=== PATIENT | female | born 1960 | race Caucasian/White ===

== ENCOUNTER 2020-11-15 16:43 | Outpatient (CLI) | payer BC, SELFPAY ==
--- NOTE | ~2020-11-15 | US_ITS ---
EXAMINATION: US venous doppler [facility] EXAM DATE: 11/15/2020 17:39 INDICATION: Left leg pain/not. On Plavix. TECHNIQUE: Multiple grayscale, color flow and Doppler images of the left lower extremity deep venous system were obtained and reviewed. There is no prior study for comparison. FINDINGS: The left common femoral, femoral and profunda veins demonstrate normal color flow, respirat ory variation, augmentation and compressibility. Compressibility, color flow confirmed within the le ft popliteal, posterior tibial, peroneal, and greater saphenous veins. Patient has an area of concern left thigh posterolaterally, and deep to this within the subcutaneous fat is a focal nonspecific hyperechoic region measuring about 1.6 x 1.4 x 0.6 cm which was avascular, could be fat necrosis or hematoma. IMPRESSION: 1. No left lower extremity deep venous thrombosis. 2. Small focal nonspecific region at area of concern, probably not clinically significant but if thi s does not resolve clinically then recommend follow-up ultrasound. Reviewed, dictated and finalized at location A. IMPRESSION: 1. No left lower extremity deep venous thrombosis. 2. Small focal nonspecific region at area of concern, probably not clinically significant but if this does not resolve clinically then recommend follow-up ul
== END 2020-11-15 16:44 | disposition home or self-care (01) ==
LOC: ANHIMG 16:50
PROVIDERS: PCP Internal Medicine; Visit Provider Internal Medicine Cardiovascular Disease
DX: M79.605 Pain in left leg (principal); R22.42 Localized swelling, mass and lump, left lower limb
CPT/HCPCS: 93971

== ENCOUNTER → 2021-01-31 09:29 | Outpatient (CLI) | payer BC, SELFPAY ==
--- NOTE | ~2021-01-31 | XR_ITS ---
EXAMINATION: XR thoracic spine 2V DATE: 01/31/2021 10:06 INDICATION: Rheumatoid arthritis, unspecified TECHNIQUE: AP, lateral and lateral swimmer's views of the thoracic spine were obtained. COMPARISON: 03/01/2015 FINDINGS: Bone alignment is normal. There is no fracture. There is unchanged mild loss of interverteb ral disc space height at multiple levels in the thoracic spine. Small degenerative osteophytes projec t from the anterior endplates of multiple vertebral bodies. Median sternotomy wires and mediastinal s urgical clips are seen, likely from prior coronary artery bypass grafting. A dual-lead cardiac pacema ker of the left chest wall ends with leads in expected locations. IMPRESSION: 1. Moderate thoracic spondylosis without acute findings or significant interval change. Reviewed, dictated and finalized at location A.
--- NOTE | ~2021-01-31 | XR_ITS ---
EXAMINATION: XR lumbar spine 2-3V DATE: 01/31/2021 10:06 INDICATION: Rheumatoid arthritis, unspecified TECHNIQUE: Anteroposterior and lateral views of the lumbar spine, and cone-down lateral view of the l umbosacral junction were obtained. COMPARISON: None. FINDINGS: Lumbar levocurvature is noted. There is no fracture. There are 3 mm of retrolisthesis of L5 on S1. There is severe loss of intervertebral disc space height at L5-S1. Mild loss of intervertebra l disc space height is seen throughout the remainder of the lumbar spine. Small degenerative osteophy marcus project from the anterior endplates of multiple vertebral bodies. Calcified atherosclerosis is no nimo. There is moderate to severe facet osteoarthritis of the lower lumbar spine. IMPRESSION: 1. Severe lumbar spondylosis at L5-S1 without acute findings. Mild spondylosis of the remaining lumba r spine. Reviewed, dictated and finalized at location A. IMPRESSION: 1. Severe lumbar spondylosis at L5-S1 without acute findings. Mild spondylosis of the remaining lumbar spine.
== END ==
PROVIDERS: PCP Internal Medicine
DX: M06.9 Rheumatoid arthritis, unspecified (principal); M47.816 Spondylosis without myelopathy or radiculopathy, lumbar region; M47.814 Spondylosis without myelopathy or radiculopathy, thoracic region
CPT/HCPCS: 72070; 72100

== ENCOUNTER → 2021-01-31 09:31 | Outpatient (CLI) | payer BC, SELFPAY ==
--- NOTE | ~2021-01-31 | DEXA_ITS ---
Bone Density Report Name: Kate Obrien Age: 60 Sex: Female Ethnicity: White Date of : 1960 Indication: postmenopausal; screening for osteoporosis; height loss; inflammatory bowel disease; history of glucocorticoids; hysterectomy; rheumatoid arthritis; Referring Provider: AMINATA BOONE Study: Bone densitometry was performed. Exam Date: January 31, 2021 Accession number: [id number] Bone Density: Region BMD T-score Z-score Classification AP Spine (L1-L4) 1.179 1.2 2.8 Normal Femoral Neck (Left) 0.807 -0.4 1.0 Normal Total Hip (Left) 0.966 0.2 1.3 Normal Femoral Neck (Right) 0.835 -0.1 1.3 Normal Total Hip (Right) 0.945 0.0 1.1 Normal Total Hip Mean 0.956 0.1 1.2 Normal World Health Organization criteria for BMD impression classify patients as: Normal (T-score at or above -1.0), Osteopenia (T-score between -1.0 and -2.5), or Osteoporosis (T-score at or below -2.5). 10-year Fracture Risk: FRAX not reported because: All T-scores for Spine Total, Hip Total, Femoral Neck at or above -1.0 Clinical Information Provided by Patient: Has taken Glucocorticoids Has rheumatoid arthritis Has used the following medications: Vitamin D, Calcium, PREDNEZONE Has the following medical conditions: Inflammatory bowel diseases, Hysterectomy, COLITIS Patient maximum height was 69 Menopause Age: 47 Onset of menses at age 10 Number of children 1 Missed period for more than 6 months in a row Impression: The patient has normal bone mass. The patient has risk factors, including: history of glucocorticoid therapy. Discussion: BONE DENSITY IS ABOVE THE MINIMUM DESIRABLE LEVEL AT ALL SKELETAL SITES TESTED. This patient?s bone mineral density is above the minimum desirable level (T-score -1.0 or better) at all sites measured. The patient should follow a healthful lifestyle (good nutrition with adequate calcium and vitamin D, and appropriate weight-bearing exercise). Follow-Up: Consider repeating this study in 5 years or sooner if there is some new clinical indication. Reported by: BRUNO on 01/31/2021 9:51:00 AM. Reviewed, dictated and finalized at location [facility]
== END ==
PROVIDERS: PCP Internal Medicine; Visit Provider Internal Medicine
DX: Z78.0 Asymptomatic menopausal state (principal)
CPT/HCPCS: 77080

== ENCOUNTER → 2021-06-07 09:27 | Outpatient (CLI) | payer MEDICARE, SELFPAY ==
[2021-06-07 19:53] LABS: SARS-CoV-2 RNA PCR Negative
== END ==
PROVIDERS: PCP Internal Medicine; Visit Provider Internal Medicine
DX: R09.89 Other specified symptoms and signs involving the circulatory and respiratory systems (principal); Z20.822 Contact with and (suspected) exposure to COVID-19
CPT/HCPCS: C9803; U0003; U0005

== ENCOUNTER → 2022-08-09 10:34 | Outpatient (CLI) | payer MEDICARE, SELFPAY ==
--- NOTE | ~2022-08-09 | CT_ITS ---
CT Scan of the Chest without Contrast: Clinical Indication: Smoking history, lung cancer screening, personal history of tobacco dependence Technique: Contiguous sections were acquired throughout the chest without intravenous contrast. Dose reduction technique was used on this scan by utilizing automated exposure control and iterative recon struction technique. The dose-length product (DLP) was 64.33 mGy-cm. Findings: There is no evidence of any significant mediastinal, hilar or axillary lymphadenopathy. There is evid ence of prior CABG, with pacemaker device. There is no evidence of pleural or pericardial effusion. 3 mm right lower lobe pulmonary nodule noted (axial image 83). Moderate to advanced emphysema noted. Images through the upper abdomen reveal no abnormalities. Impression: Lung-RADS 2: Benign appearance. 12 month follow-up screening CT advised. Moderate to advanced emphysema. Reviewed, dictated and finalized at location . Impression: Lung-RADS 2: Benign appearance. 12 month follow-up screening CT advised. Moderate to advanced emphysema.
--- NOTE | ~2022-08-09 | MM_ITS ---
EXAMINATION: MM screening phuc BI w angelic HISTORY: Screening TECHNIQUE: Craniocaudal and mediolateral oblique 3-D tomosynthesis images were obtained and synthetic 2-D images were generated. CAD analysis was submitted and interpreted. COMPARISON: No prior mammogram is available for comparison at this institution. BREAST PARENCHYMAL COMPOSITION: The breasts are heterogeneously dense, which may obscure small masses . FINDINGS: There are benign bilateral breast calcifications. There is no evidence of suspicious mass, calcification, or architectural distortion to suggest malignancy in either breast. There has been no suspicious interval change. IMPRESSION: 1. No mammographic evidence of malignancy. 2. Recommend routine screening mammography in one year. BI-RADS Category 2: Benign finding(s). Reviewed, dictated and finalized at location A.
== END ==
PROVIDERS: PCP Family Medicine; Visit Provider Family Medicine
DX: Z12.31 Encounter for screening mammogram for malignant neoplasm of breast (principal); Z12.2 Encounter for screening for malignant neoplasm of respiratory organs; Z87.891 Personal history of nicotine dependence; J43.9 Emphysema, unspecified
CPT/HCPCS: 71271; 77063; 77067

== ENCOUNTER 2022-11-24 06:37 | Emergency (ER) | payer MEDICARE, SELFPAY ==
--- NOTE | ~2022-11-24 | XR_ITS ---
EXAMINATION: XR hand LT min 3V DATE: 11/24/2022 08:15 INDICATION: Left hand pain. Fall. TECHNIQUE: 3 views of left hand were obtained. COMPARISON: Left hand radiographs 06/03/2013 FINDINGS: Bone alignment is normal. No fracture. There is an implant at second metacarpophalangeal galileo int. There are erosions at the radial aspects of the heads of third, fourth, and fifth proximal phala nges. There is an erosion of head of fourth middle phalanx. There is moderate osteoarthritis of fourt h proximal interphalangeal joint. IMPRESSION: 1. No fracture. 2. Implant at second metacarpophalangeal joint. 3. Polyarticular inflammatory arthritis. The differential diagnosis includes rheumatoid arthritis and psoriatic arthritis. Reviewed, dictated and finalized at location A. IMPRESSION: 1. No fracture. 2. Implant at second metacarpophalangeal joint. 3. Polyarticular inflammatory arthritis. The differential diagnosis includes rh eumatoid arthritis and psoriatic arthritis.
--- NOTE | ~2022-11-24 | XR_ITS ---
EXAMINATION: XR wrist LT min 3V DATE: 11/24/2022 08:15 INDICATION: Left wrist pain TECHNIQUE: Three views of the left wrist were obtained. COMPARISON: 06/03/2013 FINDINGS: Bone alignment is normal. There is no fracture. The soft tissues are unremarkable. IMPRESSION: 1. No acute osseous abnormality. Reviewed, dictated and finalized at location A.
--- NOTE | ~2022-11-24 | XR_ITS ---
EXAMINATION: XR elbow LT min 3V DATE: 11/24/2022 08:15 INDICATION: Left elbow pain, initial encounter TECHNIQUE: Three views of the left elbow were obtained. COMPARISON: None. FINDINGS: There is an acute, traumatic, closed, transverse neck fracture of the proximal radius. Ther e are approximately 2 mm of medial displacement of the distal fracture fragment. An elbow joint effus ion is present. No additional fracture is identified. IMPRESSION: 1. Acute radial neck fracture. Reviewed, dictated and finalized at location A.
[2022-11-24 06:38] VITALS: BP 109/70; PULSE 77; RESP 16; TEMP 35.7; O2SAT 100
[2022-11-24 07:10] VITALS: BP 104/82; PULSE 80; RESP 18; TEMP 36.7; O2SAT 100
--- NOTE | 2022-11-24 07:41 | ED.UPPEXIN ---
HPI - Extremity Injury (Upper) General Chief Complaint: Extremity Injury, Upper Stated Complaint: fall, left arm pain Time Seen by Provider: 11/24/22 07:39 Source: patient Mode of arrival: ambulatory Limitations: no limitations History of Present Illness HPI narrative: Patient tripped and fell yesterday afternoon, landed on the left hand wrist and elbow. She denies other injuries. She drove herself to the emergency room this morning. Related Data Home Medications Medication Instructions Recorded Confirmed atorvastatin 40 mg tablet 40 mg PO DAILY 09/14/20 11/23/20 brimonidine 0.2 %-timolol 0.5 % 1 drp EACH EYE Q12H 09/14/20 11/23/20 eye drops (Combigan) carvedilol 6.25 mg tablet 6.25 mg PO Q12H 09/14/20 11/23/20 citalopram 20 mg tablet 20 mg PO DAILY 09/14/20 11/23/20 furosemide 20 mg tablet 20 mg PO .COMPLEX 09/14/20 11/23/20 aspirin 81 mg tablet,delayed 81 mg PO DAILY 09/16/20 11/23/20 release (Adult Aspirin Regimen) clopidogrel 75 mg tablet 75 mg PO DAILY 09/16/20 11/23/20 diclofenac sodium 1 % topical gel 4 g topical QID 09/16/20 11/23/20 isosorbide mononitrate 30 mg 30 mg PO DAILY 09/16/20 11/23/20 tablet,extended release 24 hr prednisone 5 mg tablet 7.5 mg PO DAILY 09/16/20 11/23/20 folic acid 1 mg tablet 2 mg PO DAILY 05/26/22 methotrexate sodium 2.5 mg tablet 12.5 mg PO WEEKLY 05/26/22 Allergies Allergy/AdvReac Type Severity Reaction Status Date / Time acetaminophen Allergy Mild ITCH Verified 11/24/22 06:37 inositol Allergy Unknown Unknown Verified 11/24/22 06:37 niacin Allergy Unknown Unknown Verified 11/24/22 06:37 niacinamide Allergy Unknown Unknown Verified 11/24/22 06:37 Sulfa (Sulfonamide Allergy Unknown Unknown Verified 11/24/22 06:37 Antibiotics) HYDROCODONE BIT Allergy Mild ITCH Uncoded 11/24/22 06:37 Review of Systems Review of Systems: All systems reviewed & are unremarkable except as noted in HPI and below PMFSH Past Medical History Medical History Acute nasopharyngitis (common cold) Acute pharyngitis, unspecified (04/25/17) Anxiety disorder, unspecified Cardiomyopathy Herpes zoster without complication Obstructive sleep apnea Old myocardial infarction Rheumatoid arthritis, unspecified Rhinitis, nonallergic Right rotator cuff tendonitis Sleep apnea, unspecified Spondylolysis of lumbosacral region Unspecified glaucoma Upper respiratory infection, acute Warfarin anticoagulation Family History Family History Mother Family history of arthritis Family history of heart disease in male family member before age 55 Father Family history of type 2 diabetes mellitus Family history of heart disease in male family member before age 55 Social History Social History Smoking status: Former smoker Smoking end date: 05/21/12 Alcohol intake: current Substance use: never Substance use type: does not use Lack of Transportation: No Lack of Food: Never True Current Housing: I Have Housing Concerned About Future Housing: No Difficulty Paying Gas/Electric Bills: No Difficulty Paying for Meds: No Currently Unemployed: No Education: High School Diploma/GED Difficulty w/ Childcare or Family Care: No Gender identity (if verbalized by the patient): Female Spiritual care concerns: No Exam Narrative: General appearance: Well-developed, well-nourished Skin: Normal color Head: Normocephalic, nontraumatic Eyes: Clear conjunctiva ENT: Oropharynx normal, ears normal, nose normal Neck: Supple, nontender Chest and respiratory: Airway patent, no respiratory distress, no accessory muscle use Heart: Regular rate/rhythm Abdomen: Soft, nontender, no organomegaly, quiet bowel sounds Vascular: Normal peripheral pulses, normal capillary refill. Musculoskeletal: Diffuse tenderness left hand, left wrist and left elbow, w
[2022-11-24 09:29] VITALS: BP 140/78; PULSE 68; RESP 18; O2SAT 97
== END 2022-11-24 09:30 | disposition home or self-care (01) ==
PROVIDERS: Emergency Provider Emergency Medicine; PCP Family Medicine
DX: S52.132A Displaced fracture of neck of left radius, initial encounter for closed fracture (principal); I25.2 Old myocardial infarction; G47.33 Obstructive sleep apnea (adult) (pediatric); I42.9 Cardiomyopathy, unspecified; M06.9 Rheumatoid arthritis, unspecified; H40.9 Unspecified glaucoma; F41.9 Anxiety disorder, unspecified; Z87.891 Personal history of nicotine dependence; Z79.82 Long term (current) use of aspirin; W01.0XXA Fall on same level from slipping, tripping and stumbling without subsequent striking against object, initial encounter
CPT/HCPCS: 73080; 73110; 73130; 99284; A4565

== ENCOUNTER 2024-03-19 15:12 | Outpatient (CLI) | payer MEDICARE, SELFPAY ==
--- NOTE | ~2024-03-19 | MM_ITS ---
EXAMINATION: MM screening phuc BI w angelic HISTORY: Screening mammogram TECHNIQUE: Craniocaudal and mediolateral oblique 3-D tomosynthesis images were obtained and synthetic 2-D images were generated. CAD analysis was submitted and interpreted. COMPARISON: 08/09/2022 BREAST PARENCHYMAL COMPOSITION:Dense: The breasts are heterogeneously dense, which may obscure small masses. FINDINGS: No suspicious mass, calcification, or architectural distortion are identified in either kate ast to suggest malignancy. There has been no suspicious interval change. IMPRESSION: No mammographic evidence of malignancy. Recommend routine screening mammography in one year. BI-RADS Category 1: Negative Reviewed, dictated and finalized at location .
== END 2024-03-19 15:13 | disposition home or self-care (01) ==
PROVIDERS: PCP Family Medicine; Visit Provider Family Medicine
DX: Z12.31 Encounter for screening mammogram for malignant neoplasm of breast (principal)
CPT/HCPCS: 77063; 77067

== ENCOUNTER 2024-08-14 00:21 | Day surgery (SDC) | payer MEDICARE, SELFPAY ==
[2024-07-01 14:19] VITALS: BMI 24.0
--- NOTE | 2024-07-01 14:46 | PC.NURSE ---
Spoke with PATIENT regarding medication PLAVIX. PATIENT verbalizes understanding that the last dose is to be taken on 07/01/2024 and the Endoscopist will instruct them when to restart after the procedure.
[2024-08-05 13:51] VITALS: BMI 23.8
--- NOTE | 2024-08-05 14:01 | SUR.PREOP ---
Spoke with patient. No changes to medical history or medications and verified new date and time for her procedure. Last dose of plavix will be 08/06/[address] Gonzalez will let her know when to restart.
--- OUTSIDE RECORDS SUMMARY | 2024-08-14 00:25 | XMS_ITS | Continuity of Care Document ---
Author Organization [facility] Address [address] [place] [address] Phone Care Team Providers Care Supervisor Fur Dressing Name Role Phone Elio Canela Unavailable Unavailable Procedures Procedure Date Office/outpatient Visit, Est Visual Field Examination(s) Eye Exam & Treatment Refraction Office/outpatient Visit, Est Fundus Photography W/ Report Visual Field Examination(s) Office/outpatient Visit, Est Eye Exam Established Pt Advance Directives Directive Yes / No Effective Date File Name No Information Encounters Encounter Description Practice Location Reason(s) For Visit Diagnoses Date Provider Providers Copied on Encounter Office/outpat ient Visit, Est [facility], [address] [place] [address] [address], [place], [place], [id number], tel:[phone] [facility] No Information [phone] 0 Hilton Ballard. [address] [facility] [address] , [address], [place], [address], [place]. tel:[phone] [facility], [address] [place] [address] [address], [place], [place], [id number], [place] tel:[phone] SEC [facility] No Information 4-201 0 Hilton Ballard. [address] , [address], [place], [address], [place]. tel:[phone] Referring Provider: Elio Gil, [address], [place], [place], [facility]. tel:[phone] [facility], [address] [place] [address] [address], [place], [place], [id number], tel:[phone] [facility] No Information 1 3200 9 Hilton Ballard. [facility] [address], [address], [place], [place], [facility], . tel:[phone] Office/outpat ient Visit, [facility], [address] [place] [address] [address], [place], [place], [id number], tel:[phone] [facility] No Information 1 1200 9 Hilton Ballard. [facility] [address], [place], [place], [facility], . tel:[phone] Referring Provider: Jair Dobbins [facility] [address], [place], [place], [facility]. tel:[phone] [facility], [address] [place] [address] [address], [place], [place], [id number], tel:[phone] [facility] No Information 0 [phone] 8 Hilton Ballard. [facility] [address], [place], [facility], . tel:[phone] Referring Provider: Jair Dobbins [address], [place], [facility]. tel:[phone] Office/outpat ient Visit, [facility], [address] [place] [address] [address], [place], [place], [id number], tel:[phone] [facility] No Information 0 [phone] 8 Hilton Ballard. [facility] [address], [place], [address], [place]. tel:[phone] [facility], [address], [place], [place], [id number], [place] tel:[phone] SEC [facility] No Information Mar-0 5-200 7 Tarunkiersten Elio. [address], [address], [place], [address], [place]. tel:[phone] Family History Family Member Type Diagnosis Age At Onset No Information Payers Payer name Insurance type Covered alliance party ID Authoriza tion(s) No Information Social History Type Description Quantity Date Captured Comments Sex Female Smoking Status No Information Chief Complaint And Reason For Visit No Information Reason For Referral Reason For Referral No Information History Of Present Illness Encounter Date Complaint History Of Prese nt Illness No Information Functional Status Date Functional Assessmen t No Information Instructions Date Instruction Additional Infor mation No Information Assessments Type Assessment Date No Information Patient Care Teams Name Effective Dates (start - stop) Status Members No Information
--- OUTSIDE RECORDS SUMMARY | 2024-08-14 00:26 | XMS_ITS | Referral Summary ---
Author Organization 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); Dry eye syndrome of both eyes; Age-related nuclear cataract of both eyes; Pseudophakia of both eyes 06/12/2024 11:20 AM EMBEDDED SYSTEMS DESIGNER Imaging Exam [facility] [address] [address] Macular RPE mottling; Borderline steroid-induced glaucoma of both eyes from Last 3 Months Allergies Active Allergy Reactions Criticality Noted Date Comments Codeine Itching Low 07/11/2018 Hydrocodone-Acetaminophen Itching High 06/03/2015 Niacin Itching Medium Simvastatin Muscle pain Medium Sulfa (Sulfonamide Antibiotics) Nausea & Vomiting High 06/03/2015 Sulfadiazine Stomach upset High 06/03/2015 Medications clopidogrel (PLAVIX) 75 mg tabletIndication s:Thrombosis Prevention after PCI Take 1 tablet (75 mg total) by mouth every morning Active atorvastatin (LIPITOR) 40 mg tablet Take 1 tablet (40 mg total) by mouth daily 90 tablet 3 9 Active carvedilol (COREG) 6.25 mg tablet TAKE 1 TABLET BY MOUTH TWICE A DAY 180 tablet 2 9 Active isosorbide mononitrate ER (IMDUR) 30 mg 24 hr tabletIndication s:prevention of anginal pain in coronary artery disease Take 1 tablet (30 mg total) by mouth every morning 0 Active furosemide (LASIX) 20 mg tablet TAKE 1 TABLET 2 TIMES PER WEEK. 14 tablet 0 Active diclofenac sodium (VOLTAREN) 1 % gel Apply 4 g topically 4 (four) times a day 1 Tube 1 0 Active multivitamin capsuleIndicatio ns:Vitamin Deficiency Prevention Take 1 capsule by mouth every morning 9 Active magnesium oxide (MAG-OX) 400 mg (241.3 mg elemental magnesium) tabletIndication s:hypomagnesemia Take 1 tablet (400 mg total) by mouth every morning 0 Active acetaminophen (TYLENOL) 500 mg tablet Take 2 tablets (1,000 mg total) by mouth every 6 (six) hours as needed for pain Active aspirin 81 mg chewable tabletIndication s:Heart attack/ CABG surgeries twice Take 1 tablet (81 mg total) by mouth nightly Active ascorbic acid (ascorbic acid with den hips) 500 mg tablet,chewableI ndications:immun e support Take 1 tablet/chew tab (500 mg total) by mouth every morning Active losartan (COZAAR) 50 mg tablet Take 0.5 tablets (25 mg total) by mouth nightly 3 Active clobetasoL (CLOBEX) 0.05 % shampoo APPLY TOPICALLY TO THE AFFECTED AREA DAILY 4 Active clotrimazole 1 % cream APPLY EXTERNALLY TO THE AFFECTED AREA ON SNOW EVERY 12 HOURS 4 Active traZODone (DESYREL) 50 mg tablet Take 1 tablet (50 mg total) by mouth daily as needed 4 Active methotrexate 2.5 mg tabletIndication s:autoimmune disease Take 5 tablets (12.5 mg total) by mouth every 7 days 60 tablet 1 4 Active folic acid (FOLVITE) 1 mg tabletIndication s:Folate Deficiency Take 2 tablets (2 mg total) by mouth every morning 180 tablet 3 4 Active predniSONE (DELTASONE) 5 mg tabletIndication s:Rheumatoid arthritis involving multiple sites with positive rheumatoid factor (HCC) TAKE 1 AND 1/2 TABLETS(7.5 MG) BY MOUTH DAILY 135 tablet 1 4 Active citalopram (CeleXA) 40 mg tabletIndication s:Rheumatoid arthritis, involving unspecified site, unspecified whether rheumatoid factor present (HCC) Take 1 tablet (40 mg total) by mouth daily 90 tablet 3 4 Active timolol (TIMOPTIC) 0.5 % ophthalmic solutionIndicati ons:Borderline steroid-induced glaucoma of both eyes INSTILL 1 DROP IN BOTH EYES DAILY 10 mL 11 5 Active Active Problems Problem Noted Date Diagnosed Date Pseudophakia of both eyes 09/06/2023 Assessment & Plan (09/06/2023 10:47 AM CDT): Doing well post-op cataract extraction (CE) intraocular lens (IOL), monitor Abnormal liver function tests 08/23/2023 Age-related nuclear cataract, left 04/25/2023 Age-related nuclear cataract of right eye 2022 Age-related nuclear cataract of both eyes 2022 Assessment & Plan (03/06/2023 1:07 PM CDT): Approx 3 D myopic shift both eyes (OU), pt c/o glare + blurred vision. History of oral steroid use with RA. 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 Monitor. RTC with any acute vision changes. Assessment & Plan (08/12/2020 7:30 PM CDT): Pt ed - RTC with any changes/distortion in vision. Non -smoker. Refraction disorder 08/12/2020 Assessment & Plan (03/06/2023 1:08 PM CDT): Hold Rx until after Ce, if indicated Assessment & Plan (09/08/2021 1:18 PM CDT): Cont with hRx Assessment & Plan (08/12/2020 7:26 PM CDT): Release updated Mrx Uses LifeVest defibrillator 02/15/2020 AICD malfunction 02/15/2020 Essential hypertension 02/15/2020 Depression 02/15/2020 Implantable cardioverter-defibrillator discharge 01/30/2020 Finger mass, left 06/11/2019 Overview (06/11/2019): Added automatically from request for surgery [id number] PAD (peripheral artery disease) 10/02/2018 Dry eye syndrome of both eyes 06/20/2018 Assessment & Plan (06/12/2024 5:32 PM EMBEDDED SYSTEMS DESIGNER): Continue with PF AFT TID and PRN Assessment & Plan (09/06/2023 10:46 AM CDT): Pfats TID+ OU Assessment & Plan (04/25/2022 11:23 AM EMBEDDED SYSTEMS DESIGNER): Cont emycin rona at bedtime (qhs) Assessment & Plan (09/08/2021 1:18 PM CDT): pfats prn ICD (implantable cardioverte r-defibrillator), single, in situ 12/01/2016 Overview (12/01/2016): Biotronik ICD, 2014, Dr. Rose Assessment & Plan (12/01/2016 8:54 AM CDT): Followed by Dr. Rose, no ventricular arrhythmias or discharges Hypotension 12/01/2016 Assessment & Plan (12/01/2016 8:55 AM CDT): Chronically low blood pressure limits medical therapy of cardiomyopathy, mildly dizzy at times Rheumatoid arthritis, adult 12/01/2016 Assessment & Plan (12/01/2016 8:56 AM CDT): If patient chooses to try 1 of the new rheumatoid arthritis drugs he will need to be followed more closely for any exacerbation of CHF. Multiple-type hyperlipidemia 06/16/2016 Overview (08/24/2016): Mixed hyperlipidemia Assessment & Plan (12/01/2016 8:55 AM CDT): Good control with atorvastatin Borderline glaucoma 04/13/2015 Borderline steroid-induced glaucoma 04/13/2015 Overview (09/08/2021): OCT 08/12/20 - normal RNFL thickness both eyes (OU) Assessment & Plan (06/20/2024 4:16 PM EMBEDDED SYSTEMS DESIGNER): Visual field (VF), OCT normal/reassuring, pt ed. Continue with Timolol QDAY OU Assessment & Plan (09/06/2023 10:46 AM CDT): IOPs adequate - OK to stop Brim Cont timolol qam OU Assessment & Plan (03/06/2023 1:08 PM CDT): Cont Brim + Timolol BID both eyes (OU) IOPs adequate at this time for optic nerve (ON)/visual field VF Assessment & Plan (08/30/2022 9:36 AM CDT): IOPs higher, but missed drops this morning (normally remembers) IOPs adequate for optic nerve (ON)/VF - CPM - RTC 6 mo intraocular pressure (IOP), DFE, pach, gonio Assessment & Plan (03/09/2022 10:29 AM CDT): IOPs adequate for optic nerve (ON)/VF, cpm Assessment & Plan (09/08/2021 1:22 PM CDT): intraocular pressure (IOP) low/at goal, CPM Assessment & Plan (02/10/2021 11:11 AM CDT): Intraocular pressure (IOP) adequate for the ONH/VF. Very thick CCTs (~600 both eyes (OU) - Continue brimonidine and timolol BID OU - RTC 6 months for DFE Assessment & Plan (08/12/2020 7:27 PM CDT): Intraocular pressure (IOP) adequate for the ONH/VF. Very thick CCTs (~600 both eyes (OU). CPM. Chronic systolic heart failure 04/05/2015 Overview (08/24/2016): Chronic systolic heart failure Assessment & Plan (12/01/2016 8:47 AM CDT): Exercise tolerance has improved. Euvolemic, class 1-2 symptoms, improved. 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: CABG x2 with aneurysmectomy Postop had coronary occlusion requiring urgent intervention Doing well with no angina History of coronary artery bypass surgery 2014 Overview (08/24/2016): Hx of CABG Aneurysm of left ventricle of heart 08/10/2014 Overview (08/24/2016): Left ventricular aneurysm Assessment & Plan (12/01/2016 8:55 AM CDT): Large aneurysm resected with CABG Pain of foot 02/25/2014 Pain of hand 06/10/2013 Mitral valve disease 09/23/2012 Overview (08/25/2016): MITRAL VALVE DISORDER Tricuspid valve disorders, non-rheumatic 013 Overview (08/25/2016): NONRHEUM TRICUSP RADHA DIS Chronic ischemic heart disease 09/23/2012 Overview (08/26/2016): CHR ISCHEMIC HRT DIS NEC Assessment & Plan (12/01/2016 8:48 AM CDT): 2014 n: EF 30% around the time of her aneurysmectomy 02/2016: EF 40-45% with akinesis of the anterior apical segments, mild MR/TR. Overall improving Constipation 04/24/2012 Ovarian retention cyst 10/23/2011 Cardiac disease 10/23/2011 Resolved Problems Problem Noted Date Diagnosed Date Resolved Date Combined forms of age-related cataract 04/13/2015 08/12/2020 Assessment & Plan (08/12/2020 7:27 PM CDT): Defer cataract surgery until signs and symptoms indicate. Pt was educated on the diagnosis. Recommend daily UV protection. Syncope 08/10/2014 12/01/2016 Overview (08/24/2016): Syncope Orthostasis 08/10/2014 12/01/2016 Overview (08/24/2016): Orthostasis History of anticoagulant therapy 09/23/2012 12/01/2016 Overview (08/24/2016): LONG-TERM USE ANTICOAGUL Occlusion of coronary artery 09/23/2012 12/01/2016 Overview (08/24/2016): CHR TOT OCCLUS COR ARTRY Pure hypercholesterolemia 09/23/2012 Overview (08/24/2016): PURE HYPERCHOLESTEROLEM Palpitations 09/23/2012 12/01/2016 Overview (08/24/2016): PALPITATIONS Immunizations Immunization Administration Dates Next Due PPD TEST 06/13/2010 Pfizer SARS-CoV-2 Monovalent Vaccination (12+ Yrs) PURPLE 01/14/2021 Pneumococcal Polysaccharide PPV23 04/06/2020 Social History Tobacco Use Types Packs/Day Years Used Date Smoking Tobacco: Former Cigarettes 1 38.5 1 977 - 12/01/2014 Passive Smoke Exposure: Never Smokeless Tobacco: Never Tobacco Cessation:Counseling Given: Not Answered Alcohol Use Standard Drinks/Week Comments Yes 0 (1 standard drink = 0.6 oz pur e alcohol) occassionally AUDIT-C Answer Date Recorded Q1: How often do you have a drink containing alc ohol? 2-4 times a month 05/07/2023 Q2: How many drinks containi ng alcohol do you have on a typical day when you are drinking? 1 or 2 05/07/2023 Q3: How often do you have si x or more drinks on one occasion? Never 05/07/2023 Personal Safety Answer Date Recorded Have you ever been in or are you currently in a harmful physical or emotional relationship or is someone making you feel afraid or unsafe? Denies 05/07/2023 Comments No Sex and Gender Information Value Date Recorded Sex Assigned at Not on file Legal Sex Female 9:01 PM EMBEDDED SYSTEMS DESIGNER Gender Identity Not on file Sexual Orientation Not on file Last Filed Vital Signs Vital Sign Reading Time Taken Comments Blood Pressure 119/76 04/23/2024 2:08 PM EMBEDDED SYSTEMS DESIGNER Pulse 76 04/23/2024 2:08 PM EMBEDDED SYSTEMS DESIGNER Temperature 36.5 C (97.7 F) 04/23/2024 2:08 PM EMBEDDED SYSTEMS DESIGNER Respiratory Rate 16 08/23/2023 9:33 AM CDT Oxygen Saturation 98% 08/23/2023 9:33 AM CDT Inhaled Oxygen Concentration - - Weight 71.2 kg (157 lb) 04/23/2024 2:08 PM EMBEDDED SYSTEMS DESIGNER Height 172.7 cm (5' 8 ) 04/23/2024 2:08 PM EMBEDDED SYSTEMS DESIGNER Body Mass Index 23.87 04/23/2024 2:08 PM EMBEDDED SYSTEMS DESIGNER Plan of Treatment Not on file Medical Devices Implanted Type Area Biomedical Service Engineer Device Identifier Shelf Expiration Date Model / Serial / Lot Icd ICD Chest Wall Description:Implanted 2014 p er pt [id number] 21.5 Vlareon Iol Ashperic Uv Absorbing Iol Implanted:Qty : 1 on 05/07/2023 by María Araiza MD at [facility] Lens Left: Eye [employer] 07/02/2026 CCA0T0 / [id number] / Other - See Comments-02/18 Implanted:03/2015 (Quantity not on file) Other - see comments Left: Chest Wall Biotronik Screw Screw Left: Foot Description:Screw in great l eft toe Clareon Uv Iol [id number] 21.0 Implanted:Qty : 1 on 04/16/2023 by María Araiza MD at [facility] Right: Eye [employer] 11/20/2026 CCA0T0.21 0 / [id number] / Procedures Procedure Name Priority Date/Time Associated Diagnosis Comments OCT, OPTIC NERVE - OU - BOTH EYES Routine 06/12/2024 11:19 AM EMBEDDED SYSTEMS DESIGNER Borderline steroid-induced glaucoma of both eyes OCT, RETINA - OU - BOTH EYES Routine 06/12/2024 11:19 AM EMBEDDED SYSTEMS DESIGNER Macular RPE mottling HEPATITIS C ANTIBODY Routine 11/26/2023 12:29 PM CDT Abnormal liver function tests DEXA AXIAL SKELETON BONE DENSITY WITH VERTEBRAL FRACTURE ASSESSMENT Schedule Routine, Read Routine (OP Routine) 06/18/2018 9:20 AM EMBEDDED SYSTEMS DESIGNER High risk medication use from Last 3 Months or Most Recently Relevant to Health Maintenance Results * OCT, Optic Nerve - OU - Both Eyes (06/12/2024 11:19 AM EMBEDDED SYSTEMS DESIGNER) Anatomical Region Laterality Modality Head Other Narrative 06/18/2024 1:23 PM EMBEDDED SYSTEMS DESIGNER Right Eye Reliability was good. Temporal thickness was normal. Superior thickness was normal. Nasal thickness was normal. Inferior thickness was normal. Left Eye Reliability was good. Temporal thickness was normal. Superior thickness was normal. Nasal thickness was normal. Inferior thickness was normal. Result [facility] Sophie Vicki Elaine OD OPHTH TOMOGRAPHY Final Res ult * OCT, Retina - OU - Both Eyes (06/12/2024 11:19 AM EMBEDDED SYSTEMS DESIGNER) Anatomical Region Laterality Modality Head Other Narrative 06/18/2024 1:23 PM EMBEDDED SYSTEMS DESIGNER Right Eye Scan locations included subfoveal. Progression has been stable. Left Eye Quality was good. Scan locations included subfoveal. Progression has been stable. Findings include normal foveal contour. Notes Right eye (OD): focal area of outer retinal loss superior to the fovea, stable Left eye (OS): normal contour Sophie Cohen Elaine OD OPHTH TOMOGRAPHY Final Res ult * Hepatitis C antibody Blood (11/26/2023 12:29 PM CDT) Hep C Ab NON-REACTI VE NON-REACT BALWINDER [facility] Comment: HCV antibody was non-reactive. There is no laboratory evidence of HCV infection. In most cases, no further action is required. However, if recent HCV exposure is suspected, a test for HCV RNA (test code 62673) is suggested. For additional information please refer to http://[email or web address] API.Cortona3D/faq/[email or web address] (This link is being provided for informational/ educational purposes only.) Blood 11/26/2023 12:2 9 PM CDT 11/26/2023 12:30 PM CDT Result [facility] Philip Kee MD LAB MICROBIOLOGY - GENERAL ORDERABLES Final Result [facility] [id number] [id number] * Dexa Axial Skeleton Bone Density With VFA (06/18/2018 9:20 AM EMBEDDED SYSTEMS DESIGNER) Anatomical Region Laterality Modality Body N/A Radiographic Moraima ging Narrative 06/18/2018 10:54 AM EMBEDDED SYSTEMS DESIGNER Patient Name: Kate Obrien Date of : 1960 Date of scan: 06/18/2018 Bone mineral density was performed on a HoloFeastie Discovery Densitometer. Machine Cross-calibration and Precision studies have been performed with a least significant change of 0.024 g/cm at the spine, 0.020 g/cm at the total proximal femur, and 0.014g/cm at the forearm. HISTORY: This is a 57 y.o. postmenopausal female with a history of rheumatoid arthritis. Currently on treatment with calcium, glucocorticoids and vitamin D. Previously treated with anticoagulants. With a current complaint of back and neck pain. History of tobacco use: History Smoking Status Former Smoker Types: Cigarettes Quit date: 12/01/2014 INDICATIONS: Menopause status, currently on 5 mg of glucocorticoids for the past 15 years. FINDINGS: BONE MINERAL DENSITY OF THE LUMBAR SPINE Bone Mineral Density (BMD) of the lumbar spine was measured from L1-L4 and the average density was calculated to be 1.192 gm/cm. This corresponds to a T-score standard deviations from the mean of young adults of 1.3. When compared to the previous study of 04/10/2006 there has been a measured -0.060 gm/cm -4.8% decrease which is considered significant. BONE MINERAL DENSITY OF THE PROXIMAL FEMUR Bone Mineral Density (BMD) of the left hip total was found to be 0.977 gm/cm2. This corresponds to a T-score standard deviations from the mean of young adults of 0.3. Femoral neck is 0.845 gm/cm2 with a T-score of 0.0. When compared to the previous study of 04/10/2006 there has been a measured -0.134 gm/cm -12.1% decrease which is considered significant. SUMMARY: Bone mineral density is near the young adult normal mean with no increased risk for fracture. There has been a significant decrease in bone mineral density since the previous measurement. ADDITIONAL COMMENTS: If the patient has a history of a fragility fracture, a fracture that occurred with trauma equivalent to a fall from a standing position or less, then the diagnosis is osteoporosis. The risk of osteoporotic fracture increases approximately 2-fold for each 1.0 SD decrease in T-score. However, low bone density is not the only risk factor for fracture. Other factors include patient s age, previous osteoporotic fracture or prior fracture as an adult, loss of height of greater than 2 inches, corticosteroid use, risk of falling, risk of injury, and family history of osteoporosis. Not everyone with low bone mineral density has osteoporosis. Osteomalacia and other metabolic bone disorders should also be considered where indicated. Patients who have osteoporosis should be evaluated for specific diseases and conditions (secondary causes) that may cause or contribute to bone loss. Consider repeating this study in 1-2 years to assess the patient s response to treatment, if applicable. It is recommended that any follow up exam be performed on the same machine if possible for better accuracy. DEFINITIONS: Osteoporosis: BMD at or below -2.5 T-score Osteopenia (low bone mass): BMD between -1.0 and-2.5 T-score. The Bone Health Program adopts the following WHO definitions: Osteoporosis: BMD below -2.5 S.D. as compared to the BMD of young normal adults. Osteopenia or Low Bone Mass: BMD between -1.0 and -2.5 S.D. below the BMD of young normal adults. Normal Bone Density: BMD equal to or greater than -1.0 S.D. as compared to the BMD of young normal adults. References: 1) Jomar, Annals of Internal Medicine 114(11): 919-923 (1990) 2) Carr, Lancet 341 : 72-75 (1992) 3) Black, Journal Bone and Mineral Research 7(6): 633-8 (1991) 4) Gomez, Journal Bone and Mineral Research 8(10):1227-33 (1992) The history and data sections of the bone mineral density scan were prepared by Machelle Boyle who is accredited by the International Society of Clinical Densitometry. The overall patient assessment and scan interpretation were performed by Elizabet Pineda MD who is certified by the International Society of Clinical Densitometry. [id number] Vangie Be MD IMG DXA PROCEDURES Final Resu lt from Last 3 Months or Most Recently Relevant to Health Maintenance Insurance MEDICARE [facility] Address: [address] [address] [place] [address] MEDICARE [facility] Address: [address] [address] [place] [address] MEDICARE [facility] Address: [facility] [address] [place] [address] Advance Directives For more information, please contact: [phone] * Full Code (Latest Code Status on File) Date Activated Date Inactivated Comments 02/14/2020 5:06 AM 02/15/2020 10:15 PM Care Teams Administrative Services Officer Relationship Specialty Start Date End Date Zafar Sorenson DO [address] [place] [address] PCP - General Family Medicine 03/09/22 Yinka Lewis MD [address] [place] [address] Consulting Physician Cardiovascular Disease 08/30/20
--- OUTSIDE RECORDS SUMMARY | 2024-08-14 00:26 | XMS_ITS | Clinical Summary ---
Author Organization [facility] Address [address] [place] [address] Care Team Providers Care Yard Rigger Name Role Phone Keith Carreon MD Primary Care Provider [phone] Source Comments [facility],non-owned Affiliates and Associated Physician Practices is amultiple site organization consisting of ambulatory clinics and hospital sitesin [place], [place], [place] and [place]. This disclosure is being madepursuant to the Care Everywhere program and may not contain all information available regarding this patient. Last updated 18.[facility] Allergies No known active allergies Medications * Be aware that medications may not be up to date on this document. Alwaysverify current medications with the patient. Medication Sig Dispensed Refills Start Date End Date Status atorvastatin (LIPITOR) 40 MG tablet Take 40 mg by mouth once daily 11/26/2018 Active brimonidine (ALPHAGAN) 0.2 % ophthalmic solution Instill 1 drop into both eyes 2 times daily 12/08/2019 Active carvedilol (COREG) 6.25 MG tablet Take 1 tablet by mouth 2 times daily 12/23/2018 Active citalopram (CELEXA) 20 MG tablet Take 1 tablet by mouth once daily 12/14/2019 Active clopidogrel (PLAVIX) 75 MG tablet Take 75 mg by mouth once daily Active diclofenac sodium (VOLTAREN) 1 % gel Apply 4 g to affected area once daily as needed 07/01/2019 Active diphenhydramine-APAP, sleep, (TYLENOL PM ES) 25-500 MG tablet Take 1 tablet by mouth nightly as needed Active folic acid (FOLVITE) 1 MG tablet Take 1 mg by mouth once daily 12/01/2014 Active furosemide (LASIX) 20 MG tablet Take 1 tablet by mouth every Sunday & 09/29/2019 Active isosorbide mononitrate CR 24hr (IMDUR) 30 MG tablet Take 30 mg by mouth once daily 05/30/2019 Active methotrexate 2.5 MG tablet Take 6 tablets by mouth every Sunday02/11/2019 Active multivitamins (ONE A DAY) capsule Take 1 capsule by mouth once daily Active predniSONE (DELTASONE) 5 MG tablet Take 5 mg by mouth once daily 03/27/2019 Active oxyCODONE-acetaminoph en (PERCOCET) 5-325 MG tablet Take 1 tablet by mouth every 6 hours as needed 02/11/2019 Active naproxen sodium (ALEVE) 220 MG tablet Take 220 mg by mouth 2 times daily as needed for Pain Active lisinopril (PRINIVIL;ZESTRIL) 5 MG tablet Take 1 tablet by mouth once daily 30 tablet 1 02/03/2020 Active Active Problems Problem Noted Date Diagnosed Date AICD discharge 01/30/2020 Social History Tobacco Use Types Packs/Day Years Used Date Smoking Tobacco: Never Assessed Sex and Gender Information Value Date Recorded Sex Assigned at Not on file Gender Identity Not on file Sexual Orientation Not on file Last Filed Vital Signs Vital Sign Reading Time Taken Comments Blood Pressure 98/60 02/02/2020 10:51 AM CDT Pulse 73 02/02/2020 2:06 PM CDT Temperature 36.5 C (97.7 F) 02/02/2020 10:50 AM CDT Respiratory Rate 16 02/02/2020 10:51 AM CDT Oxygen Saturation 98% 02/02/2020 10:51 AM CDT Inhaled Oxygen Concentration - - Weight 68.2 kg (150 lb 4.8 oz) 01/31/2020 12:08 AM CDT Height 172.7 cm (5' 8 ) 01/31/2020 12:08 AM CDT Body Mass Index 22.85 01/31/2020 12:08 AM CDT Plan of Treatment Health Maintenance Due Date Last Done Comments BONE DENSITY TESTING 1960 COLOGUARD (AGES 45-75) - COL ON CA SCREENING 1958 COLON MONITORING 1958 COLONOSCOPY - COLON CA SCREENING 1958 CT COLONOGRAPHY - COLON CA SCREENING 1960 Colorectal Cancer Screening 1958 FIT - COLON CA SCREENING 1958 FLEX SIG - COLON CA SCREENING 1958 MAMMOGRAM 1958 PAP SMEAR 1958 HIV SCREENING 1973 HEPATITIS C SCREENING 11/05/1976 DTAP/TDAP/TD VACCINES (1 - Tdap) 1977 PNEUMOCOCCAL VACCINE 50+ (1 of 1 - PCV) 2008 ZOSTER VACCINE (1 of 2) 2008 COVID-19 VACCINE (1 - 2023-2 5 season) 2024 INFLUENZA VACCINE (#1) 2024 DEPRESSION SCREENING 05/21/2024 Respiratory Syncytial Virus (RSV) Vaccine Pt: or over 60 yrs (1 - 1-dose 75+ series) 2033 HEPATITIS B VACCINE Aged Out No longe r eligible based on patient's age to complete this topic HIB VACCINE Aged Out No longer eligi ble based on patient's age to complete this topic HPV VACCINE Aged Out No longer eligi ble based on patient's age to complete this topic MENINGOCOCCAL (Group B) VACC INE SHARED DECISION-MAKING Aged Out No longer eligibl e based on patient's age to complete this topic MENINGOCOCCAL GROUPS A/C/Y/W VACCINE Aged Out No longer eligible b ased on patient's age to complete this topic Advance Directives * Full Code (Latest Code Status on File) Date Activated Date Inactivated Comments 01/31/2020 12:07 AM 02/02/2020 5:05 PM Care Teams Yard Rigger Relationship Specialty Start Date End Date Keith Carreon MD [address] [place] [address] PCP - General Internal Medicine 01/30/20
--- OUTSIDE RECORDS SUMMARY | 2024-08-14 00:26 | XMS_ITS | Encounter Summary ---
Author Organization [facility] Address [address] [place] [address] Phone Care Team Providers Care Testing Analyst Name Role Phone Yinka Lewis MD Unavailable Zafar Sorenson DO Primary Care Provider [phone] Encounter Details Date Type Department Care Team (Late st Contact Info) Description 04/25/2023 Orders Only [facility] Ophthalmology [address] [place] [address] María Araiza MD [address] [place] [address] Age-related cataract of left eye (Primary Dx) Social History Tobacco Use Types Packs/Day Years Used Date Smoking Tobacco: Former Cigarettes 1 38.5 1 977 - 12/01/2014 Passive Smoke Exposure: Never Smokeless Tobacco: Never Alcohol Use Standard Drinks/Week Comments Yes 0 (1 standard drink = 0.6 oz pur e alcohol) occassionally AUDIT-C Answer Date Recorded Q1: How often do you have a drink containing alc ohol? Monthly or less 04/25/2023 Q2: How many drinks containi ng alcohol do you have on a typical day when you are drinking? 1 or 2 04/25/2023 Q3: How often do you have si x or more drinks on one occasion? 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 Monthly or less 04/25/2023 4:32 PM Ruthann Webber RN Q2: How many drinks containing alcohol do you have on a typical day when you are drinking? 1 or 2 04/25/2023 4:32 PM Ruthann Webber RN Q3: How often do you have six or more drinks on one occasion? Never 04/25/2023 4:32 PM Ruthann Webber RN documented as of this encounter Plan of Treatment Scheduled Orders Name Type Priority Associated Diagnoses Orde r Schedule IOL Calculation 2nd Eye 38959 - OS - Left Eye Ophthalmology Routine Age-related cataract of left eye Ordered: 04/25/2023 documented as of this encounter Visit Diagnoses Diagnosis Age-related cataract of left eye- Primary documented in this encounter Care Teams Testing Analyst Relationship Specialty Start Date End Date Zafar Sorenson DO [address] [place] [address] PCP - General Family Medicine 03/09/22 Yinka Lewis MD [address] [place] [address] Consulting Physician Cardiovascular Disease 08/30/20 documented as of this encounter
--- OUTSIDE RECORDS SUMMARY | 2024-08-14 00:26 | XMS_ITS | Clinical Summary ---
Author Organization [facility] Address [address] [place] [address] Care Team Providers Care Crate Opener Name Role Phone Yinka Lewis MD Unavailable Zafar Sorenson DO Primary Care Provider [phone] Allergies Active Allergy Reactions Criticality Noted Date [...] 2021 Assessment & Plan (04/25/2022 11:23 AM FOOD SERVICE UTILITY WORKER): Ok to use tdex prn to the [...] (06/11/2019): Added automatically from request for surgery [id number] PAD (peripheral artery disease) 10/02/2018 Dry eye syndrome of both eyes 06/20/2018 Assessment & Plan (06/12/2024 5:32 PM FOOD SERVICE UTILITY WORKER): Continue with PF AFT TID and PRN Assessment & Plan (09/06/2023 10:46 AM CDT): Pfats TID+ OU Assessment & Plan (04/25/2022 11:23 AM FOOD SERVICE UTILITY WORKER): Cont emycin rona at bedtime (qhs) Assessment & Plan (09/08/2021 1:18 PM CDT): pfats prn ICD (implantable cardioverte r-defibrillator), single, in situ 12/01/2016 Overview (12/01/2016): Biotronik ICD, 2015, Dr. Rose Assessment & Plan (12/01/2016 8:54 [...] (OU) Assessment & Plan (06/20/2024 4:16 PM FOOD SERVICE UTILITY WORKER): Visual field (VF), OCT normal/reassuring, pt ed. 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: CABG x2 [...] HYPERCHOLESTEROLEM Palpitations 09/23/2012 12/01/2016 Overview (08/24/2016): PALPITATIONS Encounters Date Type Department Care Team Description 06/12/2024 11:30 AM FOOD SERVICE UTILITY WORKER Office Visit [facility] Ophthalmology [address], [address] [place] [address] Elaine, Sophie Vicki, OD 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); Dry eye syndrome of both eyes; Age-related nuclear cataract of both eyes; Pseudophakia of both eyes 06/12/2024 11:20 AM FOOD SERVICE UTILITY WORKER Imaging Exam [facility] Ophthalmology [address] [place] [id number] Macular RPE mottling; Borderline steroid-induced glaucoma of both eyes from Last 3 Months Immunizations Immunization Administration Dates Next Due PPD TEST 06/13/2010 Pfizer SARS-CoV-2 Monovalent Vaccination (12+ Yrs) PURPLE 01/14/2021 Pneumococcal Polysaccharide PPV23 04/06/2020 Surgical History Surgery Date Site/Laterality Comments CORONARY ARTERY BYPASS GRAFT 09/30/2014 Chronically occluded LAD, silent AR, large apical aneurysm, Two vessel -- SVG to OM SVG to PDA BUNIONECTOMY 02/18/2009 - 03/20/2009 TOE FUSION 02/18/2009 - 03/20/2009 STERNOTOMY 10/04/2014 Redo S/p CABG/ Coronary perforation during attempted angioplasty of posterior descending artery occlusion. CARDIAC DEFIBRILLATOR PLACEMENT 02/18/2015 - 03/20/2015 Biotronik TOTAL ABDOMINAL HYSTERECTOMY W/ BILATERAL SALPINGOOPHORECTOMY 03/21/2012 - 04/19/2012 FEMORAL ARTERY STENT 05/21/2018 - 05/20/2019 RLE TUBAL LIGATION 05/21/1989 - 05/20/1990 FINGER SURGERY Left index finger joint replacement HEART SURGERY 07/19/2021 - 08/18/2021 ABLATION SUPRAVENTRICULAR TACHYCARDIA HAND SURGERY 07/09/2013 Left Left hand excision of rheumatoid nodule from left ring finger proximal interphalangeal joint dorsally, left thumb pulp, left index finger, volar metacarpal phalangeal joint with left index finger metacarpal phalangeal joint, arthroplasty and left ulnar index finger digital nerve repair CATARACT EXTRACTION W/ INTRAOCULAR LENS IMPLANT 04/16/2023 Right CATARACT EXTRACTION W/ INTRAOCULAR LENS IMPLANT 05/07/2023 Left Medical History Medical History Date Comments CHF (congestive heart failure) (HCC) Coronary artery disease History of placement of inte rnal cardiac defibrillator 2014 Biotronik, followed by Dr. Severiano chiang Rheumatoid arthritis (HCC) Follo wed by Dr. Gar-- Currently treated with prednisone and methotrexate Sleep apnea History of DVT (deep vein thrombosis) History of AR (myocardial infarction) 2014 HTN (hypertension) 2010 History of atrial fibrillation 2015 S /p CABG, treated with amioderone HLD (hyperlipidemia) Ischemic cardiomyopathy S/P AICD placement 2014 biotronik PVD (peripheral vascular dis ease) with claudication Leg stents 2018 Delayed emergence from general anesthesia Motion sickness Anxiety and depression COPD (chronic obstructive pu lmonary disease) (HCC) GERD (gastroesophageal reflux disease) Ovarian cyst Family History Medical History Relation Name Comments Heart attack Brother 2 Myocardial infa rction; Cause of : Myocardial infarction Alcohol abuse Daughter Arthritis Daughter Hypertension Daughter Arthritis Father Diabetes Father Gout Father Hypertension Father Other Father Carotid Disease , PVD; Other Maternal Grandmother AR, Janell g cancer; Cause of : AR, Lung cancer Arthritis Mother Hypertension Mother Other Mother CAD, ICD; Stroke Mother Relation Name Status Comments Brother 1 (Age 48) Brother 2 Daughter Father Alive Maternal Grandmother (Age 79) Mother Social History Tobacco Use Types Packs/Day Years [...] on file Legal Sex Female 9:01 PM FOOD SERVICE UTILITY WORKER Gender Identity Not on file Sexual Orientation Not on file Obstetrics History Last Filed Vital Signs Vital Sign Reading Time Taken Comments Blood Pressure 119/76 04/23/2024 2:08 PM FOOD SERVICE UTILITY WORKER Pulse 76 04/23/2024 2:08 PM FOOD SERVICE UTILITY WORKER Temperature 36.5 C (97.7 F) 04/23/2024 2:08 PM FOOD SERVICE UTILITY WORKER Respiratory Rate 16 08/23/2023 9:33 AM CDT Oxygen Saturation 98% 08/23/2023 9:33 AM CDT Inhaled Oxygen Concentration - - Weight 71.2 kg (157 lb) 04/23/2024 2:08 PM FOOD SERVICE UTILITY WORKER Height 172.7 cm (5' 8 ) 04/23/2024 2:08 PM FOOD SERVICE UTILITY WORKER Body Mass Index 23.87 04/23/2024 2:08 PM FOOD SERVICE UTILITY WORKER Plan of Treatment Health Maintenance Due Date Last Done Comments Breast Cancer Screening-Mammogram 1960 Colon Cancer Screening-Colonoscopy 1958 Depression Screening 1958 DTaP/Tdap/Td Vaccine (1 - Tdap) 1969 Hepatitis B Screening 1976 Zoster Vaccine (1 of 2) 1977 Lung Cancer Screening 2008 Osteoporosis Screening-Bone Density Scan 06/18/2020 06/18/2018 Covid-19 Vaccine (2 - Pfizer risk series) 02/04/2021 01/14/2021 Pneumococcal vaccine 65+ (2 of 2 - PCV) 04/06/2021 1 06/06/2019 Well Visit 65+ 11/11/2023 Influenza Vaccine (#1) 2024 Fall Risk Assessment 05/07/2024 05/07/2023 Hepatitis C Screening Completed 11/26/2023, 018 Medical Devices Implanted Type Area Shuttle Route Vehicle Operator Device Identifier Shelf Expiration Date Model / Serial / Lot Icd ICD Chest Wall Description:Implanted 2014 p er pt [id number] 21.5 Vlareon Iol Ashperic Uv Absorbing Iol Implanted:Qty : 1 on 05/07/2023 by María Araiza MD at [facility] Lens Left: Eye [employer] 07/02/2026 CCA0T0 / [id number] / Other - See Comments-02/18 Implanted:03/2015 (Quantity not on file) Other - see comments Left: Chest Wall Biotronik Screw Screw Left: Foot Description:Screw in great l eft toe Clareon Uv Iol Cca0t0 21.0 Implanted:Qty : 1 on 04/16/2023 by María Araiza MD at [facility] Right: Eye [employer] 11/20/2026 CCA0T0.21 0 / [id number] / Procedures Procedure Name Priority Date/Time Associated Diagnosis Comments OCT, OPTIC NERVE - OU - BOTH EYES Routine 06/12/2024 11:19 AM FOOD SERVICE UTILITY WORKER Borderline steroid-induced glaucoma of both eyes OCT, RETINA - OU - BOTH EYES Routine 06/12/2024 11:19 AM FOOD SERVICE UTILITY WORKER Macular RPE mottling HEPATITIS C ANTIBODY Routine 11/26/2023 12:29 PM CDT Abnormal liver function tests DEXA AXIAL SKELETON BONE DENSITY WITH VERTEBRAL FRACTURE ASSESSMENT Schedule Routine, Read Routine (OP Routine) 06/18/2018 9:20 AM FOOD SERVICE UTILITY WORKER High risk medication use from Last 3 Months or Most Recently Relevant to Health Maintenance Results * OCT, Optic Nerve - OU - Both Eyes (06/12/2024 11:19 AM FOOD SERVICE UTILITY WORKER) Anatomical Region Laterality Modality Head Other Narrative 06/18/2024 1:23 PM FOOD SERVICE UTILITY WORKER Right Eye Reliability was good. Temporal thickness was normal. Superior thickness was normal. Nasal thickness was normal. Inferior thickness was normal. Left Eye Reliability was good. Temporal thickness was normal. Superior thickness was normal. Nasal thickness was normal. Inferior thickness was normal. Sophie Henry OD OPHTH TOMOGRAPHY Final Res ult * OCT, Retina - OU - Both Eyes (06/12/2024 11:19 AM FOOD SERVICE UTILITY WORKER) Anatomical Region Laterality Modality Head Other Narrative 06/18/2024 1:23 PM FOOD SERVICE UTILITY WORKER Right Eye Scan locations included subfoveal. Progression has been stable. Left Eye Quality was good. Scan locations included subfoveal. Progression has been stable. Findings include normal foveal contour. Notes Right eye (OD): focal area of outer retinal loss superior to the fovea, stable Left eye (OS): normal contour Sophie Henry OD OPHTH TOMOGRAPHY Final Res ult * Hepatitis C antibody Blood (11/26/2023 12:29 PM CDT) Hep C Ab NON-REACTI VE NON-REACT [facility]ER [facility] Comment: HCV antibody was non-reactive. There is no laboratory evidence of HCV infection. In most cases, no further action is required. However, if recent HCV exposure is suspected, a test for HCV RNA (test code 68176) is suggested. For additional information please refer to http://education.Lighter Living/faq/BRL36q2 (This link is being provided for informational/ educational purposes only.) Blood 11/26/2023 12:2 9 PM CDT 11/26/2023 12:30 PM CDT us Philip Kee MD LAB MICROBIOLOGY - GENERAL ORDERABLES Final Result Performing Organization Address City/State/ZIP [place] Phone Number [facility] [address] [place] [address] * Dexa Axial Skeleton Bone Density With VFA (06/18/2018 9:20 AM FOOD SERVICE UTILITY WORKER) Anatomical Region Laterality Modality Body N/A Radiographic Moraima ging Narrative 06/18/2018 10:54 AM FOOD SERVICE UTILITY WORKER Patient Name: Kate Obrien Date of : 1960 Date of scan: 06/18/2018 Bone mineral density was performed on a HoloBoutique Window Discovery Densitometer. Machine Cross-calibration and Precision studies [...] of Internal Medicine 114(11): 919-923 (1990) 2) Bruno, Lancet 341 : 72-75 (1992) 3) Germán, Journal Bone and Mineral Research 7(6): 633-8 (1991) 4) Jason, Journal Bone and Mineral Research 8(10):1227-33 (1992) The history and data sections of the bone mineral density scan were prepared by Machelle Boyle who is accredited by the International Society of Clinical Densitometry. The overall patient assessment and scan interpretation were performed by Elizabet Pineda MD who is certified by the International Society of Clinical Densitometry. [id number] Vangie Be MD IMG DXA PROCEDURES Final Resu lt from Last 3 Months or Most Recently Relevant to Health Maintenance Insurance MEDICARE ADVANTAGE C MEDICARE ADVANTAGE MEDICARE ADVANTAGE [place] [id number] Advance Directives For more information, please contact: [phone] * Full Code (Latest Code Status on File) Date Activated Date Inactivated Comments 02/14/2020 5:06 AM 02/15/2020 10:15 PM Care Teams Crate Opener Relationship Specialty Start Date End Date Zafar Sorenson DO [address] [place] [address] PCP - General Family Medicine 03/09/22 Yinka Lewis MD [address] [place] [address] Consulting Physician Cardiovascular Disease 08/30/20
--- OUTSIDE RECORDS SUMMARY | 2024-08-14 00:26 | XMS_ITS | Clinical Summary ---
Author Organization [employer] [address] [facility] Address [address] [place] [address] Care Team Providers Care Maintenance And Custodian Supervisor Name Role Phone Keith Carreon MD Primary Care Provider [phone] Allergies No known active allergies Medications ALPRAZolam (XANAX) 0.25 mg tablet Take 0.25 mg by mouth 3 times daily as needed for Anxiety. Active aspirin (ECOTRIN EC) 81 mg Tablet, Delayed Release (E.C.) Take 81 mg by mouth daily. Active atorvastatin (LIPITOR) 40 mg tablet Take 40 mg by mouth daily with supper. Active brimonidine (ALPHAGAN) 0.2 % solution Administer 1 Drop in both eyes 2 times daily. Active carvediloL (COREG) 6.25 mg tablet Take 6.25 mg by mouth 2 times daily with meals. Active citalopram (CeleXA) 20 mg tablet Take 20 mg by mouth daily. Active clopidogreL (PLAVIX) 75 mg Tablet Take 75 mg by mouth daily. Active folic acid (FOLVITE) 1 mg tablet Take 1 mg by mouth daily. Active furosemide (LASIX) 20 mg tabletIndicatio ns:twice a week Take 20 mg by mouth see administration instructions. Takes twice a week Sunday and Active isosorbide mononitrate (IMDUR) 30 mg Extended Release 24 hour tablet Take 30 mg by mouth daily in the morning. Active lisinopriL (PRINIVIL) 2.5 mg tablet Take 2.5 mg by mouth daily. Active methotrexate (RHEUMATREX) 2.5 mg Tablet Take 2.5 mg by mouth every 7 days. Takes on Sunday Active oxyCODONE-aceta minophen (PERCOCET) 5-325 mg tablet Take 1 Tablet by mouth every 4 hours as needed for Pain, Moderate. Active predniSONE (DELTASONE) 5 mg tablet Take 5 mg by mouth daily. Active timolol hemihydrate (BETIMOL) 0.5% solution Administer 1 Drop in both eyes 2 times daily. Active Active Problems No known active problems Family History Medical History Relation Name Comments Coronary Artery Disease Brother Coronary Artery Disease Father Diabetes Father Coronary Artery Disease Mother High Cholesterol Mother Hypertension Mother Stroke Mother Sudden Mother Relation Name Status Comments Brother Father Mother Social History Tobacco Use Types Packs/Day Years Used Date Smoking Tobacco: Former Smokeless Tobacco: Never Alcohol Use Standard Drinks/Week Comments Yes 0 (1 standard drink = 0.6 oz pur e alcohol) rarely Comments No Sex and Gender Information Value Date Recorded Sex Assigned at Not on file Legal Sex Female 3:07 PM CDT Gender Identity Not on file Sexual Orientation Not on file Last Filed Vital Signs Vital Sign Reading Time Taken Comments Blood Pressure 115/63 03/05/2020 8:19 AM CDT Pulse 65 03/05/2020 8:19 AM CDT Temperature 36.7 C (98.1 F) 03/05/2020 8:19 AM CDT Respiratory Rate 18 03/05/2020 8:19 AM CDT Oxygen Saturation 97% 03/05/2020 8:19 AM CDT Inhaled Oxygen Concentration - - Weight 66.5 kg (146 lb 9.6 oz) 03/04/2020 10:54 AM CDT Height 175.3 cm (5' 9 ) 03/04/2020 10:54 AM CDT Body Mass Index 21.65 03/04/2020 10:54 AM CDT Plan of Treatment Health Maintenance Due Date Last Done Comments DTAP/TDAP/TD VACCINES (1 - Tdap) 1977 PNEUMOCOCCAL VACCINE 50+ YEARS (1 of 2 - PCV) 11/10/18 78 BREAST CANCER SCREENING 1998 COLORECTAL SCREENING 11/11/2003 Colorectal Cancer Screening 11/11/2003 FIT-DNA Q 3 years 11/11/2003 FIT/FOBT Q 1 year 11/11/2003 Flex Sig/CT Colonography Q 5 years 11/11/2003 ZOSTER VACCINE (1 of 2) 2008 RSV VACCINE (60+ or ) (1 - Risk 60-74 years 1-dose series) 2018 OSTEOPOROSIS SCREENING 11/11/2023 INFLUENZA VACCINE (#1) 2023 Medical Devices Implanted Type Area Lactation Specialist Device Identifier Shelf Expiration Date Model / Serial / Lot Renny Benitezservando Olson Df4 Hi Enrg W Pro [id number] - [place] 020 Implanted:Qt y: 1 on 03/04/2020 by Freddy Garcia MD Defibrillator Left: Chest [employer] [id number] 09/17/2021 [id number] / [id number] / Lead Icd Plexa Promri S 65 [id number] - [place]- 020 Implanted:Qt y: 1 on 03/04/2020 by Freddy Garcia MD Lead [employer] [id number] 07/18/2021 [id number] / [id number] / Lead Pacemaker Solia S 53 [id number] Implanted:Qt y: 1 on 03/04/2020 by Freddy Garcia MD Lead [employer] [id number] 11/17/2021 [id number] / [id number] / Insurance BLUE PREFERRED Advance Directives For more information, please contact: [phone] * Full Code (Latest Code Status on File) Date Activated Date Inactivated Comments 03/04/2020 5:44 PM 03/05/2020 2:52 PM * Full Code Date Activated Date Inactivated Comments 03/04/2020 12:51 PM 03/04/2020 5:44 PM Care Teams Maintenance And Custodian Supervisor Relationship Specialty Start Date End Date Keith Carreon MD [address] [place] [address] PCP - General Internal Medicine 02/16/20
--- OUTSIDE RECORDS SUMMARY | 2024-08-14 00:26 | XMS_ITS | CONTINUITY OF CARE DOCUMENT ---
Author Name coreen, coreen Address Unknown Organization [facility] Address [address] [place] [address] Phone [phone] Care Team Providers Care Composition Worker Name Role Phone Moses MCCRAY, John Unavailable [phone] LINDA YAN DO Unavailable VERNACMathew DOLEAH Unavailable [phone] PROBLEMS Condition Status Date Provider Notes S/PGen change Dc ICD Biotronik 03/04/20 ( Not MRI SAFE//Capped RV Lead) active Katie Pappas PVC's active Bri Kraft RN HTN active Bri Kraft RN Ventricular tachycardia, nonsustained active Bri Kraft RN Syncope active Bri Kraft RN CAD - s/p artery bypass grafting September 2014 active Bri Kraft RN Cardiomyopathy, ischemic active Bri Crespo N Cardiology examination active Morteza Ramirez DNP,DOCTOR OF OSTEOPATHY Carotid bruit, bilateral active Thang Weldon enfelder Dizziness active Yinka Lewis MD Wheezing active Sindy Whitmore SVT active Bri Kraft RN Preoperative cardiovascular examination active Yinka Lewis MD PVD with claudication active Yinka Díaz Diminished pedal pulses active Yinka Lewis MD Hyperlipidemia active Yinka Lewis MD Tobacco use, quit active Yinka Lewis MD Leg pain active Yinka Lewis MD CAD s/p CABG active Yinka Lewis MD Hx of NSTEMI active Yinka Lewis MD Family History of Sudden Cardiac : completed - Sindy Whitmore Family History of Hypertension: completed - Sindy Whitmore Family History of Hyperlipidemia: completed - Sindy Whitmore Family History of CVA or Stroke: completed - Sindy Whitmore Atrial flutter active Neal Rose DO Biotronik VDD ICD completed - Katie Pappas CHF, chronic, systolic active Neal castro DO ENCOUNTERS Date Type Provider Location Encounter Diag nosis - In-person encounter Office Visit Yinka Lewis MD [place] [facility] - In-person encounter Office Visit John Chowdhury MD [facility] Cardiology examination - In-person encounter Office Visit Yinka Lewis MD [place] [facility] - In-person encounter Office Visit Yinka Lewis MD [place] [facility] - In-person encounter Office Visit Yinka Lewis MD [place] [facility] - In-person encounter Office Visit Yinka Lewis MD [place] [facility] - In-person encounter Office Visit John Chowdhury MD [facility] - In-person encounter Office Visit Yinka Lewis MD [facility] - In-person encounter Office Visit John Chowdhury MD [place] [facility] Carotid bruit, bilateral - In-person encounter Office Visit Yinka Lewis MD [place] [facility] - In-person encounter Office Visit Yinka Lewis MD [place] [facility] - In-person encounter Office Visit John Chowdhury MD [place] [facility] - In-person encounter Office Visit Yinka Lewis MD [facility] - In-person encounter Office Visit John Chowdhury MD [facility] - In-person encounter Office Visit John Chowdhury MD [facility] - In-person encounter Office Visit John Chowdhury MD [facility] - In-person encounter Office Visit Yinka Lewis MD [place] [facility] Dizziness - In-person encounter Office Visit John Chowdhury MD [place] [facility] Family History of CVA or Stroke:Family History of Hyperlipidemia:Family History of Hypertension:Family History of Sudden Cardiac :Wheezing - In-person encounter Office Visit Yinka Lewis MD [facility] - In-person encounter Office Visit Yinka Lewis MD [facility] - In-person encounter Office Visit Yinka Lewis MD [place] [facility] - In-person encounter Office Visit [facility] - In-person encounter Office Visit Neal Arce [facility] - In-person encounter Office Visit Yinka Lewis MD [facility] - In-person encounter Office Visit Yinka Lweis MD [facility] - In-person encounter Office Visit Neal Perez [facility] SVT - In-person encounter Office Visit Yinka Lewis MD [place] [facility] Preoperative cardiovascular examination - In-person encounter Office Visit Yinka Lewis MD [facility] - In-person encounter Office Visit Yinka Lewis MD [facility] - In-person encounter Office Visit Neal Rose DO [facility] - In-person encounter Office Visit Yinka Lewis MD [facility] - In-person encounter Office Visit Yinka Lewis MD [facility] PVD with claudication - In-person encounter Office Visit Yinka Lewis MD [facility] Diminished pedal pulses - In-person encounter Office Visit Yinka Lewis MD [place] [facility] Hx of NSTEMICAD s/p CABGLeg painTobacco use, quitHyperlipidemia - In-person encounter Office Visit Neal Rose DO [facility] Biotronik VDD ICD - In-person encounter Office Visit Neal Rose DO [facility] - In-person encounter Office Visit Neal Perez Office - In-person encounter Office Visit Neal Rose DO [place] - In-person encounter Office Visit Neal Rose DO [facility] CHF, chronic, systolicAtrial flutter VITAL SIGNS Date Observation Value Provider Body Mass Index (Ratio) 22.52 kg/m2 Bao Lewis MD blood pressure, cuff size regular May Neumann blood pressure, diastolic 78 mm[Hg] May Neumann blood pressure, systolic 115 mm[Hg] Kiersten Woodward oxygen saturation, oximetry 97 % Lori Neumann pulse rate 76 /min Lori Neumann weight E&M 157 [lb_av] Lori Thien height E&M 70 [in_i] Lori Neumann Body Mass Index (Ratio) 22.96 kg/m2 Maxime lópez All blood pressure, diastolic 75 mm[Hg] Li nkLogic blood pressure, systolic 105 mm[Hg] Camille kLogic blood pressure, diastolic 75 mm[Hg] Mayra Ibanez blood pressure, systolic 105 mm[Hg] Estefania Ibanez pulse rate 87 /min Patty Quick s oxygen saturation, oximetry 97 % Patty Ibanez blood pressure, cuff size regular Mayra Ibanez weight E&M 160 [lb_av] Patty Quick s height E&M 70 [in_i] Patty Quick s Body Mass Index (Ratio) 21.95 kg/m2 Bao Lewis MD blood pressure, cuff size regular Jeff Quispe blood pressure, diastolic 68 mm[Hg] Jeff bitha Quispe blood pressure, systolic 110 mm[Hg] Tab ithrubén Quispe oxygen saturation, oximetry 97 % Caitie Quispe respiratory rate E&M 12 /min Caitie Quispe pulse rate 77 /min Caitie Quispe weight E&M 153 [lb_av] Caitie Quispe height E&M 70 [in_i] Caitie Quispe Body Mass Index (Ratio) 21.66 kg/m2 Bao Lewis MD blood pressure, cuff size regular Anthony doran blood pressure, diastolic 70 mm[Hg] Anthony rr blood pressure, systolic 95 mm[Hg] [facility] pulse rate 71 /min Jah oxygen saturation, oximetry 96 % respiratory rate E&M 14 /min Jah weight E&M 151 [lb_av] Jah height E&M 70 [in_i] Jah Body Mass Index (Ratio) 21.95 kg/m2 Bao Lewis MD blood pressure, cuff size regular [facility] blood pressure, diastolic 74 mm[Hg] rr blood pressure, systolic 111 mm[Hg] [facility] pulse rate 74 /min Jah respiratory rate E&M 16 /min Jah oxygen saturation, oximetry 99 % Jah weight E&M 153 [lb_av] Jah height E&M 70 [in_i] Jah Body Mass Index (Ratio) 22.24 kg/m2 Bao Lewis MD blood pressure, cuff size regular [facility] blood pressure, diastolic 78 mm[Hg] rret blood pressure, systolic 109 mm[Hg] [facility] pulse rate 79 /min Jah respiratory rate E&M 12 /min Jah oxygen saturation, oximetry 99 % Jah weight E&M 155 [lb_av] Jah height E&M 70 [in_i] Jah y Body Mass Index (Ratio) 21.95 kg/m2 Tim Chowdhury MD blood pressure, diastolic 85 mm[Hg] Malena nkLogmary blood pressure, systolic 142 mm[Hg] Camille kLog blood pressure, cuff size regular Fa [facility] blood pressure, diastolic 85 mm[Hg] Fa [facility] blood pressure, systolic 142 mm[Hg] Fortino [facility] pulse rate 75 /min [facility] oxygen saturation, oximetry 98 % [facility] respiratory rate E&M 15 /min Cherry Handley illepita weight E&M 153 [lb_av] [facility] height E&M 70 [in_i] [facility] Body Mass Index (Ratio) 21.23 kg/m2 Curt mathew Blank blood pressure, cuff size regular [facility] pressure, diastolic 60 mm[Hg] Ke rri [facility] blood pressure, systolic 126 mm[Hg] Paulino ri Abhay oxygen saturation, oximetry 96 % Leatha Abhay respiratory rate E&M 12 /min [facility] pulse rate 84 /min Leatha Elina [facility] weight E&M 148 [lb_av] Leatha Carlosuenenfe [facility] height E&M 70 [in_i] Leatha Crystalnenfe [facility] Body Mass Index (Ratio) 21.52 kg/m2 Bao Lewis MD pulse rate 80 /min Aury Salas blood pressure, diastolic 65 mm[Hg] Leanne Salas blood pressure, systolic 108 mm[Hg] Leyda Salas oxygen saturation, oximetry 98 % Aury Salas weight E&M 150 [lb_av] Auryrubén Salas blood pressure, cuff size large An ya Josue height E&M 70 [in_i] Aury Josue Body Mass Index (Ratio) 21.81 kg/m2 Bao Lewis MD blood pressure, cuff size regular Ke rri Gruenenfelder blood pressure, diastolic 84 mm[Hg] Ke rri Gruenenfelder blood pressure, systolic 124 mm[Hg] Ker ri Gruenenfelder oxygen saturation, oximetry 98 % Leatha Gruenenfelder respiratory rate E&M 14 /min Leatha G ruenenfelder pulse rate 78 /min Leatha Gruenenfe [facility] weight E&M 152 [lb_av] Leatha Gruenenfe [facility] height E&M 70 [in_i] Leatha Gruenenfe [facility] Body Mass Index (Ratio) 22.24 kg/m2 Tim Chowdhury MD blood pressure, cuff size regular Ke rri [place]feld blood pressure, diastolic 83 mm[Hg] Ke rri Gruenenfelder blood pressure, systolic 130 mm[Hg] Ker ri Gruenenfelder oxygen saturation, oximetry 98 % Leatha Gruenenfelder respiratory rate E&M 14 /min Leatha G ruenenfelder pulse rate 77 /min Leatha Gruenenfe [facility] weight E&M 155 [lb_av] Leatha Gruenenfe [facility] height E&M 70 [in_i] Leatha Gruenenfe [facility] Body Mass Index (Ratio) 22.67 kg/m2 Bao Lewis MD blood pressure, cuff size large Adrianne ignacia Grant blood pressure, diastolic 60 mm[Hg] Adrianne ignacia Grant blood pressure, systolic 118 mm[Hg] Real Lewis MD oxygen saturation, oximetry 99 % Grant pulse rate 88 /min Red daíz respiratory rate E&M 16 /min Marietta mathew Burns weight E&M 158 [lb_av] Michelle díaz height E&M 70 [in_i] Michelle díaz Body Mass Index (Ratio) 22.52 kg/m2 Tim Chowdhury MD blood pressure, diastolic 66 mm[Hg] Li nkLogmary blood pressure, systolic 106 mm[Hg] Camille kLogic blood pressure, cuff size large Ke rri Moo blood pressure, diastolic 66 mm[Hg] Ke rri Carlosuenenfeldelliot blood pressure, systolic 106 mm[Hg] Paulino tamara Cortés oxygen saturation, oximetry 97 % Leatha Cortés respiratory rate E&M 14 /min Leatha faith pulse rate 81 /min Leatha Antoine [facility] weight E&M 157 [lb_av] Leatha Antoine [facility] height E&M 70 [in_i] Leatha Antoine [facility] Body Mass Index (Ratio) 22.35 kg/m2 Bao Lewis MD oxygen saturation, oximetry 98 % Lavinia Aragon blood pressure, cuff size regular Tr ricco Aragon respiratory rate E&M 18 /min Lavinia Aragon pulse rate 70 /min Lavinia Aragon blood pressure, diastolic 64 mm[Hg] Tr ricco Aragon blood pressure, systolic 94 mm[Hg] Try nett Aragon weight E&M 155.8 [lb_av] Lavinia du height E&M 70 [in_i] Lavinia Aragon Body Mass Index (Ratio) 22.09 kg/m2 Richi Whitmore blood pressure, diastolic 80 mm[Hg] Li nkLogic blood pressure, systolic 122 mm[Hg] Camille kLogic blood pressure, cuff size regular Ke rri Moo blood pressure, diastolic 80 mm[Hg] Ke rri Moo blood pressure, systolic 122 mm[Hg] Paulino Cortés oxygen saturation, oximetry 97 % Leatha Cortés respiratory rate E&M 16 /min Leatha faith pulse rate 76 /min Leatha Antoine [facility] weight E&M 154 [lb_av] Leatha Antoine elliot height E&M 70 [in_i] Leatha Antoine [facility] Body Mass Index (Ratio) 21.81 kg/m2 Bao Lewis MD blood pressure, resting Yes [facility] lilirubén White blood pressure, diastolic 70 mm[Hg] [facility] Christopher blood pressure, systolic 118 mm[Hg] [facility] Christopher pulse rate 86 /min [facility] Lyndsey montoya oxygen saturation, oximetry 99 % [facility] Christopher respiratory rate E&M 18 /min Rinaflaquito faiza White weight E&M 152 [lb_av] Gertrude Lyndsey montoya height E&M 70 [in_i] [facility] Lyndsey montoya Body Mass Index (Ratio) 20.95 kg/m2 Bao Lewis MD blood pressure, diastolic 73 mm[Hg] Rh onda Mickie blood pressure, systolic 114 mm[Hg] Rho nda Mickie oxygen saturation, oximetry 99 % Jacquie Mickie pulse rate 77 /min Jacquie Mickie respiratory rate E&M 18 /min Jacquie Mickie weight E&M 146 [lb_av] Jacquie Mickie blood pressure, resting Yes Connern peter Corado blood pressure, cuff size regular Rh onda Mickie height E&M 70 [in_i] Jacquierubén Corado Body Mass Index (Ratio) 20.86 kg/m2 Bao Lewis MD blood pressure, diastolic 60 mm[Hg] Myriam Trinh Swain blood pressure, systolic 112 mm[Hg] Tierra Samiraclarisa Swain oxygen saturation, oximetry 98 % MargaretDolores Swain respiratory rate E&M 16 /min Emmanuel Swain pulse rate 81 /min Margaret Chang humzaevaristo weight E&M 145.4 [lb_av] Margaret valdez height E&M 70 [in_i] Margaret Chang humzaevaristo Body Mass Index (Ratio) 20.52 kg/m2 Jayjay Rose DO blood pressure, diastolic 68 mm[Hg] Rh onda Mickie blood pressure, systolic 111 mm[Hg] Rho nda Mickie blood pressure, resting Yes Brittany Nava oxygen saturation, oximetry 98 % Jacquie Corado pulse rate 61 /min Jacquie Mickie respiratory rate E&M 18 /min Jacquie Mickie blood pressure, cuff size regular Rh onda Mickie weight E&M 143 [lb_av] Jacquie Mickie height E&M 70 [in_i] Jacquie Corado Body Mass Index (Ratio) 20.37 kg/m2 JT S treepy blood pressure, diastolic 70 mm[Hg] Mi ignacia Perry blood pressure, systolic 116 mm[Hg] Ramin hellorrie Perry oxygen saturation, oximetry 97 % Perry respiratory rate E&M 16 /min Marietta wheeler Ranulfo pulse rate 64 /min Ranulfo weight E&M 142 [lb_av] Ranulfo height E&M 70 [in_i] Perry Body Mass Index (Ratio) 21.38 kg/m2 Bao Lewis MD blood pressure, diastolic 68 mm[Hg] Cy cielo Akers blood pressure, systolic 110 mm[Hg] Makayla ketanrubén Akers pulse rate 68 /min Ivonne wilkins oxygen saturation, oximetry 98 % Ivonne Akers blood pressure, cuff size regular Cy malenacynthiarubén Akers respiratory rate E&M 16 /min Ivonne Akers weight E&M 149 [lb_av] Ivonne Silverbel franky height E&M 70 [in_i] Ivonne Campbel l Body Mass Index (Ratio) 21.81 kg/m2 Jayjay Rose DO Body Mass Index (Ratio) 21.52 kg/m2 Bao Lewis MD respiratory rate E&M 16 /min Tonsha Banks blood pressure, diastolic 89 mm[Hg] To nsha Banks blood pressure, systolic 141 mm[Hg] Ton sha Banks oxygen saturation, oximetry 98 % Tonsha Banks pulse rate 82 /min Tonsha Banks temperature site temporal Tonsha Banks temperature E&M 96.6 [degF] Tonsha Banks weight E&M 150 [lb_av] Tonsha Banks height E&M 70 [in_i] Tonsha Banks pulse rate 69 /min Shanice Block blood pressure, diastolic 80 mm[Hg] Br ittany Block blood pressure, systolic 130 mm[Hg] Estefania sharonny Block oxygen saturation, oximetry 98 % Shanice Block temperature E&M 96.6 [degF] Shanice Blo ck weight E&M 152 [lb_av] Shanice Block respiratory rate E&M 16 /min Britdalton y Block height E&M 70 [in_i] [facility] Body Mass Index (Ratio) 22.09 kg/m2 Bao Lewis MD blood pressure, cuff size regular Cy cielo Akers blood pressure, diastolic 70 mm[Hg] Cy cileo Akers blood pressure, systolic 122 mm[Hg] Makayla ketanrubén Akers oxygen saturation, oximetry 99 % Ivonne Akers respiratory rate E&M 16 /min Ivonne Akers pulse rate 58 /min Ivonne Nadeembel l weight E&M 154 [lb_av] Ivonne Campbel l height E&M 70 [in_i] Ivonne Campbel l Body Mass Index (Ratio) 21.66 kg/m2 Bao Lewis MD blood pressure, diastolic 78 mm[Hg] Er parish Gomez blood pressure, systolic 118 mm[Hg] Stephanie Gomez oxygen saturation, oximetry 98 % Abbie Gomez pulse rate 82 /min Abbie Hudson weight E&M 151 [lb_av] Abbie Hudson height E&M 70 [in_i] Abbie Hudson Body Mass Index (Ratio) 21.95 kg/m2 Bao Lewis MD blood pressure, cuff size regular Cy cielo Akers blood pressure, diastolic 70 mm[Hg] Cy cielo Akers blood pressure, systolic 110 mm[Hg] Makayla piyush Akers oxygen saturation, oximetry 98 % Ivonne Akers pulse rate 69 /min Ivonne Campbel l weight E&M 153 [lb_av] Ivonne Campbel l height E&M 70 [in_i] Ivonne Campbel l Body Mass Index (Ratio) 21.95 kg/m2 Young Galdamez blood pressure, cuff size small Kr isbakari Balaji blood pressure, diastolic 80 mm[Hg] Kr isty Balaji blood pressure, systolic 120 mm[Hg] Horace marin Balaji oxygen saturation, oximetry 97 % Valencia Charleroi pulse rate 62 /min Valencia Balaji respiratory rate E&M 18 /min Valencia Balaji weight E&M 153 [lb_av] Valencia Balaji height E&M 70 [in_i] Valencia Balaji Body Mass Index (Ratio) 22.81 kg/m2 Bao Lewis MD blood pressure, cuff size regular Cy cielo Oswald blood pressure, diastolic 70 mm[Hg] Cy cielo Oswald blood pressure, systolic 118 mm[Hg] Makayla piyush Oswald oxygen saturation, oximetry 98 % Ivonnerubén Akers respiratory rate E&M 16 /min Ivonne Akers pulse rate 69 /min Ivonne Nadeembel l weight E&M 159 [lb_av] Ivonne Campbel l height E&M 70 [in_i] Ivonne Campbel l Body Mass Index (Ratio) 23.24 kg/m2 Bao Lewis MD blood pressure, diastolic 60 mm[Hg] Juan Luis damon Dasilva blood pressure, systolic 100 mm[Hg] Harris booth [place] oxygen saturation, oximetry 98 % [place] Dasilva respiratory rate E&M 16 /min Keri Dasilva pulse rate 71 /min Keri Dasilva weight E&M 162 [lb_av] Keri Dasilva height E&M 70 [in_i] [place] Dasilva Body Mass Index (Ratio) 23.24 kg/m2 Bao Lewis MD blood pressure, diastolic 80 mm[Hg] Juan Luis [facility] blood pressure, systolic 126 mm[Hg] Harris booth [place] oxygen saturation, oximetry 98 % [facility] E&M 16 /min [facility] pulse rate 66 /min [facility] weight E&M 162 [lb_av] [facility] blood pressure, resting Yes Kill [facility] height E&M 70 [in_i] [facility] Body Mass Index (Ratio) 23.39 kg/m2 Bao Lewis MD blood pressure, cuff size regular Ke rri Carlosuenebeatrizer blood pressure, diastolic 80 mm[Hg] Ke rri Gruenenfeldelliot blood pressure, systolic 120 mm[Hg] Paulino ri Moo oxygen saturation, oximetry 98 % Leatha Moo respiratory rate E&M 18 /min Leatha faith pulse rate 65 /min Leatha Mandye er weight E&M 163 [lb_av] Leatha Gruenenfe lder height E&M 70 [in_i] Leatha Crystalnegiovannie er Body Mass Index (Ratio) 23.48 kg/m2 Alex Burk oxygen saturation, oximetry 98 % Isha Patiño respiratory rate E&M 16 /min Isha Aguilar steve pulse rate 70 /min Isha Patiño blood pressure, diastolic 58 mm[Hg] May Shoemaker blood pressure, systolic 84 mm[Hg] Rio Patiño weight E&M 159 [lb_av] Isha Patiño height E&M 69 [in_i] Isha Patiño Body Mass Index (Ratio) 22.74 kg/m2 Jayjay mc Rose HARRIS pulse rate 74 /min Millicent Sykes oxygen saturation, oximetry 98 % Millicent Sykes respiratory rate E&M 22 /min Millicent Sykes blood pressure, diastolic 62 mm[Hg] Jeff nix Sykes blood pressure, systolic 112 mm[Hg] Edgardo Sykes weight E&M 154 [lb_av] Millicent Sykes height E&M 69 [in_i] Millicent Sykes blood pressure, cuff size regular Jeff nix Sykes blood pressure, diastolic 70 mm[Hg] Chaz reynolds Balaji blood pressure, systolic 118 mm[Hg] Chazflaquito tania Carpio pulse rate 79 /min Valencia Balaji oxygen saturation, oximetry 98 % Valencia Carpio respiratory rate E&M 18 /min Valencia Carpio Body Mass Index (Ratio) 22.41 kg/m2 Tiburcio bakari Carpio weight E&M 151.8 [lb_av] Valencia Carpio blood pressure, diastolic 70 mm[Hg] Myriam ghosh [place] blood pressure, systolic 110 mm[Hg] Tierra alonso [place] pulse rate 82 /min July [place] oxygen saturation, oximetry 96 % July [place] respiratory rate E&M 16 /min July [place] Body Mass Index (Ratio) 21.85 kg/m2 Wang Perez weight E&M 148 [lb_av] July MeyersHernando height E&M 69 [in_i] July Perez ALLERGIES Allergy Name Onset Date Reaction Criticality Status RINVIQ Easy bruising Easy bruising High Cri ticality active CODEINE Low Criticality active SULFA High Criticality active VICODIN High Criticality active RESULTS Date Observation Value Provider Reference Range Interpretation Location prothrombin time (patient) 11.1 s Link[facility] 9.0-11.5 Normal international normalized ratio (INR) 1.1 [facility] Normal basophils as percent of blood leukocytes 0.7 % [facility] Normal eosinophils as percent of blood leukocytes 0.6 % [facility] Normal monocyte count, blood 8.5 % [facility] Normal lymphocyte count, blood 22.7 % [facility] Normal neutrophils as percent of blood leukocytes 67.5 % [facility] Normal basophils, absolute, manual 47 cells/mcL [facility] 0-200 Normal eosinophils, absolute, manual 40 cells/mcL [facility] 15-500 Normal monocytes, absolute, manual 570 cells/mcL [facility] 200-950 Normal lymphocytes, absolute 1521 CELLS/UL Link[facility] 850-3900 Normal Absolute Neutrophil count 4523 cells/mcL [facility] 9485-6372 Normal mean platelet volume 10.7 fL [facility] 7.5-12.5 Normal platelet count 212 THOUSAND/UL [facility] 140-400 Normal red blood cell distribution width 11.9 % [facility] 11.0-15.0 Normal mean corpuscular hemoglobin concentration, RBC 32.6 G/DL [facility] 32.0-36.0 Normal mean corpuscular hemoglobin, RBC 34.4 pg [facility] 27.0-33.0 High mean corpuscular volume, RBC 105.5 fL [facility] 80.0-100.0 High hematocrit, blood 44.5 % [facility] 35.0-45.0 Normal hemoglobin electrophoresis, blood 14.5 [facility] 11.7-15.5 Normal erythrocyte (RBC) count 4.22 MILLION/UL [facility] 3.80-5.10 Normal leukocyte (white blood cells) count, blood 6.7 THOUSAND/UL [facility] 3.8-10.8 Normal calcium, serum 9.7 mg/dL [facility] 8.6-10.4 Normal carbon dioxide, venous blood 26 mmol/L [facility] 20-32 Normal chloride, serum 101 mmol/L [facility] 98-110 Normal potassium, serum 3.6 mmol/L [facility] 3.5-5.3 Normal sodium, serum 136 mmol/L [facility] 135-146 Normal urea nitrogen/creatinine ratio, serum 11 (calc) [facility] 6-22 Normal creatinine, serum 1.07 mg/dL [facility] 0.50-1.05 High urea nitrogen, blood 12 mg/dL [facility] 7-25 Normal blood glucose, random 124 mg/dL [facility] 65-139 Normal cholesterol, non-HDL, total 86 MG/DL (CALC) Link[facility] <130 Normal cholesterol/HDL ratio, serum, percent 2.7 (calc) [facility] <5.0 Normal LDL cholesterol, serum 59 MG/DL (CALC) [facility] Normal triglyceride, serum, fasting 194 mg/dL [facility] <150 High HDL cholesterol, serum 51 mg/dL Link[facility] > OR = 50 Normal cholesterol, serum 137 mg/dL [facility] <200 Normal cholesterol, non-HDL, total 98 MG/DL (CALC) [facility] <130 Normal cholesterol/HDL ratio, serum, percent 2.9 (calc) [facility] <5.0 Normal LDL cholesterol, serum 70 MG/DL (CALC) [facility] Normal triglyceride, serum, fasting 213 mg/dL [facility] <150 High HDL cholesterol, serum 52 mg/dL LinkLog[facility] > OR = 50 Normal cholesterol, serum 150 mg/dL [facility] <200 Normal C-reactive protein, by highly sensitive test 1.7 mg/L [facility] Normal alanine aminotransferase (SGPT), serum 18 1/L [facility] 6-29 Normal aspartate aminotransferase (SGOT), serum 17 1/L [facility] 10-35 Normal alkaline phosphatase, serum 61 1/L [facility] 37-153 Normal bilirubin, serum, total 0.5 mg/dL [facility] 0.2-1.2 Normal albumin/globulin ratio, serum 1.8 (calc) [facility] 1.0-2.5 Normal globulins, serum, total 2.2 G/DL (CALC) [facility] 1.9-3.7 Normal albumin, serum 3.9 g/dL [facility] 3.6-5.1 Normal protein, total, serum 6.1 g/dL [facility] 6.1-8.1 Normal calcium, serum 9.1 mg/dL [facility] 8.6-10.4 Normal carbon dioxide, venous blood 28 mmol/L [facility] 20-32 Normal chloride, serum 106 mmol/L [facility] 98-110 Normal potassium, serum 4.4 mmol/L [facility] 3.5-5.3 Normal sodium, serum 141 mmol/L [facility] 135-146 Normal urea nitrogen/creatinine ratio, serum NOT APPLICABLE (calc) [facility]ic 6-22 creatinine, serum 0.93 mg/dL [facility] 0.50-1.05 Normal urea nitrogen, blood 13 mg/dL [facility] 7-25 Normal blood glucose, random 89 mg/dL [facility] 65-99 Normal cholesterol, non-HDL, total 77 MG/DL (CALC) [facility]Log[facility] <130 Normal cholesterol/HDL ratio, serum, percent 2.6 (calc) [facility] <5.0 Normal LDL cholesterol, serum 55 MG/DL (CALC) [facility] Normal triglyceride, serum, fasting 134 mg/dL [facility] <150 Normal HDL cholesterol, serum 47 mg/dL [facility] > OR = 50 Low cholesterol, serum 124 mg/dL [facility] <200 Normal alanine aminotransferase (SGPT), serum 22 1/L [facility] 6-29 Normal aspartate aminotransferase (SGOT), serum 19 1/L [facility] 10-35 Normal alkaline phosphatase, serum 70 1/L [facility] 37-153 Normal bilirubin, serum, total 0.5 mg/dL [facility] 0.2-1.2 Normal albumin/globulin ratio, serum 1.6 (calc) [facility] 1.0-2.5 Normal globulins, serum, total 2.5 G/DL (CALC) [facility] 1.9-3.7 Normal albumin, serum 4.0 g/dL [facility] 3.6-5.1 Normal protein, total, serum 6.5 g/dL [facility] 6.1-8.1 Normal calcium, serum 9.1 mg/dL [facility] 8.6-10.4 Normal carbon dioxide, venous blood 26 mmol/L [facility] 20-32 Normal chloride, serum 105 mmol/L [facility] 98-110 Normal potassium, serum 4.0 mmol/L [facility] 3.5-5.3 Normal sodium, serum 140 mmol/L [facility] 135-146 Normal urea nitrogen/creatinine ratio, serum NOT APPLICABLE (calc) [facility] 6-22 Estimated Glomerular Filtration Rate (calc) 82 mL/min/{1.73_ m2} [facility] > OR = 60 Normal creatinine, serum 0.88 mg/dL [facility] 0.50-0.99 Normal urea nitrogen, blood 14 mg/dL [facility] 7-25 Normal blood glucose, random 93 mg/dL [facility] 65-99 Normal cholesterol, non-HDL, total 67 MG/DL (CALC) [facility] <130 Normal cholesterol/HDL ratio, serum, percent 2.3 (calc) [facility] <5.0 Normal LDL cholesterol, serum 43 MG/DL (CALC) [facility] Normal triglyceride, serum, fasting 163 mg/dL [facility] <150 High HDL cholesterol, serum 51 mg/dL [facility] > OR = 50 Normal cholesterol, serum 118 mg/dL [facility] <200 Normal prothrombin time (patient) 11.2 s [facility] 9.0-11.5 Normal international normalized ratio (INR) 1.1 [facility] Normal PTT patient 29 s [facility] 23-32 Normal basophils as percent of blood leukocytes 0.3 % [facility] Normal eosinophils as percent of blood leukocytes 0.5 % [facility] Normal monocyte count, blood 6.0 % [facility] Normal lymphocyte count, blood 10.5 % [facility] Normal neutrophils as percent of blood leukocytes 82.7 % [facility] Normal basophils, absolute, manual 34 cells/mcL [facility] 0-200 Normal eosinophils, absolute, manual 56 cells/mcL [facility] 15-500 Normal monocytes, absolute, manual 672 cells/mcL [facility] 200-950 Normal lymphocytes, absolute 1176 CELLS/UL [facility] 850-3900 Normal Absolute Neutrophil count 9262 cells/mcL [facility] 9780-0405 High mean platelet volume 11.2 fL [facility] 7.5-12.5 Normal platelet count 193 THOUSAND/UL [facility] 140-400 Normal red blood cell distribution width 11.8 % [facility] 11.0-15.0 Normal mean corpuscular hemoglobin concentration, RBC 33.7 G/DL [facility] 32.0-36.0 Normal mean corpuscular hemoglobin, RBC 34.2 pg [facility] 27.0-33.0 High mean corpuscular volume, RBC 101.5 fL [facility] 80.0-100.0 High hematocrit, blood 40.9 % [facility] 35.0-45.0 Normal hemoglobin electrophoresis, blood 13.8 [facility] 11.7-15.5 Normal erythrocyte (RBC) count 4.03 MILLION/UL [facility] 3.80-5.10 Normal leukocyte (white blood cells) count, blood 11.2 THOUSAND/UL [facility] 3.8-10.8 High calcium, serum 9.5 mg/dL [facility] 8.6-10.4 Normal carbon dioxide, venous blood 32 mmol/L [facility] 20-32 Normal chloride, serum 103 mmol/L [facility] 98-110 Normal potassium, serum 3.7 mmol/L [facility] 3.5-5.3 Normal sodium, serum 141 mmol/L [facility] 135-146 Normal urea nitrogen/creatinine ratio, serum 14 (calc) [facility] 6-22 Normal Estimated Glomerular Filtration Rate (calc) 62 mL/min/{1.73_ m2} [facility] > OR = 60 Normal creatinine, serum 1.10 mg/dL [facility] 0.50-0.99 High urea nitrogen, blood 15 mg/dL [facility] 7-25 Normal blood glucose, random 85 mg/dL [facility] 65-139 Normal alanine aminotransferase (SGPT), serum 54 1/L [facility] 6-29 High aspartate aminotransferase (SGOT), serum 26 1/L [facility] 10-35 Normal alkaline phosphatase, serum 54 1/L [facility] 37-153 Normal bilirubin, serum, total 0.7 mg/dL [facility] 0.2-1.2 Normal albumin/globulin ratio, serum 2.3 (calc) [facility] 1.0-2.5 Normal globulins, serum, total 1.9 G/DL (CALC) [facility] 1.9-3.7 Normal albumin, serum 4.4 g/dL [facility] 3.6-5.1 Normal protein, total, serum 6.3 g/dL [facility] 6.1-8.1 Normal calcium, serum 9.4 mg/dL [facility] 8.6-10.4 Normal carbon dioxide, venous blood 30 mmol/L [facility] 20-32 Normal chloride, serum 105 mmol/L [facility] 98-110 Normal potassium, serum 3.9 mmol/L [facility] 3.5-5.3 Normal sodium, serum 141 mmol/L [facility] 135-146 Normal urea nitrogen/creatinine ratio, serum 12 (calc) [facility] 6-22 Normal Estimated Glomerular Filtration Rate (calc) 67 mL/min/{1.73_ m2} [facility] > OR = 60 Normal creatinine, serum 1.05 mg/dL [facility] 0.50-0.99 High urea nitrogen, blood 13 mg/dL [facility] 7-25 Normal 2020/02 /24 blood glucose, random 86 mg/dL [facility] 65-99 Normal prothrombin time (patient) 14.8 s [facility] 9.1-12.0 High international normalized ratio (INR) 1.4 [facility] 0.8-1.2 High lipoprotein, beta, serum, point, quantitative, calculated 41 mg/dL [facility] 0-99 very low density lipoproteins 32 mg/dL [facility] 5-40 HDL cholesterol, serum 49 mg/dL [facility] >39 triglyceride, serum, random 162 mg/dL [facility] 0-149 High cholesterol, serum 122 mg/dL [facility] 963-368 0950/10 /05 calcium, serum 9.3 mg/dL [facility] 8.7-10.3 carbon dioxide, venous blood 24 mmol/L [facility] 20-29 chloride, serum 100 mmol/L [facility] 96-106 potassium, serum 4.1 mmol/L [facility] 3.5-5.2 sodium, serum 138 mmol/L [facility] 761-220 8235/10 /05 urea nitrogen/creatinine ratio, serum 13 [facility] 12-28 eGFR if 72 mL/min/{1.73_ m2} [facility] >59 eGFR if not 62 mL/min/{1.73_ m2} [facility] >59 creatinine, serum 0.99 mg/dL [facility] 0.57-1.00 urea nitrogen, blood 13 mg/dL [facility] 8-27 blood glucose, random 96 mg/dL [facility] 65-99 basophil count, absolute 0.0 x10E3/uL [facility] 0.0-0.2 Eosinophil Absolute Count 0.0 X10E3/UL [facility] 0.0-0.4 monocyte count, blood, automated 0.5 X10E3/UL [facility] 0.1-0.9 lymphocyte count, blood, automated 1.1 X10E3/UL [facility] 0.7-3.1 Absolute Neutrophils 6.4 X10E3/UL [facility] 1.4-7.0 basophils as percent of blood leukocytes 0 % [facility] Not Estab. eosinophils as percent of blood leukocytes 0 % [facility] Not Estab. monocytes as percent of blood leukocytes 6 % [facility] Not Estab. lymphocytes as percent of blood leukocytes 13 % [facility] Not Estab. neutrophils as percent of blood leukocytes 81 % [facility] Not Estab. platelet count 227 X10E3/UL [facility] 663-488 8602/10 /05 red blood cell distribution width 13.2 % [facility] 12.3-15.4 mean corpuscular hemoglobin concentration, RBC 33.8 G/DL [facility] 31.5-35.7 mean corpuscular hemoglobin, RBC 34.4 pg [facility] 26.6-33.0 High mean corpuscular volume, RBC 102 fL [facility] 79-97 High hematocrit, blood 37.6 % [facility] 34.0-46.6 hemoglobin, blood 12.7 g/dL [facility] 11.1-15.9 erythrocyte (RBC) count 3.69 X10E6/UL [facility] 3.77-5.28 Low leukocyte count, blood 8.0 X10E3/UL [facility] 3.4-10.8 prothrombin time (patient) 11.2 s [facility] 9.0-11.5 Normal international normalized ratio (INR) 1.1 [facility] Normal basophils as percent of blood leukocytes 0.3 % [facility] Normal eosinophils as percent of blood leukocytes 0.2 % [facility] Normal monocyte count, blood 6.7 % [facility] Normal lymphocyte count, blood 9.2 % [facility] Normal neutrophils as percent of blood leukocytes 83.6 % [facility] Normal basophils, absolute, manual 30 cells/mcL [facility] 0-200 Normal eosinophils, absolute, manual 20 cells/mcL [facility] 15-500 Normal monocytes, absolute, manual 663 cells/mcL [facility] 200-950 Normal lymphocytes, absolute 911 CELLS/UL [facility] 850-3900 Normal Absolute Neutrophil count 8276 cells/mcL [facility] 3308-9413 High mean platelet volume 12.3 fL [facility] 7.5-12.5 Normal platelet count 225 THOUSAND/UL [facility] 140-400 Normal red blood cell distribution width 12.1 % [facility] 11.0-15.0 Normal mean corpuscular hemoglobin concentration, RBC 34.6 G/DL [facility] 32.0-36.0 Normal mean corpuscular hemoglobin, RBC 34.8 pg [facility] 27.0-33.0 High mean corpuscular volume, RBC 100.5 fL [facility] 80.0-100.0 High hematocrit, blood 39.0 % [facility] 35.0-45.0 Normal hemoglobin electrophoresis, blood 13.5 [facility] 11.7-15.5 Normal erythrocyte (RBC) count 3.88 MILLION/UL [facility] 3.80-5.10 Normal leukocyte (white blood cells) count, blood 9.9 THOUSAND/UL [facility] 3.8-10.8 Normal alanine aminotransferase (SGPT), serum 25 1/L [facility] 6-29 Normal aspartate aminotransferase (SGOT), serum 21 1/L [facility] 10-35 Normal alkaline phosphatase, serum 65 1/L [facility] 33-130 Normal bilirubin, serum, total 0.6 mg/dL [facility] 0.2-1.2 Normal albumin/globulin ratio, serum 1.9 (calc) [facility] 1.0-2.5 Normal globulins, serum, total 2.2 G/DL (CALC) [facility] 1.9-3.7 Normal albumin, serum 4.2 g/dL [facility] 3.6-5.1 Normal protein, total, serum 6.4 g/dL [facility] 6.1-8.1 Normal calcium, serum 9.5 mg/dL [facility] 8.6-10.4 Normal carbon dioxide, venous blood 28 mmol/L [facility] 20-32 Normal chloride, serum 101 mmol/L [facility] 98-110 Normal potassium, serum 4.0 mmol/L [facility] 3.5-5.3 Normal sodium, serum 137 mmol/L [facility] 135-146 Normal urea nitrogen/creatinine ratio, serum NOT APPLICABLE (calc) [facility] 6- Estimated Glomerular Filtration Rate (calc) 88 mL/min/{1.73_ m2} [facility] > OR = 60 Normal creatinine, serum 0.84 mg/dL [facility] 0.50-1.05 Normal urea nitrogen, blood 20 mg/dL [facility] 7-25 Normal blood glucose, random 123 mg/dL [facility] 65-139 Normal cholesterol, non-HDL, total 75 MG/DL (CALC) [facility] <130 Normal cholesterol/HDL ratio, serum, percent 2.5 (calc) [facility] <5.0 Normal LDL cholesterol, serum 48 MG/DL (CALC) [facility] Normal triglyceride, serum, fasting 197 mg/dL [facility] <150 High HDL cholesterol, serum 50 mg/dL [facility] >50 Low cholesterol, serum 125 mg/dL [facility] <200 Normal LDL cholesterol, serum 62 mg/dL Shimon Burk HISTORY OF MEDICATION USE Medication Status Instructions Dates Provider Indications Com ments losartan 50 mg tablet active TAKE 1 TABLET BY MOUTH DAILY IN THE EVENING 05/29 Leatha Cortés clobetasol 0.05% shampoo active Caitie Quispe trazodone 50 mg tablet active Caitie Quispe clotrimazole 1% cream active Caitie Quispe cilostazol 50 mg tablet completed TAKE 1 TABLET TWICE DAILY 08/23 - 10/17 Kim Clovisadriannehenrique GAMA brimonidine 0.2% drops completed - 01/16 Caitierubén Quispe aspirin 81 mg tablet,delayed release (DR/EC) active TAKE 1 TABLET BY MOUTH ONCE DAILY 06/08 Cassi Anne NP losartan 25 mg tablet completed 05/22 tablet by mouth once a day TAKE 1 TABLET BY MOUTH DAILY IN THE EVENING 12/08 - 05/29 Leatha Cortés atorvastatin 40 mg tablet active TAKE 1 TABLET BY MOUTH EVERY EVENING 10/23 [facility] carvedilol 6.25 mg tablet active TAKE 1 TABLET BY MOUTH TWICE DAILY 07/03 [facility] isosorbide mononitrate 30 mg tablet extended release 24 hr active TAKE 1 TABLET BY MOUTH EVERY DAY 01/17 [facility] clopidogrel 75 mg tablet active TAKE 1 TABLET BY MOUTH EVERY DAY 08/25 [facility] Lipitor 40 mg tablet completed Take 1 tabl et by mouth every evening 07/21 - 10/23 [facility] Eliquis 5 mg tablet completed Take 1 table t by mouth twice a day STOP ASPIRIN 06/17 - 06/17 Carmen Salas RN Samples given 06/20/21 Lasix 20 mg tablet completed Take 1 tablet by mouth twice a week 07/07 - 07/07 [facility] lisinopril 2.5 mg tablet completed TAKE 1 TABLET BY MOUTH EVERY DAY - 05/24 Linda Foster MagOx 400 mg (241.3 mg magnesium) tablet active Sindy Whitmore Rinvoq 15 mg tablet extended release 24 hr completed - 06/08 Cassi Anne NP Simponi 50 mg/0.5 mL pen injector completed - 06/08 Cassi Anne NP Coreg 6.25 mg tablet completed Take 1 tabl et by mouth twice a day 12/09 - 09/05 Abbie Vasquez timolol maleate 0.5% drops active once a day 05/31 Michelle Winchester ALPRAZOLAM 0.25 MG ORAL TABLET completed take 1 tab three times a day - 12/09 Margaret Swain aspirin 81 mg tablet,delayed release (DR/EC) completed 1 tablet once a day 08/20 - 06/17 Sindy Haim ACTEMRA 162 MG/0.9ML SUBCUTANEOUS SOLUTION PREFILLED SYRINGE completed inject every 2 weeks 06/10 - 05/31 Michelle Winchester isosorbide mononitrate 30 mg tablet extended release 24 hr completed Take 1 tablet by mouth once a day 07/23 - 01/17 Leatha Cortés MULTIVITAMINS ORAL CAPSULE completed take 1 cap daily 02/10 - 06/10 Abbie Gomez HYDROXYCHLOROQUINE SULFATE 200 MG ORAL TABLET completed take 1 tab daily 02/10 - 06/10 Abbie Gomez SULFASALAZINE 500 MG ORAL TABLET completed take one tablet by mouth twice daily 02/06 - 06/10 Abbie Gomez PLAQUENIL 200 MG ORAL TABLET completed take one tablet by mouth once daily 02/06 - 02/10 Ivonne Akers OXYCODONE-ACETAMINOP HEN 5-325 MG ORAL TABLET completed take one tablet by mouth by mouth every 4-6 hours as needed for pain 02/06 - 12/09 Margaret Swain XARELTO 20 MG ORAL TABLET completed Take 1 tablet orally once daily 11/13 - 06/10 Yinka Lewis MD clopidogrel 75 mg tablet completed Take 1 tablet by mouth once a day 06/26 - 08/25 Adriana Zhu VITAMIN B-12 1000 MCG ORAL TABLET completed One tablet daily 07/11 - 02/10 Ivonne Akers [facility] OIL CAPSULE completed once a day 07/11 - 02/06 Valencia Carpio prednisone 5 mg tablet active 1 1/2 tablet by mouth once a day 07/11 Kim Pinzon DOCTOR OF OSTEOPATHY MULTIVITAMINS CAPS active 1 tablet once a day 07/11 Leatha Cortsé lisinopril 2.5 mg tablet completed Take 1 tablet by mouth once a day 07/23 - Linda Floresnicola GABAPENTIN 300 MG ORAL CAPSULE completed 1 pill three times a day 07/11 - 02/06 Valencia Carpio Lasix 20 mg tablet completed Take 1 twice a week 07/11 - 07/07 Leatha Cortés folic acid 1 mg tablet active once a day 07/11 Leatha Cortés Combigan 0.2-0.5% drops completed 1 drop into both eyes twice a day 07/11 - 06/08 Cassi Anne NP citalopram 20 mg tablet active once a day 07/11 Leatha Cortés COREG 6.25 MG ORAL TABLET completed ONE TAB. TWICE DAILY 07/11 - 02/06 Valencia Carpio CALCIUM 600+D3 TABLET completed once a day 07/11 - 02/10 Ivonne Akers Lipitor 40 mg tablet completed 1 tablet on ce a day 07/11 - 07/21 Leatha Cortés ASPIRIN ADULT LOW DOSE 81 MG ORAL TABLET DELAYED RELEASE completed One Tab By Mouth Daily 07/11 - 10/31 Ivonne Akers ASCORBIC ACID 1000 MG ORAL TABLET completed once a day 07/11 - 08/20 Bri Kraft RN VITAMIN C CAPSULE active 1 capsule once a day 09/06 Abbie Vasquez LIDOCAINE PATCH completed as directed 06/08 - 10/31 Ivonne Akers LASIX 20 MG ORAL TABLET completed NEEDED - 02/06 Valencia Carpio TRAMADOL HCL 50 MG ORAL TABLET completed as needed 06/08 - 10/31 Ivonne Akers LISINOPRIL 5 MG ORAL TABLET completed ONE TAB. DAILY 06/08 - 02/06 Valencia Carpio MULTIVITAMINS ORAL CAPSULE completed ONE TAB. DAILY 06/08 - 10/31 Ivonne Akers TRAZODONE HCL 50 MG ORAL TABLET completed once daily 06/03 - 12/09 Valencia Carpio PREDNISONE 5 MG ORAL TABLET completed once daily 06/03 - 06/08 July O'Hernando OXYCODONE-ACETAMINOP HEN 5-325 MG ORAL TABLET completed savita 4-6 hr prn pain 06/03 - 06/08 July O'Hernando methotrexate sodium 2.5 mg tablet active 15 mg once a week 06/03 Abbie Vasquez FOLIC ACID 1 MG ORAL TABLET completed 06/03 - 10/31 Ivonne Akers COUMADIN 1 MG ORAL TABLET completed 06/03 - 12/09 Valencia Carpio CORRECTOL 5 MG ORAL TABLET DELAYED RELEASE completed 06/03 - 06/08 July Perez Coreg 6.25 mg tablet completed 1 tablet tw a day 06/03 - 12/09 Abbie Vasquez COMBIGAN 0.2-0.5 % OPHTHALMIC SOLUTION completed 06/03 - 10/31 Ivonne Akers CITALOPRAM HYDROBROMIDE 20 MG ORAL TABLET completed once daily 06/03 - 10/31 Ivonne Akers CALCIUM 600 + MINERALS 600-200 MG-UNIT ORAL TABLET completed once daily 06/03 - 10/31 Ivonne Akers ATORVASTATIN CALCIUM 40 MG ORAL TABLET completed 1 TAB AT BDETIME - 10/31 Ivonne Akers ASPIRIN 81 MG ORAL TABLET completed ONE TAB. DAILY 06/03 - 10/31 Ivonne Akers SOCIAL HISTORY Date Observation Value Provider personal history of marijuana use no Yinka Lewis MD drug use no Yinka Lewis MD alcohol use, average drinks per day social Yinka Lewis MD alcohol use yes Yinka Lewis MD smoking, year quit 2013 Yinka mcmullen MD number of years as a smoker 36 a Yinka Lewis MD smoking history, tot al pack/day 1 ppd Yinka Lewis MD cigarette use yes Yinka Díaz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 Former smoker Yinka Lewis MD personal history of marijuana use no Morteza Ramirez DNP,[facility] drug use no Morteza Ramirez DN P,[facility] alcohol use, average drinks per day social Morteza Ramirez DNP,[facility] alcohol use yes Morteza Ramirez DN P,[facility] smoking, year quit 2013 Morteza wilson DNP,[facility] number of years as a smoker 36 a Morteza Ramirez DNP,[facility] smoking history, tot al pack/day 1 ppd Morteza Ramirez DNP,[facility] cigarette use yes 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,[facility]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 Former smoker Morteza Ramirez DNP,[facility] personal history of marijuana use no Kim Ventimiglia [facility] drug use no Kim Ventimig shanika [facility] alcohol use, average drinks per day social Kim Ventimiglia [facility] alcohol use yes Kim Ventimig shanika [facility] smoking, year quit 2013 Kim Ve ntimiglia [facility] number of years as a smoker 36 a Kim Ventimiglia [facility] smoking history, tot al pack/day 1 ppd Kim Ventimiglia [facility] cigarette use yes Kim Ventimi glia [facility]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 Former smoker Kim Venti miglia [facility] personal history of marijuana use no Kim Ventimiglia [facility] drug use no Kim Ventimig shanika [facility] alcohol use, average drinks per day social Kim Ventimiglia [facility] alcohol use yes Kim Ventimig shanika [facility]OPATHY smoking, year quit 2013 Kim Schaefer ntimiglia DO[facility] OSTEOPATHY number of years as a smoker 36 a Kim Ventimiglia [facility] OSTEOPATHY smoking history, tot al pack/day 1 ppd Kim Ventimiglia [facility]ATH[facility] cigarette use yes Kim Ventimi glia [facility]ATH[facility]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 Former smoker Kim Brannon miglia [facility]OPATHY personal history of marijuana use no Verah 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 drug use no Verah 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 alcohol use, average drinks per day social Verah 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 alcohol use yes Verah 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 smoking, year quit 2013 Versusi Bon areri [employer] COUNTER C[employer]IER number of years as a smoker 36 a Versusi 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 smoking history, tot al pack/day 1 ppd Verah 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 cigarette use yes Verah 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 Former smoker Cassi Bonare ri [employer]ICE COUNTER 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 personal history of marijuana use no Yinka Lewis MD drug use no Yinka Lewis MD alcohol use, average drinks per day social Yinka Lewis MD alcohol use yes Yinka Lewis MD smoking, year quit 2013 Yinka mcmullen MD number of years as a smoker 36 a Yinka Lewis MD smoking history, tot al pack/day 1 ppd Yinka Lewis MD cigarette use yes Yinka Díaz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 Former smoker Yinka Lewis MD personal history of marijuana use no Cassi Anne NP drug use no Cherry Quispe alcohol use, average drinks per day social Cherry Quispe alcohol use yes Cherry Quispe smoking, year quit 2013 Cherry [facility] number of years as a smoker 36 a Cherry Quispe smoking history, tot al pack/day 1 ppd Cherry Quispe cigarette use yes Cherry Quispe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 Former smoker Cherry Quispe social history reviewed E&M revi ewed - no changes required Yinka Lewis MD social history reviewed E&M revi ewed - no changes required Thang Cortés number of grandchildren Yinka Lewis MD S alcides Chowdhury MD social history E&M S moking History: P mychal is a former smoker. Yinka Lewis MD social history reviewed E&M revi ewed - no changes required Yinka Lewis MD smoking, year quit 2013 Aury Freddy iams number of years as a smoker 36 a Aury Salas smoking history, tot al pack/day 1 ppd Aury Salas cigarette use yes Aury Salas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 Former smoker Aury du social history E&M S moking History: P mychal is a former smoker. Yinka Lewis MD social history reviewed E&M revi ewed - no changes required Yinka Lewis MD smoking, year quit 2013 Leatha ordonez number of years as a smoker 36 a Leatha Cortés smoking history, tot al pack/day 1 ppd Leatha Cortés cigarette use yes Leatha jones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 Former smoker Leatha maza social history E&M S moking History: Heydi horta is a former smoker. Carlton Quach social history reviewed E&M revi ewed - no changes required Carlton Quach smoking, year quit 2013 Leatha ordonez number of years as a smoker 36 a Leatha Cortés smoking history, tot al pack/day 1 ppd Leatha Cortés cigarette use yes Leatha jones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 Former smoker Leatha davilakaren drug use no Yinka Lewis MD alcohol use, average drinks per day social Yinka Lewis MD alcohol use yes Yinka Lewis MD social history E&M S moking History: P atient is a former smoker. Yinka Lewis MD social history reviewed E&M revi ewed - no changes required Yinka Lewis MD smoking, year quit 2013 [place] number of years as a smoker 36 a Burns smoking history, tot al pack/day 1 ppd Burns cigarette use yes Michelle Fieldsrubén nina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 Former smoker Michelle russo smoking, year quit 2013 Leatha ordonez number of years as a smoker 36 a Leatha Cortés smoking history, tot al pack/day 1 ppd Leatha Cortés cigarette use yes Leatha jones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 Former smoker Leatha maza social history E&M S moking History: P atолег is a former smoker. Yinka Lewis MD social history reviewed E&M revi ewed - no changes required Yinka Lewis MD smoking, year quit 2013 Lavinia mas number of years as a smoker 36 a Lavinia Aragon smoking history, tot al pack/day 1 ppd Lavinia Aragon cigarette use yes Trynett Edward s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 Former smoker Lavinia Bernardwa rds number of grandchildren John Whitmore social history reviewed E&M revi ewed - no changes required Sindy Whitmore social history E&M S moking History: P atient is a former smoker. Rachele Mireles NP social history reviewed E&M revi ewed - no changes required Rachele Mireles NP smoking, year quit 2013 Hilda Solorioford number of years as a smoker 36 a Gertrude White smoking history, tot al pack/day 1 ppd Gertrude White cigarette use yes Gertrude Douglas becka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 Former smoker Gertrude Hicks nayan number of grandchildren Yinka Lewis MD U darryn Lewis MD social history E&M S moking History: P atолег is a former smoker. Yinka Lewis MD social history reviewed E&M revi ewed - no changes required Yinka Lewis MD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 Former smoker Jacquie Mickie social history E&M S moking History: P atолег is a former smoker. Yinka Lewis MD social history reviewed E&M revi ewed - no changes required Yinka Lewis MD smoking, year quit 2013 Margaret Swain number of years as a smoker 36 a Margaret Swain smoking history, tot al pack/day 1 ppd Margaret Swain cigarette use yes Margaret valdez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 Former smoker Margaret Huang social history E&M S moking History: P atient is a former smoker. Neal Rose DO social history reviewed E&M revi ewed - no changes required Neal Rose DO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 Former smoker Jacquie Corado number of grandchildren Neal Rose Aguilar JINNY Mendoza social history reviewed E&M revi ewed - no changes required Neal Rose HARRIS smoking, year quit 2013 Michelle Winchester number of years as a smoker 36 a Michelle Meredithy smoking history, tot al pack/day 1 ppd Perry cigarette use yes Michelle Meredith y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 Former smoker Michelle champion alcohol use, average drinks per day social Yinka Lewis MD alcohol use yes Yinka Lewis MD social history E&M S moking History: P atient is a former smoker. Yinka Lewis MD social history reviewed E&M revi ewed - no changes required Yinka Lewis MD smoking, year quit 2013 Ivonne santoro number of years as a smoker 36 a Ivonne Oswald smoking history, tot al pack/day 1 ppd Ivonne Akers cigarette use yes Ivonne harrison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 Former smoker Ivonne Nadeem strong social history E&M S moking History: P atient is a former smoker. Lucas Bangura social history reviewed E&M revi ewed - no changes required Lucas Bangura smoking, year quit 2013 Tonsha Mo ss number of years as a smoker 36 a Tonsha Banks smoking history, tot al pack/day 1 ppd Tonsha Banks cigarette use yes Tonsha Banks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 Former smoker Tonsha Banks social history E&M S moking History: P atient is a former smoker. Bri Kraft RN social history reviewed E&M revi ewed - no changes required Bri Kraft RN smoking, year quit 2013 Shanice Collado number of years as a smoker 36 a Shanice Block smoking history, tot al pack/day 1 ppd Shanice Block cigarette use yes Shanice Block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 Former smoker Shanice Larson ck social history E&M S moking History: Heydi horta is a former smoker. Yinka Lewis MD social history reviewed E&M revi ewed - no changes required Yinka Lewis MD smoking, year quit 2013 Ivonne santoro number of years as a smoker 36 a Ivonne Akers smoking history, tot al pack/day 1 ppd Ivonne Akers cigarette use yes Ivonne harrison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 Former smoker Ivonne Nadeem strong social history E&M S moking History: Heydi horta is a former smoker. Yinka Lewis MD smoking, year quit 2013 Abbie castilloon-Tristan number of years as a smoker 36 a Abbie Holcomb-Tristan smoking history, tot al pack/day 1 ppd Abbie Holcomb-Tristan cigarette use yes Abbie Delong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 Former smoker Abbie Dentonins on-Tristan social history reviewed E&M revi ewed - no changes required Abbie Gomez social history E&M S moking History: Heydi horta is a former smoker. Rachele Mireles NP social history reviewed E&M revi ewed - no changes required Rachele Mireles NP number of grandchildren Yinka Lewis MD S mario Mireles NP smoking, year quit 2013 Ivonne santoro number of years as a smoker 36 a Ivonne Akers smoking history, tot al pack/day 1 ppd Ivonne Akers cigarette use yes Ivonne harrison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 Former smoker Ivonne strong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 Former smoker Neal worrell DO social history E&M S moking History: Heydi horta is a former smoker. Neal Rose DO social history reviewed E&M revi ewed - no changes required Neal Rose DO number of grandchildren Neal Rose D O Neal Rose DO smoking, year quit 2013 Valencia Bu sby number of years as a smoker 36 a Valencia Charleroi smoking history, tot al pack/day 1 ppd Valencia Balaji cigarette use yes Valencia Charleroi social history E&M Smoking Histo ry: Heydi horta is a former smoker. Yinka Lewis MD social history reviewed E&M revi ewed - no changes required Yinka Lewis MD social history E&M S moking History: Heydi horta is a former smoker. Yinka Lewis MD social history reviewed E&M revi ewed - no changes required Yinka Lewis MD alcohol use, average drinks per day social [facility] [place] Dasilva smoking, year quit 2013 [place] I ngram number of years as a smoker 36 a Keri Dasilva smoking history, tot al pack/day 1 ppd [place] Dasilva cigarette use yes [place] Dasilva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 Former smoker Keri Ingr social history reviewed E&M revi ewed - no changes required Yinka Lewis MD social history E&M S moking History: Heydi horta is a former smoker. Yinka Lewis MD number of grandchildren Yinka Lewis MD K keisha Dasilva alcohol use, average drinks per day social [place] Dasilva alcohol use yes Keri Dasilva smoking, year quit 2013 Keri I ngram number of years as a smoker 36 a Keri Dasilva smoking history, tot al pack/day 1 ppd Keri Dasilva cigarette use yes Keri Dasilva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 Former smoker Keri Nichole am alcohol use, average drinks per day social Yinka Lewis MD alcohol use yes Yinka Lewis MD social history E&M S moking History: Heydi horta is a former smoker. Yinka Lewis MD social history reviewed E&M revi ewed - no changes required Yinka Lewis MD number of years as a smoker 36 a Leatha Gonzalezana smoking history, tot al pack/day 1 ppd Leatha Gonzalezana smoking, year quit 2013 Leatha Doty mery cigarette use yes Leatha Gonzalezlibia [facility]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 Former smoker Leatha Rojasalesia hendersoner smoking, year quit 2013 Neal Peña ascock DO cigarette use yes Neal Munozcoc k DO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 Former smoker Nealadalberto Munozc ock DO social history reviewed E&M revi ewed - no changes required Neal Munozcock DO social history E&M Smoking Histo ry: Heydi horta is a former smoker. Neal Lyonsck DO social history E&M S moking History: Heydi horta is a former smoker. Neal Lyonsck DO smoking, year quit 2013 Neal Gl ascock DO cigarette use yes Neal Glascoc k DO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 Former smoker Neal Munozc ock DO social history reviewed E&M revi ewed - no changes required Neal oRse DO social history reviewed E&M revi ewed - no changes required Neal Munozcock DO number of grandchildren Neal Carpio smoking, year quit 2013 July Villagomez cigarette use yes July O'Hernando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 Former smoker July Rivero l FUNCTIONAL STATUS Date Observation Value Provider HRA, CV Assess/Plan, Angina (inactive) Management Plan continue current therapy Morteza Ramirez DNP,DOCTOR OF OSTEOPATHY HRA, CV Assess/Plan, Angina (inactive) Management Plan continue current therapy Kim Pinzon DOCTOR OF OSTEOPATHY HRA, CV Assess/Plan, Angina (inactive) Management Plan continue current therapy Cassi Anne NP HRA, CV Assess/Plan, Angina (inactive) Management Plan continue current therapy Cassi Anne NP HRA, CV Assess/Plan, Angina (inactive) Management Plan continue current therapy Yinka Lewis MD HRA, CV Assess/Plan, Angina (inactive) Management Plan continue current therapy Thang Cortés HRA, CV Assess/Plan, Angina (inactive) Management Plan continue current therapy Yinka Lewis MD HRA, CV Assess/Plan, Angina (inactive) Management Plan continue current therapy Yinka Lewis MD HRA, CV Assess/Plan, Angina (inactive) Management Plan continue current therapy Carlton Quach HRA, CV Assess/Plan, Angina (inactive) Management Plan continue current therapy Yinka Lewis MD HRA, CV Assess/Plan, Angina (inactive) Management Plan continue current therapy Sindy Whitmore HRA, CV Assess/Plan, Angina (inactive) Management Plan continue current therapy Rachele Mireles NP HRA, CV Assess/Plan, Angina (inactive) Management Plan continue current therapy Yinka Lewis MD HRA, CV Assess/Plan, Angina (inactive) Management Plan continue current therapy Neal Rose DO HRA, CV Assess/Plan, Angina (inactive) Management Plan continue current therapy Neal Rose DO HRA, CV Assess/Plan, Angina (inactive) Management Plan continue current therapy Bri Kraft RN HRA, CV Assess/Plan, Angina (inactive) Management Plan continue current therapy Neal Rose DO HRA, CV Assess/Plan, Angina (inactive) Management Plan continue current therapy Yinka Lewis MD HRA, CV Assess/Plan, Angina (inactive) Management Plan continue current therapy Neal Rose DO HRA, CV Assess/Plan, Angina (inactive) Management Plan continue current therapy Neal Rose DO FAMILY HISTORY Family Member Condition Father Family History of Di abetes: Mother Family History of Borja dden Cardiac : Mother Family History of Co ronary Artery Disease: Mother Family History of Hy pertension: Mother Family History of Hy perlipidemia: Mother Family History of CV A or Stroke: Full Brother Family History of Co ronary Artery Disease: Father Family History of Co ronary Artery Disease: Mother Family History of Co ronary Artery Disease: INSURANCE PROVIDERS Payer name Policy type / Coverage type [place] [employer] [place] A[employer] MEDICARE ADVANTAGE [facility] (O) Medicare [id number] ADVANCE DIRECTIVES Name Date DISCUSSED - NO DECISION MADE TREATMENT PLAN Date Name Performer [id number],C,s tress test showd a fixed anterior wall defect Yinka Lewis MD [id number],C,L osartin 25 once a day P rior BP: 126/60 (12/08/2022) Labs Reviewed: C reat: 0.93 (05/13/2022) C hol: 124 (05/13/2022) HDL: 47 (05/13/2022) LDL: 55 MG/DL (CALC) (05/13/2022) T (05/13/2022) Yinka Lewis MD [id number],C,On astatin Us jacklyn Lewis MD [id number],C,H as monophasic waveforms in the left tibial vessels with sensilase which also shows decreased flow. However, she is not really having consistent symptoms on that side and has no wound so we will continue to treat medically. Yinka Lewis MD [id number],C, A BI 10/23/22 showed C ONCLUSIONS: 1 . Mild arterial disease of the right lower extremity. 2 . Mild to moderate arterial disease of the left lower extremity. Mild left popliteal stenosis. Monophasic flow seen in the t ibial arteries. 3 . Unable to accurately assess VIC's due to hardened arteries. Thang Cortés [id number],C, H er updated medication list for this problem includes: Isosorbide Mononitrate 30 Mg Tablet Extended Release 24 Hr (Isosorbide mononitrate) ..... Take 1 tablet by mouth every day Carvedilol 6.25 Mg Tablet (Carvedilol) ..... Take 1 tablet by mouth twice daily Clopidogrel 75 Mg Tablet (Clopidogrel) ..... Take 1 tablet by mouth every day S/p ablation, asymptomatic today Thang Cortés [id number],C, C ONCLUSIONS: 1 . Mild plaque with less than 50% stenosis of the internal carotid arteries bilaterally. 2 . Vertebral flow is antegrade bilaterally. Thang Moo [id number],C, S table. Continue medical therapy. Her updated medication list for this problem includes: Isosorbide Mononitrate 30 Mg Tablet Extended Release 24 Hr (Isosorbide mononitrate) ..... Take 1 tablet by mouth every day Carvedilol 6.25 Mg Tablet (Carvedilol) ..... Take 1 tablet by mouth twice daily Clopidogrel 75 Mg Tablet (Clopidogrel) ..... Take 1 tablet by mouth every day Thang Moo [id number],S, C artoids done 04/20/22 showed C ONCLUSIONS: 1 . Mild plaque with less than 50% stenosis of the internal carotid arteries bilaterally. 2 . Vertebral flow is antegrade bilaterally. H er updated medication list for this problem includes: Atorvastatin 40 Mg Tablet (Atorvastatin) ..... Take 1 tablet by mouth every evening Thang Moo [id number],S, D evice function normal A t/AF burden 0.0% % Pacing: RA - 92.0% RV - 5.0% Thang Galvankaren [id number],C, E cho 11/10 showed C ONCLUSIONS: 1 . Technically difficult study. Unable to determine segmental wall motion abnormalities. Abnormal septal motion consistent w ith pacemaker or ICD implant . Moderate global left ventricular systolic hypokinesis . There is akinesis in the apical inferior w all. Normal left ventricular size. Normal left ventricular wall thickness. There is E to A wave reversal consistent with i mpaired LV relaxation. Left ventricular ejection fraction is measured at 40 %. 2 . Normal right ventricular size. Linear artifact seen in the right ventricle is suggestive of a catheter, pacer lead, or ICD lead. 3 . The right atrium is normal in size. Linear artifact in right atrium suggestive of catheter, pacer lead, or ICD lead. 4 . There is non-specific thickening of the mitral valve leaflets. Mild mitral valve regurgitation. 5 . Aortic valve leaflets appear structurally normal. Velocities, as well as gradients across the aortic valve are normal. No e vidence of aortic insufficiency. 6 . Normal appearing tricuspid valve leaflets. There is moderate tricuspid regurgitation. Right ventricular systolic pressure is w ithin normal limits. IVC is normal in size with normal respiratory response. Estimated peak pulmonary artery systolic p ressure is 23.0 mmHg. H er updated medication list for this problem includes: Isosorbide Mononitrate 30 Mg Tablet Extended Release 24 Hr (Isosorbide mononitrate) ..... Take 1 tablet by mouth every day Carvedilol 6.25 Mg Tablet (Carvedilol) ..... Take 1 tablet by mouth twice daily Clopidogrel 75 Mg Tablet (Clopidogrel) ..... Take 1 tablet by mouth every day Thang Galvankaren [id number],S, E cho 10/2022 C ONCLUSIONS: 1 . Technically difficult study. Unable to determine segmental wall motion abnormalities. Abnormal septal motion consistent w ith pacemaker or ICD implant . Moderate global left ventricular systolic hypokinesis . There is akinesis in the apical inferior w all. Normal left ventricular size. Normal left ventricular wall thickness. There is E to A wave reversal consistent with i mpaired LV relaxation. Left ventricular ejection fraction is measured at 40 %. 2 . Normal right ventricular size. Linear artifact seen in the right ventricle is suggestive of a catheter, pacer lead, or ICD lead. 3 . The right atrium is normal in size. Linear artifact in right atrium suggestive of catheter, pacer lead, or ICD lead. 4 . There is non-specific thickening of the mitral valve leaflets. Mild mitral valve regurgitation. 5 . Aortic valve leaflets appear structurally normal. Velocities, as well as gradients across the aortic valve are normal. No e vidence of aortic insufficiency. 6 . Normal appearing tricuspid valve leaflets. There is moderate tricuspid regurgitation. Right ventricular systolic pressure is w ithin normal limits. IVC is normal in size with normal respiratory response. Estimated peak pulmonary artery systolic p ressure is 23.0 mmHg. Thang Barajaslink [id number],C,C ontinue medical therapy. She seems to be doing well. Will recheck an VIC and follow up with her in 6 months. Will also check an echo. Yinka Lewis MD [id number],B, Yinka Lewis MD [id number],S,W ill obtain labs and also a carotid duplex Yinka Lewis MD [id number],S, B P today: 124/84 P rior BP: 130/83 (12/16/2021) Labs Reviewed: C reat: 0.88 (10/21/2021) C hol: 118 (10/21/2021) HDL: 51 (10/21/2021) LDL: 43 MG/DL (CALC) (10/21/2021) T (10/21/2021) Yinka Lewis MD [id number],S,S table. Continue medical therapy. Yinka Lewis MD [id number],B, Yinka Lewis MD [id number],B,S /p ablation, asymptomatic today H er updated medication list for this problem includes: Clopidogrel 75 Mg Tablet (Clopidogrel) ..... Take 1 tablet by mouth every day Isosorbide Mononitrate 30 Mg Tablet Extended Release 24 Hr (Isosorbide mononitrate) ..... Take 1 tablet by mouth once a day Orders: E KG (CPT-71988) 9 9213 LTD 20-29min (CPT-12667) C omplete Echo (CPT-28686) Carlton Ríos [id number],S, H er updated medication list for this problem includes: Clopidogrel 75 Mg Tablet (Clopidogrel) ..... Take 1 tablet by mouth every day Isosorbide Mononitrate 30 Mg Tablet Extended Release 24 Hr (Isosorbide mononitrate) ..... Take 1 tablet by mouth once a day Orders: 9 9213 LTD 20-29min (CPT-62713) C omplete Echo (CPT-76436) Carltonemmanuel Ríos [id number],C,S/p ablation, asymptomatic today Carltonemmanuel Ríos [id number],C,E cho 09/2021 CONCLUSIONS: 1 . Technically difficult study, limited views secondary to poor acoustic windows. Interpretation is based on available limited v iews. Abnormal septal motion consistent with pacemaker or ICD implant . Mild global left ventricular systolic hypokinesis. N ormal left ventricular size. Normal left ventricular wall thickness. There is E to A wave reversal consistent with impaired LV r elaxation. E/E': 8.0 Left ventricular ejection fraction is measured at 45 %. 2 . Normal right ventricular size. Normal right ventricular systolic function. Linear artifact seen in the right ventricle is s uggestive of a catheter, pacer lead, or ICD lead. 3 . There is non-specific thickening of the mitral valve leaflets. There is trace to mild mitral valve regurgitation. 4 . Aortic valve leaflets appear structurally normal. Velocities, as well as gradients across the aortic valve are normal. No e vidence of aortic insufficiency. 5. Normal appearing tricuspid valve leaflets. There is moderate to severe tricuspid regurgitation. IVC is normal in size with n ormal respiratory response. The RA pressure is estimated at 3.0 mmHg Estimated peak pulmonary artery systolic pressure is 3 0.0 mmHg. Carltonemmanuel Ríosflaquito [id number],C, B P today: 130/83 P rior BP: 118/60 (09/23/2021) Labs Reviewed: C reat: 0.88 (10/21/2021) C hol: 118 (10/21/2021) HDL: 51 (10/21/2021) LDL: 43 MG/DL (CALC) (10/21/2021) T (10/21/2021) Her updated medication list for this problem includes: Lasix 20 Mg Tablet (Furosemide) ..... Take 1 tablet by mouth twice a week Orders: 9 9213 LTD 20-29min (CPT-76067) C omplete Echo (CPT-41925) Carltonemmanuel Ríos [id number],C, A ppears to be stable. Continue medical therapy. Her updated medication list for this problem includes: Clopidogrel 75 Mg Tablet (Clopidogrel) ..... Take 1 tablet by mouth every day Isosorbide Mononitrate 30 Mg Tablet Extended Release 24 Hr (Isosorbide mononitrate) ..... Take 1 tablet by mouth once a day Orders: 9 9213 LTD 20-29min (CPT-22397) C omplete Echo (CPT-74144) Carlton Khushbuflaquito [id number],B,a bi shows good blood flow and will continue medical therapy. Yinka Lewis MD [id number],C, John min MD [id number],C, H er updated medication list for this problem includes: Isosorbide Mononitrate 30 Mg Tablet Extended Release 24 Hr (Isosorbide mononitrate) ..... Take 1 tablet by mouth once a day Coreg 6.25 Mg Tablet (Carvedilol) ..... Take 1 tablet by mouth twice a day Clopidogrel 75 Mg Tablet (Clopidogrel) ..... Take 1 tablet by mouth once a day John Chowdhury MD [id number],C,D one by Dr. chowdhury Tobacco cessation counseling, 3-10minutes (81246) O rders: T obacco cessation counseling, 3-10minutes (47339) John Chowdhury MD [id number],B,r esolved no atrial fib. Will reassess need for NOAC if A> fib is documented in future on her device H er updated medication list for this problem includes: Coreg 6.25 Mg Tablet (Carvedilol) ..... Take 1 tablet by mouth twice a day Clopidogrel 75 Mg Tablet (Clopidogrel) ..... Take 1 tablet by mouth once a day John Chowdhury MD [id number],C, H er updated medication list for this problem includes: Isosorbide Mononitrate 30 Mg Tablet Extended Release 24 Hr (Isosorbide mononitrate) ..... Take 1 tablet by mouth once a day Coreg 6.25 Mg Tablet (Carvedilol) ..... Take 1 tablet by mouth twice a day Clopidogrel 75 Mg Tablet (Clopidogrel) ..... Take 1 tablet by mouth once a day Orders: 9 9212 Minor 10-19min (CPT-94234) John Chowdhury MD [id number],C, S he has had intermittent episodes of SVT which have all been terminated with ATP. S cheduled for EP study/ablation. Discussed the indications, benefits, alternatives and risk of complications from the procedure with the patient who expressed understanding. Reviewed directions. Sindy Whitmore [id number],C, S ymptomatic with palpitations, dizziness/lightheadedness, fatigue. States her HR was between 143-165 for about three hours recently. Device documented both atrial flutter and recurrent SVT this month, treated with ATP, no shocks. S cheduled for EP study/ablation. Discussed the indications, benefits, alternatives and risk of complications from the procedure with the patient who expressed understanding. Reviewed directions. Sindy Whitmore [id number],C, S he has had intermittent episodes of SVT which have all been terminated with ATP. P atient would like to keep watching rather than proceed with ablation at this time, will respect patient wishes. Sindy Whitmore [id number],W, S ymptomatic with palpitations, dizziness/lightheadedness, fatigue. States her HR was between 143-165 for about three hours recently. Device documented both atrial flutter and recurrent SVT this month, treated with ATP, no shocks. Will start her on eliquis 5mg twice daily and schedule her for EP study/ablation. Discussed the indications, benefits, alternatives and risk of complications from the procedure with the patient who expressed understanding. Jeffedelmira Haim [id number],C,W ill check echo in several months to monitor Yinka Lewis MD [id number],C,N o further leg claudication. Will repeat ABIs in 6 months Yinka Lewis MD [id number],C,L ipids followed by PCP H er updated medication list for this problem includes: Lipitor 40 Mg Tablet (Atorvastatin) ..... 1 tablet once a day Yinka Lewis MD [id number],C,B P is 94/64 today, reports some dizziness. Will stop her lisinopril Yinka Lewis MD [id number],S, A ppears to be stable. Continue medical therapy. Yinka Lewis MD [id number],B, B P today: 122/80 P rior BP: 118/70 (11/15/2020) Labs Reviewed: C reat: 1.05 (07/14/2019) C hol: 122 (02/22/2019) HDL: 49 (02/22/2019) Her updated medication list for this problem includes: Coreg 6.25 Mg Tablet (Carvedilol) ..... Take 1 tablet by mouth twice a day Aspirin 81 Mg Tablet,delayed Release (dr/ec) (Aspirin) ..... 1 tablet once a day Lasix 20 Mg Tablet (Furosemide) ..... Take 1 twice a week Lisinopril 2.5 Mg Tablet (Lisinopril) ..... Take 1 tablet by mouth once a day Sindy Whitmore [id number],B, r eports cessation in 2013 Sindy Whitmore [id number],S, S he has had intermittent episodes of SVT which have all been terminated with ATP. P atолег would like to keep watching rather than proceed with ablation at this time, will respect patient wishes. Her updated medication list for this problem includes: Coreg 6.25 Mg Tablet (Carvedilol) ..... Take 1 tablet by mouth twice a day Aspirin 81 Mg Tablet,delayed Release (dr/ec) (Aspirin) ..... 1 tablet once a day Isosorbide Mononitrate 30 Mg Tablet Extended Release 24 Hr (Isosorbide mononitrate) ..... Take 1 tablet by mouth once a day Clopidogrel 75 Mg Tablet (Clopidogrel) ..... Take 1 tablet by mouth once a day Lisinopril 2.5 Mg Tablet (Lisinopril) ..... Take 1 tablet by mouth once a day Sindy Whitmore [id number],B, S he continues to have a few episodes of SVT terminated with ATP. N o shocks from device. N o VT noted. W ould start magnesium 400mg once daily. Her updated medication list for this problem includes: Coreg 6.25 Mg Tablet (Carvedilol) ..... Take 1 tablet by mouth twice a day Aspirin 81 Mg Tablet,delayed Release (dr/ec) (Aspirin) ..... 1 tablet once a day Isosorbide Mononitrate 30 Mg Tablet Extended Release 24 Hr (Isosorbide mononitrate) ..... Take 1 tablet by mouth once a day Clopidogrel 75 Mg Tablet (Clopidogrel) ..... Take 1 tablet by mouth once a day Lisinopril 2.5 Mg Tablet (Lisinopril) ..... Take 1 tablet by mouth once a day Sindy Whitmore [id number],C,C heck venous doppler to rule out DVT Rachele Mireles NP [id number],C,P t does not want intervention at this time Rachele Mireles NP Telehealth: H er updated medication list for this problem includes: Losartan 50 Mg Tablet (Losartan) ..... Take 1 tablet by mouth daily in the evening Carvedilol 6.25 Mg Tablet (Carvedilol) ..... Take 1 tablet by mouth twice daily Aspirin 81 Mg Tablet,delayed Release (dr/ec) (Aspirin) ..... Take 1 tablet by mouth once daily Carlton Quach Telehealth: H er updated medication list for this problem includes: Isosorbide Mononitrate 30 Mg Tablet Extended Release 24 Hr (Isosorbide mononitrate) ..... Take 1 tablet by mouth every day Carvedilol 6.25 Mg Tablet (Carvedilol) ..... Take 1 tablet by mouth twice daily Clopidogrel 75 Mg Tablet (Clopidogrel) ..... Take 1 tablet by mouth every day Aspirin 81 Mg Tablet,delayed Release (dr/ec) (Aspirin) ..... Take 1 tablet by mouth once daily Carlton Quach Telehealth:She may u ndergo her colonoscopy and stop Aspirin and Plavix 7 days prior Her updated medication list for this problem includes: Isosorbide Mononitrate 30 Mg Tablet Extended Release 24 Hr (Isosorbide mononitrate) ..... Take 1 tablet by mouth every day Carvedilol 6.25 Mg Tablet (Carvedilol) ..... Take 1 tablet by mouth twice daily Clopidogrel 75 Mg Tablet (Clopidogrel) ..... Take 1 tablet by mouth every day Aspirin 81 Mg Tablet,delayed Release (dr/ec) (Aspirin) ..... Take 1 tablet by mouth once daily Carlton Quach Cardiology: r esolved no atrial fib. Will reassess need for NOAC if A> fib is documented in future on her device Yinka Lewis MD Cardiology:stable C ontinue medical therapy. T his visit has been a part of the consistent, comprehensive, and ongoing management of the chronic medical condition(s) listed above for the patient. Yinka Lewis MD Cardiology:Last Echo EF 40% W Ill continue treating her with medications H as Biv device A ppears compensated Yinka Lewis MD Electrophysiology:Re peat VIC next week. Left leg claudications stable. She has a f/u with Dr. Lewis next week about her legs. She elected no intervention to her left popliteal last time given her symptoms were not significant. Continue with regular walking routine. [facility] Electrophysiology:Wi ll repeat lipid panel. H er updated medication list for this problem includes: Atorvastatin 40 Mg Tablet (Atorvastatin) ..... Take 1 tablet by mouth every evening [facility] Electrophysiology: a ppears compensated at this time O n GDMT. R epeat echo is unchanged. LVEF is 40%. [facility] Electrophysiology: B P today: 105/75 P rior BP: 110/68 (01/17/2024) Her updated medication list for this problem includes: Losartan 50 Mg Tablet (Losartan) ..... Take 1 tablet by mouth daily in the evening Carvedilol 6.25 Mg Tablet (Carvedilol) ..... Take 1 tablet by mouth twice daily Aspirin 81 Mg Tablet,delayed Release (dr/ec) (Aspirin) ..... Take 1 tablet by mouth once daily [facility] Electrophysiology: n o new chest pain or SOB l ast stress test with a fixed defect E cho unchanged today. LVEF 40% Her updated medication list for this problem includes: Isosorbide Mononitrate 30 Mg Tablet Extended Release 24 Hr (Isosorbide mononitrate) ..... Take 1 tablet by mouth every day Carvedilol 6.25 Mg Tablet (Carvedilol) ..... Take 1 tablet by mouth twice daily Clopidogrel 75 Mg Tablet (Clopidogrel) ..... Take 1 tablet by mouth every day Aspirin 81 Mg Tablet,delayed Release (dr/ec) (Aspirin) ..... Take 1 tablet by mouth once daily Morteza Ramirez [facility] Cardiology:no new cl audication symptoms u pdate VIC in 6 mos Kim Ventimihenrique [facility] Cardiology:BP low no rmal W ill decrease losartan to 12.5 mg daily H er updated medication list for this problem includes: Losartan 25 Mg Tablet (Losartan) ..... 1/2 tablet by mouth once a day take 1 tablet by mouth daily in the evening Carvedilol 6.25 Mg Tablet (Carvedilol) ..... Take 1 tablet by mouth twice daily Aspirin 81 Mg Tablet,delayed Release (dr/ec) (Aspirin) ..... Take 1 tablet by mouth once daily [place] Jeromy [facility] Cardiology:no new ch est pain or SOB l ast stress test with a fixed defect u pdate echo H er updated medication list for this problem includes: Isosorbide Mononitrate 30 Mg Tablet Extended Release 24 Hr (Isosorbide mononitrate) ..... Take 1 tablet by mouth every day Carvedilol 6.25 Mg Tablet (Carvedilol) ..... Take 1 tablet by mouth twice daily Clopidogrel 75 Mg Tablet (Clopidogrel) ..... Take 1 tablet by mouth every day Aspirin 81 Mg Tablet,delayed Release (dr/ec) (Aspirin) ..... Take 1 tablet by mouth once daily [facility] Cardiology:Last echo demonstrated EF 40% W ill update echo c ontinue BB and [facility] Cardiology:She ronna nues to have dizziness that is worse with standing B P sitting was 113/87 and standing 108/76 W ill decrease losartan to 12.5 mg daily [facility] Cardiology:no c/o an y chest pain or SOB C ontinue medical management Yinka Lewis MD Cardiology: H er updated medication list for this problem includes: Atorvastatin 40 Mg Tablet (Atorvastatin) ..... Take 1 tablet by mouth every evening Yinka Lewis MD Cardiology:BP 95/70 may be lower d/t her diarrhea S he is asymptomatic w ill monitor [place] Jeromy [facility] Cardiology:She was r ecently started on cilostazol but is having signficant diarrhea W ill have her stop medication E ncouraged continued ambulation S he is to call or return sooner if symptoms worsen Kim Pinzon DOCTOR OF OSTEOPATHY Cardiology: l ast echo 10/2022 ef 40% s /p aicd Cassi Sototamara [employer] Cardiology Cassi Anne N P Cardiology: H as fluctuating BP readings at home ranging from high to low. Keep monitoring BP at home. B P today: 111/74 P rior BP: 109/78 (07/16/2023) Her updated medication list for this problem includes: Aspirin 81 Mg Tablet,delayed Release (dr/ec) (Aspirin) ..... Take 1 tablet by mouth once daily Carvedilol 6.25 Mg Tablet (Carvedilol) ..... Take 1 tablet by mouth twice daily Losartan 25 Mg Tablet (Losartan) ..... Take 1 tablet by mouth daily in the evening Cassi Kiddteddy RUEDA Cardiology: H er updated medication list for this problem includes: Atorvastatin 40 Mg Tablet (Atorvastatin) ..... Take 1 tablet by mouth every evening Cassi Kiddteddy RUEDA Cardiology: a ppears compensated at this time Cassi Dayana RUEDA Cardiology: R epeat stress test showed infarct in the apical region Cassi Kiddteddy RUEDA Cardiology: A BIs today 07/16/23 showed Mild arterial disease of the right lower extremity. Severe arterial disease of the left lower extremity. There is left mid popliteal stenosis which is obstructive to flow. Monophasic flow seen in the tibial arteries. G reater disomfort in the left LE T ry cilostazol. Will plan for diagnostic AIF. Cassi Anne NP Cardiology Yinka Lewis MD Cardiology: H er updated medication list for this problem includes: Aspirin 81 Mg Tablet,delayed Release (dr/ec) (Aspirin) ..... Take 1 tablet by mouth once daily Carvedilol 6.25 Mg Tablet (Carvedilol) ..... Take 1 tablet by mouth twice daily Losartan 25 Mg Tablet (Losartan) ..... Take 1 tablet by mouth daily in the evening BP today: 109/78 P rior BP: 142/85 (06/08/2023) Labs Reviewed: C reat: 0.93 (05/13/2022) C hol: 150 (06/12/2023) HDL: 52 (06/12/2023) LDL: 70 MG/DL (CALC) (06/12/2023) T (06/12/2023) Yinka Lewis MD Cardiology:appears compensated a t this time Yinka Lewis MD Cardiology:Repeat st ress test showed infarct in the apical region Yinka Lewis MD Cardiology:ABIs toda y agree with her presentation of reduced ability to walk G reater disomfort in the left LE T ry cilostazol, if fails then consider interventions. Yinka Lewis MD Cardiology Yinka Lewis MD Electrophysiology: E cho 10/2022 C ONCLUSIONS: 1 . Technically difficult study. Unable to determine segmental wall motion abnormalities. Abnormal septal motion consistent w ith pacemaker or ICD implant . Moderate global left ventricular systolic hypokinesis . There is akinesis in the apical inferior w all. Normal left ventricular size. Normal left ventricular wall thickness. There is E to A wave reversal consistent with i mpaired LV relaxation. Left ventricular ejection fraction is measured at 40 %. 2 . Normal right ventricular size. Linear artifact seen in the right ventricle is suggestive of a catheter, pacer lead, or ICD lead. 3 . The right atrium is normal in size. Linear artifact in right atrium suggestive of catheter, pacer lead, or ICD lead. 4 . There is non-specific thickening of the mitral valve leaflets. Mild mitral valve regurgitation. 5 . Aortic valve leaflets appear structurally normal. Velocities, as well as gradients across the aortic valve are normal. No e vidence of aortic insufficiency. 6 . Normal appearing tricuspid valve leaflets. There is moderate tricuspid regurgitation. Right ventricular systolic pressure is w ithin normal limits. IVC is normal in size with normal respiratory response. Estimated peak pulmonary artery systolic p ressure is 23.0 mmHg. Cassi Anne NP Electrophysiology: F C II-III F ollowed by Dr Joshua hicks liniically appears compensated Cassi Anne NP Electrophysiology: S ymptoms improving with decrease of Losartan dose Cassi Anne MOHIT Electrophysiology: B P today: 142/85 P rior BP: 126/60 (12/08/2022) H er updated medication list for this problem includes: Aspirin 81 Mg Tablet,delayed Release (dr/ec) (Aspirin) ..... Take 1 tablet by mouth once daily Carvedilol 6.25 Mg Tablet (Carvedilol) ..... Take 1 tablet by mouth twice daily Losartan 25 Mg Tablet (Losartan) ..... Take 1 tablet by mouth daily in the evening Cassi Sototamara RUEDA Electrophysiology: D evice function normal A T/AF [employer]: 0.0% % Pacing: RA - 94.0% RV - 4.0% Cassi Sototamara RUEDA Electrophysiology: s tress test showed a fixed anterior wall defect (12/2022) S he has been having chest pain since then. Will repeat stress. Cassi Dayana RUEDA Electrophysiology: H er updated medication list for this problem includes: Atorvastatin 40 Mg Tablet (Atorvastatin) ..... Take 1 tablet by mouth every evening Will check labs Cassi Sototamara RUEDA Electrophysiology: 1 06/2021 CONCLUSIONS: 1 . Mild plaque with less than 50% stenosis of the internal carotid arteries bilaterally. 2 . Vertebral flow is antegrade bilaterally. Will repeat Carotid duplex Cassi Anne NP Cardiology:stress te st showd a fixed anterior wall defect Yinka Lewis MD Cardiology:Losartin 25 once a day P rior BP: 126/60 (12/08/2022) Labs Reviewed: C reat: 0.93 (05/13/2022) C hol: 124 (05/13/2022) HDL: 47 (05/13/2022) LDL: 55 MG/DL (CALC) (05/13/2022) T (05/13/2022) Yinka Lewis MD Cardiology:On astatin Yinka morris MD Cardiology:Has monop hasic waveforms in the left tibial vessels with sensilase which also shows decreased flow. However, she is not really having consistent symptoms on that side and has no wound so we will continue to treat medically. Yinka Lewis MD Electrophysiology: A BI 10/23/22 showed C ONCLUSIONS: 1 . Mild arterial disease of the right lower extremity. 2 . Mild to moderate arterial disease of the left lower extremity. Mild left popliteal stenosis. Monophasic flow seen in the t ibial arteries. 3 . Unable to accurately assess VIC's due to hardened arteries. Thang Gonzaleznaa Electrophysiology: H er updated medication list for this problem includes: Isosorbide Mononitrate 30 Mg Tablet Extended Release 24 Hr (Isosorbide mononitrate) ..... Take 1 tablet by mouth every day Carvedilol 6.25 Mg Tablet (Carvedilol) ..... Take 1 tablet by mouth twice daily Clopidogrel 75 Mg Tablet (Clopidogrel) ..... Take 1 tablet by mouth every day S/p ablation, asymptomatic today Thang Gonzalezana Electrophysiology: C ONCLUSIONS: 1 . Mild plaque with less than 50% stenosis of the internal carotid arteries bilaterally. 2 . Vertebral flow is antegrade bilaterally. Thang Moo Electrophysiology: S table. Continue medical therapy. Her updated medication list for this problem includes: Isosorbide Mononitrate 30 Mg Tablet Extended Release 24 Hr (Isosorbide mononitrate) ..... Take 1 tablet by mouth every day Carvedilol 6.25 Mg Tablet (Carvedilol) ..... Take 1 tablet by mouth twice daily Clopidogrel 75 Mg Tablet (Clopidogrel) ..... Take 1 tablet by mouth every day Thang Gonzalezana Electrophysiology: C artoids done 04/20/22 showed C ONCLUSIONS: 1 . Mild plaque with less than 50% stenosis of the internal carotid arteries bilaterally. 2 . Vertebral flow is antegrade bilaterally. H er updated medication list for this problem includes: Atorvastatin 40 Mg Tablet (Atorvastatin) ..... Take 1 tablet by mouth every evening Thang Gonzalezana Electrophysiology: D evice function normal A t/AF burden 0.0% % Pacing: RA - 92.0% RV - 5.0% Thang Gonzalezana Electrophysiology: E cho 11/10 showed C ONCLUSIONS: 1 . Technically difficult study. Unable to determine segmental wall motion abnormalities. Abnormal septal motion consistent w ith pacemaker or ICD implant . Moderate global left ventricular systolic hypokinesis . There is akinesis in the apical inferior w all. Normal left ventricular size. Normal left ventricular wall thickness. There is E to A wave reversal consistent with i mpaired LV relaxation. Left ventricular ejection fraction is measured at 40 %. 2 . Normal right ventricular size. Linear artifact seen in the right ventricle is suggestive of a catheter, pacer lead, or ICD lead. 3 . The right atrium is normal in size. Linear artifact in right atrium suggestive of catheter, pacer lead, or ICD lead. 4 . There is non-specific thickening of the mitral valve leaflets. Mild mitral valve regurgitation. 5 . Aortic valve leaflets appear structurally normal. Velocities, as well as gradients across the aortic valve are normal. No e vidence of aortic insufficiency. 6 . Normal appearing tricuspid valve leaflets. There is moderate tricuspid regurgitation. Right ventricular systolic pressure is w ithin normal limits. IVC is normal in size with normal respiratory response. Estimated peak pulmonary artery systolic p ressure is 23.0 mmHg. H er updated medication list for this problem includes: Isosorbide Mononitrate 30 Mg Tablet Extended Release 24 Hr (Isosorbide mononitrate) ..... Take 1 tablet by mouth every day Carvedilol 6.25 Mg Tablet (Carvedilol) ..... Take 1 tablet by mouth twice daily Clopidogrel 75 Mg Tablet (Clopidogrel) ..... Take 1 tablet by mouth every day Thang Moo Electrophysiology: Mathew cho 10/2022 C ONCLUSIONS: 1 . Technically difficult study. Unable to determine segmental wall motion abnormalities. Abnormal septal motion consistent w ith pacemaker or ICD implant . Moderate global left ventricular systolic hypokinesis . There is akinesis in the apical inferior w all. Normal left ventricular size. Normal left ventricular wall thickness. There is E to A wave reversal consistent with i mpaired LV relaxation. Left ventricular ejection fraction is measured at 40 %. 2 . Normal right ventricular size. Linear artifact seen in the right ventricle is suggestive of a catheter, pacer lead, or ICD lead. 3 . The right atrium is normal in size. Linear artifact in right atrium suggestive of catheter, pacer lead, or ICD lead. 4 . There is non-specific thickening of the mitral valve leaflets. Mild mitral valve regurgitation. 5 . Aortic valve leaflets appear structurally normal. Velocities, as well as gradients across the aortic valve are normal. No e vidence of aortic insufficiency. 6 . Normal appearing tricuspid valve leaflets. There is moderate tricuspid regurgitation. Right ventricular systolic pressure is w ithin normal limits. IVC is normal in size with normal respiratory response. Estimated peak pulmonary artery systolic p ressure is 23.0 mmHg. Thang Cortés Cardiology:Continue medical therapy. She seems to be doing well. Will recheck an VIC and follow up with her in 6 months. Will also check an echo. Yinka Lewis MD Cardiology Yinka Lewis MD Cardiology:Will obta in labs and also a carotid duplex Yinka Lewis MD Cardiology: B P today: 124/84 P rior BP: 130/83 (12/16/2021) Labs Reviewed: C reat: 0.88 (10/21/2021) C hol: 118 (10/21/2021) HDL: 51 (10/21/2021) LDL: 43 MG/DL (CALC) (10/21/2021) T (10/21/2021) Yinka Lewis MD Cardiology:Stable. C ontinue medical therapy. Yinka Lewis MD Cardiology Yinka Lewis MD Electrophysiology:S/ p ablation, asymptomatic today H er updated medication list for this problem includes: Clopidogrel 75 Mg Tablet (Clopidogrel) ..... Take 1 tablet by mouth every day Isosorbide Mononitrate 30 Mg Tablet Extended Release 24 Hr (Isosorbide mononitrate) ..... Take 1 tablet by mouth once a day Orders: E KG (CPT-62762) 9 9213 LTD 20-29min (CPT-37962) C omplete Echo (CPT-45956) John Chowdhury MD Electrophysiology: H er updated medication list for this problem includes: Clopidogrel 75 Mg Tablet (Clopidogrel) ..... Take 1 tablet by mouth every day Isosorbide Mononitrate 30 Mg Tablet Extended Release 24 Hr (Isosorbide mononitrate) ..... Take 1 tablet by mouth once a day Orders: 9 9213 LTD 20-29min (CPT-63851) C omplete Echo (CPT-41494) John Chowdhury MD Electrophysiology:S/p ablation, asymptomatic today Carlton Quach Electrophysiology:Ec ho 09/2021 CONCLUSIONS: 1 . Technically difficult study, limited views secondary to poor acoustic windows. Interpretation is based on available limited v iews. Abnormal septal motion consistent with pacemaker or ICD implant . Mild global left ventricular systolic hypokinesis. N ormal left ventricular size. Normal left ventricular wall thickness. There is E to A wave reversal consistent with impaired LV r elaxation. E/E': 8.0 Left ventricular ejection fraction is measured at 45 %. 2 . Normal right ventricular size. Normal right ventricular systolic function. Linear artifact seen in the right ventricle is s uggestive of a catheter, pacer lead, or ICD lead. 3 . There is non-specific thickening of the mitral valve leaflets. There is trace to mild mitral valve regurgitation. 4 . Aortic valve leaflets appear structurally normal. Velocities, as well as gradients across the aortic valve are normal. No e vidence of aortic insufficiency. 5. Normal appearing tricuspid valve leaflets. There is moderate to severe tricuspid regurgitation. IVC is normal in size with n ormal respiratory response. The RA pressure is estimated at 3.0 mmHg Estimated peak pulmonary artery systolic pressure is 3 0.0 mmHg. Carlton Quach Electrophysiology: B P today: 130/83 P rior BP: 118/60 (09/23/2021) Labs Reviewed: C reat: 0.88 (10/21/2021) C hol: 118 (10/21/2021) HDL: 51 (10/21/2021) LDL: 43 MG/DL (CALC) (10/21/2021) T (10/21/2021) Her updated medication list for this problem includes: Lasix 20 Mg Tablet (Furosemide) ..... Take 1 tablet by mouth twice a week Orders: 9 9213 LTD 20-29min (CPT-57196) C omplete Echo (CPT-12635) John Chowdhury MD Electrophysiology: A ppears to be stable. Continue medical therapy. Her updated medication list for this problem includes: Clopidogrel 75 Mg Tablet (Clopidogrel) ..... Take 1 tablet by mouth every day Isosorbide Mononitrate 30 Mg Tablet Extended Release 24 Hr (Isosorbide mononitrate) ..... Take 1 tablet by mouth once a day Orders: 9 9213 LTD 20-29min (CPT-57374) C omplete Echo (CPT-30441) John Chowdhury MD Cardiology:vic shows good blood flow and will continue medical therapy. Yinka Lewis MD Electrophysiology John bridges MD Electrophysiology: H er updated medication list for this problem includes: Isosorbide Mononitrate 30 Mg Tablet Extended Release 24 Hr (Isosorbide mononitrate) ..... Take 1 tablet by mouth once a day Coreg 6.25 Mg Tablet (Carvedilol) ..... Take 1 tablet by mouth twice a day Clopidogrel 75 Mg Tablet (Clopidogrel) ..... Take 1 tablet by mouth once a day John Chowdhury MD Electrophysiology:Do ne by Dr. chowdhury Tobacco cessation counseling, 3-10minutes (43229) O rders: T obacco cessation counseling, 3-10minutes (79120) John Chowdhury MD Electrophysiology:re solved no atrial fib. Will reassess need for NOAC if A> fib is documented in future on her device H er updated medication list for this problem includes: Coreg 6.25 Mg Tablet (Carvedilol) ..... Take 1 tablet by mouth twice a day Clopidogrel 75 Mg Tablet (Clopidogrel) ..... Take 1 tablet by mouth once a day John Chowdhury MD Electrophysiology: H er updated medication list for this problem includes: Isosorbide Mononitrate 30 Mg Tablet Extended Release 24 Hr (Isosorbide mononitrate) ..... Take 1 tablet by mouth once a day Coreg 6.25 Mg Tablet (Carvedilol) ..... Take 1 tablet by mouth twice a day Clopidogrel 75 Mg Tablet (Clopidogrel) ..... Take 1 tablet by mouth once a day Orders: 9 9212 Minor 10-19min (CPT-97471) John Chowdhury MD Telehealth: S he has had intermittent episodes of SVT which have all been terminated with ATP. S cheduled for EP study/ablation. Discussed the indications, benefits, alternatives and risk of complications from the procedure with the patient who expressed understanding. Reviewed directions. Richievaristo Whitmore Telehealth: S ymptomatic with palpitations, dizziness/lightheadedness, fatigue. States her HR was between 143-165 for about three hours recently. Device documented both atrial flutter and recurrent SVT this month, treated with ATP, no shocks. S cheduled for EP study/ablation. Discussed the indications, benefits, alternatives and risk of complications from the procedure with the patient who expressed understanding. Reviewed directions. Sindy Whitmore Telehealth: S he has had intermittent episodes of SVT which have all been terminated with ATP. P atient would like to keep watching rather than proceed with ablation at this time, will respect patient wishes. Sindy Wihtmore Telehealth: S ymptomatic with palpitations, dizziness/lightheadedness, fatigue. States her HR was between 143-165 for about three hours recently. Device documented both atrial flutter and recurrent SVT this month, treated with ATP, no shocks. Will start her on eliquis 5mg twice daily and schedule her for EP study/ablation. Discussed the indications, benefits, alternatives and risk of complications from the procedure with the patient who expressed understanding. Sindy Whitmore Cardiology:Will chec k echo in several months to monitor Yinka Lewis MD Cardiology:No furthe r leg claudication. Will repeat ABIs in 6 months Yinka Lewis MD Cardiology:Lipids fo llowed by PCP H er updated medication list for this problem includes: Lipitor 40 Mg Tablet (Atorvastatin) ..... 1 tablet once a day Yinka Lewis MD Cardiology:BP is 94/ 64 today, reports some dizziness. Will stop her lisinopril Yinka Lewis MD Cardiology: A ppears to be stable. Continue medical therapy. Yinka Lewis MD Electrophysiology: B P today: 122/80 P rior BP: 118/70 (11/15/2020) Labs Reviewed: C reat: 1.05 (07/14/2019) C hol: 122 (02/22/2019) HDL: 49 (02/22/2019) Her updated medication list for this problem includes: Coreg 6.25 Mg Tablet (Carvedilol) ..... Take 1 tablet by mouth twice a day Aspirin 81 Mg Tablet,delayed Release (dr/ec) (Aspirin) ..... 1 tablet once a day Lasix 20 Mg Tablet (Furosemide) ..... Take 1 twice a week Lisinopril 2.5 Mg Tablet (Lisinopril) ..... Take 1 tablet by mouth once a day Sindy Whitmore Electrophysiology: r eports cessation in 2013 Sindy Whitmore Electrophysiology: S he has had intermittent episodes of SVT which have all been terminated with ATP. P atient would like to keep watching rather than proceed with ablation at this time, will respect patient wishes. Her updated medication list for this problem includes: Coreg 6.25 Mg Tablet (Carvedilol) ..... Take 1 tablet by mouth twice a day Aspirin 81 Mg Tablet,delayed Release (dr/ec) (Aspirin) ..... 1 tablet once a day Isosorbide Mononitrate 30 Mg Tablet Extended Release 24 Hr (Isosorbide mononitrate) ..... Take 1 tablet by mouth once a day Clopidogrel 75 Mg Tablet (Clopidogrel) ..... Take 1 tablet by mouth once a day Lisinopril 2.5 Mg Tablet (Lisinopril) ..... Take 1 tablet by mouth once a day Sindy Whitmore Electrophysiology: S he continues to have a few episodes of SVT terminated with ATP. N o shocks from device. N o VT noted. W ould start magnesium 400mg once daily. Her updated medication list for this problem includes: Coreg 6.25 Mg Tablet (Carvedilol) ..... Take 1 tablet by mouth twice a day Aspirin 81 Mg Tablet,delayed Release (dr/ec) (Aspirin) ..... 1 tablet once a day Isosorbide Mononitrate 30 Mg Tablet Extended Release 24 Hr (Isosorbide mononitrate) ..... Take 1 tablet by mouth once a day Clopidogrel 75 Mg Tablet (Clopidogrel) ..... Take 1 tablet by mouth once a day Lisinopril 2.5 Mg Tablet (Lisinopril) ..... 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 We will try to move up her VIC. Yinka Lewis MD Electrophysiology: has had intermittent episodes of SVT which have all been terminated with ATP. Patient would like to keep watching rather than proceed with ablation at this time Neal oRse DO Electrophysiology:re curring ICD shocks from sinus tach and ICD lead fracture. Admitted to the hospital 01/30/2020 for above. Discharged home on life vest. U nderwent IVD lead extraction w new device 03/04/2020. Feels well and has had no recurring shocks. S he has a hx of ischemic cardiomyopathy with severe LVD and prior CABG with LV aneurysmectomy in 2014. She subseqeuntly presented with syncope and had single chamber ICD implanted. O ne month after ICD implant, she returned to the hospital with severe SOB and was found to have had an episode of Aflutter with 2:1 conduction. This terminated spontaneously and she had no further episodes of [place]. H er most recent echo shows her EF actually improved to 40% and she now follows with Dr. Lewis for her CAD. Overall feels well. S he has had intermittent episodes of SVT which have all been terminated with ATP. Patient would like to keep watching rather than proceed with ablation at this time. Neal Rose DO Electrophysiology: h as had intermittent episodes of SVT which have all been terminated with ATP. If continues with SVT will proceed with ablation Neal Rose DO Cardiology follow up :Legs are f ine at present Yikna Lewis MD Cardiology follow up :Will repeat stress test as the patient has worsening SOB Yinka Lewis MD Cardiology follow up :Continues to consider ablation surgery per Dr. Rose Lewis MD Electrophysiology -n eed to say anything about device reboot?:noted on remotes. E pisodes terminated w/ATP. S ymptoms of dizziness w/episodes occuring slightly more frequently. Discussed w/pt. Will f/u in 3 months & discuss possible SVT ablation to avoid potential shocks from device. Neal Rose DO Cardiology:Pt to have echo done today. Lucas Bangura Cardiology: H er updated medication list for this problem includes: Lipitor 40 Mg Oral Tablet (Atorvastatin calcium) ..... One tab. daily Lucas Bangura Cardiology: B P today: 141/89 P rior BP: 122/70 (07/10/2019) Labs Reviewed: C reat: 1.05 (07/14/2019) C hol: 122 (02/22/2019) HDL: 49 (02/22/2019) Lucas Bangura Cardiology:Appears t o be stable. Continue medical therapy. Lucas Bangura Cardiology:Per Dr. Severiano chiang. Discussed SVT ablation but waiting for coronavirus concern to subside. Lucas Bangura Cardiology:Pt's legs are feeling well. Mild disease b/l on VIC done 07/10/19. Continue medical therapy. Lucas Bangura Electrophysiology -n eed to say anything about device reboot?:She continues to have a few episodes of SVT terminated with ATP. N o shocks from device. N o VT noted. Bri Kraft RN Electrophysiology -n eed to say anything about device reboot?:noted on remotes. E pisodes terminated w/ATP. S ymptoms of dizziness w/episodes occuring slightly more frequently. Discussed w/pt. Will f/u in 3 months & discuss possible ablation to avoid potential shocks from device. Bri Kraft RN Electrophysiology -n eed to say anything about device reboot?:FC II-III F ollowed by Dr Joshua Kraft RN Electrophysiology -n eed to say anything about device reboot?:Normal Function B attery status OK s et at [facility] Bri Kraft RN Electrophysiology -n eed to say anything about device reboot?:Followed by Dr Joshua Kraft RN Cardiology follow up :Pt is asymptomatic. She is clear, low-risk for surgery. Yinka Lewis MD Cardiology follow up :Will check lab work Her updated medication list for this problem includes: Lipitor 40 Mg Oral Tablet (Atorvastatin calcium) ..... One tab. daily Yinka Lewis MD Cardiology follow up : B P today: 122/70 P rior BP: 118/78 (04/10/2019) Labs Reviewed: C reat: 0.99 (02/22/2019) C hol: 122 (02/22/2019) HDL: 49 (02/22/2019) Yinka Lewis MD Cardiology follow up :Appears to be stable. Continue medical therapy. Yinka Lewis MD Cardiology follow up :Claudication symptoms have improved. Yinka Lewis MD Cardiology: B P today: 118/78 P rior BP: 110/70 (02/10/2019) Labs Reviewed: C reat: 0.99 (02/22/2019) C hol: 122 (02/22/2019) HDL: 49 (02/22/2019) Yinka Lewis MD Cardiology:Her updat ed medication list for this problem includes: Lipitor 40 Mg Oral Tablet (Atorvastatin calcium) ..... One tab. daily Yinka Lewis MD Cardiology Yinka Lewis MD Cardiology:Appears s table. Continue medical therapy. Will repeat echo in six months. Yinka Lewis MD Cardiology:s/p ather ectomy, balloon angioplasty, and stenting to the R SFA on 03/12/19. Notes improvement in her claudication symptoms. Will repeat VIC in three months. Continue ASA/plavix Yinka Lewis MD Cardiology follow up :VIC 02/07/2019 showed severe disease of the RLE and mild to mod disease of the LLE. Advised she can stop her Xarelto on 02/13/2019. I discussed with the pt the need to reintervene and either do a DCB or a ZEINA. I explained the meta analysis with the increased mortality but that in her case she was already restenosed so quickly so probably would be a better choice so long as she understands the risk. She is agreeable. Yinka Lewis MD Cardiology follow up :BP today: 110/70 P rior BP: 120/80 (02/06/2019) Labs Reviewed: C reat: 0.84 (09/07/2018) C hol: 125 (09/07/2018) HDL: 50 (09/07/2018) LDL: 48 MG/DL (CALC) (09/07/2018) T (09/07/2018) Rachele Mireles NP Cardiology follow up :cont. Atorvastatin. Rachele Mireles NP Electrophysiology:FC II-III Neal Rose DO Electrophysiology: p er dr bar. Neal Rose DO Electrophysiology:No rmal function. S he had a few episodes of SVT terminated with ATP. no shocks. N o VT noted. D iscussed possible ablation of SVT if she has more frequent episodes or receiving shocks. She wishes to wait before deciding. Neal Rose DO Cardiology hospital follow up Us jacklyn Lewis MD Cardiology hospital follow up Us jacklyn Lewis MD Cardiology hospital follow up :Will do VIC soon and then in three months when I see her again. Yinka Lewis MD Cardiology:recommend proceeding with AIF to determine degree of blockages and feasibility of intervention. Will check labs today Yinka Lewis MD Cardiology:per 08/16 sensilase Us jacklyn Lewis MD Cardiology:per dr bar. Bao Lewis MD Cardiology:per dr yosvany Lewis MD Cardiology: B P today: 100/60 P rior BP: 126/80 (08/22/2018) Labs Reviewed: L DL: 62 (07/07/2016) Yinka Lewis MD Cardiology Yinka Lewis MD Cardiology:cont. Atorvastatin. U darryn Lewis MD Cardiology:On statin therapy. Us jacklyn Lewis MD Cardiology:Per Dr. Bar. Real Lewis MD Cardiology:Sensilase scan showed severe PVD bilaterally, R worse than L. I explained to her some of the Sx that she has would lead to needing to do an AIF. Her Sensilase showed pressure <26 in both feet. Continue OMT. Yinka Lewis MD Cardiology New Patient :Cont. Li pitor 40mg Yinka Lewis MD Cardiology New Patie nt :will check arterial sensilase. Yinka Lewis MD Cardiology New Patient :reports cessation in 2013 Yinka Lewis MD Electrophysiology:No rmal function. 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 No recurrences and no shocks. N o VT noted. D iscussed possible ablation of SVT if she has more frequent episodes or receiving shocks. 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 M ost recent echo EF improved to 40-45%. Marin smith with Dr. Bar. Neal Rose DO Electrophysiology: b rief on ICD interrogation in Apr 2015, no recurrence. not yet on AC unless recurrent Neal Rose DO EP: B P today: 112/62 P rior BP: 118/70 (01/05/2016) Neal Rose DO EP: n o shocks or detections on device interrogation Neal Rose DO EP:FC II-III Neal Rose DO EP:severe LVD Nealadalberto Rose DO EP:with ICM, S/P VVI ICD. no rec urrences Neal Rose DO Cardiology/EP:brief on ICD interrogation in Apr 2015, no recurrence. not yet on AC unless recurrent Neal Rose DO Cardiology/EP:no mala cks or detections on device interrogation Neal Rose DO Cardiology/EP:kto be followed by Dr Yosvany Rose DO Date Name CBC (INCLUDES DIFF/P LT) LIPID PANEL PROBNP, N TERMINAL COMPREHENSIVE METABO LIC PANEL, W/EGFR Arterial Duplex Bi-L ower EX Complete Echo PROTHROMBIN TIME WIT H INR LIPID PANEL CBC (INCLUDES DIFF/P LT) BASIC METABOLIC PANE L W/EGFR LIPID PANEL EKG Carotid Duplex Bilat eral Stress Regadenoson Arterial Duplex Bi-L ower EX Stress Regadenoson Arterial - SENSILASE Complete Echo Arterial Duplex Bi-L ower EX Carotid Duplex Bilat eral CRP, high sensitivit y LIPID PANEL Lipoprotein (a) COMPREHENSIVE METABO LIC PANEL, W/EGFR Complete Echo LIPID PANEL COMPREHENSIVE METABO LIC PANEL, W/EGFR ABLATION w/ Anesthes ia Partial Thromboplast in Time, Activated PROTHROMBIN TIME WIT H INR CBC (INCLUDES DIFF/P LT) BASIC METABOLIC PANE L W/EGFR CT Cardiac with cont rast (Pre-Ablation) ABLATION w/ Anesthes ia Arterial Duplex Bi-L ower EX Complete Echo DLCO - 60424 FRC - 60615 FVC - 15720 Venous Doppler Unila teral LLE Arterial Duplex Bi-L ower EX Complete Echo Arterial Duplex Bi-L ower EX Stress Regadenoson Arterial Duplex Bi-L ower EX FREE AND TOTAL INSUL IN Cardio IQ Lipoprotein (a) Other Free and Total Insul in COMPREHENSIVE METABO LIC PANEL, W/EGFR NMR LipoProfile (Lab rut) Complete Echo Arterial Duplex Bi-L ower EX PROTHROMBIN TIME WIT H INR LIPID PANEL CBC (INCLUDES DIFF/P LT) BASIC METABOLIC PANE L W/EGFR Arterial Duplex Bi-L ower EX PROTHROMBIN TIME WIT H INR AIF Diagnostic - [facility] V CBC (INCLUDES DIFF/P LT) LIPID PANEL COMPREHENSIVE METABO LIC PANEL, W/EGFR Arterial - SENSILASE HISTORY OF PROCEDURES Procedure Date Procedure Name Provider Procedure Notes S tatus Complex e/m visit ad d on John Chowdhury MD completed Complex e/m visit ad d on Yinka Lewis MD completed EKG John du MD completed EKG John du MD completed EKG John du MD completed Schedule Followup John bridges MD Please schedule a follow-up appointment with Dr. Lewis in 3 months and bring all medication bottles with you. completed EKG John du MD completed Spirometry John du MD completed FVC / MVV with bronchodilator - 78987 John Chowdhury MD completed BLOOD COUNT HEMOGLOBIN John rush MD completed FRC - 93240 John du MD completed SpO2 w/o 6min walk/titration John Chowdhury MD completed SVC - 35601 John du MD completed DLCO - 83207 John du MD completed EKG John du MD completed EKG Neal Wilbarger DO completed EKG Neal Wilbarger DO completed EKG Neal Wilbarger DO completed EKG Enal Wilbarger DO completed ICM Interrogation, Remote (Prof) Yinka Lewis MD INTERROGATION EVAL REMOTE </30 D CV MNTR SYS completed ICM Interrogation, Remote (Tech) Yinka Lewis MD INTERROGATION EVAL REMOTE </30 D TECH REVIEW completed ICM Interrogation, Remote (Prof) Yinka Lewis MD INTERROGATION EVAL REMOTE </30 D CV MNTR SYS completed ICM Interrogation, Remote (Tech) Yinka Lewis MD INTERROGATION EVAL REMOTE </30 D TECH REVIEW completed ICM Interrogation, Remote (Prof) Yinka Lewis MD INTERROGATION EVAL REMOTE </30 D CV MNTR SYS completed AICD Interrogation, Remote (Tech) Yinka Lewis MD INTERROGATION REMOTE </90 D CARGO TRIMMER REVIEW completed AICD Interrogation, Remote (Prof) Yinka Lewis MD INTERROGATION EVAL REMOTE </90 D 1/2/> LD CVDFB completed ICM Interrogation, Remote (Prof) Yinka Lewis MD INTERROGATION EVAL REMOTE </30 D CV MNTR SYS completed ICM Interrogation, Remote (Tech) Yinka Lewis MD INTERROGATION EVAL REMOTE </30 D TECH REVIEW completed ICM Interrogation, Remote (Prof) Yinka Lewis MD INTERROGATION EVAL REMOTE </30 D CV MNTR SYS completed ICM Interrogation, Remote (Tech) Yinka Lewis MD INTERROGATION EVAL REMOTE </30 D TECH REVIEW completed Schedule Followup Yinka Lewis MD in 3 months c ompleted EKG Yinka Lewis MD completed ICM Interrogation, Remote (Prof) Neal Wilbarger DO INTERROGATION EVAL REMOTE </30 D CV MNTR SYS completed ICM Interrogation, Remote (Tech) Neal Wilbarger DO INTERROGATION EVAL REMOTE </30 D TECH REVIEW completed ICM Interrogation, Remote (Prof) Neal Wilbarger DO INTERROGATION EVAL REMOTE </30 D CV MNTR SYS completed AICD Interrogation, Remote (Tech) Neal Wilbarger DO INTERROGATION REMOTE </90 D CARGO TRIMMER REVIEW completed AICD Interrogation, Remote (Prof) Neal Wilbarger DO INTERROGATION EVAL REMOTE </90 D 1/2/> LD CVDFB completed ICM Interrogation, Remote (Prof) Neal Wilbarger DO INTERROGATION EVAL REMOTE </30 D CV MNTR SYS completed ICM Interrogation, Remote (Tech) Neal Wilbarger DO INTERROGATION EVAL REMOTE </30 D TECH REVIEW completed ICM Interrogation, Remote (Prof) Neal Wilbarger DO INTERROGATION EVAL REMOTE </30 D CV MNTR SYS completed ICM Interrogation, Remote (Tech) Neal Wilbarger DO INTERROGATION EVAL REMOTE </30 D TECH REVIEW completed ICM Interrogation, Remote (Prof) Neal Wilbarger DO INTERROGATION EVAL REMOTE </30 D CV MNTR SYS completed AICD Interrogation, Remote (Tech) Neal Wilbarger DO INTERROGATION REMOTE </90 D CARGO TRIMMER REVIEW completed AICD Interrogation, Remote (Prof) Neal Wilbarger DO INTERROGATION EVAL REMOTE </90 D 1/2/> LD CVDFB completed ICM Interrogation, Remote (Prof) Neal Wilbarger DO INTERROGATION EVAL REMOTE </30 D CV MNTR SYS completed ICM Interrogation, Remote (Tech) Neal Wilbarger DO INTERROGATION EVAL REMOTE </30 D TECH REVIEW completed ICM Interrogation, Remote (Prof) Neal Wilbarger DO INTERROGATION EVAL REMOTE </30 D CV MNTR SYS completed ICM Interrogation, Remote (Tech) Neal Wilbarger DO INTERROGATION EVAL REMOTE </30 D TECH REVIEW completed ICM Interrogation, Remote (Prof) Neal Wilbarger DO INTERROGATION EVAL REMOTE </30 D CV MNTR SYS completed AICD Interrogation, Remote (Tech) Neal Wilbarger DO INTERROGATION REMOTE </90 D CARGO TRIMMER REVIEW completed AICD Interrogation, Remote (Prof) Neal Wilbarger DO INTERROGATION EVAL REMOTE </90 D 1/2/> LD CVDFB completed ICM Interrogation, Remote (Prof) Neal Wilbarger DO INTERROGATION EVAL REMOTE </30 D CV MNTR SYS completed ICM Interrogation, Remote (Tech) Neal Wilbarger DO INTERROGATION EVAL REMOTE </30 D TECH REVIEW completed ICM Interrogation, Remote (Prof) Neal Wilbarger DO INTERROGATION EVAL REMOTE </30 D CV MNTR SYS completed ICM Interrogation, Remote (Tech) Neal Wilbarger DO INTERROGATION EVAL REMOTE </30 D TECH REVIEW completed EKG Neal Wilbarger DO completed ICM Interrogation, Remote (Prof) Neal Wilbarger DO INTERROGATION EVAL REMOTE </30 D CV MNTR SYS completed ICM Interrogation, Remote (Tech) Neal Wilbarger DO INTERROGATION EVAL REMOTE </30 D TECH REVIEW completed ICM Interrogation, Remote (Prof) Neal Wilbarger DO INTERROGATION EVAL REMOTE </30 D CV MNTR SYS completed ICM Interrogation, Remote (Tech) Neal Wilbarger DO INTERROGATION EVAL REMOTE </30 D TECH REVIEW completed ICM Interrogation, Remote (Prof) Neal Wilbarger DO INTERROGATION EVAL REMOTE </30 D CV MNTR SYS completed AICD Interrogation, Remote (Tech) Neal Wilbarger DO INTERROGATION REMOTE </90 D CARGO TRIMMER REVIEW completed AICD Interrogation, Remote (Prof) Neal Wilbarger DO INTERROGATION EVAL REMOTE </90 D 1/2/> LD CVDFB completed ICM Interrogation, Remote (Prof) Neal Wilbarger DO INTERROGATION EVAL REMOTE </30 D CV MNTR SYS completed ICM Interrogation, Remote (Tech) Neal Wilbarger DO INTERROGATION EVAL REMOTE </30 D TECH REVIEW completed ICM Interrogation, Remote (Prof) Neal Wilbarger DO INTERROGATION EVAL REMOTE </30 D CV MNTR SYS completed ICM Interrogation, Remote (Tech) Neal Wilbarger DO INTERROGATION EVAL REMOTE </30 D TECH REVIEW completed ICM Interrogation, Remote (Prof) Neal Wilbarger DO INTERROGATION EVAL REMOTE </30 D CV MNTR SYS completed AICD Interrogation, Remote (Tech) Neal Wilbarger DO INTERROGATION REMOTE </90 D CARGO TRIMMER REVIEW completed AICD Interrogation, Remote (Prof) Neal Wilbarger DO INTERROGATION EVAL REMOTE </90 D 1/2/> LD CVDFB completed ICM Interrogation, Remote (Prof) Neal Wilbarger DO INTERROGATION EVAL REMOTE </30 D CV MNTR SYS completed ICM Interrogation, Remote (Tech) Neal Wilbarger DO INTERROGATION EVAL REMOTE </30 D TECH REVIEW completed ICM Interrogation, Remote (Prof) Neal Wilbarger DO INTERROGATION EVAL REMOTE </30 D CV MNTR SYS completed ICM Interrogation, Remote (Tech) Neal Wilbarger DO INTERROGATION EVAL REMOTE </30 D TECH REVIEW completed ICM Interrogation, Remote (Prof) Neal Wilbarger DO INTERROGATION EVAL REMOTE </30 D CV MNTR SYS completed AICD Interrogation, Remote (Tech) Neal Wilbarger DO INTERROGATION REMOTE </90 D CARGO TRIMMER REVIEW completed AICD Interrogation, Remote (Prof) Neal Wilbarger DO INTERROGATION EVAL REMOTE </90 D 1/2/> LD CVDFB completed ICM Interrogation, Remote (Prof) Neal Wilbarger DO INTERROGATION EVAL REMOTE </30 D CV MNTR SYS completed ICM Interrogation, Remote (Tech) Neal Wilbarger DO INTERROGATION EVAL REMOTE </30 D TECH REVIEW completed ICM Interrogation, Remote (Prof) Neal Wilbarger DO INTERROGATION EVAL REMOTE </30 D CV MNTR SYS completed ICM Interrogation, Remote (Tech) Neal Wilbarger DO INTERROGATION EVAL REMOTE </30 D TECH REVIEW completed EKG Neal Wilbarger DO completed SNOMED-CT: [id number] Current Medications Documented Neal Wilbarger DO completed ICM Interrogation, Remote (Prof) Neal Wilbarger DO INTERROGATION EVAL REMOTE </30 D CV MNTR SYS completed ICM Interrogation, Remote (Tech) Neal Wilbarger DO INTERROGATION EVAL REMOTE </30 D TECH REVIEW completed ICM Interrogation, Remote (Prof) Nela Wilbarger DO INTERROGATION EVAL REMOTE </30 D CV MNTR SYS completed AICD Interrogation, Remote (Tech) Neal Wilbarger DO INTERROGATION REMOTE </90 D CARGO TRIMMER REVIEW completed AICD Interrogation, Remote (Prof) Neal Wilbarger DO INTERROGATION EVAL REMOTE </90 D 1/2/> LD CVDFB completed ICM Interrogation, Remote (Prof) Neal Wilbarger DO INTERROGATION EVAL REMOTE </30 D CV MNTR SYS completed ICM Interrogation, Remote (Tech) Neal Wilbarger DO INTERROGATION EVAL REMOTE </30 D TECH REVIEW completed ICM Interrogation, Remote (Prof) Neal Wilbarger DO INTERROGATION EVAL REMOTE </30 D CV MNTR SYS completed ICM Interrogation, Remote (Tech) Neal Wilbarger DO INTERROGATION EVAL REMOTE </30 D TECH REVIEW completed ICM Interrogation, Remote (Prof) Neal Wilbarger DO INTERROGATION EVAL REMOTE </30 D CV MNTR SYS completed AICD Interrogation, Remote (Tech) Neal Wilbarger DO INTERROGATION REMOTE </90 D CARGO TRIMMER REVIEW completed AICD Interrogation, Remote (Prof) Neal Wilbarger DO INTERROGATION EVAL REMOTE </90 D 1/2/> LD CVDFB completed EKG Neal Wilbarger DO completed SNOMED-CT: [id number] Current Medications Documented Neal Wilbarger DO completed ICM Interrogation, Remote (Prof) Neal Wilbarger DO INTERROGATION EVAL REMOTE </30 D CV MNTR SYS completed ICM Interrogation, Remote (Tech) Neal Wilbarger DO INTERROGATION EVAL REMOTE </30 D TECH REVIEW completed ICM Interrogation, Remote (Prof) Neal Wilbarger DO INTERROGATION EVAL REMOTE </30 D CV MNTR SYS completed ICM Interrogation, Remote (Tech) Neal Wilbarger DO INTERROGATION EVAL REMOTE </30 D TECH REVIEW completed ICM Interrogation, Remote (Prof) Neal Wilbarger DO INTERROGATION EVAL REMOTE </30 D CV MNTR SYS completed AICD Interrogation, Remote (Tech) Neal Wilbarger DO INTERROGATION REMOTE </90 D CARGO TRIMMER REVIEW completed AICD Interrogation, Remote (Prof) Neal Wilbarger DO INTERROGATION EVAL REMOTE </90 D 1/2/> LD CVDFB completed ICM Interrogation, Remote (Prof) Neal Wilbarger DO INTERROGATION EVAL REMOTE </30 D CV MNTR SYS completed ICM Interrogation, Remote (Tech) Neal Wilbarger DO INTERROGATION EVAL REMOTE </30 D TECH REVIEW completed ICM Interrogation, Remote (Prof) Neal Wilbarger DO INTERROGATION EVAL REMOTE </30 D CV MNTR SYS completed AICD Interrogation, Remote (Tech) Neal Wilbarger DO INTERROGATION REMOTE </90 D CARGO TRIMMER REVIEW completed AICD Interrogation, Remote (Prof) Neal Wilbarger DO INTERROGATION EVAL REMOTE </90 D 1/2/> LD CVDFB completed ICM Interrogation, Remote (Prof) Neal Wilbarger DO INTERROGATION EVAL REMOTE </30 D CV MNTR SYS completed ICM Interrogation, Remote (Tech) Neal Wilbarger DO INTERROGATION EVAL REMOTE </30 D TECH REVIEW completed ICM Interrogation, Remote (Prof) Neal Wilbarger DO INTERROGATION EVAL REMOTE </30 D CV MNTR SYS completed ICM Interrogation, Remote (Tech) Neal Wilbarger DO INTERROGATION EVAL REMOTE </30 D TECH REVIEW completed SNOMED-CT: [id number] Current Medications Documented Neal Rose DO completed
[2024-08-14 10:52] VITALS: BP 108/67; PULSE 77; RESP 16; TEMP 36.3; O2SAT 99; BMI 23.6
[2024-08-14] MEDS: LACTATED RINGERS 1,000 ML 150 ML IV CONT ×2 (11:25→13:16)
--- NOTE | 2024-08-14 11:39 | P.PNAN_ITS ---
Anes - Initial Pre Proc Eval Procedure: Operation Date: 08/14/24 11:00 Proposed Procedures p Screening Colonoscopy - Brendan Gonzalez MD Date/Time: 08/14/24 11:39 Surgeon: Brendan Gonzalez MD Pre Op Diagnosis: malignant neoplasm of colon Patient Data Age: 63 Gender: F Height: 1.73 m Weight: 70.4 kg Last Vital Signs Temp 97.4 F L 08/14/24 10:52 Pulse 77 08/14/24 10:52 Resp 16 08/14/24 10:52 BP 108/67 08/14/24 10:52 Pulse Ox 99 08/14/24 10:52 O2 Del Method Room Air 08/14/24 10:52 Allergies Allergy/AdvReac Type Severity Reaction Status Date / Time cilostazol Allergy Intermediate Diarrhea Verified 08/14/24 11:00 niacin Allergy Intermediate HOT FLASHES Verified 08/14/24 11:00 niacinamide Allergy Intermediate Unknown Verified 08/14/24 11:00 Sulfa (Sulfonamide Allergy Intermediate Gastrointestinal Verified 08/14/24 11:00 Antibiotics) Upset [id number] Reductase AdvReac Intermediate LEG CRAMPS Verified 08/14/24 11:00 Inhibitor HYDROCODONE BIT Allergy Mild ITCH Uncoded 08/14/24 11:00 Home Medications ?Medication ?Instructions ?Recorded ?Confirmed ?Type atorvastatin 40 mg tablet 40 mg PO DAILY 09/14/20 08/14/24 History carvedilol 6.25 mg tablet 6.25 mg PO Q12H 09/14/20 08/14/24 History citalopram 20 mg tablet 20 mg PO DAILY 09/14/20 08/14/24 History aspirin 81 mg tablet,delayed 81 mg PO DAILY 09/16/20 08/14/24 History release (Adult Aspirin Regimen) clopidogrel 75 mg tablet 75 mg PO DAILY 09/16/20 08/14/24 History diclofenac sodium 1 % topical gel 4 g topical QID PRN pain 09/16/20 07/01/24 History isosorbide mononitrate 30 mg 30 mg PO DAILY 09/16/20 08/14/24 History tablet,extended release 24 hr prednisone 5 mg tablet 7.5 mg PO DAILY 09/16/20 08/14/24 History folic acid 1 mg tablet 2 mg PO DAILY 05/26/22 08/14/24 History methotrexate sodium 2.5 mg tablet 12.5 mg PO WEEKLY 05/26/22 08/14/24 History timolol maleate 0.25 % eye drops 1 drp EACH EYE DAILY 06/15/23 08/14/24 History acetaminophen 500 mg tablet 500 mg PO Q6H 12/14/23 08/14/24 History (Tylenol Extra Strength) losartan 25 mg tablet 25 mg PO DAILY 12/14/23 08/14/24 History multivitamin 1 tablet PO DAILY 12/14/23 07/01/24 History trazodone 50 mg tablet 50 mg PO QHS PRN sleep #90 tabs 06/09/24 07/01/24 Rx cholecalciferol (vitamin D3) 25 25 mcg PO DAILY 06/13/24 08/14/24 History mcg (1,000 unit) capsule magnesium 200 mg tablet 200 mg PO DAILY 06/13/24 08/14/24 History clobetasol 0.05 % shampoo 1 applic topical DAILY PRN SCALP 07/01/24 07/01/24 History clotrimazole 1 % topical cream 1 applic topical Q12H PRN rash 07/01/24 07/01/24 History ondansetron HCl 4 mg tablet 4 mg PO Q6H PRN nausea and 07/01/24 Rx vomiting #4 tabs Patient hx anesthesia problems: none Family hx anesthesia problems: none Results Review: All pre-operative results and documents have been reviewed as part of the pre- operative evaluation. [facility] Past Medical History Medical History Acute nasopharyngitis (common cold) Acute pharyngitis, unspecified (04/25/17) Anxiety disorder, unspecified Cardiomyopathy Herpes zoster without complication Obstructive sleep apnea Old myocardial infarction Rheumatoid arthritis, unspecified Rhinitis, nonallergic Right rotator cuff tendonitis Sleep apnea, unspecified Spondylolysis of lumbosacral region Unspecified glaucoma Upper respiratory infection, acute Warfarin anticoagulation Surgical History Surgical History History of angioplasty of vein right LE History of surgical fusion joint Left Hallux History of arthroplasty of finger of left hand Index finger History of hysterectomy for benign disease History of cardiac defibrillator placement 2020 History of heart bypass surgery x2-2014 Family History Family History Mother Family history of arthritis Family history of heart disease in male family member before age 55 Father Family history of type 2 diabetes mellitus Family history of heart disease in male family member before age 55 Social History Social History Smoking packs per day: 1.5 Smoking cigarettes per day: 30.0 Years smoked: 35 Smoking pack-years: 52.50 Smoking status: Former smoker Tobacco type: cigarettes Smoking end date: 05/21/12 Alcohol intake: current Alcohol use details: Occasionally Substance use: never Substance use type: does not use Lack of Transportation: No Lack of Food: Never True Current Housing: I Have Housing Concerned About Future Housing: No Difficulty Paying Gas/Electric Bills: No Difficulty Paying for Meds: No Currently Unemployed: No Education: High School Diploma/GED Difficulty w/ Childcare or Family Care: No Living arrangements: with family Gender identity (if verbalized by the patient): Female Anes - Eval Final PreProcedure Day of Procedure 08/14/24 11:39 Patient weight: normal Heart: regular rate and rhythm Lungs: clear to auscultation Airway: Mallampati scale class II Neurological: alert and oriented Last oral intake: >/= 8 hours ASA classification: III Emergent: no Anesthetic plan: proceed Anesthesia type and monitoring: general GIVS and standard monitoring Results Review: All pre-operative results and documents have been reviewed as part of the pre- operative evaluation. Informed Consent: The patient's anesthetic plan and its attendant risks and benefits were discussed with the patient/family/POA. Questions were solicited and answers provided to the satisfaction of the patient/family/POA.
--- NOTE | 2024-08-14 12:37 | SUR.PREOP ---
Due to running behind on cases today, patient was notified of the delay.
--- NOTE | 2024-08-14 13:06 | PM.IMHP ---
H&P: HPI History of Present Illness Date/Time: 08/14/24 13:06 Chief Complaint: History of colon polyps Narrative: The patient has a history of colonic polyps, the last colonoscopy was 5 years ago, and had no polyps, however on previous colonoscopy she did have polyps. Review of Systems Review of Systems: All systems reviewed & are unremarkable except as noted in HPI and below PMFSH Past Medical History Medical History Acute nasopharyngitis (common cold) Acute pharyngitis, unspecified (04/25/17) Anxiety disorder, unspecified Cardiomyopathy Herpes zoster without complication Obstructive sleep apnea Old myocardial infarction Rheumatoid arthritis, unspecified Rhinitis, nonallergic Right rotator cuff tendonitis Sleep apnea, unspecified Spondylolysis of lumbosacral region Unspecified glaucoma Upper respiratory infection, acute Warfarin anticoagulation Surgical History Surgical History History of angioplasty of vein right LE History of surgical fusion joint Left Hallux History of arthroplasty of finger of left hand Index finger History of hysterectomy for benign disease History of cardiac defibrillator placement 2020 History of heart bypass surgery -2014 Family History Family History Mother Family history of arthritis Family history of heart disease in male family member before age 55 Father Family history of type 2 diabetes mellitus Family history of heart disease in male family member before age 55 Social History Social History Smoking packs per day: 1.5 Smoking cigarettes per day: 30.0 Years smoked: 35 Smoking pack-years: 52.50 Smoking status: Former smoker Tobacco type: cigarettes Smoking end date: 05/21/12 Alcohol intake: current Alcohol use details: Occasionally Substance use: never Substance use type: does not use Lack of Transportation: No Lack of Food: Never True Current Housing: I Have Housing Concerned About Future Housing: No Difficulty Paying Gas/Electric Bills: No Difficulty Paying for Meds: No Currently Unemployed: No Education: High School Diploma/GED Difficulty w/ Childcare or Family Care: No Living arrangements: with family Gender identity (if verbalized by the patient): Female Meds Home Medications and Allergies Home Medications ?Medication ?Instructions ?Recorded ?Confirmed ?Type atorvastatin 40 mg tablet 40 mg PO DAILY 09/14/20 08/14/24 History carvedilol 6.25 mg tablet 6.25 mg PO Q12H 09/14/20 08/14/24 History citalopram 20 mg tablet 20 mg PO DAILY 09/14/20 08/14/24 History aspirin 81 mg tablet,delayed 81 mg PO DAILY 09/16/20 08/14/24 History release (Adult Aspirin Regimen) clopidogrel 75 mg tablet 75 mg PO DAILY 09/16/20 08/14/24 History diclofenac sodium 1 % topical gel 4 g topical QID PRN pain 09/16/20 07/01/24 History isosorbide mononitrate 30 mg 30 mg PO DAILY 09/16/20 08/14/24 History tablet,extended release 24 hr prednisone 5 mg tablet 7.5 mg PO DAILY 09/16/20 08/14/24 History folic acid 1 mg tablet 2 mg PO DAILY 05/26/22 08/14/24 History methotrexate sodium 2.5 mg tablet 12.5 mg PO WEEKLY 05/26/22 08/14/24 History timolol maleate 0.25 % eye drops 1 drp EACH EYE DAILY 06/15/23 08/14/24 History acetaminophen 500 mg tablet 500 mg PO Q6H 12/14/23 08/14/24 History (Tylenol Extra Strength) losartan 25 mg tablet 25 mg PO DAILY 12/14/23 08/14/24 History multivitamin 1 tablet PO DAILY 12/14/23 07/01/24 History trazodone 50 mg tablet 50 mg PO QHS PRN sleep #90 tabs 06/09/24 07/01/24 Rx cholecalciferol (vitamin D3) 25 25 mcg PO DAILY 06/13/24 08/14/24 History mcg (1,000 unit) capsule magnesium 200 mg tablet 200 mg PO DAILY 06/13/24 08/14/24 History clobetasol 0.05 % shampoo 1 applic topical DAILY PRN SCALP 07/01/24 07/01/24 History clotrimazole 1 % topical cream 1 applic topical Q12H PRN rash 07/01/24 07/01/24 History ondansetron HCl 4 mg tablet 4 mg PO Q6H PRN nausea and 07/01/24 Rx vomiting #4 tabs Allergies Allergy/AdvReac Type Severity Reaction Status Date / Time cilostazol Allergy Intermediate Diarrhea Verified 08/14/24 11:00 niacin Allergy Intermediate HOT FLASHES Verified 08/14/24 11:00 niacinamide Allergy Intermediate Unknown Verified 08/14/24 11:00 Sulfa (Sulfonamide Allergy Intermediate Gastrointestinal Verified 08/14/24 11:00 Antibiotics) Upset [id number] Reductase AdvReac Intermediate LEG CRAMPS Verified 08/14/24 11:00 Inhibitor HYDROCODONE BIT Allergy Mild ITCH Uncoded 08/14/24 11:00 Vital Signs Vital Signs - 24 hr 08/14/24 10:52 Temperature 97.4 F L Pulse Rate 77 Respiratory Rate 16 Blood Pressure 108/67 Pulse Oximetry 99 Oxygen Delivery Room Air Exam Const: General: cooperative and healthy appearing Resp: Effort & Inspection: normal respiratory effort and able to speak in complete sentences Auscultation: clear to auscultation bilaterally Cardio: Rate: regular rate Rhythm: regular rhythm GI: Inspection: normal to inspection GI Palp: No No hepatosplenomegaly present Auscultation: normal bowel sounds Rectal Exam: deferred Skin: General skin exam: normal color Psych: Appearance: grossly normal Mental Status: mental status grossly normal Assessment and Plan Assessment and plan (1) Colon polyp: Code(s): K63.5 - Polyp of colon Status: Acute Assessment and Plan: The patient is deemed a good candidate for the procedure. Consent signed. Will proceed.
[2024-08-14] MEDS: SIMETHICONE ORAL SUSPENSION 20 MG/0.3 ML 30 ML BOTTLE 0.6 ML IRRIGATION (13:40)
[2024-08-14 13:54] VITALS: BP 153/86; PULSE 85; RESP 18; O2SAT 100
[2024-08-14 14:04] VITALS: BP 149/86; PULSE 80; RESP 18; O2SAT 99
[2024-08-14 14:14] VITALS: BP 151/83; PULSE 83; RESP 17; O2SAT 100
== END 2024-08-14 14:31 | disposition home or self-care (01) ==
PROVIDERS: PCP Family Medicine; Referring Provider Family Medicine; Visit Provider Internal Medicine Gastroenterology
PROC: 0DJD8ZZ Inspection of Lower Intestinal Tract, Via Natural or Artificial Opening Endoscopic (ICD-10-PCS; CPT 45378; principal; 2024-08-14 11:00)
DX: Z12.11 Encounter for screening for malignant neoplasm of colon (principal); D12.3 Benign neoplasm of transverse colon; D12.5 Benign neoplasm of sigmoid colon; F41.9 Anxiety disorder, unspecified; G47.33 Obstructive sleep apnea (adult) (pediatric); I25.2 Old myocardial infarction; M06.9 Rheumatoid arthritis, unspecified; M47.897 Other spondylosis, lumbosacral region; Z79.01 Long term (current) use of anticoagulants; Z79.82 Long term (current) use of aspirin; Z79.02 Long term (current) use of antithrombotics/antiplatelets; Z79.52 Long term (current) use of systemic steroids; Z98.890 Other specified postprocedural states; Z95.810 Presence of automatic (implantable) cardiac defibrillator; Z95.1 Presence of aortocoronary bypass graft; Z87.891 Personal history of nicotine dependence; Z82.49 Family history of ischemic heart disease and other diseases of the circulatory system
CPT/HCPCS: 45385; 88305; J2704; J7120

== ENCOUNTER 2024-08-15 08:08 | Outpatient (CLI) | payer MEDICARE, SELFPAY ==
--- NOTE | ~2024-08-15 | CT_ITS ---
EXAMINATION: CT lung screening DATE: 08/15/2024 08:22 INDICATION: Personal history of nicotine dependence TECHNIQUE: Computed tomography (CT) of the chest was performed without intravenous contrast. The dose -length product was 85.96 mGy-cm. Automated exposure control and iterative reconstruction technique w ere employed. COMPARISON: CT dated 08/09/2022 FINDINGS: There are coarse calcifications along the pericardium of the left ventricle possibly second valeria to prior infarction or pericarditis.. Status post median sternotomy for CABG. There is atheroscle rosis of the aorta and coronary arteries. No significant pleural or pericardial effusion. No thoracic lymphadenopathy. There is a new 7 mm left upper lobe nodule. There is a stable 5 mm right upper lobe nodule, image 46. There is a 3 mm right middle lobe nodule. There is an adjacent 2 mm right middle l obe nodule. There is apical pleural thickening/scarring with calcification. There is dextrocurvature of the thoracic spine. There is a 2 mm left fissural nodule. No focal airspace consolidation. No pneu mothorax. There is moderate emphysema. IMPRESSION: 1. New 7 mm left upper lobe nodule. Lung Rads category 4A (suspicious, 5-15% chance of malignancy). R ecommend 3 month follow-up low dose CT chest. Reviewed, dictated and finalized at location A. IMPRESSION: 1. New 7 mm left upper lobe nodule. Lung Rads category 4A (suspicious, 5-15% ch ance of malignancy). Recommend 3 month follow-up low dose CT chest.
== END 2024-08-15 08:09 | disposition home or self-care (01) ==
LOC: MICIMG 08:09
PROVIDERS: PCP Family Medicine; Visit Provider Family Medicine
DX: Z12.2 Encounter for screening for malignant neoplasm of respiratory organs (principal); Z87.891 Personal history of nicotine dependence; R91.1 Solitary pulmonary nodule
CPT/HCPCS: 71271

== ENCOUNTER 2024-10-14 16:39 | Inpatient (IN) | payer MEDICARE, SELFPAY ==
--- NOTE | ~2024-10-14 | CT_ITS ---
CT abdomen pelvis w con Ordering provider: Vibha Rodriges PA-C History: 63 years Female with . abd pain/bloating, diarrhea, fevers . Comparison: October 16, 2011 Technique: CT abdomen and pelvis with IV and without oral contrast. Automated exposure control and it erative reconstruction technique were employed. The dose-length product was 427.61 mGy-cm. Findings: VISUALIZED LOWER CHEST: Apical aneurysm is seen in the left ventricle with calcification is noted. UPPER ABDOMINAL ORGANS: Liver: Multiple tiny cysts. A Aubrey product Gallbladder: Normal. Spleen: Normal. Stomach/duodenum: Normal. Pancreas: Normal. Adrenals: Small right adrenal adenoma which is slightly enlarged compared to previous examination on measures 7 mm. Kidneys: Hypodensity in the left kidney midpole medially which may indicate pyelonephritis. Mass is m ost likely. Another focal areas are seen in the lower pole anteriorly and laterally Follow-up and cli nical correlation advised. Fat stranding is seen around the left kidney. Tiny cyst in the right kidney midpole. PELVIC ORGANS: The bladder is underfilled. BOWEL AND MESENTERY: Colon: No evidence of diverticulitis. Fluid is seen in the proximal colon.. Normal appendix. Small Bowel: Fluid is seen in the small bowel in the apical area which may indicate diarrhea. Enterit is is also is possible.No obstruction. Peritoneum/mesentery: No free air or free fluid. No mesenteric lymphadenopathy. RETROPERITONEUM: Moderate atheromatous disease of the abdominal aorta. No retroperitoneal lymphaden opathy. MUSCULOSKELETAL: Superficial soft tissues: The superficial soft tissues are normal. Bones: Age appropriate degenerative changes of the spine. Bilateral hip osteoarthritic changes. Bilat eral sacroiliacs. IMPRESSION: 1. Highly suggestive left kidney pyelonephritis. Clinical correlation and follow-up advised. 2. Fluid in the right side of the colon and in the small bowel suggestive of diarrhea versus enterit is. 3. Multiple cysts in the liver. 4. Small right adrenal adenoma. No follow-up advised unless clinically warranted. Reviewed, dictated and finalized at location A. IMPRESSION: 1. Highly suggestive left kidney pyelonephritis. Clinical correlation and foll ow-up advised. 2. Fluid in the right side of the colon and in the small bowel suggestive of d iarrhea versus enteritis. 3. Multiple cysts in the liver. 4. Small right adrenal adenoma. No follow-up advised unless clinically warrant ed.
--- OUTSIDE RECORDS SUMMARY | 2024-10-14 16:42 | XMS_ITS | Referral Summary ---
Author Organization [facility] er Address [address] [place] [address] Care Team Providers Care Furnace Installer Helper Name Role Phone Yinka Lewis MD Unavailable Zafar Sorenson DO Primary Care Provider [phone] Encounters Date Type Department Care Team Description 10/06/2024 Telephone [facility] Ophthalmology [address] [place] [address] Sophie Henry, ASHUTOSH 09/25/2024 Telephone [facility] Ophthalmology [address] [place] [address] Sophie Henry, OD Reschedule Appointment 09/23/2024 9:00 AM CDT Office Visit [facility] Rheumatology [address] [facility] 5th [place] [address] [place] [address] Yonis Mclaughlin MD PhD Rheumatoid arthritis, involving unspecified site, unspecified whether rheumatoid factor present (HCC) (Primary Dx); roasterman systemic steroid user; roasterman methotrexate user 09/04/2024 Telephone [facility] Rheumatology [address] [facility] 5th [place] [address] [place] [address] Shannon Rosado RMA 08/28/2024 9:20 AM CDT Office Visit [facility] Gastroenterology [address] [facility] 12th [place] [address] [place] [phone] Philip Kee MD Abnormal liver function tests (Primary Dx) from Last 3 Months Allergies Active Allergy [...] total) by mouth every morning 0 Active multivitamin capsuleIndicatio ns:Vitamin Deficiency Prevention [...] EYES DAILY 10 mL 11 5 Active levothyroxine (SYNTHROID) 25 mcg tablet Take 1 tablet (25 mcg total) by mouth daily 5 Active ondansetron (ZOFRAN) 4 mg tablet TAKE 1 EVERY 6 HOURS NEEDED FOR NAUSEA 5 Active Active Problems Problem Noted Date Diagnosed Date nursing home systemic steroid user 09/23/2024 nursing home methotrexate user 09/23/2024 Pseudophakia of both eyes 09/06/2023 Assessment & [...] 2021 Assessment & Plan (04/25/2022 11:23 AM DISHWASHER): Ok to use tdex prn to the [...] (06/11/2019): Added automatically from request for surgery [id number] PAD (peripheral artery disease) 10/02/2018 Dry eye syndrome of both eyes 06/20/2018 Assessment & Plan (06/12/2024 5:32 PM DISHWASHER): Continue with PF AFT TID and PRN Assessment & Plan (09/06/2023 10:46 AM CDT): Pfats TID+ OU Assessment & Plan (04/25/2022 11:23 AM DISHWASHER): Cont emycin rona at bedtime (qhs) Assessment [...] (OU) Assessment & Plan (06/20/2024 4:16 PM DISHWASHER): Visual field (VF), OCT normal/reassuring, pt ed. 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: CABG x2 [...] on file Legal Sex Female 9:01 PM DISHWASHER Gender Identity Not on file Sexual Orientation Not on file Last Filed Vital Signs Vital Sign Reading Time Taken Comments Blood Pressure 87/55 09/23/2024 8:40 AM CDT Pulse 74 09/23/2024 8:40 AM CDT Temperature 36.4 C (97.5 F) 09/23/2024 8:40 AM CDT Respiratory Rate 16 08/23/2023 9:33 AM CDT Oxygen Saturation 98% 08/23/2023 9:33 AM CDT Inhaled Oxygen Concentration - - Weight 71.5 kg (157 lb 9.6 oz) 09/23/2024 8:40 A M CDT Height 172.7 cm (5' 8) 09/23/2024 8:40 AM CDT Body Mass Index 23.96 09/23/2024 8:40 AM CDT Plan of Treatment Not on file Medical Devices Implanted Type Area Boat Loader Device Identifier Shelf Expiration Date Model / Serial / Lot Icd ICD Chest Wall Description:Implanted 2014 p er pt Cca0t0 21.5 Vlareon Iol Ashperic Uv Absorbing Iol Implanted:Qty : 1 on 05/07/2023 by María Araiza MD at [facility] [place] Lens Left: Eye [employer] 07/02/2026 CCA0T0 / [id number] / Other - See Comments-02/18 Implanted:03/2015 (Quantity not on file) Other - see comments Left: Chest Wall Biotronik Screw Screw Left: Foot Description:Screw in great l eft toe Clareon Uv Iol Cca0t0 21.0 Implanted:Qty : 1 on 04/16/2023 by María Araiza MD at [facility] [place] Right: Eye [employer] 11/20/2026 CCA0T0.21 0 / [id number] / Procedures Procedure Name Priority Date/Time Associated Diagnosis Comments ERYTHROCYTE SEDIMENTATION RATE Routine 09/09/2024 9:16 AM CDT High risk medication use Rheumatoid arthritis involving multiple sites with positive rheumatoid factor (HCC) COMPREHENSIVE METABOLIC PANEL Routine 09/09/2024 9:16 AM CDT High risk medication use Rheumatoid arthritis involving multiple sites with positive rheumatoid factor (HCC) CBC WITH AUTO DIFFERENTIAL Routine 09/09/2024 9:16 AM CDT High risk medication use Rheumatoid arthritis involving multiple sites with positive rheumatoid factor (HCC) CRP (ACUTE PHASE) Routine 09/09/2024 9:1 6 AM CDT High risk medication use Rheumatoid arthritis involving multiple sites with positive rheumatoid factor (HCC) HEPATITIS C ANTIBODY Routine 11/26/2023 12:29 PM CDT Abnormal liver function tests DEXA AXIAL SKELETON BONE DENSITY WITH VERTEBRAL FRACTURE ASSESSMENT Schedule Routine, Read Routine (OP Routine) 06/18/2018 9:20 AM DISHWASHER High risk medication use from Last 3 Months or Most Recently Relevant to Health Maintenance Results * (ABNORMAL) CBC with auto differential (09/09/2024 9:16 AM CDT) Pathologist [facility] WBC 5.2 3.8 - 10.8 Thousand/u L [facility] RBC, POC 4.10 3.80 - 5.10 Million/uL [facility] Hgb 13.7 11.7 - 15.5 g/dL [facility] Hct 42.5 35.0 - 45.0 % [facility] MCV 103.7(H) 80.0 - 100.0 fL [facility] MCH 33.4(H) 27.0 - 33.0 pg [facility] MCHC 32.2 32.0 - 36.0 g/dL [facility] Comment: For adults, a slight decrease in the calculated MCHC value (in the range of 30 to 32 g/dL) is most likely not clinically significant; however, it should be interpreted with caution in correlation with other red cell parameters and the patient's clinical condition. Rdw 13.0 11.0 - 15.0 % [facility] Platelets 212 140 - 400 Thousand/u L [facility] MPV 10.9 7.5 - 12.5 fL [facility] Neutrophils, abs 2,917 1,500 - 7,800 cells/uL [facility] Lymphocytes, abs 1,758 850 - 3,900 cells/uL [facility] Monocyte abs 421 200 - 950 cells/uL [facility] Eosinophils, abs 62 15 - 500 cells/uL [facility] Basophils, abs 42 0 - 200 cells/uL [facility] Neutrophils 56.1 % [facility] Lymphocyte pct 33.8 % [facility] Monocytes 8.1 % [facility] Eosinophils 1.2 % [facility] Basophils 0.8 % [facility] Blood 09/09/2024 9:16 AM CDT 09/09/2024 9:16 AM CDT Narrative [facility] - 09/09/2024 10:57 PM CDT FASTING:YES FASTING: YES Eliseo Bates MD LAB BLOOD ORDERABLES Final Re sult Performing Organization Address [facility] Co de Phone Number [facility] [address] [place] [address] * Erythrocyte sedimentation rate (09/09/2024 9:16 AM CDT) Erythrocyte sedimentation rate 2 < OR = 30 mm/h [facility] Blood 09/09/2024 9:16 AM CDT 09/09/2024 9:16 AM CDT Narrative [facility] - 09/09/2024 10:57 PM CDT FASTING:YES FASTING: YES Eliseo Bates MD LAB BLOOD ORDERABLES Final Re sult Performing Organization Address City/[facility]/ZIP Co de Phone Number [facility] [address] [place] [address] * CRP (acute phase) (09/09/2024 9:16 AM CDT) C-RP <5.0 <8.0 mg/L [facility] Blood 09/09/2024 9:16 AM CDT 09/09/2024 9:16 AM CDT Narrative [facility] - 09/09/2024 10:57 PM CDT FASTING:YES FASTING: YES us Eliseo Bates MD LAB BLOOD ORDERABLES Final Re sult SUB[facility]ous[facility] [address] [place] [address] * Comprehensive metabolic panel (09/09/2024 9:16 AM CDT) Pathologist [facility] Glucose 86 65 - 99 mg/dL [facility] Comment: Fasting reference interval BUN 17 7 - 25 mg/dL [facility] Creatinine 0.90 0.50 - 1.05 mg/dL [facility] eGFR 71 > OR = 60 mL/min/1.7 3m2 [facility] BUN/creat ratio SEE NOTE: (calc) [facility] Comment: Not Reported: BUN and Creatinine are within reference range. Sodium 138 135 - 146 mmol/L [facility] Potassium, pl 4.1 3.5 - 5.3 mmol/L [facility] Chloride 101 98 - 110 mmol/L [facility] CO2 29 20 - 32 mmol/L [facility] Calcium 9.6 8.6 - 10.4 mg/dL [facility] Protein, sr 6.4 6.1 - 8.1 g/dL [facility] Albumin 4.1 3.6 - 5.1 g/dL [facility] GLOBULIN 2.3 1.9 - 3.7 g/dL (calc) [facility] Alb/glob ratio 1.8 1.0 - 2.5 (calc) [facility] Bilirubin, total 0.7 0.2 - 1.2 mg/dL [facility] Alk phos 54 37 - 153 U/L [facility] AST 19 10 - 35 U/L [facility] ALT (SGPT) 20 6 - 29 U/L [facility] Blood 09/09/2024 9:16 AM CDT 09/09/2024 9:16 AM CDT Narrative [facility] - 09/09/2024 10:57 PM CDT FASTING:YES FASTING: YES Eliseo Bates MD LAB BLOOD ORDERABLES Final Re sult Performing Organization Address City/[facility] Co de Phone Number [facility] [address] [place] [address] * Hepatitis C antibody Blood (11/26/2023 12:29 PM CDT) Hep C Ab NON-REACTI VE NON-REACT BALWINDER [facility] Comment: HCV antibody was non-reactive. There is no laboratory evidence of HCV infection. In most cases, no further action is required. However, if recent HCV exposure is suspected, a test for HCV RNA (test code 33860) is suggested. For additional information please refer to http://education.Application Craft/faq/SJL76k6 (This link is being provided for informational/ educational purposes only.) Blood 11/26/2023 12:2 9 PM CDT 11/26/2023 12:30 PM CDT Philip Kee MD LAB MICROBIOLOGY - GENERAL ORDERABLES Final Result Performing Organization Address City/[facility] Co de Phone Number [facility] [address] [place] [address] * Dexa Axial Skeleton Bone Density With VFA (06/18/2018 9:20 AM DISHWASHER) Anatomical Region Laterality Modality Body N/A Radiographic Moraima ging Narrative 06/18/2018 10:54 AM DISHWASHER Patient Name: Kate Obrien Date of : 1960 Date of scan: 06/18/2018 Bone mineral density was performed on a [employer] Discovery Densitometer. Machine Cross-calibration and Precision studies [...] by the International Society of Clinical Densitometry. [id number] Vangie Be MD IMG DXA PROCEDURES Final Resu lt from Last 3 Months or Most Recently Relevant to Health Maintenance Insurance [facility] MEDICARE ADVANTAGE [facility] Address: [address] [address] [place] [address] MEDICARE ADVANTAGE [facility] Address: [address] [address] [place] [address] MEDICARE ADVANTAGE [facility] MEDIC[facility] Address: [address] [address] [place] [address] [place] [address] Advance Directives For more information, please contact: [phone] * Full Code (Latest Code Status on File) Date Activated Date Inactivated Comments 02/14/2020 5:06 AM 02/15/2020 10:15 PM Care Teams Furnace Installer Helper Relationship Specialty Start Date End Date Zafar Sorenson DO [address] [place] [address] PCP - General Family Medicine 03/09/22 Yinka Lewis MD [address] [place] [address] Consulting Physician Cardiovascular Disease 08/30/20
--- OUTSIDE RECORDS SUMMARY | 2024-10-14 16:42 | XMS_ITS | Encounter Summary ---
Author Organization [facility] Address [address] [place] [address] Phone Care Team Providers Care Aging Department Supervisor Name Role Phone Yinka Lewis MD Unavailable Zafar Sorenson DO Primary Care Provider [phone] Encounter Details Date Type Department Care Team (Late st Contact Info) Description 04/25/2023 Orders Only [facility] Ophthalmology [address] [facility] 6th [place] [address] María Araiza MD [address] [place] [address] Age-related cataract of left eye (Primary Dx) [...] on file Legal Sex Female 9:01 PM TIN PLATER Gender Identity Not on file Sexual Orientation [...] Orde r Schedule IOL Calculation 2nd Eye 45539 - OS - Left Eye Ophthalmology Routine Age-related cataract of left eye Ordered: 04/25/2023 documented as of this encounter Visit Diagnoses Diagnosis Age-related cataract of left eye- Primary documented in this encounter Care Teams Aging Department Supervisor Relationship Specialty Start Date End Date Zafar Sorenson DO [address] [place] [address] PCP - General Family Medicine 03/09/22 Yinka Lewis MD [address] [place] [address] Consulting Physician Cardiovascular Disease 08/30/20 documented as of this encounter
--- OUTSIDE RECORDS SUMMARY | 2024-10-14 16:42 | XMS_ITS | Clinical Summary ---
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 assisted methotrexate user 09/23/2024 Pseudophakia of both eyes [...] 2021 Assessment & Plan (04/25/2022 11:23 AM DIGITAL ASSET MANAGER): Ok to use tdex prn to the [...] (06/11/2019): Added automatically from request for surgery [id number] PAD (peripheral artery disease) 10/02/2018 Dry eye syndrome of both eyes 06/20/2018 Assessment & Plan (06/12/2024 5:32 PM DIGITAL ASSET MANAGER): Continue with PF AFT TID and PRN Assessment & Plan (09/06/2023 10:46 AM CDT): Pfats TID+ OU Assessment & Plan (04/25/2022 11:23 AM DIGITAL ASSET MANAGER): Cont emycin rona at bedtime (qhs) Assessment [...] (OU) Assessment & Plan (06/20/2024 4:16 PM DIGITAL ASSET MANAGER): Visual field (VF), OCT normal/reassuring, pt ed. 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: CABG x2 [...] Type Department Care Team Description 10/06/2024 Telephone [facility] Ophthalmology [address] [id number] Sophie Henry OD 09/25/2024 Telephone [facility] Ophthalmology [address] [place] [address] Sophie Henry OD Reschedule Appointment 09/23/2024 9:00 AM CDT Office Visit [facility] Rheumatology [address] [facility] 5th [place] [address] [place] [phone] Yonis Mclaughlin MD PhD Rheumatoid arthritis, involving unspecified site, unspecified whether rheumatoid factor present (HCC) (Primary Dx); assisted systemic steroid user; assisted methotrexate user 09/04/2024 Telephone [facility] Rheumatology [address] [facility] [address] [place] [phone] Shannon Rosado RMA 08/28/2024 9:20 AM CDT Office Visit [facility] Gastroenterology [address] [facility] 12[address] [place] [phone] Philip Kee MD Abnormal liver function tests (Primary Dx) from Last 3 Months Immunizations Immunization Administration Dates Next Due PPD TEST 06/13/2010 Pfizer SARS-CoV-2 Monovalent Vaccination (12+ Yrs) PURPLE 01/14/2021 Pneumococcal Polysaccharide PPV23 04/06/2020 Surgical History Surgery Date Site/Laterality Comments CORONARY ARTERY BYPASS GRAFT 09/30/2014 Chronically occluded LAD, silent MD, large apical aneurysm, Two vessel -- SVG [...] of DVT (deep vein thrombosis) History of MD (myocardial infarction) 2014 HTN (hypertension) 2009 History of atrial fibrillation 2015 S /p [...] Carotid Disease , PVD; Other Maternal Grandmother MD, Janell g cancer; Cause of : MD, Lung cancer Arthritis Mother Hypertension Mother Other [...] on file Legal Sex Female 9:01 PM DIGITAL ASSET MANAGER Gender Identity Not on file Sexual Orientation [...] 09/23/2024 8:40 AM CDT Plan of Treatment Health Maintenance [...] 04/06/2021 1 06/06/2019 Well Visit 65+ 11/11/2023 Fall Risk Assessment 05/07/2024 05/07/2023 Influenza Vaccine (Season Ended) 2025 Hepatitis C Screening Completed 11/26/2023, 018 Medical Devices Implanted Type Area Clinical Advisor Device Identifier Shelf Expiration Date Model / Serial / Lot Icd ICD Chest Wall Description:Implanted 2014 p er pt Cca0t0 21.5 Vlareon Iol Ashperic Uv Absorbing Iol Implanted:Qty : 1 on 05/07/2023 by María Araiza MD at [facility] Lens Left: Eye [employer] 07/02/2026 CCA0T0 / [id number] / Other - See Comments-02/18 Implanted:03/2015 (Quantity not on file) Other - see comments Left: Chest Wall Biotronik Screw Screw Left: Foot Description:Screw in great l eft toe Clareon Uv Iol Cca0t0 21.0 Implanted:Qty : 1 on 04/16/2023 by María Araiza MD at [facility] Right: Eye [employer] 11/20/2026 CCA0T0.21 0 / [id number] / Procedures Procedure Name Priority Date/Time [...] Read Routine (OP Routine) 06/18/2018 9:20 AM DIGITAL ASSET MANAGER High risk medication use from Last 3 Months or Most Recently Relevant to Health Maintenance Results * (ABNORMAL) CBC with auto differential (09/09/2024 9:16 AM CDT) WBC 5.2 3.8 - 10.8 Thousand/u L [...] 1,758 850 - 3,900 cells/uL [facility] Monocyte abs 421 200 - 950 cells/uL [facility] Eosinophils, abs 62 15 - 500 cells/uL [facility] Basophils, abs 42 0 - 200 cells/uL [facility] Neutrophils 56.1 % [facility] Lymphocyte pct 33.8 % [facility] Monocytes 8.1 % [facility] Eosinophils 1.2 % [facility] Basophils 0.8 % [facility] Blood 09/09/2024 9:16 AM CDT 09/09/2024 9:16 AM CDT Narrative [facility] - 09/09/2024 10:57 PM CDT FASTING:YES FASTING: YES us Eliseo Bates MD LAB BLOOD ORDERABLES Final Re sult [facility] [address] [place] [address] * Erythrocyte sedimentation rate (09/09/2024 9:16 AM CDT) Pathologist [facility] Erythrocyte sedimentation rate 2 < OR = 30 mm/h [facility] Blood 09/09/2024 9:16 AM CDT 09/09/2024 9:16 AM CDT Narrative [facility] - 09/09/2024 10:57 PM CDT FASTING:YES FASTING: YES Eliseo Bates MD LAB BLOOD ORDERABLES Final Re sult Performing Organization Address [facility] Co de Phone Number [facility] [address] [place] [address] * CRP (acute phase) (09/09/2024 9:16 AM CDT) Pathologist [facility] C-RP <5.0 <8.0 mg/L [facility] Blood 09/09/2024 9:16 AM CDT 09/09/2024 9:16 AM CDT Narrative [facility] - 09/09/2024 10:57 PM CDT FASTING:YES FASTING: YES Eliseo Bates MD LAB BLOOD ORDERABLES Final Re sult Performing Organization Address [facility] Co de Phone Number [facility] [address] [place] [address] * Comprehensive metabolic panel (09/09/2024 9:16 AM CDT) Pathologist [facility] Glucose 86 65 - 99 mg/dL [facility] Comment: Fasting reference interval BUN 17 7 - 25 mg/dL [facility] nicola Yous[facility] Creatinine 0.90 0.50 - 1.05 mg/dL [facility] eGFR 71 > OR = 60 mL/min/1.7 3m2 [facility] BUN/creat ratio SEE NOTE: (calc) [facility] Comment: Not Reported: BUN and Creatinine are within reference range. Sodium 138 135 - 146 mmol/L [facility] Potassium, pl 4.1 3.5 - 5.3 mmol/L [facility] nicola Yous[facility] Chloride 101 98 - 110 mmol/L [facility] Allen nicola Yousif CO2 29 20 - 32 mmol/L [facility] Calcium 9.6 8.6 - 10.4 mg/dL [facility]ous[facility] Protein, sr 6.4 6.1 - 8.1 g/dL [facility] Tiffany nicola Yousif Albumin 4.1 3.6 - 5.1 g/dL [facility] Tiffany nicola Yousif GLOBULIN 2.3 1.9 - 3.7 g/dL (calc) [facility] nicola Yous[facility] Alb/glob ratio 1.8 1.0 - 2.5 (calc) [facility] Bilirubin, total 0.7 0.2 - 1.2 mg/dL [facility] nicola Yous[facility] Alk phos 54 37 - 153 U/L [facility] nicola Yousif AST 19 10 - 35 U/L [facility] ALT (SGPT) 20 6 - 29 U/L [facility] Blood 09/09/2024 9:16 AM CDT 09/09/2024 9:16 AM CDT Narrative [facility] - 09/09/2024 10:57 PM CDT FASTING:YES FASTING: YES us Eliseo Bates MD LAB BLOOD ORDERABLES Final Re sult [facility] [address] [place] [address] * Hepatitis C antibody Blood (11/26/2023 12:29 PM CDT) Hep C Ab NON-REACTI VE NON-REACT BALWINDER [facility] Comment: HCV antibody was non-reactive. There is no laboratory evidence of HCV infection. In most cases, no further action is required. However, if recent HCV exposure is suspected, a test for HCV RNA (test code 46155) is suggested. For additional information please refer to http://education.PeptiVir/faq/VPI26p6 (This link is being provided for informational/ educational purposes only.) Blood 11/26/2023 12:2 9 PM CDT 11/26/2023 12:30 PM CDT us Philip Kee MD LAB MICROBIOLOGY - GENERAL ORDERABLES Final Result [facility] [address] [address] * Dexa Axial Skeleton Bone Density With VFA (06/18/2018 9:20 AM DIGITAL ASSET MANAGER) Anatomical Region Laterality Modality Body N/A Radiographic Moraima ging Narrative 06/18/2018 10:54 AM DIGITAL ASSET MANAGER Patient Name: Kate Obrien Date of : 1960 Date of scan: 06/18/2018 Bone mineral density was performed on a [employer] Discovery Densitometer. Machine Cross-calibration and Precision studies [...] Bruno, Lancet 341 : 72-75 (1992) 3) Black, [...] by the International Society of Clinical Densitometry. [id number] Vangie Be MD IMG DXA PROCEDURES Final Resu lt from Last 3 Months or Most Recently Relevant to Health Maintenance Insurance [place] [employer] [place] [employer] [address] [place] [phone] [place] [employer] [id number] [place] [phone] Advance Directives For more information, please contact: [phone] * Full Code (Latest Code Status on File) Date Activated Date Inactivated Comments 02/14/2020 5:06 AM 02/15/2020 10:15 PM Care Teams Administrator Health Care Facility Relationship Specialty Start Date End Date Zafar Sorenson DO [address] [place] [address] PCP - General Family Medicine 03/09/22 Yinka Lewis MD [address] [place] [address] Consulting Physician Cardiovascular Disease 08/30/20
--- OUTSIDE RECORDS SUMMARY | 2024-10-14 16:42 | XMS_ITS | Continuity of Care Document ---
Author Organization [facility] Address [address] [place] [address] Phone Care Team Providers Care Care Nurse Rn Name Role Phone Elio Canela Unavailable Unavailable [...] Copied on Encounter Office/outpat ient Visit, [facility], [address] [place] [address] [address], [place], [place], [id number], tel:[phone] [facility] [place] No Information 9-201 0 Hilton Ballard. [address] [facility] [address] , [address], [place], [address], [place]. tel:[phone] [facility], [address] [place] [address] [address], [place], [place], [id number], [place] tel:[phone] SEC [facility] No Information 4-201 0 Hilton Ballard. [address] , [address], [place], [address], [place]. tel:[phone] Referring Provider: Elio Gil, [address], [place], [place], [facility]. tel:[phone] [facility] Eye [facility], [address] [place] [address] [address], [place], [place], [id number], tel:[phone] [facility] [place] No Information 1 3200 9 Hilton Ballard. [facility] [address], [address], [place], [facility], . tel:[phone] Office/outpat ient Visit, [facility] Eye [facility], [address] [place] [address] [address], [place], [place], [id number], tel:[phone] [facility] No Information 1 1200 9 Hilton Ballard. [facility] [address], [place], [facility], . tel:[phone] Referring Provider: Jair Dobbins [facility] [address], [place], [facility]. tel:[phone] [facility], [address] [place] [address] [address], [place], [place], [id number], tel:[phone] [facility] [place] No Information 0 6200 8 Hilton Ballard. [facility] [address], [place], [facility], . tel:[phone] Referring Provider: Jair Dobbins [address], [place], [facility]. tel:[phone] Office/outpat ient Visit, [facility], [address] [place] [address] [address], [place], [place], [id number], tel:[phone] [facility] No Information 0 7200 8 Hilton Ballard. [facility] [address], [place], [address], [place]. tel:[phone] [facility] Eye [facility], [address], [place], [place], [id number], [place] tel:[phone] [facility] No Information Mar-0 5-200 7 Tarunkiersten Elio. [address], [place], [address], [place]. tel:[phone] Family History Family Member Type Diagnosis Age At Onset No Information Payers Payer name Insurance type Covered republican ID Authoriza tion(s) No Information Social History [...]
--- OUTSIDE RECORDS SUMMARY | 2024-10-14 16:42 | XMS_ITS | Clinical Summary ---
Author Organization [employer] [address] [facility] Address [address] [place] [address] Care Team Providers Care Turn Machine Operator Name Role Phone Keith Carreon MD Primary Care Provider Allergies No known active allergies Medications ALPRAZolam [...] 10:54 AM CDT Height 175.3 cm (5' 9) 03/04/2020 10:54 AM CDT Body Mass Index [...] 11/11/2003 ZOSTER VACCINE (1 of 2) 2008 OSTEOPOROSIS SCREENING 11/11/2023 INFLUENZA VACCINE (#1) 2023 RSV VACCINE (60+ or ) (1 - 1-dose 75+ series) 2033 Medical Devices Implanted Type Area Kitchenhand Device Identifier Shelf Expiration Date Model / Serial / Lot Renny Olson Df4 Hi Enrg W Pro [id number] - Ol 020 Implanted:Qt y: 1 on 03/04/2020 by Freddy Garcia MD Defibrillator Left: Chest [employer] [id number] 09/17/2021 [id number] / [id number] / Lead Icd Plexa Promri S 65 [id number] - [place]lo[place] 020 Implanted:Qt y: 1 on 03/04/2020 by Freddy Garcia MD Lead [employer] [id number] 07/18/2021 [id number] / [id number] / Lead Pacemaker Solia S 53 [id number] Implanted:Qt y: 1 on 03/04/2020 by Freddy Garcia MD Lead [employer] [id number] 11/17/2021 [id number] / [id number] / Insurance BLUE PREFERRED Advance Directives For more information, please contact: [phone] * Full Code (Latest Code Status on File) Date Activated Date Inactivated Comments 03/04/2020 5:44 PM 03/05/2020 2:52 PM * Full Code Date Activated Date Inactivated Comments 03/04/2020 12:51 PM 03/04/2020 5:44 PM Care Teams Turn Machine Operator Relationship Specialty Start Date End Date Bonzelet, Keith, MD [address] [place] [id number] PCP - General Internal Medicine 02/16/20
--- OUTSIDE RECORDS SUMMARY | 2024-10-14 16:42 | XMS_ITS | Clinical Summary ---
Author Organization [facility] Address [address] [place] [address] Care Team Providers Care Home Security Professional Name Role Phone Keith Carreon MD Primary Care Provider [phone] Source Comments [facility],non-owned Affiliates and Associated Physician Practices is amultiple site organization consisting of ambulatory clinics and hospital sitesin [place], [place], [place] and [place]. This disclosure is being madepursuant to the Care Everywhere program and may not contain all information available regarding this patient. Last updated 18.[facility] Allergies No known active allergies Medications * Be aware that medications may not be up to date on this document. Alwaysverify current medications with the patient. atorvastatin (LIPITOR) 40 MG tablet Take 40 mg by mouth once daily 9 Active brimonidine (ALPHAGAN) 0.2 % ophthalmic solution Instill 1 drop into both eyes 2 times daily 0 Active carvedilol (COREG) 6.25 MG tablet Take 1 tablet by mouth 2 times daily 9 Active citalopram (CELEXA) 20 MG tablet Take 1 tablet by mouth once daily 0 Active clopidogrel (PLAVIX) 75 MG tablet Take 75 mg by mouth once daily Active diclofenac sodium (VOLTAREN) 1 % gel Apply 4 g to affected area once daily as needed 0 Active diphenhydramine- APAP, sleep, (TYLENOL PM ES) 25-500 MG tablet Take 1 tablet by mouth nightly as needed Active folic acid (FOLVITE) 1 MG tablet Take 1 mg by mouth once daily 5 Active furosemide (LASIX) 20 MG tablet Take 1 tablet by mouth every Sunday & 0 Active isosorbide mononitrate CR 24hr (IMDUR) 30 MG tablet Take 30 mg by mouth once daily 0 Active methotrexate 2.5 MG tablet Take 6 tablets by mouth every Sunday 9 Active multivitamins (ONE A DAY) capsule Take 1 capsule by mouth once daily Active predniSONE (DELTASONE) 5 MG tablet Take 5 mg by mouth once daily 9 Active oxyCODONE-acetam inophen (PERCOCET) 5-325 MG tablet Take 1 tablet by mouth every 6 hours as needed 9 Active naproxen sodium (ALEVE) 220 MG tablet Take 220 mg by mouth 2 times daily as needed for Pain Active lisinopril (PRINIVIL;ZESTRI L) 5 MG tablet Take 1 tablet by mouth once daily 30 tablet 1 0 Active Active Problems Problem Noted Date Diagnosed Date AICD discharge 01/30/2020 Social History Tobacco Use Types Packs/Day Years Used Date Smoking Tobacco: Never Assessed Comments Unknown Sex and Gender Information Value Date Recorded Sex Assigned at Not on file Legal Sex Female 9:16 PM CDT Gender Identity Not on file [...] 12:08 AM CDT Height 172.7 cm (5' 8) 01/31/2020 12:08 AM CDT Body Mass Index [...] VACCINE (1 - 2023-2 5 season) 2024 DEPRESSION SCREENING 05/21/2024 INFLUENZA VACCINE (Season Ended) 2025 Respiratory Syncytial Virus (RSV) Vaccine Pt: or [...] on patient's age to complete this topic Insurance [facility] U[employer] MANAGED MEDICARE ADV SELF PAY NO INSURANCE Member Subscriber Plan / Payer (Ef fective for All Dates) Name:Lola Obrien Member ID:Not on file Relation to Subscriber:Not on file Name:LOLA OBRIEN Subscriber ID:Not on file (Home) Address: [address] [place] [address] [address] [place] [address] Payer ID:Not on file Group ID:Not on file Type:Self Pay Address: [place], [place] Advance Directives * Full Code (Latest Code Status on File) Date Activated Date Inactivated Comments 01/31/2020 12:07 AM 02/02/2020 5:05 PM Care Teams Home Security Professional Relationship Specialty Start Date End Date Keith Carreon MD [address] [place] [address] PCP - General Internal Medicine 01/30/20
--- OUTSIDE RECORDS SUMMARY | 2024-10-14 16:42 | XMS_ITS | CONTINUITY OF CARE DOCUMENT ---
Author Name coreen, coreen Address Unknown Organization [facility] Address [address] [place] [address] Phone [phone] Care Team Providers Care Wine Steward/Stewardess Name Role Phone Moses MCCRAY, John Unavailable MATSLINDA HAMILTON DO Unavailable VERNACLEAH Carmona DO Unavailable PROBLEMS Condition Status Date Provider Notes S/PGen change Dc ICD Biotronik 03/04/20 ( Not MRI SAFE//Capped RV Lead) active Katie Pappas PVC's active rBi Kraft RN HTN active Bri Kraft RN Ventricular tachycardia, nonsustained active Bri Kraft RN Syncope active Bri Kraft RN CAD - s/p artery bypass grafting September 2014 active Bri Kraft RN Cardiomyopathy, ischemic active Bri Crespo N CHF, chronic, systolic active Neal castro DO Biotronik VDD ICD completed - Katie Pappas Atrial flutter active Neal Rose DO Family History of CVA or Stroke: completed - Sindy Whitmore Family History of Hyperlipidemia: completed - Sindy Whitmore Family History of Hypertension: completed - Sindy Whitmore Family History of Sudden Cardiac : completed - Sindy Whitmore Hx of NSTEMI active Yinka Lewis MD CAD s/p CABG active Yinka Lewis MD Leg pain active Yinka Lewis MD Tobacco use, quit active Yinka Lewis MD Hyperlipidemia active Yinka Lewis MD Diminished pedal pulses active Yinka Lewis MD PVD with claudication active Yinka Díaz Preoperative cardiovascular examination active Yinka Lewis MD SVT active Bri Kraft RN Wheezing active Sindy Whitmore Dizziness active Yinka Lewis MD Carotid bruit, bilateral active Thang rodriguez Cardiology examination active Morteza Ramirez DNP,[employer] SCI[employer] PROFESSOR ENCOUNTERS Date Type Provider Location Encounter Diag nosis - In-person encounter Office Visit Yinka Lewis MD [place] [facility] - In-person encounter Office Visit John Chowdhury MD [facility] Cardiology examination - In-person encounter Office Visit Yinka Lewis MD [place] [facility] - In-person encounter Office Visit Yinka Lewis MD [place] [facility] - In-person encounter Office Visit Yinka Lewis MD [place] [facility] - In-person encounter Office Visit Yinka Lewis MD [place] [facility] - In-person encounter Office Visit John Chowdhury MD [place] [facility] - In-person encounter Office Visit Yinka Lewis MD [place] [facility] - In-person encounter Office Visit John Chowdhury MD [place] [facility] Carotid bruit, bilateral - In-person encounter Office Visit Yinka Lewis MD [place] [facility] - In-person encounter Office Visit Yinka Lewis MD [place] [facility] - In-person encounter Office Visit John Chowdhury MD [place] [facility] - In-person encounter Office Visit Yinka Lewis MD [place] [facility] - In-person encounter Office Visit John Chowdhury MD [facility] - In-person encounter Office Visit John Chowdhury MD [place] [facility] - In-person encounter Office Visit John Chowdhury MD [facility] - In-person encounter Office Visit Yinka Lewis MD [place] [facility] Dizziness - In-person encounter Office Visit John Chowdhury MD [place] [facility] Family History of CVA or Stroke:Family History of Hyperlipidemia:Family History of Hypertension:Family History of Sudden Cardiac :Wheezing - In-person encounter Office Visit Yinka Lewis MD [place] [facility] - In-person encounter Office Visit Yinka Lewis MD [facility] - In-person encounter Office Visit Yinka Lewis MD [place] - In-person encounter Office Visit Neal Perez Office - In-person encounter Office Visit Neal Arce Office - In-person encounter Office Visit Yinka Lewis MD [place] - In-person encounter Office Visit Yinka Lewis MD [place] [facility] - In-person encounter Office Visit Neal Perez Office SVT - In-person encounter Office Visit Yinka Lewis MD [place] [facility] Preoperative cardiovascular examination - In-person encounter Office Visit Yinka Lewis MD [place] - In-person encounter Office Visit Yinka Lewsi MD [place] - In-person encounter Office Visit Neal Rose DO [facility] - In-person encounter Office Visit Yinka Lewis MD [place] [facility] - In-person encounter Office Visit Yinka Lewis MD [place] [facility] PVD with claudication - In-person encounter Office Visit Yinka eLwis MD [place] Diminished pedal pulses - In-person encounter Office Visit Yinka Lewis MD [place] [facility] Hx of NSTEMICAD s/p CABGLeg painTobacco use, quitHyperlipidemia - In-person encounter Office Visit Neal Rose DO [facility] Biotronik VDD ICD - In-person encounter Office Visit Neal Rose DO [facility] - In-person encounter Office Visit Neal Perez Office - In-person encounter Office Visit Neal Rose DO SL - In-person encounter Office Visit Neal Rose DO [facility] CHF, chronic, systolicAtrial flutter VITAL SIGNS [...] Anthony rr blood pressure, systolic 95 mm[Hg] [facility] pulse rate 71 /min Jah oxygen saturation, oximetry 96 % respiratory rate E&M 14 /min Jah weight E&M 151 [lb_av] Jah height E&M 70 [in_i] Jah Body Mass Index (Ratio) 21.95 kg/m2 Bao Lewis MD blood pressure, cuff size regular [facility] blood pressure, diastolic 74 mm[Hg] rr blood pressure, systolic 111 mm[Hg] [facility] pulse rate 74 /min Jah respiratory rate E&M 16 /min Jah oxygen saturation, oximetry 99 % Jah weight E&M 153 [lb_av] Jah height E&M 70 [in_i] Jah Body Mass Index (Ratio) 22.24 kg/m2 Bao Lewis MD blood pressure, cuff size regular [facility] blood pressure, diastolic 78 mm[Hg] rret blood pressure, systolic 109 mm[Hg] [facility] pulse rate 79 /min Jah respiratory rate E&M 12 /min Jah oxygen saturation, oximetry 99 % Jah weight E&M 155 [lb_av] Jah height E&M 70 [in_i] Jah y Body Mass Index (Ratio) 21.95 kg/m2 Tim Chowdhury MD blood pressure, diastolic 85 mm[Hg] Malena nkLogmary blood pressure, systolic 142 mm[Hg] Camille kLog blood pressure, cuff size regular Fa [facility] blood pressure, diastolic 85 mm[Hg] Fa [facility] blood pressure, systolic 142 mm[Hg] Fortino [facility] pulse rate 75 /min [facility] oxygen saturation, oximetry 98 % [facility] respiratory rate E&M 15 /min Cherry Handley illepita weight E&M 153 [lb_av] [facility] height E&M 70 [in_i] [facility] Body Mass Index (Ratio) 21.23 kg/m2 Curt summer Blank blood pressure, cuff size regular [facility] blood pressure, diastolic 60 mm[Hg] Ke rri [facility] blood pressure, systolic 126 mm[Hg] Paulino ri Abhay oxygen saturation, oximetry 96 % Leatha Abhay respiratory rate E&M 12 /min [facility] pulse rate 84 /min Leatha Elina [facility] weight E&M 148 [lb_av] Leatha Carlosuenenfe [facility] height E&M 70 [in_i] Leatha Crystalnenfe [facility] Body Mass Index (Ratio) 21.52 kg/m2 Bao [...] ruenenfelder pulse rate 78 /min Leatha Gruenenfe [facility] weight E&M 152 [lb_av] Leatha Gruenenfe [facility] height E&M 70 [in_i] Leatha Gruenenfe [facility] Body Mass Index (Ratio) 22.24 kg/m2 Tim Chowdhury MD blood pressure, cuff size regular Ke rri Gruenenfeld blood pressure, diastolic 83 mm[Hg] Ke rri Gruenenfelder blood pressure, systolic 130 mm[Hg] Ker ri Gruenenfelder oxygen saturation, oximetry 98 % Leatha Gruenenfelder respiratory rate E&M 14 /min Leatha G ruenenfelder pulse rate 77 /min Leatha Gruenenfe [facility] weight E&M 155 [lb_av] Leatha Gruenenfe [facility] height E&M 70 [in_i] Leatha Gruenenfe [facility] Body Mass Index (Ratio) 22.67 kg/m2 Bao Lewis MD blood pressure, cuff size large Adrianne ignacia [place] blood pressure, diastolic 60 mm[Hg] Adrianne ignacia [place] blood pressure, systolic 118 mm[Hg] Real Lewis MD oxygen saturation, oximetry 99 % [place] pulse rate 88 /min Red díaz respiratory rate E&M 16 /min Mari[place] summer Burns weight E&M 158 [lb_av] Michelle díaz [...] faith pulse rate 81 /min Leatha Antoine [facility] weight E&M 157 [lb_av] Leatha Antoine [facility] height E&M 70 [in_i] Leatha Antoine [facility] Body Mass Index (Ratio) 22.35 kg/m2 Bao [...] faith pulse rate 76 /min Leatha Antoine [facility] weight E&M 154 [lb_av] Leatha Antoine elliot height E&M 70 [in_i] Leatha Antoine [facility] Body Mass Index (Ratio) 21.81 kg/m2 Bao Lewis MD blood pressure, resting Yes [facility] lilirubén White blood pressure, diastolic 70 mm[Hg] [facility] Christopher blood pressure, systolic 118 mm[Hg] [facility] Christopher pulse rate 86 /min [facility] Lyndsey montoya oxygen saturation, oximetry 99 % [facility] Christopher respiratory rate E&M 18 /min Rinaflaquito faiza White weight E&M 152 [lb_av] Gertrude Lyndsey montoya height E&M 70 [in_i] [facility] Lyndsey montoya Body Mass Index (Ratio) 20.95 [...] Margaret Chang humzaevaristo weight E&M 145.4 [lb_av] Margaert valdez height E&M 70 [in_i] Margaret Chang [...] blood pressure, diastolic 70 mm[Hg] Mi ignacia [place] blood pressure, systolic 116 mm[Hg] Ramin hellorrie Ranulfo oxygen saturation, oximetry 97 % Ranulfo respiratory rate E&M 16 /min [place] carmona [place] pulse rate 64 /min Ranulfo weight E&M 142 [lb_av] [place] height E&M 70 [in_i] [place] Body Mass Index (Ratio) 21.38 kg/m2 Bao [...] Britdalton y Block height E&M 70 [in_i] [facility] Body Mass Index (Ratio) 22.09 kg/m2 Bao Lewis MD blood pressure, cuff size regular Cy cielo Akers blood pressure, diastolic 70 mm[Hg] Cy cielo Akers blood pressure, systolic 122 mm[Hg] Makayla [...] blood pressure, cuff size small Kr isbakari [place] blood pressure, diastolic 80 mm[Hg] Kr isty Balaji blood pressure, systolic 120 mm[Hg] Horace marin [place] oxygen saturation, oximetry 97 % Valencia [place] pulse rate 62 /min Valencia Balaji respiratory rate E&M 18 /min Valencia Balaji weight E&M 153 [lb_av] Valencia [place] height E&M 70 [in_i] Valencia Balaji Body [...] blood pressure, systolic 100 mm[Hg] [facility] oxygen saturation, oximetry 98 % [place] Dasilva respiratory rate E&M 16 /min [place] Dasilva pulse rate 71 /min Keri Dasilva weight E&M 162 [lb_av] [place] Dasilva height E&M 70 [in_i] [place] Dasilva Body Mass Index (Ratio) 23.24 kg/m2 Bao Lewis MD blood pressure, diastolic 80 mm[Hg] [facility] blood pressure, systolic 126 mm[Hg] [facility] oxygen saturation, oximetry 98 % [facility] rate E&M 16 /min [facility] pulse rate 66 /min [facility] weight E&M 162 [lb_av] [facility] blood pressure, resting Yes [facility] height E&M 70 [in_i] [facility] Body Mass Index (Ratio) 23.39 kg/m2 Bao [...] Wang Perez weight E&M 148 [lb_av] July Perez height E&M 69 [in_i] July Perez ALLERGIES Allergy Name Onset Date Reaction Criticality Status RINVIQ Easy bruising Easy bruising High Cri ticality active CODEINE Low Criticality active SULFA High Criticality active VICODIN High Criticality active RESULTS Date Observation Value Provider Reference Range Interpretation Location basophils as percent of blood leukocytes 0.6 % [facility] Normal eosinophils as percent of blood leukocytes 1.2 % [facility] Normal monocyte count, blood 7.6 % [facility] Normal lymphocyte count, blood 34.0 % [facility] Normal neutrophils as percent of blood leukocytes 56.6 % [facility] Normal basophils, absolute, manual 31 cells/mcL [facility] 0-200 Normal eosinophils, absolute, manual 61 cells/mcL [facility] 15-500 Normal monocytes, absolute, manual 388 cells/mcL [facility] 200-950 Normal lymphocytes, absolute 1734 CELLS/UL [facility] 850-3900 Normal Absolute Neutrophil count 2887 cells/mcL [facility] 6991-3213 Normal mean platelet volume 10.9 fL [facility] 7.5-12.5 Normal platelet count 215 THOUSAND/UL [facility] 140-400 Normal red blood cell distribution width 13.0 % [facility] 11.0-15.0 Normal mean corpuscular hemoglobin concentration, RBC 32.8 G/DL [facility] 32.0-36.0 Normal mean corpuscular hemoglobin, RBC 33.7 pg [facility] 27.0-33.0 High mean corpuscular volume, RBC 102.7 fL [facility] 80.0-100.0 High hematocrit, blood 41.5 % [facility] 35.0-45.0 Normal hemoglobin electrophoresis, blood 13.6 [facility] 11.7-15.5 Normal erythrocyte (RBC) count 4.04 MILLION/UL [facility] 3.80-5.10 Normal leukocyte (white blood cells) count, blood 5.1 THOUSAND/UL [facility] 3.8-10.8 Normal alanine aminotransferase (SGPT), serum 21 1/L [facility] 6-29 Normal aspartate aminotransferase (SGOT), serum 19 1/L [facility] 10-35 Normal alkaline phosphatase, serum 55 1/L [facility] 37-153 Normal bilirubin, serum, total 0.7 mg/dL [facility] 0.2-1.2 Normal albumin/globulin ratio, serum 1.7 (calc) [facility] 1.0-2.5 Normal globulins, serum, total 2.4 G/DL (CALC) [facility] 1.9-3.7 Normal albumin, serum 4.1 g/dL [facility] 3.6-5.1 Normal protein, total, serum 6.5 g/dL [facility] 6.1-8.1 Normal calcium, serum 9.6 mg/dL [facility] 8.6-10.4 Normal carbon dioxide, venous blood 29 mmol/L [facility] 20-32 Normal chloride, serum 102 mmol/L [facility] 98-110 Normal potassium, serum 4.0 mmol/L [facility] 3.5-5.3 Normal sodium, serum 138 mmol/L [facility] 135-146 Normal urea nitrogen/creatinine ratio, serum SEE NOTE: (calc) [facility] 6-22 creatinine, serum 0.92 mg/dL [facility] 0.50-1.05 Normal urea nitrogen, blood 17 mg/dL [facility] 7-25 Normal blood glucose, random 85 mg/dL [facility] 65-99 Normal NT-pro BNP 1211 [facility] <125 High cholesterol, non-HDL, total 83 MG/DL (CALC) [facility] <130 Normal cholesterol/HDL ratio, serum, percent 2.5 (calc) [facility] <5.0 Normal LDL cholesterol, serum 58 MG/DL (CALC) [facility] Normal triglyceride, serum, fasting 186 mg/dL [facility] <150 High HDL cholesterol, serum 55 mg/dL [facility] > OR = 50 Normal cholesterol, serum 138 mg/dL [facility] <200 Normal prothrombin time (patient) 11.1 s [facility] 9.0-11.5 [...] Normal Absolute Neutrophil count 4523 cells/mcL [facility] 7871-5510 Normal mean platelet volume 10.7 fL [facility] [...] Normal Absolute Neutrophil count 9262 cells/mcL [facility] 4117-7266 High mean platelet volume 11.2 fL [facility] [...] mg/dL [facility] 7-25 Normal blood glucose, random 86 mg/dL [facility] 65-99 Normal prothrombin time (patient) 14.8 s [facility] 9.1-12.0 High international normalized ratio (INR) 1.4 [facility] 0.8-1.2 High lipoprotein, beta, serum, point, quantitative, calculated 41 mg/dL [facility] 0-99 very low density lipoproteins 32 mg/dL [facility] 5-40 HDL cholesterol, serum 49 mg/dL [facility] >39 triglyceride, serum, random 162 mg/dL [facility] 0-149 High cholesterol, serum 122 mg/dL [facility] [phone]/10 /05 calcium, serum 9.3 mg/dL [facility] 8.7-10.3 carbon dioxide, venous blood 24 mmol/L [facility] 20-29 chloride, serum 100 mmol/L [facility] 96-106 potassium, serum 4.1 mmol/L [facility] 3.5-5.2 sodium, serum 138 mmol/L [facility] 465-884 6300/10 /05 urea nitrogen/creatinine ratio, serum 13 [facility] [...] Not Estab. platelet count 227 X10E3/UL [facility] [phone]/10 /05 red blood cell distribution width 13.2 [...] Normal Absolute Neutrophil count 8276 cells/mcL [facility] 5017-0329 High mean platelet volume 12.3 fL [facility] [...] [facility] 6-22 Estimated Glomerular Filtration Rate (calc) 88 mL/min/{1.73_ [...] BY MOUTH DAILY IN THE EVENING 05/29 [facility] clobetasol 0.05% shampoo active Caitie Quispe trazodone 50 mg tablet active Caitie Quispe clotrimazole 1% cream active Caitie Quispe cilostazol 50 mg tablet completed TAKE 1 TABLET TWICE DAILY 08/23 - 10/17 Kim GAMA brimonidine 0.2% drops completed - 01/16 Caitieyina Quispe aspirin 81 mg tablet,delayed release (DR/EC) active TAKE 1 TABLET BY MOUTH ONCE DAILY 06/08 Cassi Anne NP losartan 25 mg tablet completed 1/2 tablet by mouth once a day TAKE 1 TABLET BY MOUTH DAILY IN THE EVENING 12/08 - 05/29 Leatha Cortés atorvastatin 40 mg tablet active TAKE 1 TABLET BY MOUTH EVERY EVENING 10/23 [facility] carvedilol 6.25 mg tablet active TAKE 1 TABLET BY MOUTH TWICE DAILY 07/03 [facility] isosorbide mononitrate 30 mg tablet extended release 24 hr active TAKE 1 TABLET BY MOUTH EVERY DAY 01/17 [facility] clopidogrel 75 mg tablet active TAKE 1 TABLET BY MOUTH EVERY DAY 08/25 Emerald Rushi Lipitor 40 mg tablet completed Take 1 tabl et by mouth every evening 07/21 - 10/23 [place] Rushi Eliquis 5 mg tablet completed Take 1 [...] mL pen injector completed - 06/08 Cassi Dayana RUEDA Coreg 6.25 mg tablet completed Take 1 tabl et by mouth twice a day 12/09 - 09/05 Abbie Vasquez timolol maleate 0.5% drops active once a day 05/31 Michelle Winchester ALPRAZOLAM 0.25 MG ORAL TABLET completed take 1 tab three times a day - 12/09 Margaret Swain aspirin 81 mg tablet,delayed release (DR/EC) completed 1 tablet once a day 08/20 - 06/17 Sindy Whitmore ACTEMRA 162 MG/0.9ML SUBCUTANEOUS SOLUTION PREFILLED SYRINGE [...] tablet orally once daily 11/13 - 06/10 Yikna Lewis MD clopidogrel 75 mg tablet completed Take 1 tablet by mouth once a day 06/26 - 08/25 Adriana Zhu VITAMIN B-12 1000 MCG ORAL TABLET completed One tablet daily 07/11 - 02/10 Ivonne Akers [facility] FISH OIL CAPSULE completed once a day 07/11 - 02/06 Valencia Carpio prednisone 5 mg tablet active 1 1/ tablet by mouth once a day 07/11 Kim Pinzon [employer] MULTIVITAMINS CAPS active 1 tablet once a day 07/11 Leatha Cortés lisinopril 2.5 mg tablet completed Take 1 tablet by mouth once a day 07/23 - Linda Foster GABAPENTIN 300 MG ORAL CAPSULE completed 1 [...] ONE TAB. DAILY 06/08 - 10/31 Ivonne kAers TRAZODONE HCL 50 MG ORAL TABLET completed once daily 06/03 - 12/09 Valencia Carpio PREDNISONE 5 MG ORAL TABLET completed once daily 06/03 - 06/08 July Perez OXYCODONE-ACETAMINOP HEN 5-325 MG ORAL TABLET completed savita 4-6 hr prn pain 06/03 - 06/08 July Perez methotrexate sodium 2.5 mg tablet active 15 mg once a week 06/03 Abbie Vasquez FOLIC ACID 1 MG ORAL TABLET completed 06/03 - 10/31 Ivonne Akers COUMADIN 1 MG ORAL TABLET completed 06/03 - 12/09 Valencia Carpio CORRECTOL 5 MG ORAL TABLET DELAYED RELEASE completed 06/03 - 06/08 July Perez Coreg 6.25 mg tablet completed 1 tablet tw ice a day 06/03 - 12/09 Abbie Vasquez [...] Lewis MD smoking, year quit 2013 Yinka Oliver mcmullen MD number of years as a smoker 36 a Yinka Lewis MD smoking history, tot al pack/day 1 ppd Yinka Lewis MD cigarette use yes Yinka Díaz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 Former smoker Yinka Joshua MCCRAY personal history of marijuana use no Morteza Ramirez DNP,[facility] drug use no Morteza Ramirez DN P,[facility] alcohol use, average drinks per day social Morteza Ramirez DNP,[facility] alcohol use yes Morteza Ramirez DN P,[facility] smoking, year quit 2013 Morteza wilson DNP,[facility] number of years as a smoker 36 a Morteza Ramirez DNP,[facility] smoking history, tot al pack/day 1 ppd Morteza Ramirez DNP,[facility] cigarette use yes Morteza Díaz [facility] [employer]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,[facility]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 Former smoker Morteza Ramirez DNP,[facility] personal history of marijuana use no Kim Ventimiglia [facility] drug use no Kim Ventimig shanika [facility] alcohol use, average drinks per day social Kim Ventimiglia [facility] alcohol use yes Kim Ventimig shanika [facility] smoking, year quit 2013 Kim Ve ntimiglia [facility] number of years as a smoker 36 a Kim Ventimiglia [facility] smoking history, tot al pack/day 1 ppd Kim Ventimiglia [facility] cigarette use yes Kim Ventimi glia [facility]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 Former smoker Kim Venti miglia [facility] personal history of marijuana use no Kim Ventimiglia [facility] drug use no Kim Ventimig shanika [employer] alcohol use, average drinks per day social Kim Ventimiglia [employer] alcohol use yes Kim Ventimig shanika [employer] PROFESS[employer] smoking, year quit 2013 Kim Schaefer ntimiglskip [employer] SCIENCE PROFESSOR number of years as a smoker 36 a Kim Ventimiglia [employer] PROF[employer] smoking history, tot al pack/day 1 ppd Kim Ventimiglia [facility] cigarette use yes Kim Ventimi glia [employer] PROF[employer]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 Former smoker Kim Brannon miglia [facility] personal history of marijuana use no Cassi Kiddreri [facility] drug use no Cassi Bonareri [facility] alcohol use, average drinks per day social Cassi Bonareri [facility] alcohol use yes Cassi Bonareri [facility] smoking, year quit [address]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 number of years as a smoker 36 a Cassi Bonareri [facility] smoking history, tot al pack/day 1 ppd Cassi Kiddreri [facility] cigarette use yes Cassi Bonareri [facility]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 Former smoker Cassi Soto ri [facility] personal history of marijuana use no Yinka [...] no Cassi Anne NP drug use no [facility] alcohol use, average drinks per day social [facility] alcohol use yes [facility] smoking, year quit 2013 [facility] number of years as a smoker 36 a [facility] smoking history, tot al pack/day 1 ppd [facility] cigarette use yes [facility]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 Former smoker [facility] social history reviewed E&M revi ewed - [...] Lewis MD smoking, year quit 2013 Aury Will iams number of years as a smoker 36 a Aury Salas smoking history, tot al pack/day 1 ppd Aury Salas cigarette use yes Aury Salas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 Former smoker Aury du social history E&M S moking History: Heydi [...] Heydi horta is a former smoker. Carlton Ríosflaquito social history reviewed E&M revi ewed - no changes required Carlton Ríosflaquito smoking, year quit 2013 Leatha ordonez number of years as a smoker 36 a Leatha Cortés smoking history, tot al pack/day 1 ppd Leatha Galvankaren cigarette use yes Leatha jones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 Former smoker Leatha Barajas link drug use no Yinka Lewis MD alcohol use, average drinks per day social Yinka Lewis MD alcohol use yes Yinka Lewis MD social history E&M S moking History: Heydi horta is a former smoker. Yinka Lewis MD social history reviewed E&M revi ewed - no changes required Yinka Lewis MD smoking, year quit 2013 Burns number of years as a smoker 36 a Michelle Burns smoking history, tot al pack/day 1 ppd Michelle Burns cigarette use yes Michelle Ferris maico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 Former smoker Michelle russo smoking, year quit 2013 Leatha obregonzhao number of years as a smoker 36 a Leatha Cortés smoking history, tot al pack/day 1 ppd Leatha Galvankaren cigarette use yes Leatha Galvan karen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 Former smoker Leatha Barajas link social history E&M S moking History: Heydi horta is a former smoker. Yinka Lewis MD social history reviewed E&M revi ewed - no changes required Yinka Lewis MD smoking, year quit 2013 Lavinia mas number of years as a smoker 36 a Lavinia Aragon smoking history, tot al pack/day 1 ppd Lavinia Aragon cigarette use yes Lavinia Ballard s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 Former smoker Lavinia Landa rds number of grandchildren John Whitmore social history reviewed E&M revi ewed - no changes required Sindy Whitmore social history E&M S moking History: P mychal is a former smoker. Rachele Mireles NP social history reviewed E&M revi ewed - no changes required Rachele Mireles NP smoking, year quit 2013 Hilda [place] number of years as a smoker 34 a Gertrude White smoking history, tot al pack/day 1 ppd Gertrude White cigarette use yes Gertrude Douglas becka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 Former smoker Gertrude spicer number of grandchildren Yinka Lewis MD U darryn Lewis MD social history E&M S moking History: Heydi horta is a former smoker. Yinka Lewis MD social history reviewed E&M revi ewed - no changes required Yinka Lewis MD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 Former smoker Jacquie Mickie social history E&M S moking History: Heydi [...] History: P mychal is a former smoker. Neal Rose HARRIS social history reviewed E&M revi ewed - no changes required Neal Rose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 Former smoker Jacquie Corado number of grandchildren Neal Díaz O JZoe Mendoza social history reviewed E&M revi ewed - no changes required Neal Rose DO smoking, year quit 2013 [place] number of years as a smoker 34 a [place] smoking history, tot al pack/day 1 ppd [place] cigarette use yes Michelle Meredith y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 Former smoker Michelle champion alcohol use, average drinks per day social Yinka Lewis MD alcohol use yes Yinka Lweis MD social history E&M S moking History: [...] History: P mychal is a former smoker. Lucas Bangura social [...] Kraft RN smoking, year quit 2013 Shanice Block number of years as a smoker 34 a Shanice Block smoking history, tot al pack/day 1 ppd Shanice Block cigarette use yes Shanice Block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 Former smoker Shanice Blo ck social history E&M S moking History: P [...] Lewis MD smoking, year quit 2013 Abbie winter-Tristan number of years as a smoker 34 a Abbie Holcomb-Tristan smoking history, tot al pack/day 1 ppd Abbie Gomez cigarette use yes Abbie Delong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 Former smoker Abbie Kimberly on-Tristan social history reviewed E&M revi ewed - no changes required Abbie Gomez social history E&M S moking History: Hedyi horta is a former smoker. Rachele Mireles NP social history reviewed E&M revi ewed - no changes required Rachele Mireles NP number of grandchildren Yinka Lewis MD S mario Mireles NP smoking, year quit 2013 Ivonne santoro number of years as a smoker 34 a Ivonne Akers smoking history, tot al pack/day 1 ppd Ivonne Akers cigarette use yes Ivonne Bello ll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 Former smoker Ivonne strong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 Former smoker Neal worrell DO social history E&M S moking History: Heydi horta is a former smoker. Neal Munozcock DO social history reviewed E&M revi ewed - no changes required Neal Rose DO number of grandchildren Neal Rose D O Neal Rose DO smoking, year quit 2013 [place] Bu sby number of years as a smoker 34 a [place] smoking history, tot al pack/day 1 ppd [place] Balaji cigarette use yes [place] Balaji social history E&M Smoking Histo ry: P mychal is a former smoker. Yinka Lewis MD social history reviewed E&M revi ewed - no changes required Yinka Lewis MD social history E&M S moking History: P mychal is a former smoker. Yinka Lewis MD social history reviewed E&M revi ewed - no changes required Yinka Lewis MD alcohol use, average drinks per day social [place] Dasilva alcohol use yes [place] Dasilva smoking, year quit 2013 Keri I ngram number of years as a smoker 34 a Keri Dasilva smoking history, tot al pack/day 1 ppd [place] Dasilva cigarette use yes Keri Dasilva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 Former smoker Keri Ingr am social history reviewed E&M revi ewed - no changes required Yinka Lewis MD social history E&M S moking History: Heydi horta is a former smoker. Yinka Lewis MD number of grandchildren Yinka Lewis MD K keisha Nicholeam alcohol use, average drinks per day social Keri Dasilva alcohol use yes [place] Dasilva smoking, year quit 2013 Keri neal number of years as a smoker 34 a Keri Dasilva smoking history, tot al pack/day 1 ppd Keri Dasilva cigarette use yes Keri Dasilva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 Former smoker Keri Ingr am alcohol use, average drinks per day social Yinka Lewis MD alcohol use yes Yinka Lewis MD social history E&M S moking History: P mychal is a former smoker. Yinka Lewis MD social history reviewed E&M revi ewed - no changes required Yinka Lewis MD number of years as a smoker 34 a Leatha Moo smoking history, tot al pack/day 1 ppd Leatha Moo smoking, year quit 2013 Leatha Gonzalezerich ordonez cigarette use yes Leatha Barajasgiovanni [facility]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 Former smoker Leatha Gonzalezmichael hendersoner smoking, year quit 2013 Neal rush DO cigarette use yes Neal Lyonsc k DO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 Former smoker Nealadalberto Munozc ock DO social history reviewed E&M revi ewed - no changes required Neal Rose DO social history E&M Smoking Histo ry: Heydi horta is a former smoker. Neal Lyonsck DO social history E&M S moking History: P atолег is a former smoker. Neal Rose DO smoking, year quit 2013 Neal Peña ascock DO cigarette use yes Neal Munozcoc k DO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 Former smoker Neal Tammyc ock DO social history reviewed E&M revi ewed - no changes required Neal Rose DO social history reviewed E&M revi ewed - no changes required Neal Rose DO number of grandchildren Neal Díaz O [place] Carp[place] smoking, year quit 2013 July Villagomez cigarette use yes July Perez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 Former smoker July Rivero l FUNCTIONAL STATUS Date Observation Value Provider HRA, CV Assess/Plan, Angina (inactive) Management Plan continue current therapy Morteza Ramirez DNP,WOOD SCIENCE PROFESSOR HRA, CV Assess/Plan, Angina (inactive) Management Plan continue current therapy Kim Pinzon WOOD SCIENCE PROFESSOR HRA, CV Assess/Plan, Angina (inactive) Management Plan [...] (inactive) Management Plan continue current therapy Neal Dutchess DO HRA, CV Assess/Plan, Angina (inactive) Management Plan continue current therapy Neal Dutchess DO FAMILY HISTORY Family Member Condition Father [...] Payer name Policy type / Coverage type Leigh red republican ID AARP MEDICARE ADVANTAGE [facility] (O) Medicare [id number] ADVANCE DIRECTIVES Name Date DISCUSSED - NO DECISION MADE TREATMENT PLAN Date Name Performer [id number],C,s tress test showd a fixed anterior wall defect Yinka Lewis MD [id number],C,L osartin 25 once a day P rior BP: 126/60 (12/08/2022) Labs Reviewed: C reat: 0.93 (05/13/2022) C hol: 124 (05/13/2022) HDL: 47 (05/13/2022) LDL: 55 MG/DL (CALC) (05/13/2022) T (05/13/2022) Yinka Lewis MD [id number],C,On astatin Us jacklyn Lewis MD [id number],C,H as monophasic waveforms in the left tibial vessels with sensilase which also shows decreased flow. However, she is not really having consistent symptoms on that side and has no wound so we will continue to treat medically. Yinka Lewis MD [id number],C, A BI 10/23/22 showed C ONCLUSIONS: 1 . Mild arterial disease of the right lower extremity. 2 . Mild to moderate arterial disease of the left lower extremity. Mild left popliteal stenosis. Monophasic flow seen in the t ibial arteries. 3 . Unable to accurately assess VIC's due to hardened arteries. Thang Moo [id number],C, H er updated medication list for this problem includes: Isosorbide Mononitrate 30 Mg Tablet Extended Release 24 Hr (Isosorbide mononitrate) ..... Take 1 tablet by mouth every day Carvedilol 6.25 Mg Tablet (Carvedilol) ..... Take 1 tablet by mouth twice daily Clopidogrel 75 Mg Tablet (Clopidogrel) ..... Take 1 tablet by mouth every day S/p ablation, asymptomatic today Thang Moo [id number],C, C ONCLUSIONS: 1 . Mild plaque with less than 50% stenosis of the internal carotid arteries bilaterally. 2 . Vertebral flow is antegrade bilaterally. Thang Gonzalezana [id number],C, S table. Continue medical therapy. Her updated medication list for this problem includes: Isosorbide Mononitrate 30 Mg Tablet Extended Release 24 Hr (Isosorbide mononitrate) ..... Take 1 tablet by mouth every day Carvedilol 6.25 Mg Tablet (Carvedilol) ..... Take 1 tablet by mouth twice daily Clopidogrel 75 Mg Tablet (Clopidogrel) ..... Take 1 tablet by mouth every day Thang Gonzalezana [id number],S, C artoids done 04/20/22 showed C ONCLUSIONS: 1 . Mild plaque with less than 50% stenosis of the internal carotid arteries bilaterally. 2 . Vertebral flow is antegrade bilaterally. H er updated medication list for this problem includes: Atorvastatin 40 Mg Tablet (Atorvastatin) ..... Take 1 tablet by mouth every evening Thang Blank [id number],S, D evice function normal A t/AF burden 0.0% % Pacing: RA - 92.0% RV - 5.0% [facility] [id number],C, E cho 11/10 showed C ONCLUSIONS: 1 [...] tablet by mouth every day Thang Galvankaren [id number],S, E cho 10/2022 C ONCLUSIONS: 1 . [...] systolic p ressure is 23.0 mmHg. Thang Moo [id number],C,C ontinue medical therapy. She seems to be doing well. Will recheck an VIC and follow up with her in 6 months. Will also check an echo. Yinka Lewis MD [id number],B, Yinka Lewis MD [id number],S,W ill obtain labs and also a carotid duplex Yinka Lewis MD [id number],S, B P today: 124/84 P rior BP: 130/83 (12/16/2021) Labs Reviewed: C reat: 0.88 (10/21/2021) C hol: 118 (10/21/2021) HDL: 51 (10/21/2021) LDL: 43 MG/DL (CALC) (10/21/2021) T (10/21/2021) Yinka Lewis MD [id number],S,S table. Continue medical therapy. Yinka Lewis MD [id number],B, Yinka Lewis MD [id number],B,S /p ablation, asymptomatic today H er updated medication list for this problem includes: Clopidogrel 75 Mg Tablet (Clopidogrel) ..... Take 1 tablet by mouth every day Isosorbide Mononitrate 30 Mg Tablet Extended Release 24 Hr (Isosorbide mononitrate) ..... Take 1 tablet by mouth once a day Orders: E KG (CPT-05907) 9 9213 LTD 20-29min (CPT-67636) C omplete Echo (CPT-92283) Carlton breonna [id number],S, H er updated medication list for this problem includes: Clopidogrel 75 Mg Tablet (Clopidogrel) ..... Take 1 tablet by mouth every day Isosorbide Mononitrate 30 Mg Tablet Extended Release 24 Hr (Isosorbide mononitrate) ..... Take 1 tablet by mouth once a day Orders: 9 92 LTD 20-29min (CPT-67360) C omplete Echo (CPT-58294) Carlton Ríos [id number],C,S/p ablation, asymptomatic today [facility] [id number],C,E cho 09/2021 CONCLUSIONS: 1 . Technically difficult [...] pressure is 3 0.0 mmHg. Carltonemmanuel Ríosflaquito [id number],C, B P today: 130/83 P rior BP: 118/60 (09/23/2021) Labs Reviewed: C reat: 0.88 (10/21/2021) C hol: 118 (10/21/2021) HDL: 51 (10/21/2021) LDL: 43 MG/DL (CALC) (10/21/2021) T (10/21/2021) Her updated medication list for this problem includes: Lasix 20 Mg Tablet (Furosemide) ..... Take 1 tablet by mouth twice a week Orders: 9 9213 LTD 20-29min (CPT-10435) C omplete Echo (CPT-66774) Carlton Ríosflaquito [id number],C, A ppears to be stable. Continue medical therapy. Her updated medication list for this problem includes: Clopidogrel 75 Mg Tablet (Clopidogrel) ..... Take 1 tablet by mouth every day Isosorbide Mononitrate 30 Mg Tablet Extended Release 24 Hr (Isosorbide mononitrate) ..... Take 1 tablet by mouth once a day Orders: 9 9213 LTD 20-29min (CPT-26284) C omplete Echo (CPT-15463) Carlton Quach [id number],B,a bi shows good blood flow and will continue medical therapy. Yinka Lewis MD [id number],C, John min MD [id number],C, H er updated medication list for this problem includes: Isosorbide Mononitrate 30 Mg Tablet Extended Release 24 Hr (Isosorbide mononitrate) ..... Take 1 tablet by mouth once a day Coreg 6.25 Mg Tablet (Carvedilol) ..... Take 1 tablet by mouth twice a day Clopidogrel 75 Mg Tablet (Clopidogrel) ..... Take 1 tablet by mouth once a day John Chowdhury MD [id number],C,D one by Dr. chowdhury Tobacco cessation counseling, 3-10minutes (30768) O rders: T obacco cessation counseling, 3-10minutes (46383) John Chowdhury MD [id number],B,r esolved no atrial fib. Will reassess need for NOAC if A> fib is documented in future on her device H er updated medication list for this problem includes: Coreg 6.25 Mg Tablet (Carvedilol) ..... Take 1 tablet by mouth twice a day Clopidogrel 75 Mg Tablet (Clopidogrel) ..... Take 1 tablet by mouth once a day John Chowdhury MD [id number],C, H er updated medication list for this problem includes: Isosorbide Mononitrate 30 Mg Tablet Extended Release 24 Hr (Isosorbide mononitrate) ..... Take 1 tablet by mouth once a day Coreg 6.25 Mg Tablet (Carvedilol) ..... Take 1 tablet by mouth twice a day Clopidogrel 75 Mg Tablet (Clopidogrel) ..... Take 1 tablet by mouth once a day Orders: 9 9212 Minor 10-19min (CPT-89922) John Chowdhury MD [id number],C, S he has had intermittent episodes of SVT which have all been terminated with ATP. S cheduled for EP study/ablation. Discussed the indications, benefits, alternatives and risk of complications from the procedure with the patient who expressed understanding. Reviewed directions. Sindy Whitmore [id number],C, S ymptomatic with palpitations, dizziness/lightheadedness, fatigue. States her HR was between 143-165 for about three hours recently. Device documented both atrial flutter and recurrent SVT this month, treated with ATP, no shocks. S cheduled for EP study/ablation. Discussed the indications, benefits, alternatives and risk of complications from the procedure with the patient who expressed understanding. Reviewed directions. Sindy Whitmore [id number],C, S he has had intermittent episodes of SVT which have all been terminated with ATP. P atient would like to keep watching rather than proceed with ablation at this time, will respect patient wishes. Sindy Whitmore [id number],W, S ymptomatic with palpitations, dizziness/lightheadedness, fatigue. States [...] with the patient who expressed understanding. Jeffedelmira Whitmore [id number],C,W ill check echo in several months to monitor Yinka Lewis MD [id number],C,N o further leg claudication. Will repeat ABIs in 6 months Yinka Lewis MD [id number],C,L ipids followed by PCP H er updated medication list for this problem includes: Lipitor 40 Mg Tablet (Atorvastatin) ..... 1 tablet once a day Yinka Lewis MD [id number],C,B P is 94/64 today, reports some dizziness. Will stop her lisinopril Yinka Lewis MD [id number],S, A ppears to be stable. Continue medical therapy. iYnka Lewis MD [id number],B, B P today: 122/80 P rior BP: [...] by mouth once a day Sindy Whitmore [id number],B, r eports cessation in 2013 Sindy Whitmore [id number],S, S he has had intermittent episodes of SVT which have all been terminated with ATP. P mychal would like to keep watching rather than [...] by mouth once a day Sindy Whitmore [id number],B, S he continues to have a few [...] by mouth once a day Sindy Whitmore [id number],C,C heck venous doppler to rule out DVT Rachele Mireles [facility] [employer]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 [id number],C,P t does not want intervention at this time Rachele Mireles MOHIT Telehealth: H er updated medication list for [...] significant. Continue with regular walking routine. [facility]:Wi ll repeat lipid panel. H er updated medication list for this problem includes: Atorvastatin 40 Mg Tablet (Atorvastatin) ..... Take 1 tablet by mouth every evening [facility]za [facility]: a ppears compensated at this time O n GDMT. R epeat echo is unchanged. LVEF is 40%. [facility]: B P today: 105/75 P [...] tablet by mouth once daily [facility]za [facility]rophys[facility]: n o new chest pain [...] tablet by mouth once daily [facility] Cardiology:no new cl audication symptoms u pdate [facility] Cardiology:BP low no rmal W ill [...] Take 1 tablet by mouth once daily [facility] Cardiology:no new ch est pain or [...] Take 1 tablet by mouth once daily [facility] Cardiology:Last echo demonstrated EF 40% W ill update echo c ontinue BB and decreased [facility]art[facility] Cardiology:She ronna nues to have dizziness that is worse with standing B P sitting was 113/87 and standing 108/76 W ill decrease losartan to 12.5 [facility] Cardiology:no c/o an y chest pain or SOB C ontinue medical management Yinka Lewis MD Cardiology: H er updated medication list for this problem includes: Atorvastatin 40 Mg Tablet (Atorvastatin) ..... Take 1 tablet by mouth every evening Yinka Lewis MD Cardiology:BP 95/70 may be lower d/t her diarrhea S he is asymptomatic w ill monitor Kim Pinzon [facility] Cardiology:She was r ecently started on cilostazol but is having signficant diarrhea W ill have her stop medication E ncouraged continued ambulation S he is to call or return sooner if symptoms worsen Kim Pinzon [facility] Cardiology: l ast echo 10/2022 ef 40% s /p aicd Cassi Kiddteddy [facility] Cardiology Cassi Sototamara N P Cardiology: H as fluctuating BP [...] Take 1 tablet by mouth every evening Jonasusi Anne NP Cardiology: a ppears compensated at this time Cassi Kiddteddy [facility] Cardiology: R epeat stress test showed [...] C II-III F ollowed by Dr Joshua barnes liniically appears compensated Cassi Anne [facility]IT Electrophysiology: S ymptoms improving with decrease of Losartan dose Cassi Anne [employer]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 Electrophysiology: B P today: 142/85 P rior BP: 126/60 (12/08/2022) H er updated medication list for this problem includes: Aspirin 81 Mg Tablet,delayed Release (/ec) (Aspirin) ..... Take 1 tablet by mouth once daily Carvedilol 6.25 Mg Tablet (Carvedilol) ..... Take 1 tablet by mouth twice daily Losartan 25 Mg Tablet (Losartan) ..... Take 1 tablet by mouth daily in the evening Cassi Anne MOHIT Electrophysiology: D evice function normal A T/AF [place]: 0.0% % Pacing: RA - 94.0% RV - 4.0% Cassi Anne MOHIT Electrophysiology: s tress test showed a fixed anterior wall defect (12/2022) S he has been having chest pain since then. Will repeat stress. Cassi Sototamara [facility]A Electrophysiology: H er updated medication list for this problem includes: Atorvastatin 40 Mg Tablet (Atorvastatin) ..... Take 1 tablet by mouth every evening Will check labs Cassi Anne MOHIT Electrophysiology: 1 06/2021 CONCLUSIONS: 1 . Mild plaque with less than 50% stenosis of the internal carotid arteries bilaterally. 2 . Vertebral flow is antegrade bilaterally. Will repeat Carotid duplex Cassi Sototamara RUEDA Cardiology:stress te st showd a fixed anterior [...] assess VIC's due to hardened arteries. Thang Moo Electrophysiology: H er updated medication list for this problem includes: Isosorbide Mononitrate 30 Mg Tablet Extended Release 24 Hr (Isosorbide mononitrate) ..... Take 1 tablet by mouth every day Carvedilol 6.25 Mg Tablet (Carvedilol) ..... Take 1 tablet by mouth twice daily Clopidogrel 75 Mg Tablet (Clopidogrel) ..... Take 1 tablet by mouth every day S/p ablation, asymptomatic today Thang Moo Electrophysiology: C ONCLUSIONS: 1 . Mild plaque [...] by mouth every day Thang Moo Electrophysiology: C artoids done 04/20/22 showed C ONCLUSIONS: 1 . Mild plaque with less than 50% stenosis of the internal carotid arteries bilaterally. 2 . Vertebral flow is antegrade bilaterally. H er updated medication list for this problem includes: Atorvastatin 40 Mg Tablet (Atorvastatin) ..... Take 1 tablet by mouth every evening Thang Galvankaren Electrophysiology: D evice function normal A t/AF burden 0.0% % Pacing: RA - 92.0% RV - 5.0% Thang Blank Electrophysiology: E cho 11/10 showed C ONCLUSIONS: [...] tablet by mouth every day Thang Galvankaren Electrophysiology: E cho 10/2022 C ONCLUSIONS: 1 [...] systolic p ressure is 23.0 mmHg. Thang Gonzalezamarilyselliot Cardiology:Continue medical therapy. She seems to be [...] mouth once a day Orders: E KG (CPT-14485) 9 9213 LTD 20-29min (CPT-54604) C omplete Echo (CPT-41548) John Chowdhury MD Electrophysiology: H er updated medication list for this problem includes: Clopidogrel 75 Mg Tablet (Clopidogrel) ..... Take 1 tablet by mouth every day Isosorbide Mononitrate 30 Mg Tablet Extended Release 24 Hr (Isosorbide mononitrate) ..... Take 1 tablet by mouth once a day Orders: 9 9213 LTD 20-29min (CPT-21170) C omplete Echo (CPT-03212) John Chowdhury MD Electrophysiology:S/p ablation, asymptomatic today [...] a week Orders: 9 9213 LTD 20-29min (CPT-45551) C omplete Echo (CPT-23305) John Chowdhury MD Electrophysiology: A ppears to be stable. Continue medical therapy. Her updated medication list for this problem includes: Clopidogrel 75 Mg Tablet (Clopidogrel) ..... Take 1 tablet by mouth every day Isosorbide Mononitrate 30 Mg Tablet Extended Release 24 Hr (Isosorbide mononitrate) ..... Take 1 tablet by mouth once a day Orders: 9 9213 LTD 20-29min (CPT-34790) C omplete Echo (CPT-77573) John Chowdhury MD Cardiology:vic shows good blood [...] by Dr. chowdhury Tobacco cessation counseling, 3-10minutes (52612) O rders: T obacco cessation counseling, 3-10minutes (31879) John Chowdhury MD Electrophysiology:re solved no atrial [...] a day Orders: 9 9212 Minor 10-19min (CPT-35463) John Chowdhury MD Telehealth: S he has had intermittent episodes of SVT which have all been terminated with ATP. S cheduled for EP study/ablation. Discussed the indications, benefits, alternatives and risk of complications from the procedure with the patient who expressed understanding. Reviewed directions. Sindy Whitmore Telehealth: S ymptomatic with palpitations, dizziness/lightheadedness, [...] time, will respect patient wishes. Sindy Whitmore Telehealth: S ymptomatic with palpitations, dizziness/lightheadedness, [...] by mouth once a day Sindy Whitmore Cardiology:Check venous doppler to rule out [...] proceed with ablation at this time Neal Rose DO Electrophysiology:re curring ICD shocks from sinus [...] up :Legs are f ine at present Yinka Lewis MD Cardiology follow up :Will repeat [...] HDL: 49 (02/22/2019) Yinka Lewis MD Cardiology:Her [facility] ed medication list for this problem includes: [...] Electrophysiology:FC II-III Neal Rose DO Electrophysiology: p elliot bar. Neal Rose DO Electrophysiology:No rmal function. S he had a few episodes of SVT terminated with ATP. no shocks. N o VT noted. D iscussed possible ablation of SVT if she has more frequent episodes or receiving shocks. She wishes to wait before deciding. Neal Rose DO Cardiology hospital follow up Us jacklyn Lewis MD Cardiology hospital follow up jacklyn Lewis MD Cardiology hospital follow up [...] not yet on AC unless recurrent Neal Lyonsck EP: B P today: 112/62 P rior BP: 118/70 (01/05/2016) Neal Rose DO EP: n o shocks or detections on device interrogation Neal Rose DO EP:FC II-III Neal Lyonsck EP:severe LVD Neal Rose DO EP:with ICM, S/P VVI ICD. no rec urrences Neal Lyonsck Cardiology/EP:brief on ICD interrogation in Apr 2015, [...] Bi-L ower EX Complete Echo DLCO - 80169 FRC - 90419 FVC - 26333 Venous Doppler Unila teral LLE Arterial Duplex [...] completed FVC / MVV with bronchodilator - 90904 John Chowdhury MD completed BLOOD COUNT HEMOGLOBIN John rush MD completed FRC - 15213 John du MD completed SpO2 w/o 6min walk/titration John Chowdhury MD completed SVC - 41745 John du MD completed DLCO - 08322 John du MD completed EKG John du MD completed EKG Neal Dutchess DO completed EKG Neal Dutchess DO completed EKG Neal Dutchess DO completed EKG Neal Dutchess DO completed ICM Interrogation, Remote (Prof) Yinka [...] Yinka Lewis MD INTERROGATION REMOTE </90 D MANAGER CASH REVIEW completed AICD Interrogation, Remote (Prof) Yinka [...] MD completed ICM Interrogation, Remote (Prof) Neal Lyonsck DO INTERROGATION EVAL REMOTE </30 D CV MNTR SYS completed ICM Interrogation, Remote (Tech) Neal Dutchess DO INTERROGATION EVAL REMOTE </30 D TECH REVIEW completed ICM Interrogation, Remote (Prof) Neal Dutchess DO INTERROGATION EVAL REMOTE </30 D CV MNTR SYS completed AICD Interrogation, Remote (Tech) Neal Dutchess DO INTERROGATION REMOTE </90 D MANAGER CASH REVIEW completed AICD Interrogation, Remote (Prof) Neal Dutchess DO INTERROGATION EVAL REMOTE </90 D 1/2/> LD CVDFB completed ICM Interrogation, Remote (Prof) Neal Dutchess DO INTERROGATION EVAL REMOTE </30 D CV MNTR SYS completed ICM Interrogation, Remote (Tech) Neal Dutchess DO INTERROGATION EVAL REMOTE </30 D TECH REVIEW completed ICM Interrogation, Remote (Prof) Neal Dutchess DO INTERROGATION EVAL REMOTE </30 D CV MNTR SYS completed ICM Interrogation, Remote (Tech) Neal Dutchess DO INTERROGATION EVAL REMOTE </30 D TECH REVIEW completed ICM Interrogation, Remote (Prof) Neal Dutchess DO INTERROGATION EVAL REMOTE </30 D CV MNTR SYS completed AICD Interrogation, Remote (Tech) Neal Dutchess DO INTERROGATION REMOTE </90 D MANAGER CASH REVIEW completed AICD Interrogation, Remote (Prof) Neal Dutchess DO INTERROGATION EVAL REMOTE </90 D 1/2/> LD CVDFB completed ICM Interrogation, Remote (Prof) Neal Dutchess DO INTERROGATION EVAL REMOTE </30 D CV MNTR SYS completed ICM Interrogation, Remote (Tech) Neal Dutchess DO INTERROGATION EVAL REMOTE </30 D TECH REVIEW completed ICM Interrogation, Remote (Prof) Neal Dutchess DO INTERROGATION EVAL REMOTE </30 D CV MNTR SYS completed ICM Interrogation, Remote (Tech) Neal Dutchess DO INTERROGATION EVAL REMOTE </30 D TECH REVIEW completed ICM Interrogation, Remote (Prof) Neal Dutchess DO INTERROGATION EVAL REMOTE </30 D CV MNTR SYS completed AICD Interrogation, Remote (Tech) Neal Dutchess DO INTERROGATION REMOTE </90 D MANAGER CASH REVIEW completed AICD Interrogation, Remote (Prof) Neal Dutchess DO INTERROGATION EVAL REMOTE </90 D 1/2/> LD CVDFB completed ICM Interrogation, Remote (Prof) Neal Dutchess DO INTERROGATION EVAL REMOTE </30 D CV MNTR SYS completed ICM Interrogation, Remote (Tech) Neal Dutchess DO INTERROGATION EVAL REMOTE </30 D TECH REVIEW completed ICM Interrogation, Remote (Prof) Neal Dutchess DO INTERROGATION EVAL REMOTE </30 D CV MNTR SYS completed ICM Interrogation, Remote (Tech) Neal Dutchess DO INTERROGATION EVAL REMOTE </30 D TECH REVIEW completed EKG Neal Dutchess DO completed ICM Interrogation, Remote (Prof) Neal Dutchess DO INTERROGATION EVAL REMOTE </30 D CV MNTR SYS completed ICM Interrogation, Remote (Tech) Neal Dutchess DO INTERROGATION EVAL REMOTE </30 D TECH REVIEW completed ICM Interrogation, Remote (Prof) Neal Dutchess DO INTERROGATION EVAL REMOTE </30 D CV MNTR SYS completed ICM Interrogation, Remote (Tech) Neal Dutchess DO INTERROGATION EVAL REMOTE </30 D TECH REVIEW completed ICM Interrogation, Remote (Prof) Neal Dutchess DO INTERROGATION EVAL REMOTE </30 D CV MNTR SYS completed AICD Interrogation, Remote (Tech) Neal Dutchess DO INTERROGATION REMOTE </90 D MANAGER CASH REVIEW completed AICD Interrogation, Remote (Prof) Neal Dutchess DO INTERROGATION EVAL REMOTE </90 D 1/2/> LD CVDFB completed ICM Interrogation, Remote (Prof) Neal Dutchess DO INTERROGATION EVAL REMOTE </30 D CV MNTR SYS completed ICM Interrogation, Remote (Tech) Neal Dutchess DO INTERROGATION EVAL REMOTE </30 D TECH REVIEW completed ICM Interrogation, Remote (Prof) Neal Dutchess DO INTERROGATION EVAL REMOTE </30 D CV MNTR SYS completed ICM Interrogation, Remote (Tech) Neal Dutchess DO INTERROGATION EVAL REMOTE </30 D TECH REVIEW completed ICM Interrogation, Remote (Prof) Neal Dutchess DO INTERROGATION EVAL REMOTE </30 D CV MNTR SYS completed AICD Interrogation, Remote (Tech) Neal Dutchess DO INTERROGATION REMOTE </90 D MANAGER CASH REVIEW completed AICD Interrogation, Remote (Prof) Neal Dutchess DO INTERROGATION EVAL REMOTE </90 D 1/2/> LD CVDFB completed ICM Interrogation, Remote (Prof) Neal Dutchess DO INTERROGATION EVAL REMOTE </30 D CV MNTR SYS completed ICM Interrogation, Remote (Tech) Neal Dutchess DO INTERROGATION EVAL REMOTE </30 D TECH REVIEW completed ICM Interrogation, Remote (Prof) Neal Dutchess DO INTERROGATION EVAL REMOTE </30 D CV MNTR SYS completed ICM Interrogation, Remote (Tech) Neal Dutchess DO INTERROGATION EVAL REMOTE </30 D TECH REVIEW completed ICM Interrogation, Remote (Prof) Neal Dutchess DO INTERROGATION EVAL REMOTE </30 D CV MNTR SYS completed AICD Interrogation, Remote (Tech) Neal Dutchess DO INTERROGATION REMOTE </90 D MANAGER CASH REVIEW completed AICD Interrogation, Remote (Prof) Neal Dutchess DO INTERROGATION EVAL REMOTE </90 D 1/2/> LD CVDFB completed ICM Interrogation, Remote (Prof) Neal Dutchess DO INTERROGATION EVAL REMOTE </30 D CV MNTR SYS completed ICM Interrogation, Remote (Tech) Neal Dutchess DO INTERROGATION EVAL REMOTE </30 D TECH REVIEW completed ICM Interrogation, Remote (Prof) Neal Dutchess DO INTERROGATION EVAL REMOTE </30 D CV MNTR SYS completed ICM Interrogation, Remote (Tech) Neal Dutchess DO INTERROGATION EVAL REMOTE </30 D TECH REVIEW completed EKG Neal Dutchess DO completed SNOMED-CT: [id number] Current Medications Documented Neal Dutchess DO completed ICM Interrogation, Remote (Prof) Neal Dutchess DO INTERROGATION EVAL REMOTE </30 D CV MNTR SYS completed ICM Interrogation, Remote (Tech) Neal Dutchess DO INTERROGATION EVAL REMOTE </30 D TECH REVIEW completed ICM Interrogation, Remote (Prof) Neal Dutchess DO INTERROGATION EVAL REMOTE </30 D CV MNTR SYS completed AICD Interrogation, Remote (Tech) Neal Dutchess DO INTERROGATION REMOTE </90 D MANAGER CASH REVIEW completed AICD Interrogation, Remote (Prof) Neal Dutchess DO INTERROGATION EVAL REMOTE </90 D 1/2/> LD CVDFB completed ICM Interrogation, Remote (Prof) Neal Dutchess DO INTERROGATION EVAL REMOTE </30 D CV MNTR SYS completed ICM Interrogation, Remote (Tech) Neal Dutchess DO INTERROGATION EVAL REMOTE </30 D TECH REVIEW completed ICM Interrogation, Remote (Prof) Neal Dutchess DO INTERROGATION EVAL REMOTE </30 D CV MNTR SYS completed ICM Interrogation, Remote (Tech) Neal Dutchess DO INTERROGATION EVAL REMOTE </30 D TECH REVIEW completed ICM Interrogation, Remote (Prof) Neal Dutchess DO INTERROGATION EVAL REMOTE </30 D CV MNTR SYS completed AICD Interrogation, Remote (Tech) Neal Dutchess DO INTERROGATION REMOTE </90 D MANAGER CASH REVIEW completed AICD Interrogation, Remote (Prof) Neal Dutchess DO INTERROGATION EVAL REMOTE </90 D 12/> LD CVDFB completed EKG Neal Dutchess DO completed SNOMED-CT: [id number] Current Medications Documented Neal Dutchess DO completed ICM Interrogation, Remote (Prof) Neal Dutchess DO INTERROGATION EVAL REMOTE </30 D CV MNTR SYS completed ICM Interrogation, Remote (Tech) Neal Dutchess DO INTERROGATION EVAL REMOTE </30 D TECH REVIEW completed ICM Interrogation, Remote (Prof) Neal Dutchess DO INTERROGATION EVAL REMOTE </30 D CV MNTR SYS completed ICM Interrogation, Remote (Tech) Neal Dutchess DO INTERROGATION EVAL REMOTE </30 D TECH REVIEW completed ICM Interrogation, Remote (Prof) Neal Dutchess DO INTERROGATION EVAL REMOTE </30 D CV MNTR SYS completed AICD Interrogation, Remote (Tech) Neal Dutchess DO INTERROGATION REMOTE </90 D MANAGER CASH REVIEW completed AICD Interrogation, Remote (Prof) Neal Dutchess DO INTERROGATION EVAL REMOTE </90 D 1/2/> LD CVDFB completed ICM Interrogation, Remote (Prof) Neal Dutchess DO INTERROGATION EVAL REMOTE </30 D CV MNTR SYS completed ICM Interrogation, Remote (Tech) Neal Dutchess DO INTERROGATION EVAL REMOTE </30 D TECH REVIEW completed ICM Interrogation, Remote (Prof) Neal Dutchess DO INTERROGATION EVAL REMOTE </30 D CV MNTR SYS completed AICD Interrogation, Remote (Tech) Neal Dutchess DO INTERROGATION REMOTE </90 D MANAGER CASH REVIEW completed AICD Interrogation, Remote (Prof) Neal Dutchess DO INTERROGATION EVAL REMOTE </90 D 1/2/> LD CVDFB completed ICM Interrogation, Remote (Prof) Neal Dutchess DO INTERROGATION EVAL REMOTE </30 D CV MNTR SYS completed ICM Interrogation, Remote (Tech) Neal Dutchess DO INTERROGATION EVAL REMOTE </30 D TECH REVIEW completed ICM Interrogation, Remote (Prof) Neal Dutchess DO INTERROGATION EVAL REMOTE </30 D CV MNTR SYS completed ICM Interrogation, Remote (Tech) Neal Dutchess DO INTERROGATION EVAL REMOTE </30 D TECH REVIEW completed SNOMED-CT: [id number] Current Medications Documented Neal Munozcock completed
[2024-10-14 16:44] VITALS: BP 121/90; PULSE 70; RESP 16; TEMP 36.4; O2SAT 100
--- NOTE | 2024-10-14 17:43 | ED.NAVMDI ---
HPI - Nausea/Vomiting/Diarrhea General Chief complaint: Nausea/Vomiting/Diarrhea <RENEE Hunt Last Filed: 10/14/24 17:56> Stated complaint: Diarrhea x 5 days with fever, chills, headache <RENEE Hunt Last Filed: 10/14/24 17:56> Time Seen by Provider: 10/14/24 17:43 <RENEE Hunt Last Filed: 10/14/24 17:56> Focused HPI: Patient is a 63 y/o female who presents to the ED with c/o diarrhea. Patient reports she has been sick since Sunday with diarrhea. Reports multiple episodes per day. Also reports fever, up to 104.5F on Sunday and Sunday, diffuse abd pain/bloating. States she is now feeling very weak, dizzy/lightheaded. Has been taking Tylenol for the fever. Last took this around 11am this morning. Denies N/V. Denies rectal bleeding, melena. GENERAL: Well-appearing, well-nourished, and in no acute distress. HEAD: Normocephalic, atraumatic. CHEST: Clear to auscultation. ?No respiratory distress. HEART: Regular rate and rhythm.? ABD: Mild diffuse tenderness. Normoactive BS NEURO: ?Alert and oriented x3. Patient screened in triage and initial orders placed.? ?Additional care and disposition to be based upon?diagnostic testing and treatment. <RENEE Hunt Last Filed: 10/14/24 17:56> Focused HPI: Patient is a 63 y/o female who presents to the ED with c/o diarrhea. Patient reports she has been sick since Sunday with diarrhea. Reports multiple episodes per day. Also reports fever, up to 104.5F on Sunday and Sunday, diffuse abd pain/bloating. States she is now feeling very weak, dizzy/lightheaded. Has been taking Tylenol for the fever. Last took this around 11am this morning. Denies N/V. Denies rectal bleeding, melena. GENERAL: Ill-appearing, not not any acute distress HEAD: Normocephalic, atraumatic. CHEST: Clear to auscultation. ?No respiratory distress. HEART: Regular rate and rhythm.? ABD: Mild diffuse tenderness. Normoactive BS NEURO: ?Alert and oriented x3. Patient screened in triage and initial orders placed.? ?Additional care and disposition to be based upon?diagnostic testing and treatment. <Raul Rai MD - Last Filed: 10/15/24 06:26> Source: patient <Vibha Rodriges PA-C - Last Filed: 10/14/24 17:56> Mode of arrival: ambulatory <Vibha Rodriges PA-C - Last Filed: 10/14/24 17:56> Limitations: no limitations <Vibha Rodriges PA-C - Last Filed: 10/14/24 17:56> History of Present Illness HPI Narrative: Agree with the HPI above <Raul Rai MD - Last Filed: 10/15/24 06:26> Related Data Home medications: Home Medications ?Medication ?Instructions ?Recorded ?Confirmed ?Last Taken ?Type atorvastatin 40 mg tablet 40 mg PO DAILY 09/14/20 10/15/24 08/13/24 History carvedilol 6.25 mg tablet 6.25 mg PO Q12H 09/14/20 10/15/24 08/14/24 History citalopram 20 mg tablet 20 mg PO DAILY 09/14/20 10/15/24 08/14/24 History aspirin 81 mg tablet,delayed 81 mg PO DAILY 09/16/20 10/15/24 08/13/24 History release (Adult Aspirin Regimen) clopidogrel 75 mg tablet 75 mg PO DAILY 09/16/20 10/15/24 08/06/24 History diclofenac sodium 1 % topical gel 4 g topical QID PRN pain 09/16/20 10/15/24 Unknown History isosorbide mononitrate 30 mg 30 mg PO DAILY 09/16/20 10/15/24 08/13/24 History tablet,extended release 24 hr prednisone 5 mg tablet 7.5 mg PO DAILY 09/16/20 10/15/24 08/13/24 History folic acid 1 mg tablet 2 mg PO DAILY 05/26/22 10/15/24 08/13/24 History methotrexate sodium 2.5 mg tablet 12.5 mg PO WEEKLY 05/26/22 10/15/24 08/13/24 History timolol maleate 0.25 % eye drops 1 drp EACH EYE DAILY 06/15/23 10/15/24 08/13/24 History acetaminophen 500 mg tablet 500 mg PO Q6H 12/14/23 10/15/24 08/13/24 History (Tylenol Extra Strength) losartan 25 mg tablet 25 mg PO DAILY 12/14/23 10/15/24 08/13/24 History multivitamin 1 tablet PO DAILY 12/14/23 10/15/24 Unknown History cholecalciferol (vitamin D3) 25 25 mcg PO DAILY 06/13/24 10/15/24 08/13/24 History mcg (1,000 unit) capsule clobetasol 0.05 % shampoo 1 applic topical DAILY PRN SCALP 07/01/24 10/15/24 Unknown History <Vibha Rodriges PA-C - Last Filed: 10/14/24 17:56> Allergies/Adverse reactions: Allergies Allergy/AdvReac Type Severity Reaction Status Date / Time cilostazol Allergy Intermediate Diarrhea Verified 10/14/24 15:34 niacin Allergy Intermediate HOT FLASHES Verified 10/14/24 15:34 niacinamide Allergy Intermediate Unknown Verified 10/14/24 15:34 Sulfa (Sulfonamide Allergy Intermediate Gastrointestinal Verified 10/14/24 15:34 Antibiotics) Upset [id number] Reductase AdvReac Intermediate LEG CRAMPS Verified 10/14/24 15:34 Inhibitor HYDROCODONE BIT Allergy Mild ITCH Uncoded 10/14/24 15:34 <Vibha Rodriges PA-C - Last Filed: 10/14/24 17:56> Review of Systems Review of Systems: As reviewed above in HPI <Raul Rai MD - Last Filed: 10/15/24 06:26> [facility] Past Medical History Medical History: Medical History Acute nasopharyngitis (common cold) Acute pharyngitis, unspecified (04/25/17) Anxiety disorder, unspecified Cardiomyopathy Herpes zoster without complication Obstructive sleep apnea Old myocardial infarction Rheumatoid arthritis, unspecified Rhinitis, nonallergic Right rotator cuff tendonitis Sleep apnea, unspecified Spondylolysis of lumbosacral region Unspecified glaucoma Upper respiratory infection, acute Warfarin anticoagulation <RENEE Hunt Last Filed: 10/14/24 17:56> Surgical History Surgical History: Surgical History History of angioplasty of vein right LE History of surgical fusion joint Left Hallux History of arthroplasty of finger of left hand Index finger History of hysterectomy for benign disease History of cardiac defibrillator placement 2020 History of heart bypass surgery -2014 <RENEE Hunt Last Filed: 10/14/24 17:56> Family History Family History: Family History Mother Family history of arthritis Family history of heart disease in male family member before age 55 Father Family history of type 2 diabetes mellitus Family history of heart disease in male family member before age 55 <RENEE Hunt Last Filed: 10/14/24 17:56> Social History Social History: Social History Smoking packs per day: 1 Smoking cigarettes per day: 20.0 Years smoked: 40 Smoking pack-years: 40.00 Smoking status: Former smoker Tobacco type: cigarettes Second hand tobacco smoke exposure: Yes Smoking end date: 05/21/12 Alcohol intake: current Drinks per week: 1 Alcohol use details: Occasionally Substance use: never Substance use type: does not use Do You Feel Safe in your Home?: Yes Lack of Transportation: No Lack of Food: Never True Current Housing: I Have Housing Concerned About Future Housing: No Difficulty Paying Gas/Electric Bills: No Difficulty Paying for Meds: No Currently Unemployed: No Education: High School Diploma/GED Difficulty w/ Childcare or Family Care: No Living arrangements: with family Gender identity (if verbalized by the patient): Female Spiritual care concerns: No <RENEE Hunt Last Filed: 10/14/24 17:56> Exam Narrative: GENERAL: Ill-appearing, not any acute distress, dry mucous membranes HEAD: [Normocephalic, atraumatic.] EYES: [PERRLA and EOMI.] ENT: Nares clear, no rhinorrhea or epistaxis. Mucous membranes dry. NECK: Supple. CHEST: [Clear to auscultation. No respiratory distress.] HEART: [Regular rate and rhythm]. No murmur heard. [Normal peripheral pulses.] ABDOMEN: [Soft, nondistended], mild diffuse tenderness to palpation, no signs of peritonitis, [No rigidity or guarding] EXTREMITIES: Normal range of motion. [No edema.] SKIN: Warm, dry, no rash. NEURO: [No focal deficits]. Alert and oriented [x3.] PSYCH: [Normal mood and affect.] <Raul Rai MD - Last Filed: 10/15/24 06:26> Course Vital Signs Vital signs: Vital Signs Temperature 36.4 C 10/14/24 16:44 Pulse Rate 70 10/14/24 16:44 Respiratory Rate 16 10/14/24 16:44 Blood Pressure 121/90 10/14/24 16:44 Pulse Oximetry 100 10/14/24 16:44 Oxygen Delivery Room Air 10/14/24 16:44 Temperature 36.7 C 10/15/24 04:56 Pulse Rate 82 10/15/24 04:56 Respiratory Rate 17 10/15/24 04:56 Blood Pressure 104/49 L 10/15/24 04:56 Pulse Oximetry 95 10/15/24 04:56 Oxygen Delivery Room Air 10/15/24 03:12 <Vibha Rodriges PA-C - Last Filed: 10/14/24 17:56> Vital Signs Temperature 36.4 C 10/14/24 16:44 Pulse Rate 70 10/14/24 16:44 Respiratory Rate 16 10/14/24 16:44 Blood Pressure 121/90 10/14/24 16:44 Pulse Oximetry 100 10/14/24 16:44 Oxygen Delivery Room Air 10/14/24 16:44 Temperature 36.7 C 10/15/24 04:56 Pulse Rate 82 10/15/24 04:56 Respiratory Rate 17 10/15/24 04:56 Blood Pressure 104/49 L 10/15/24 04:56 Pulse Oximetry 95 10/15/24 04:56 Oxygen Delivery Room Air 10/15/24 03:12 <Raul Rai MD - Last Filed: 10/15/24 06:26> MDM - Nausea/Vomiting/Diarrhea MDM Narrative Medical decision making narrative: MSE by CAESAR in triage. <Vibha Rodriges PA-C - Last Filed: 10/14/24 17:56> MSE by CAESAR in triage. 63-year-old female with history of hypertension, hyperlipidemia, cardiomyopathy. She presents to the emergency department with 5 days of nausea, cramping abdominal pain, weakness, high fever. She has had no appetite and having decreased oral intake as well as frequency and urgency with urination with foul odor, but no burning with urination. She states she can barely eat anything today. She called her regular doctor and had an office visit over the phone and was encouraged to go the emergency department for evaluation given her duration of symptoms. She had a high fever of 104.5? F that does respond well to Tylenol. Her last dose of Tylenol just prior to arrival and she is afebrile in triage. Vital signs are reassuring with no tachycardia, hypoxia, fever blood pressure anomalies. She has some mild diffuse tenderness to palpation overall does appear ill-appearing and dehydrated on examination. Suspicion presently is for gastroenteritis, gastritis, urinary tract infection, pyelonephritis, cholecystitis, appendicitis, abdominal viscus injury. Workup was ordered in triage including CBC, CMP, lipase, magnesium, COVID swabs, CT abdomen pelvis with contrast and urinalysis. She was given Tylenol, Bentyl, Zofran and fluids. Lactic acid obtained. Workup shows neutrophilia with left shift, dehydration with low sodium and chloride but not severe range. Normal renal function. Normal glucose and mildly elevated LFTs. Negative lactic acid. Normal lipase. Urinalysis shows signs of infection with red and white cells, leukocyte esterase. Viral panel swabs are negative. CT scan shows left-sided pyelonephritis as well as fluid in the colon consistent with enteritis versus diarrhea. She has some incidental multiple cysts on the liver and a adrenal adenoma. Patient was re-evaluated and had some minor symptomatic improvement. I started her on IV Rocephin at this time for pyelonephritis coverage given her age and risk factors as well as her debility with decreased oral intake and signs of dehydration we discussed plans for admission given these factors. Awaiting discussion with hospitalist team at this time. Spoke to the hospitalist who accepted the patient for an observation admission. Patient and family were made aware and comfortable with the plan of care at this time. Patient remains IV antibiotics and fluids. Admission orders placed and as needed medications ordered. <Raul Rai MD - Last Filed: 10/15/24 06:26> Medical Records Attestation: I reviewed the patient's medical records. <Raul Rai MD - Last Filed: 10/15/24 06:26> Lab Data Attestation: I reviewed the patient's lab results. <Raul Rai MD - Last Filed: 10/15/24 06:26> Result diagrams: 10/14/24 18:01 10/14/24 18:01 <Vibha Rodriges PA-C - Last Filed: 10/14/24 17:56> Labs: Lab Results 10/14/24 10/14/24 10/14/24 Range/Units 18:01 19:54 22:42 WBC 8.7 (4.5-10.0) K/mm3 RBC 3.93 L (4.2-5.4) M/mm3 Hgb 12.9 (12.0-15.0) g/dL Hct 40.8 (37.0-47.0) % MCV 103.8 H (80-100) fl MCH 32.8 (26-34) pg MCHC 31.6 L (32-36) g/dl RDW 13.2 (11.5-14.5) % Plt Count 226 (150-375) k/mm3 MPV 10.3 (7.4-10.4) fl Immature Gran % (Auto) 0.3 (0-0.5) % Neut % (Auto) 81.2 H (45.5-73.1) % Lymph % (Auto) 7.9 L (18.3-44.2) % [place] % (Auto) 10.3 H (2.6-8.5) % Eos % (Auto) 0.2 (0-4.4) % Baso % (Auto) 0.1 L (0.2-1.2) % Lymph # (Auto) 0.69 L (0.9-3.2) K/mm3 [place] # (Auto) 0.9 H (0.1-0.6) K/mm3 Eos # (Auto) 0.0 (0-0.3) K/mm3 Baso # (Auto) 0.0 (0.0-0.1) K/mm3 Abs Immat Gran (auto) 0.03 (0.00-0.031) K/mm3 Absolute Neuts (auto) 7.1 H (1.3-6.7) K/mm3 Absolute Nucleated RBC 0.000 (0.0-0.012) K/mm3 Nucleated RBC % 0.0 (0.0-0.2) % Sodium 131 L (137-145) mmol/L Potassium 3.5 (3.4-5.0) mmol/L Chloride 97 L (98-107) mmol/L Carbon Dioxide 25 (22-30) mmol/L Anion Gap 9 (4-12) mmol/L BUN 15 (7-17) mg/dL Creatinine 0.90 (0.7-1.0) mg/dL Estim Creat Clear Calc 55 ml/min Estimated GFR > 60 (59 - ) Glucose 99 (65-110) mg/dL Lactic Acid 1.7 (0.7-2.0) mmol/L Calcium 9.4 (8.4-10.2) mg/dL Magnesium 2.1 (1.6-2.3) mg/dL Total Bilirubin 0.9 (0.2-1.3) mg/dL AST 52 H (14-36) U/L ALT 36 H (6-35) U/L Alkaline Phosphatase 84 (38-126) U/L Total Protein 8.0 (6.3-8.2) g/dL Albumin 4.3 (3.5-5.1) g/dL Lipase 227 (23-300) U/L Urine Color Dark yellow (Yellow) Urine Appearance Clear (Clear) Urine pH 6.5 (5.0-9.0) Ur Specific [place] 1.023 (1.001-1.035) Urine Protein 2+ H (Negative) mg/dL Urine Glucose (UA) Negative (Negative) mg/dL Urine Ketones Trace H (Negative) mg/dL Ur Blood (Man) 1+ H (Negative) Urine Nitrate Negative (Negative) Urine Bilirubin Negative (Negative) Urine Urobilinogen 2.0 H (<2.0) mg/dL Leukocyte Esterase Rfl 1+ H (Negative) CHRISSIE/UL Urine RBC 11-20 H (0-2) /hpf Urine WBC 21-50 H (0-3) /hpf Ur Squamous Epith Cells None seen (Few) /hpf Urine Bacteria None seen /hpf Urine Casts 0-2 C. difficile (PCR) Pending Influenza A (RT-PCR) Negative (Negative) Influenza B (RT-PCR) Negative (Negative) RSV (RT-PCR) Negative (Negative) SARS-CoV-2 RNA (RT-PCR) Negative (Negative) <Vibha Rodriges PA-C - Last Filed: 10/14/24 17:56> Lab Results 10/14/24 10/14/24 10/14/24 Range/Units 18:01 19:54 22:42 WBC 8.7 (4.5-10.0) K/mm3 RBC 3.93 L (4.2-5.4) M/mm3 Hgb 12.9 (12.0-15.0) g/dL Hct 40.8 (37.0-47.0) % MCV 103.8 H (80-100) fl MCH 32.8 (26-34) pg MCHC 31.6 L (32-36) g/dl RDW 13.2 (11.5-14.5) % Plt Count 226 (150-375) k/mm3 MPV 10.3 (7.4-10.4) fl Immature Gran % (Auto) 0.3 (0-0.5) % Neut % (Auto) 81.2 H (45.5-73.1) % Lymph % (Auto) 7.9 L (18.3-44.2) % [place] % (Auto) 10.3 H (2.6-8.5) % Eos % (Auto) 0.2 (0-4.4) % Baso % (Auto) 0.1 L (0.2-1.2) % Lymph # (Auto) 0.69 L (0.9-3.2) K/mm3 [place] # (Auto) 0.9 H (0.1-0.6) K/mm3 Eos # (Auto) 0.0 (0-0.3) K/mm3 Baso # (Auto) 0.0 (0.0-0.1) K/mm3 Abs Immat Gran (auto) 0.03 (0.00-0.031) K/mm3 Absolute Neuts (auto) 7.1 H (1.3-6.7) K/mm3 Absolute Nucleated RBC 0.000 (0.0-0.012) K/mm3 Nucleated RBC % 0.0 (0.0-0.2) % Sodium 131 L (137-145) mmol/L Potassium 3.5 (3.4-5.0) mmol/L Chloride 97 L (98-107) mmol/L Carbon Dioxide 25 (22-30) mmol/L Anion Gap 9 (4-12) mmol/L BUN 15 (7-17) mg/dL Creatinine 0.90 (0.7-1.0) mg/dL Estim Creat Clear Calc 55 ml/min Estimated GFR > 60 (59 - ) Glucose 99 (65-110) mg/dL Lactic Acid 1.7 (0.7-2.0) mmol/L Calcium 9.4 (8.4-10.2) mg/dL Magnesium 2.1 (1.6-2.3) mg/dL Total Bilirubin 0.9 (0.2-1.3) mg/dL AST 52 H (14-36) U/L ALT 36 H (6-35) U/L Alkaline Phosphatase 84 (38-126) U/L Total Protein 8.0 (6.3-8.2) g/dL Albumin 4.3 (3.5-5.1) g/dL Lipase 227 (23-300) U/L Urine Color Dark yellow (Yellow) Urine Appearance Clear (Clear) Urine pH 6.5 (5.0-9.0) Ur Specific [place] 1.023 (1.001-1.035) Urine Protein 2+ H (Negative) mg/dL Urine Glucose (UA) Negative (Negative) mg/dL Urine Ketones Trace H (Negative) mg/dL Ur Blood (Man) 1+ H (Negative) Urine Nitrate Negative (Negative) Urine Bilirubin Negative (Negative) Urine Urobilinogen 2.0 H (<2.0) mg/dL Leukocyte Esterase Rfl 1+ H (Negative) CHRISSIE/UL Urine RBC 11-20 H (0-2) /hpf Urine WBC 21-50 H (0-3) /hpf Ur Squamous Epith Cells None seen (Few) /hpf Urine Bacteria None seen /hpf Urine Casts 0-2 C. difficile (PCR) Pending Influenza A (RT-PCR) Negative (Negative) Influenza B (RT-PCR) Negative (Negative) RSV (RT-PCR) Negative (Negative) SARS-CoV-2 RNA (RT-PCR) Negative (Negative) <Raul Rai MD - Last Filed: 10/15/24 06:26> Imaging Data Attestation: I personally reviewed and interpreted this imaging study as follows: <Raul Rai MD - Last Filed: 10/15/24 06:26> My impression: Impressions Abdomen/Pelvis CT 10/14/24 19:35 IMPRESSION: 1. Highly suggestive left kidney pyelonephritis. Clinical correlation and follow-up advised. 2. Fluid in the right side of the colon and in the small bowel suggestive of diarrhea versus enteritis. 3. Multiple cysts in the liver. 4. Small right adrenal adenoma. No follow-up advised unless clinically warranted. 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 <Raul Rai MD - Last Filed: 10/15/24 06:26> Discharge Plan Discharge Clinical Impression: Pyelonephritis of left kidney <Vibha Rodriges PA-C - Last Filed: 10/14/24 17:56> Patient Disposition: Still a Patient <Vibha Rodriges PA-C - Last Filed: 10/14/24 17:56> Condition: Stable <Vibha Rodriges PA-C - Last Filed: 10/14/24 17:56>
[2024-10-14 17:56] VITALS: TEMP 37.4
[2024-10-14] MEDS: ACETAMINOPHEN 500 MG TABLET 1000 MG PO (18:04)
[2024-10-14 18:30] LABS: Basophils Percent Auto 0.1 % (0.2-1.2); Eosinophils Percent Auto 0.2 % (0-4.4); Hematocrit 40.8 % (37.0-47.0); Hemoglobin 12.9 g/dL (12.0-15.0); Immature Granulocyte Absolute 0.03 K/mm3 (0.00-0.031); Immature Granulocyte Percent A 0.3 % (0-0.5); Lymphocytes Absolute Auto 0.69 K/mm3 (0.9-3.2); Lymphocytes Percent Auto 7.9 % (18.3-44.2); Mean Corpuscular HGB Conc 31.6 g/dl (32-36); Mean Corpuscular Hemoglobin 32.8 pg (26-34); Mean Corpuscular Volume 103.8 fl (80-100); Mean Platelet Volume 10.3 fl (7.4-10.4); Monocytes Absolute Auto 0.9 K/mm3 (0.1-0.6); Monocytes Percent Auto 10.3 % (2.6-8.5); Neutrophils Absolute Auto 7.1 K/mm3 (1.3-6.7); Neutrophils Percent Auto 81.2 % (45.5-73.1); Platelet Count Result 226 k/mm3 (150-375); Red Blood Count 3.93 M/mm3 (4.2-5.4); Red Cell Distribution Width 13.2 % (11.5-14.5); White Blood Count 8.7 K/mm3 (4.5-10.0)
[2024-10-14 18:41] LABS: Alanine Aminotransferase 36 U/L (6-35); Albumin Level 4.3 g/dL (3.5-5.1); Alkaline Phosphatase 84 U/L (38-126); Anion Gap 9 mmol/L (4-12); Aspartate Amino Transferase 52 U/L (14-36); Bilirubin,Total 0.9 mg/dL (0.2-1.3); Blood Urea Nitrogen 15 mg/dL (7-17); Calcium 9.4 mg/dL (8.4-10.2); Carbon Dioxide 25 mmol/L (22-30); Chloride 97 mmol/L (98-107); Estimated CRCL calculation 55 ml/min; Estimated Glomerular Filt Rate > 60; Glucose 99 mg/dL (65-110); Lactic Acid Reflex 1.7 mmol/L (0.7-2.0); Lipase 227 U/L (23-300); Magnesium 2.1 mg/dL (1.6-2.3); Potassium 3.5 mmol/L (3.4-5.0); Sodium 131 mmol/L (137-145)
[2024-10-14 19:06] LABS: Influenza A QL RT-PCR Negative (Negative); Influenza B QL RT-PCR Negative (Negative); RSV RNA, RT-PCR Negative (Negative); SARS-CoV-2 RNA PCR Negative (Negative)
[2024-10-14 19:55] VITALS: BP 126/64; PULSE 84; RESP 16; TEMP 37.2; O2SAT 98
[2024-10-14 20:06] LABS: Add Urine Microscopic? YES; Appearance Urine Clear (Clear); Bacteria Urine None Seen /hpf; Bilirubin Urine Negative (Negative); Blood Urine 1+ (Negative); Color Urine Dark Yellow (Yellow); Glucose Urine UA Negative (Negative); Ketones Urine Trace mg/dL (Negative); Leukocyte Esterase Ur 1+ LEU/UL (Negative); Nitrate Urine Negative (Negative); Non Pathogenic Casts 0-2; Protein Urine 2+ mg/dL (Negative); Specific Grav Ur 1.023 (1.001-1.035); Squamous Epithelial Cell Urine None Seen /hpf (Few); WBC Urine 21-50 /hpf (0-3); pH Urine 6.5 (5.0-9.0)
[2024-10-14 21:49] VITALS: BP 132/69; PULSE 79; RESP 18; TEMP 36.9; O2SAT 100
[2024-10-14] MEDS: SODIUM CHLORIDE 0.9% IV 1,000 ML 999 ML IV CONT (22:08)
[2024-10-14] MEDS: ONDANSETRON INJ 4 MG/2 ML VIAL IV PUSH (22:09)
[2024-10-14] MEDS: DICYCLOMINE HCL 10 MG CAPSULE 20 MG PO (22:17)
[2024-10-14] MEDS: LOPERAMIDE HCL 2 MG CAPSULE 4 MG PO (22:17)
--- OUTSIDE RECORDS SUMMARY | 2024-10-14 22:22 | XMS_ITS | CONTINUITY OF CARE DOCUMENT ---
Author Name coreen, coreen Address Unknown Organization [facility] Address [address] [place] [address] Phone [phone] Care Team Providers Care Driving Instructor Name Role Phone Moses MCCRAY, John Unavailable [...] Thang rodriguez Cardiology examination active Morteza Ramirez DNP,PRINCIPAL TECHNOLOGIST ENCOUNTERS Date Type Provider Location Encounter Diag nosis - In-person encounter Office Visit Yinka Lewis MD [place] [facility] - In-person encounter Office Visit John Chowdhury MD [facility] Office Cardiology examination - In-person encounter Office Visit Yinka Lewis MD [place] [facility] - In-person encounter Office Visit Yinka Lewis MD [place] [facility] - In-person encounter Office Visit Yinka Lewis MD [place] [facility] - In-person encounter Office Visit Yinka Lewis MD [place] [facility] - In-person encounter Office Visit John Chowdhury MD [place] [facility] - In-person encounter Office Visit Yinka Lewis MD [place] [facility] - In-person encounter Office Visit John Chowdhury MD [place] [facility] Carotid bruit, bilateral - In-person encounter Office Visit Yinka Lewis MD [place] [facility] - In-person encounter Office Visit Yinka Lewis MD [place] [facility] - In-person encounter Office Visit John Chowdhury MD [place] [facility] - In-person encounter Office Visit Yinka Lewis MD [place] [facility] - In-person encounter Office Visit John Chowdhury MD [facility] - In-person encounter Office Visit John Chowdhury MD [place] [facility] - In-person encounter Office Visit John Chowdhury MD [facility] - In-person encounter Office Visit Yinka Lewis MD [place] [facility] Dizziness - In-person encounter Office Visit John Chowdhury MD [place] [facility] Family History of CVA or Stroke:Family History of Hyperlipidemia:Family History of Hypertension:Family History of Sudden Cardiac :Wheezing - In-person encounter Office Visit Yinka Lewis MD [place] [facility] - In-person encounter Office Visit Yinka Lewis MD [facility] - In-person encounter Office Visit Yinka Lewis MD [place] [facility] - In-person encounter Office Visit [facility] - In-person encounter Office Visit Neal Arce [facility] - In-person encounter Office Visit Yinka Lewis MD [place] [facility] - In-person encounter Office Visit Yinka Lewis MD [place] [facility] - In-person encounter Office Visit [facility] SVT - In-person encounter Office Visit Yinka Lewis MD [place] [facility] Preoperative cardiovascular examination - In-person encounter Office Visit Yinka Lewis MD [place] [facility] - In-person encounter Office Visit Yinka Lewis MD [place] [facility] - In-person encounter Office Visit Neal Rose DO [place] - In-person encounter Office Visit Yinka Lewis MD [place] [facility] - In-person encounter Office Visit Yinka Lewis MD [place] [facility] PVD with claudication - In-person encounter Office Visit Yinka Lewis MD [place] [facility] Diminished pedal pulses - In-person encounter Office Visit Yinka Lewis MD [place] [facility] Hx of NSTEMICAD s/p CABGLeg painTobacco use, quitHyperlipidemia - In-person encounter Office Visit Neal Rose DO [place] [facility] Biotronik VDD ICD - In-person encounter Office Visit Neal Rose DO [place] [facility] - In-person encounter Office Visit [facility] Perez [facility] - In-person encounter Office Visit Neal Rose DO SL - In-person encounter Office Visit Neal Rose DO [facility] CHF, chronic, systolicAtrial flutter VITAL SIGNS [...] Lewis MD blood pressure, cuff size regular [facility] blood pressure, diastolic 74 mm[Hg] rr blood pressure, systolic 111 mm[Hg] [facility] pulse rate 74 /min Jah respiratory rate E&M 16 /min Jah oxygen saturation, oximetry 99 % Jah weight E&M 153 [lb_av] Jah height E&M 70 [in_i] Ajh Body Mass Index (Ratio) 22.24 kg/m2 Bao Lewis MD blood pressure, cuff size regular [facility] blood pressure, diastolic 78 mm[Hg] rret [...] kLog blood pressure, cuff size regular [facility] blood pressure, diastolic 85 mm[Hg] Fa [facility] blood pressure, systolic 142 mm[Hg] Fortino [facility] pulse rate 75 /min [facility] oxygen saturation, oximetry 98 % [facility] respiratory rate E&M 15 /min Cherry Handley illepita weight E&M 153 [lb_av] [facility] height E&M 70 [in_i] [facility] Body Mass Index (Ratio) 21.23 kg/m2 Curt summer Blank blood pressure, cuff size regular Ke rri [facility] blood pressure, diastolic 60 mm[Hg] Ke rri [facility] blood pressure, systolic 126 mm[Hg] Paulino ri Abhay oxygen saturation, oximetry 96 % Leatha Abhay respiratory rate E&M 12 /min [facility] pulse rate 84 /min Leatha Elina [facility] weight E&M 148 [lb_av] Leatha Carlosuenenfe [facility] height E&M 70 [in_i] Leatha Crystalnenfe [facility] Body Mass Index (Ratio) 21.52 kg/m2 [...] ruenenfelder pulse rate 78 /min Leatha Gruenenfe [facility] weight E&M 152 [lb_av] Leatha Gruenenfe [facility] height E&M 70 [in_i] Leatha Gruenenfe [facility] Body Mass Index (Ratio) 22.24 kg/m2 Tim Chowdhury MD blood pressure, cuff size regular Ke rri Gruenenfeld blood pressure, diastolic 83 mm[Hg] Ke rri Gruenenfelder blood pressure, systolic 130 mm[Hg] Ker ri Gruenenfelder oxygen saturation, oximetry 98 % Leatha Gruenenfelder respiratory rate E&M 14 /min Leatha G ruenenfelder pulse rate 77 /min Leatha Gruenenfe [facility] weight E&M 155 [lb_av] Leatha Gruenenfe [facility] height E&M 70 [in_i] Leatha Gruenenfe [facility] Body Mass Index (Ratio) 22.67 kg/m2 [...] faith pulse rate 81 /min Leatha Antoine [facility] weight E&M 157 [lb_av] Leatha Antoine [facility] height E&M 70 [in_i] Leatha Antoine [facility] Body Mass Index (Ratio) 22.35 kg/m2 [...] faith pulse rate 76 /min Leatha Antoine [facility] weight E&M 154 [lb_av] Leatha Antoine elliot height E&M 70 [in_i] Leatha Antoine [facility] Body Mass Index (Ratio) 21.81 kg/m2 Bao Lewis MD blood pressure, resting Yes [facility] lilirubén White blood pressure, diastolic 70 mm[Hg] [facility] Christopher blood pressure, systolic 118 mm[Hg] [facility] Christopher pulse rate 86 /min [facility] Lyndsey montoya oxygen saturation, oximetry 99 % [facility] respiratory rate E&M 18 /min Rinaflaquito faiza White weight E&M 152 [lb_av] Gertrude Lyndsey montoya height E&M 70 [in_i] [facility] Lyndsey montoya Body Mass Index (Ratio) [...] blood pressure, diastolic 70 mm[Hg] Mi ignacia [place] blood pressure, systolic 116 mm[Hg] Ramin hellorrie Ranulfo oxygen saturation, oximetry 97 % Ranulfo respiratory rate E&M 16 /min [place] carmona [place] pulse rate 64 /min Ranulfo weight E&M 142 [lb_av] [place] height E&M 70 [in_i] [place] Body Mass Index (Ratio) 21.38 kg/m2 Bao [...] Britdalton y Block height E&M 70 [in_i] [facility] Body Mass Index (Ratio) 22.09 kg/m2 Bao [...] blood pressure, cuff size small Kr isbakari [place] blood pressure, diastolic 80 mm[Hg] Kr isty Balaji blood pressure, systolic 120 mm[Hg] Horace marin [place] oxygen saturation, oximetry 97 % [place] pulse rate 62 /min Valencia Balaji respiratory rate E&M 18 /min [place] Balaji weight E&M 153 [lb_av] [place] height E&M 70 [in_i] [place] Balaji Body [...] blood pressure, systolic 100 mm[Hg] Harris booth [place] oxygen saturation, oximetry 98 % [place] Dasilva respiratory rate E&M 16 /min [place] Das[place]va pulse rate 71 /min Keri Dasilva weight E&M 162 [lb_av] [place] Das[place]va height E&M 70 [in_i] [place]va Body Mass Index (Ratio) 23.24 kg/m2 Bao Lewis MD blood pressure, diastolic 80 mm[Hg] Juan Luis [facility] blood pressure, systolic 126 mm[Hg] Harris booth [place] oxygen saturation, oximetry 98 % [facility] rate E&M 16 /min [facility] pulse rate 66 /min [facility] weight E&M 162 [lb_av] [facility] blood pressure, resting Yes [facility] height E&M 70 [in_i] [facility] Body Mass Index (Ratio) 23.39 kg/m2 Bao [...] Normal Absolute Neutrophil count 2887 cells/mcL [employer] [id number] Normal mean platelet volume 10.9 fL [employer] [...] Normal Absolute Neutrophil count 4523 cells/mcL [employer] [phone] Normal mean platelet volume 10.7 fL [employer] [...] Normal Absolute Neutrophil count 9262 cells/mcL [employer] [id number] High mean platelet volume 11.2 fL [employer] [...] 0-149 High cholesterol, serum 122 mg/dL [employer] [phone]/10 /05 calcium, serum 9.3 mg/dL [employer] 8.7-10.3 carbon dioxide, venous blood 24 mmol/L [employer] 20-29 chloride, serum 100 mmol/L [employer] 96-106 potassium, serum 4.1 mmol/L [employer] 3.5-5.2 sodium, serum 138 mmol/L [employer] [phone]/10 /05 urea nitrogen/creatinine ratio, serum 13 [employer] [...] Not Estab. platelet count 227 X10E3/UL [employer] [phone]/10 /05 red blood cell distribution width 13.2 [...] Normal Absolute Neutrophil count 8276 cells/mcL [employer] [phone] High mean platelet volume 12.3 fL [employer] [...] BY MOUTH DAILY IN THE EVENING 05/29 [facility] clobetasol 0.05% shampoo active Caitie Quispe trazodone [...] 1 TABLET BY MOUTH EVERY EVENING 10/23 [facility] carvedilol 6.25 mg tablet active TAKE 1 TABLET BY MOUTH TWICE DAILY 07/03 [facility] isosorbide mononitrate 30 mg tablet extended release 24 hr active TAKE 1 TABLET BY MOUTH EVERY DAY 01/17 [facility] clopidogrel 75 mg tablet active TAKE 1 TABLET BY MOUTH EVERY DAY 08/25 Emerald Rushi Lipitor 40 mg tablet completed Take 1 tabl et by mouth every evening 07/21 - 10/23 Brandon Rushi Eliquis 5 mg tablet completed Take [...] mouth once a day 07/11 Kim Pinzon PRINCIPAL TECHNOLOGIST MULTIVITAMINS CAPS active 1 tablet once a [...] history of marijuana use no Morteza Ramirez DNP,[facility] drug use no Morteza Ramirez DN P,[facility] alcohol use, average drinks per day social Morteza Ramirez DNP,[facility] alcohol use yes Morteza Ramirez DN P,[facility] smoking, year quit 2013 Morteza wilson DNP,[facility] number of years as a smoker 34 a Morteza Ramirez DNP,[facility] smoking history, tot al pack/day 1 ppd Morteza Ramirez DNP,[facility] cigarette use yes Morteza Díaz COMPANY ACCOUNTANT,[facility]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 Former smoker Morteza Ramirez DNP,[facility] personal history of marijuana use no Kim Ventimiglia [facility] drug use no Kim Ventimig shanika [facility] alcohol use, average drinks per day social Kim Ventimiglia [facility] alcohol use yes Kim Ventimig shanika [facility] smoking, year quit 2013 Kim Ve ntimiglia [facility] number of years as a smoker 34 a Kim Ventimiglia [facility] smoking history, tot al pack/day 1 ppd Kim Ventimiglia [facility] cigarette use yes Kim Ventimi glia [facility]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 Former smoker Kim Venti miglia [facility] personal history of marijuana use no Kim Ventimiglia [facility] drug use no Kmi Ventimig shanika PRINCIPAL TECHNOLOGIST alcohol use, average drinks per day social Kim Ventimiglia PRINCIPAL TECHNOLOGIST alcohol use yes Kim Ventimig shanika PRINCIPAL TECHNOLOGIST smoking, year quit 2013 Kim Schaefer ntimiglskip PRINCIPAL TECHNOLOGIST number of years as a smoker 36 a Kim Ventimiglia PRINCIPAL TECHNOLOGIST smoking history, tot al pack/day 1 ppd Kim Ventimiglia [facility] cigarette use yes Kim Ventimi glia PRINCIPAL TECHNOLOGIST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 Former smoker Kim Brannon miglia [facility] personal history of marijuana use no Cassi Kiddreri MOHIT drug use no Cassi Bonareri MOHIT alcohol use, average drinks per day social Cassi Bonareri MOHIT alcohol use yes Cassi Bonareri MOHIT smoking, year quit 2013 Cassi Rubin areri COMPANY ACCOUNTANT number of years as a smoker 34 [...] no Cassi Anne NP drug use no [facility] alcohol use, average drinks per day social [facility] alcohol use yes [facility] smoking, year quit 2013 [facility] number of years as a smoker 36 a [facility] smoking history, tot al pack/day 1 ppd [facility] cigarette use yes [facility]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 Former smoker [facility] social history reviewed E&M revi ewed [...] smoking history, tot al pack/day 1 ppd Leatah Galvankaren cigarette use yes Leatha jones smoking [...] Neal Rose DO smoking, year quit 2013 [place] number of years as a smoker 34 a [place] smoking history, tot al pack/day 1 ppd [place] cigarette use yes Michelle Meredith y smoking [...] Ivonne harrison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 Former smoker Ivonne Ndaeem strong social history E&M S moking History: [...] years as a smoker 34 a [place] smoking history, tot al pack/day 1 ppd [...] alcohol use, average drinks per day social [place] Das[place]va alcohol use yes [place] [facility] smoking, year quit 2013 Keri I ngram number of years as a smoker 34 a Keri Dasilva smoking history, tot al pack/day 1 ppd [place] Das[facility]va cigarette use yes Keri Dasilva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 Former smoker Keri Ingr am social history reviewed E&M revi ewed - no changes required Yinka Lewis MD social history E&M S moking History: Heydi horta is a former smoker. Yinka Lewis MD number of grandchildren Yinka Lewis MD K keisha Nicholeam alcohol use, average drinks per day social Keri Dasilva alcohol use yes [place] Dasilva smoking, year quit 2013 Keri neal [...] Gonzalezerich ordonez cigarette use yes Leatha Barajasgiovanni [facility]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 Former smoker Leatha Gonzalezmichael hendersoner [...] Management Plan continue current therapy Morteza Ramirez DNP,PRINCIPAL TECHNOLOGIST HRA, CV Assess/Plan, Angina (inactive) Management Plan continue current therapy Kim Pinzon PRINCIPAL TECHNOLOGIST HRA, CV Assess/Plan, Angina (inactive) Management Plan [...] (inactive) Management Plan continue current therapy Neal Rabun DO HRA, CV Assess/Plan, Angina (inactive) Management Plan continue current therapy Neal Rabun DO FAMILY HISTORY Family Member Condition Father [...] Payer name Policy type / Coverage type Heath red green party ID AARP MEDICARE ADVANTAGE [facility] ([facility]) Medicare [id number] ADVANCE DIRECTIVES Name Date DISCUSSED - NO DECISION MADE TREATMENT PLAN Date Name Performer [id number],C,s tress test showd a fixed anterior wall defect Yinka Lewis MD [id number],C,L osartin 25 once a day P rior BP: 126/60 (12/08/2022) Labs Reviewed: C reat: 0.93 (05/13/2022) C hol: 124 (05/13/2022) HDL: 47 (05/13/2022) LDL: 55 MG/DL (CALC) (05/13/2022) T (05/13/2022) Yinka Lewis MD [id number],C,On astatin Us jacklyn Lewis MD [id number],C,H as monophasic waveforms in the left tibial vessels with sensilase which also shows decreased flow. However, she is not really having consistent symptoms on that side and has no wound so we will continue to treat medically. Yinka Lewis MD [id number],C, A BI 10/23/22 showed C ONCLUSIONS: 1 . Mild arterial disease of the right lower extremity. 2 . Mild to moderate arterial disease of the left lower extremity. Mild left popliteal stenosis. Monophasic flow seen in the t ibial arteries. 3 . Unable to accurately assess VIC's due to hardened arteries. Thang Moo [id number],C, H er updated medication list for this problem includes: Isosorbide Mononitrate 30 Mg Tablet Extended Release 24 Hr (Isosorbide mononitrate) ..... Take 1 tablet by mouth every day Carvedilol 6.25 Mg Tablet (Carvedilol) ..... Take 1 tablet by mouth twice daily Clopidogrel 75 Mg Tablet (Clopidogrel) ..... Take 1 tablet by mouth every day S/p ablation, asymptomatic today Thang Moo [id number],C, C ONCLUSIONS: 1 . Mild plaque with less than 50% stenosis of the internal carotid arteries bilaterally. 2 . Vertebral flow is antegrade bilaterally. Thang Gonzalezana [id number],C, S table. Continue medical therapy. Her updated medication list for this problem includes: Isosorbide Mononitrate 30 Mg Tablet Extended Release 24 Hr (Isosorbide mononitrate) ..... Take 1 tablet by mouth every day Carvedilol 6.25 Mg Tablet (Carvedilol) ..... Take 1 tablet by mouth twice daily Clopidogrel 75 Mg Tablet (Clopidogrel) ..... Take 1 tablet by mouth every day Thang Gonzalezana [id number],S, C artoids done 04/20/22 showed C ONCLUSIONS: 1 . Mild plaque with less than 50% stenosis of the internal carotid arteries bilaterally. 2 . Vertebral flow is antegrade bilaterally. H er updated medication list for this problem includes: Atorvastatin 40 Mg Tablet (Atorvastatin) ..... Take 1 tablet by mouth every evening Thang Blank [id number],S, D evice function normal A t/AF burden 0.0% % Pacing: RA - 92.0% RV - 5.0% Thang [facility] [id number],C, E cho 11/10 showed C ONCLUSIONS: 1 [...] tablet by mouth every day Thang Galvankaren [id number],S, E cho 10/2022 C ONCLUSIONS: 1 . [...] p ressure is 23.0 mmHg. Thang Moo [id number],C,C ontinue medical therapy. She seems to be doing well. Will recheck an VIC and follow up with her in 6 months. Will also check an echo. Yinka Lewis MD [id number],B, Yinka Lewis MD [id number],S,W ill obtain labs and also a carotid duplex Yinka Lewis MD [id number],S, B P today: 124/84 P rior BP: 130/83 (12/16/2021) Labs Reviewed: C reat: 0.88 (10/21/2021) C hol: 118 (10/21/2021) HDL: 51 (10/21/2021) LDL: 43 MG/DL (CALC) (10/21/2021) T (10/21/2021) Yinka Lewis MD [id number],S,S table. Continue medical therapy. Yinka Lewis MD [id number],B, Yinka Lewis MD [id number],B,S /p ablation, asymptomatic today H er updated medication list for this problem includes: Clopidogrel 75 Mg Tablet (Clopidogrel) ..... Take 1 tablet by mouth every day Isosorbide Mononitrate 30 Mg Tablet Extended Release 24 Hr (Isosorbide mononitrate) ..... Take 1 tablet by mouth once a day Orders: E KG (CPT-38150) 9 9213 LTD 20-29min (CPT-47177) C omplete Echo (CPT-86913) Carlton breonna [id number],S, H er updated medication list for this problem includes: Clopidogrel 75 Mg Tablet (Clopidogrel) ..... Take 1 tablet by mouth every day Isosorbide Mononitrate 30 Mg Tablet Extended Release 24 Hr (Isosorbide mononitrate) ..... Take 1 tablet by mouth once a day Orders: 9 92 LTD 20-29min (CPT-73023) C omplete Echo (CPT-41223) Carlton Ríos [id number],C,S/p ablation, asymptomatic today [facility] [id number],C,E cho 09/2021 CONCLUSIONS: 1 . Technically difficult [...] pressure is 3 0.0 mmHg. Carltonemmanuel Ríosflaquito [id number],C, B P today: 130/83 P rior BP: 118/60 (09/23/2021) Labs Reviewed: C reat: 0.88 (10/21/2021) C hol: 118 (10/21/2021) HDL: 51 (10/21/2021) LDL: 43 MG/DL (CALC) (10/21/2021) T (10/21/2021) Her updated medication list for this problem includes: Lasix 20 Mg Tablet (Furosemide) ..... Take 1 tablet by mouth twice a week Orders: 9 9213 LTD 20-29min (CPT-84828) C omplete Echo (CPT-49930) Carlton Ríosflaquito [id number],C, A ppears to be stable. Continue medical therapy. Her updated medication list for this problem includes: Clopidogrel 75 Mg Tablet (Clopidogrel) ..... Take 1 tablet by mouth every day Isosorbide Mononitrate 30 Mg Tablet Extended Release 24 Hr (Isosorbide mononitrate) ..... Take 1 tablet by mouth once a day Orders: 9 9213 LTD 20-29min (CPT-86835) C omplete Echo (CPT-37920) Carlton Quach [id number],B,a bi shows good blood flow and will continue medical therapy. Yinka Lewis MD [id number],C, John min MD [id number],C, H er updated medication list for this problem includes: Isosorbide Mononitrate 30 Mg Tablet Extended Release 24 Hr (Isosorbide mononitrate) ..... Take 1 tablet by mouth once a day Coreg 6.25 Mg Tablet (Carvedilol) ..... Take 1 tablet by mouth twice a day Clopidogrel 75 Mg Tablet (Clopidogrel) ..... Take 1 tablet by mouth once a day John Chowdhury MD [id number],C,D one by Dr. chowdhury Tobacco cessation counseling, 3-10minutes (17529) O rders: T obacco cessation counseling, 3-10minutes (04566) John Chowdhury MD [id number],B,r esolved no atrial fib. Will reassess need for NOAC if A> fib is documented in future on her device H er updated medication list for this problem includes: Coreg 6.25 Mg Tablet (Carvedilol) ..... Take 1 tablet by mouth twice a day Clopidogrel 75 Mg Tablet (Clopidogrel) ..... Take 1 tablet by mouth once a day John Chowdhury MD [id number],C, H er updated medication list for this problem includes: Isosorbide Mononitrate 30 Mg Tablet Extended Release 24 Hr (Isosorbide mononitrate) ..... Take 1 tablet by mouth once a day Coreg 6.25 Mg Tablet (Carvedilol) ..... Take 1 tablet by mouth twice a day Clopidogrel 75 Mg Tablet (Clopidogrel) ..... Take 1 tablet by mouth once a day Orders: 9 9212 Minor 10-19min (CPT-45281) John Chowdhury MD [id number],C, S he has had intermittent episodes of SVT which have all been terminated with ATP. S cheduled for EP study/ablation. Discussed the indications, benefits, alternatives and risk of complications from the procedure with the patient who expressed understanding. Reviewed directions. Sindy Whitmore [id number],C, S ymptomatic with palpitations, dizziness/lightheadedness, fatigue. States her HR was between 143-165 for about three hours recently. Device documented both atrial flutter and recurrent SVT this month, treated with ATP, no shocks. S cheduled for EP study/ablation. Discussed the indications, benefits, alternatives and risk of complications from the procedure with the patient who expressed understanding. Reviewed directions. Sindy Whitmore [id number],C, S he has had intermittent episodes of SVT which have all been terminated with ATP. P atient would like to keep watching rather than proceed with ablation at this time, will respect patient wishes. Sindy Whitmore [id number],W, S ymptomatic with palpitations, dizziness/lightheadedness, fatigue. States [...] the patient who expressed understanding. Jeffedelmira Whitmore [id number],C,W ill check echo in several months to monitor Yinka Lewis MD [id number],C,N o further leg claudication. Will repeat ABIs in 6 months Yinka Lewis MD [id number],C,L ipids followed by PCP H er updated medication list for this problem includes: Lipitor 40 Mg Tablet (Atorvastatin) ..... 1 tablet once a day Yinka Lewis MD [id number],C,B P is 94/64 today, reports some dizziness. Will stop her lisinopril Yinka Lewis MD [id number],S, A ppears to be stable. Continue medical therapy. Yinka Lewis MD [id number],B, B P today: 122/80 P rior BP: [...] by mouth once a day Sindy Whitmore [id number],B, r eports cessation in 2013 Sindy Whitmore [id number],S, S he has had intermittent episodes of [...] by mouth once a day Sindy Whitmore [id number],B, S he continues to have a few [...] by mouth once a day Sindy Whitmore [id number],C,C heck venous doppler to rule out DVT Rachele Mireles COMPANY ACCOUNTANT [id number],C,P t does not want intervention at this [...] Continue with regular walking routine. Mort[facility] Electrophysiology:Wi ll repeat lipid panel. H er updated medication list for this problem includes: Atorvastatin 40 Mg Tablet (Atorvastatin) ..... Take 1 tablet by mouth every evening [facility] Electrophysiology: a ppears compensated at this time O n GDMT. R epeat echo is unchanged. LVEF is 40%. [facility]za [facility] Electrophysiology: B P today: 105/75 P rior BP: 110/68 (01/17/2024) Her updated medication list for this problem includes: Losartan 50 Mg Tablet (Losartan) ..... Take 1 tablet by mouth daily in the evening Carvedilol 6.25 Mg Tablet (Carvedilol) ..... Take 1 tablet by mouth twice daily Aspirin 81 Mg Tablet,delayed Release (dr/ec) (Aspirin) ..... Take 1 tablet by mouth once daily [facility]eza Ramirez [facility] Electrophysiology: n o new chest pain or [...] tablet by mouth once daily Morteza Ramirez [facility] Cardiology:no new cl audication symptoms u pdate [facility] Cardiology:BP low no rmal W ill decrease [...] Take 1 tablet by mouth once daily [facility] Cardiology:no new ch est pain or SOB [...] Take 1 tablet by mouth once daily [facility] Cardiology:Last echo demonstrated EF 40% W ill update echo c ontinue BB and [facility] Cardiology:She ronna nues to have dizziness that is worse with standing B P sitting was 113/87 and standing 108/76 W ill decrease losartan to 12.5 mg daily [facility] Cardiology:no c/o an y chest pain or SOB C ontinue medical management Yinka Lewis MD Cardiology: H er updated medication list for this problem includes: Atorvastatin 40 Mg Tablet (Atorvastatin) ..... Take 1 tablet by mouth every evening Yinka Lewis MD Cardiology:BP 95/70 may be lower d/t her diarrhea S he is asymptomatic w ill monitor Kim Pinzon [facility] Cardiology:She was r ecently started on cilostazol but is having signficant diarrhea W ill have her stop medication E ncouraged continued ambulation S he is to call or return sooner if symptoms worsen Kim Pinzon [facility] Cardiology: l ast echo 10/2022 ef 40% [...] with decrease of Losartan dose Cassi Anne [employer] Electrophysiology: B P today: 142/85 P rior [...] Electrophysiology: D evice function normal A T/AF Snyder: 0.0% % Pacing: RA - 94.0% RV [...] systolic p ressure is 23.0 mmHg. Thang Gonzalezamariylselliot Cardiology:Continue medical therapy. She seems to be [...] mouth once a day Orders: E KG (CPT-19743) 9 9213 LTD 20-29min (CPT-97125) C omplete Echo (CPT-59080) John Chowdhury MD Electrophysiology: H er updated medication list for this problem includes: Clopidogrel 75 Mg Tablet (Clopidogrel) ..... Take 1 tablet by mouth every day Isosorbide Mononitrate 30 Mg Tablet Extended Release 24 Hr (Isosorbide mononitrate) ..... Take 1 tablet by mouth once a day Orders: 9 9213 LTD 20-29min (CPT-90604) C omplete Echo (CPT-10453) John Chowdhury MD Electrophysiology:S/p ablation, asymptomatic today [...] a week Orders: 9 9213 LTD 20-29min (CPT-39917) C omplete Echo (CPT-57958) John Chowdhury MD Electrophysiology: A ppears to be stable. Continue medical therapy. Her updated medication list for this problem includes: Clopidogrel 75 Mg Tablet (Clopidogrel) ..... Take 1 tablet by mouth every day Isosorbide Mononitrate 30 Mg Tablet Extended Release 24 Hr (Isosorbide mononitrate) ..... Take 1 tablet by mouth once a day Orders: 9 9213 LTD 20-29min (CPT-53349) C omplete Echo (CPT-56135) John Chowdhury MD Cardiology:vic shows good blood flow and will continue medical therapy. Yinka Lewis MD Electrophysiology Jonh bridges MD Electrophysiology: H er updated medication [...] by Dr. chowdhury Tobacco cessation counseling, 3-10minutes (66821) O rders: T obacco cessation counseling, 3-10minutes (77384) John Chowdhury MD Electrophysiology:re solved no atrial [...] a day Orders: 9 9212 Minor 10-19min (CPT-31483) John Chowdhury MD Telehealth: S he has [...] HDL: 49 (02/22/2019) Yinka Lewis MD Cardiology:Her [facility] ed medication list for this problem includes: [...] Bi-L ower EX Complete Echo DLCO - 64301 FRC - 12986 FVC - 05050 Venous Doppler Unila teral LLE Arterial Duplex [...] METABO LIC PANEL, W/EGFR Arterial - SENSILASE Phone 11-20 HISTORY OF PROCEDURES Procedure Date Procedure Name [...] completed FVC / MVV with bronchodilator - 75194 John Chowdhury MD completed BLOOD COUNT HEMOGLOBIN John rush MD completed FRC - 94429 John du MD completed SpO2 w/o 6min walk/titration John Chowduhry MD completed SVC - 22323 John du MD completed DLCO - 43971 John du MD completed EKG John du MD completed EKG Neal Rabun DO completed EKG Neal Rabun DO completed EKG Neal Rabun DO completed EKG Neal Rabun DO completed ICM Interrogation, Remote (Prof) Yinka [...] Yinka Lewis MD INTERROGATION REMOTE </90 D BOG CUTTER REVIEW completed AICD Interrogation, Remote (Prof) Yinka [...] SYS completed ICM Interrogation, Remote (Tech) Neal Munozcock DO INTERROGATION EVAL REMOTE </30 D TECH REVIEW completed ICM Interrogation, Remote (Prof) Neal Rabun DO INTERROGATION EVAL REMOTE </30 D CV MNTR SYS completed AICD Interrogation, Remote (Tech) Neal Rabun DO INTERROGATION REMOTE </90 D BOG CUTTER REVIEW completed AICD Interrogation, Remote (Prof) Neal Rabun DO INTERROGATION EVAL REMOTE </90 D 1/2/> LD CVDFB completed ICM Interrogation, Remote (Prof) Neal Rabun DO INTERROGATION EVAL REMOTE </30 D CV MNTR SYS completed ICM Interrogation, Remote (Tech) Neal Rabun DO INTERROGATION EVAL REMOTE </30 D TECH REVIEW completed ICM Interrogation, Remote (Prof) Neal Rabun DO INTERROGATION EVAL REMOTE </30 D CV MNTR SYS completed ICM Interrogation, Remote (Tech) Neal Rabun DO INTERROGATION EVAL REMOTE </30 D TECH REVIEW completed ICM Interrogation, Remote (Prof) Neal Rabun DO INTERROGATION EVAL REMOTE </30 D CV MNTR SYS completed AICD Interrogation, Remote (Tech) Neal Rabun DO INTERROGATION REMOTE </90 D BOG CUTTER REVIEW completed AICD Interrogation, Remote (Prof) Neal Rabun DO INTERROGATION EVAL REMOTE </90 D 1/2/> LD CVDFB completed ICM Interrogation, Remote (Prof) Neal Rabun DO INTERROGATION EVAL REMOTE </30 D CV MNTR SYS completed ICM Interrogation, Remote (Tech) Neal Rabun DO INTERROGATION EVAL REMOTE </30 D TECH REVIEW completed ICM Interrogation, Remote (Prof) Neal Rabun DO INTERROGATION EVAL REMOTE </30 D CV MNTR SYS completed ICM Interrogation, Remote (Tech) Neal Rabun DO INTERROGATION EVAL REMOTE </30 D TECH REVIEW completed ICM Interrogation, Remote (Prof) Neal Rabun DO INTERROGATION EVAL REMOTE </30 D CV MNTR SYS completed AICD Interrogation, Remote (Tech) Neal Rabun DO INTERROGATION REMOTE </90 D BOG CUTTER REVIEW completed AICD Interrogation, Remote (Prof) Neal Rabun DO INTERROGATION EVAL REMOTE </90 D 1/2/> LD CVDFB completed ICM Interrogation, Remote (Prof) Neal Rabun DO INTERROGATION EVAL REMOTE </30 D CV MNTR SYS completed ICM Interrogation, Remote (Tech) Neal Rabun DO INTERROGATION EVAL REMOTE </30 D TECH REVIEW completed ICM Interrogation, Remote (Prof) Neal Rabun DO INTERROGATION EVAL REMOTE </30 D CV MNTR SYS completed ICM Interrogation, Remote (Tech) Neal Rabun DO INTERROGATION EVAL REMOTE </30 D TECH REVIEW completed EKG Neal Rabun DO completed ICM Interrogation, Remote (Prof) Neal Rabun DO INTERROGATION EVAL REMOTE </30 D CV MNTR SYS completed ICM Interrogation, Remote (Tech) Neal Rabun DO INTERROGATION EVAL REMOTE </30 D TECH REVIEW completed ICM Interrogation, Remote (Prof) Neal Rabun DO INTERROGATION EVAL REMOTE </30 D CV MNTR SYS completed ICM Interrogation, Remote (Tech) Neal Rabun DO INTERROGATION EVAL REMOTE </30 D TECH REVIEW completed ICM Interrogation, Remote (Prof) Neal Rabun DO INTERROGATION EVAL REMOTE </30 D CV MNTR SYS completed AICD Interrogation, Remote (Tech) Neal Rabun DO INTERROGATION REMOTE </90 D BOG CUTTER REVIEW completed AICD Interrogation, Remote (Prof) Neal Rabun DO INTERROGATION EVAL REMOTE </90 D 1/2/> LD CVDFB completed ICM Interrogation, Remote (Prof) Neal Rabun DO INTERROGATION EVAL REMOTE </30 D CV MNTR SYS completed ICM Interrogation, Remote (Tech) Neal Rabun DO INTERROGATION EVAL REMOTE </30 D TECH REVIEW completed ICM Interrogation, Remote (Prof) Neal Rabun DO INTERROGATION EVAL REMOTE </30 D CV MNTR SYS completed ICM Interrogation, Remote (Tech) Neal Rabun DO INTERROGATION EVAL REMOTE </30 D TECH REVIEW completed ICM Interrogation, Remote (Prof) Neal Rabun DO INTERROGATION EVAL REMOTE </30 D CV MNTR SYS completed AICD Interrogation, Remote (Tech) Neal Rabun DO INTERROGATION REMOTE </90 D BOG CUTTER REVIEW completed AICD Interrogation, Remote (Prof) Neal Rabun DO INTERROGATION EVAL REMOTE </90 D 1/2/> LD CVDFB completed ICM Interrogation, Remote (Prof) Neal Rabun DO INTERROGATION EVAL REMOTE </30 D CV MNTR SYS completed ICM Interrogation, Remote (Tech) Neal Rabun DO INTERROGATION EVAL REMOTE </30 D TECH REVIEW completed ICM Interrogation, Remote (Prof) Neal Rabun DO INTERROGATION EVAL REMOTE </30 D CV MNTR SYS completed ICM Interrogation, Remote (Tech) Neal Rabun DO INTERROGATION EVAL REMOTE </30 D TECH REVIEW completed ICM Interrogation, Remote (Prof) Neal Rabun DO INTERROGATION EVAL REMOTE </30 D CV MNTR SYS completed AICD Interrogation, Remote (Tech) Neal Rabun DO INTERROGATION REMOTE </90 D BOG CUTTER REVIEW completed AICD Interrogation, Remote (Prof) Neal Rabun DO INTERROGATION EVAL REMOTE </90 D 1/2/> LD CVDFB completed ICM Interrogation, Remote (Prof) Neal Rabun DO INTERROGATION EVAL REMOTE </30 D CV MNTR SYS completed ICM Interrogation, Remote (Tech) Neal Rabun DO INTERROGATION EVAL REMOTE </30 D TECH REVIEW completed ICM Interrogation, Remote (Prof) Neal Rabun DO INTERROGATION EVAL REMOTE </30 D CV MNTR SYS completed ICM Interrogation, Remote (Tech) Neal Rabun DO INTERROGATION EVAL REMOTE </30 D TECH REVIEW completed EKG Neal Rabun DO completed SNOMED-CT: [id number] Current Medications Documented Neal Rabun DO completed ICM Interrogation, Remote (Prof) Neal Rabun DO INTERROGATION EVAL REMOTE </30 D CV MNTR SYS completed ICM Interrogation, Remote (Tech) Neal Rabun DO INTERROGATION EVAL REMOTE </30 D TECH REVIEW completed ICM Interrogation, Remote (Prof) Neal Rabun DO INTERROGATION EVAL REMOTE </30 D CV MNTR SYS completed AICD Interrogation, Remote (Tech) Neal Rabun DO INTERROGATION REMOTE </90 D BOG CUTTER REVIEW completed AICD Interrogation, Remote (Prof) Neal Rabun DO INTERROGATION EVAL REMOTE </90 D 1/2/> LD CVDFB completed ICM Interrogation, Remote (Prof) Neal Rabun DO INTERROGATION EVAL REMOTE </30 D CV MNTR SYS completed ICM Interrogation, Remote (Tech) Neal Rabun DO INTERROGATION EVAL REMOTE </30 D TECH REVIEW completed ICM Interrogation, Remote (Prof) Neal Rabun DO INTERROGATION EVAL REMOTE </30 D CV MNTR SYS completed ICM Interrogation, Remote (Tech) Neal Rabun DO INTERROGATION EVAL REMOTE </30 D TECH REVIEW completed ICM Interrogation, Remote (Prof) Neal Rabun DO INTERROGATION EVAL REMOTE </30 D CV MNTR SYS completed AICD Interrogation, Remote (Tech) Neal Rabun DO INTERROGATION REMOTE </90 D BOG CUTTER REVIEW completed AICD Interrogation, Remote (Prof) Neal Rabun DO INTERROGATION EVAL REMOTE </90 D 1/2/> LD CVDFB completed EKG Neal Rabun DO completed SNOMED-CT: [id number] Current Medications Documented Neal Rabun DO completed ICM Interrogation, Remote (Prof) Neal Rabun DO INTERROGATION EVAL REMOTE </30 D CV MNTR SYS completed ICM Interrogation, Remote (Tech) Neal Rabun DO INTERROGATION EVAL REMOTE </30 D TECH REVIEW completed ICM Interrogation, Remote (Prof) Neal Rabun DO INTERROGATION EVAL REMOTE </30 D CV MNTR SYS completed ICM Interrogation, Remote (Tech) Neal Rabun DO INTERROGATION EVAL REMOTE </30 D TECH REVIEW completed ICM Interrogation, Remote (Prof) Neal Rabun DO INTERROGATION EVAL REMOTE </30 D CV MNTR SYS completed AICD Interrogation, Remote (Tech) Neal Rabun DO INTERROGATION REMOTE </90 D BOG CUTTER REVIEW completed AICD Interrogation, Remote (Prof) Neal Rabun DO INTERROGATION EVAL REMOTE </90 D 1/2/> LD CVDFB completed ICM Interrogation, Remote (Prof) Neal Rabun DO INTERROGATION EVAL REMOTE </30 D CV MNTR SYS completed ICM Interrogation, Remote (Tech) Neal Rabun DO INTERROGATION EVAL REMOTE </30 D TECH REVIEW completed ICM Interrogation, Remote (Prof) Neal Rabun DO INTERROGATION EVAL REMOTE </30 D CV MNTR SYS completed AICD Interrogation, Remote (Tech) Neal Rabun DO INTERROGATION REMOTE </90 D BOG CUTTER REVIEW completed AICD Interrogation, Remote (Prof) Neal Rabun DO INTERROGATION EVAL REMOTE </90 D 1/2/> LD CVDFB completed ICM Interrogation, Remote (Prof) Neal Rabun DO INTERROGATION EVAL REMOTE </30 D CV MNTR SYS completed ICM Interrogation, Remote (Tech) Neal Rabun DO INTERROGATION EVAL REMOTE </30 D TECH REVIEW completed ICM Interrogation, Remote (Prof) Neal Rabun DO INTERROGATION EVAL REMOTE </30 D CV MNTR SYS completed ICM Interrogation, Remote (Tech) Neal Rabun DO INTERROGATION EVAL REMOTE </30 D TECH REVIEW completed SNOMED-CT: [id number] Current Medications Documented Neal Rose DO completed
--- OUTSIDE RECORDS SUMMARY | 2024-10-14 22:22 | XMS_ITS | Referral Summary ---
Author Organization [facility] er Address [address] [place] [address] Care Team Providers Care Cat Scanner Operator Name Role Phone Yinka Lewis MD Unavailable Zafar Soernson DO Primary Care Provider [phone] Encounters Date Type Department Care Team Description 10/06/2024 Telephone [facility] Ophthalmology [address] [place] [address] Sophie Henry, ASHUTOSH 09/25/2024 Telephone [facility] Ophthalmology [address] [place] [address] Sophie Henry, OD Reschedule Appointment 09/23/2024 9:00 AM CDT Office Visit [facility] Rheumatology [address] [facility] [address] [place] [address] [place] [phone] Yonis Mclaughlin MD PhD Rheumatoid arthritis, involving unspecified site, unspecified whether rheumatoid factor present (HCC) (Primary Dx); automatic machine attendant systemic steroid user; automatic machine attendant methotrexate user 09/04/2024 Telephone [facility] Rheumatology [address] [facility] [address] [place] [address] [place] [phone] Shannon Rosado RMA 08/28/2024 9:20 AM CDT Office Visit [facility] Gastroenterology [address] [facility] [address] [place] [address] [place] [phone] Philip Kee MD Abnormal liver function tests [...] Active Problems Problem Noted Date Diagnosed Date FPC systemic steroid user 09/23/2024 FPC methotrexate user 09/23/2024 Pseudophakia of both eyes [...] 2021 Assessment & Plan (04/25/2022 11:23 AM BUFFER CHROME): Ok to use tdex prn to the [...] (06/11/2019): Added automatically from request for surgery [id number] PAD (peripheral artery disease) 10/02/2018 Dry eye syndrome of both eyes 06/20/2018 Assessment & Plan (06/12/2024 5:32 PM BUFFER CHROME): Continue with PF AFT TID and PRN Assessment & Plan (09/06/2023 10:46 AM CDT): Pfats TID+ OU Assessment & Plan (04/25/2022 11:23 AM BUFFER CHROME): Cont emycin rona at bedtime (qhs) Assessment [...] (OU) Assessment & Plan (06/20/2024 4:16 PM BUFFER CHROME): Visual field (VF), OCT normal/reassuring, pt ed. 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: CABG x2 [...] on file Legal Sex Female 9:01 PM BUFFER [facility]OME Gender Identity Not on file Sexual Orientation [...] on file Medical Devices Implanted Type Area 3D Artist Device Identifier Shelf Expiration Date Model / Serial / Lot Icd ICD Chest Wall Description:Implanted 2014 p er pt Cca0t0 21.5 Vlareon Iol Ashperic Uv Absorbing Iol Implanted:Qty : 1 on 05/07/2023 by María Araiza MD at [facility] [place] Lens Left: Eye [employer] 07/02/2026 CCA0T0 / [id number] / Other - See Comments-02/18 Implanted:03/2015 (Quantity not on file) Other - see comments Left: Chest Wall Biotronik Screw Screw Left: Foot Description:Screw in great l eft toe Clareon Uv Iol Cca0t0 21.0 Implanted:Qty : 1 on 04/16/2023 by María Araiza MD at [facility] [place] Right: Eye [employer] 11/20/2026 CCA0T0.21 0 / [id number] / Procedures Procedure Name Priority Date/Time [...] Read Routine (OP Routine) 06/18/2018 9:20 AM BUFFER CHROME High risk medication use from Last 3 Months or Most Recently Relevant to Health Maintenance Results * (ABNORMAL) CBC with auto differential (09/09/2024 9:16 AM CDT) Pathologist [facility] WBC 5.2 3.8 - 10.8 Thousand/u L [...] 10:57 PM CDT FASTING:YES FASTING: YES Eliseo Btaes MD LAB BLOOD ORDERABLES Final Re sult Performing Organization Address [facility] Co de Phone Number [facility] [address] [place] [address] * Erythrocyte sedimentation rate (09/09/2024 9:16 AM CDT) Erythrocyte sedimentation rate 2 < OR = 30 mm/h Subha Allen-Sukhi Yousif Blood 09/09/2024 9:16 AM CDT 09/09/2024 9:16 AM CDT Narrative [facility] - 09/09/2024 10:57 PM CDT FASTING:YES FASTING: YES Eliseo Bates MD LAB BLOOD ORDERABLES Final Re sult Performing Organization Address City/[facility]/ZIP Co de Phone Number [facility] [address] [place] [address] * CRP (acute phase) (09/09/2024 9:16 AM CDT) C-RP <5.0 <8.0 mg/L Subha Yousif Blood 09/09/2024 9:16 AM CDT 09/09/2024 9:16 AM CDT Narrative [facility] - 09/09/2024 10:57 PM CDT FASTING:YES FASTING: YES us Eliseo Bates MD LAB BLOOD ORDERABLES Final Re sult SUBHA Yousif [address] [place] [address] * Comprehensive metabolic panel (09/09/2024 9:16 AM CDT) Pathologist [facility] Glucose 86 65 - 99 mg/dL Subha [facility] Yous[facility] Comment: Fasting reference interval BUN 17 7 - 25 mg/dL Subha [facility]Sukhi petersen Benja Creatinine 0.90 0.50 - 1.05 mg/dL Subha [facility]Suk[facility] Yousif eGFR 71 > OR = 60 mL/min/1.7 3m2 Subha [facility]Suk[facility] Yousif BUN/creat ratio SEE NOTE: (calc) Subha [facility]Suk[facility] Yousif Comment: Not Reported: BUN and Creatinine are within reference range. Sodium 138 135 - 146 mmol/L Subha Allen-Sukhi Yousif Potassium, pl 4.1 3.5 - 5.3 mmol/L Subha [facility]Sukhi Yousif Chloride 101 98 - 110 mmol/L Subha [facility]S nicola Yousif CO2 29 20 - 32 mmol/L [facility] nicola Yousif Calcium 9.6 8.6 - 10.4 mg/dL Subha Allen-Sukhi Yousif Protein, sr 6.4 6.1 - 8.1 g/dL Subha [facility]Sukhi petersen Benja Albumin 4.1 3.6 - 5.1 g/dL Subha [facility]Sukhi petersen Benja GLOBULIN 2.3 1.9 - 3.7 g/dL (calc) Subha [facility]Sukhi petersen Benja Alb/glob ratio 1.8 1.0 - 2.5 (calc) [facility]-S nicola Yousif Bilirubin, total 0.7 0.2 - 1.2 mg/dL Subha [facility]Sukhi Yousif Alk phos 54 37 - 153 U/L Subha [facility]Sukhi petersen Benja AST 19 10 - 35 U/L [facility]-Sukhi petersen Benja ALT (SGPT) 20 6 - 29 U/L Group[facility]ukhi petersen Benja Blood 09/09/2024 9:16 AM CDT 09/09/2024 9:16 AM CDT Narrative [facility] - 09/09/2024 10:57 PM CDT FASTING:YES FASTING: YES Eliseo Bates MD LAB BLOOD ORDERABLES Final Re sult Performing Organization Address City/[facility] Co de Phone Number [facility] [address] [place] [address] * Hepatitis C antibody Blood (11/26/2023 12:29 PM CDT) Hep C Ab NON-REACTI VE NON-REACT [facility] Comment: HCV antibody was non-reactive. There is no laboratory evidence of HCV infection. In most cases, no further action is required. However, if recent HCV exposure is suspected, a test for HCV RNA (test code 74120) is suggested. For additional information please refer to http://education.[employer]/faq/FOZ68w2 (This link is being provided for informational/ educational purposes only.) Blood 11/26/2023 12:2 9 PM CDT 11/26/2023 12:30 PM CDT Philip Kee MD LAB MICROBIOLOGY - GENERAL ORDERABLES Final Result Performing Organization Address City/[facility] Co de Phone Number [facility] [address] [place] [address] * Dexa Axial Skeleton Bone Density With VFA (06/18/2018 9:20 AM BUFFER CHROME) Anatomical Region Laterality Modality Body N/A Radiographic Moraima ging Narrative 06/18/2018 10:54 AM BUFFER CHROME Patient Name: Kate Obrien Date of : 1960 Date of scan: 06/18/2018 Bone mineral density was performed on a [employer] Discovery Densitometer. Machine Cross-calibration and Precision studies [...] by the International Society of Clinical Densitometry. [id number] Vangie Be MD IMG DXA PROCEDURES Final Resu lt from Last 3 Months or Most Recently Relevant to Health Maintenance Insurance [facility] MEDICARE ADVANTAGE MEDICARE ADVANTAGE MEDICARE ADVANTAGE [place] [id number] Advance Directives For more information, please contact: [phone] * Full Code (Latest Code Status on File) Date Activated Date Inactivated Comments 02/14/2020 5:06 AM 02/15/2020 10:15 PM Care Teams Cat Scanner Operator Relationship Specialty Start Date End Date Zafar Sorenson DO [address] [place] [address] PCP - General Family Medicine 03/09/22 Yinka Lewis MD [address] [place] [address] Consulting Physician Cardiovascular Disease 08/30/20
--- OUTSIDE RECORDS SUMMARY | 2024-10-14 22:22 | XMS_ITS | Clinical Summary ---
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 skilled nursing methotrexate user 09/23/2024 Pseudophakia of both eyes [...] 2021 Assessment & Plan (04/25/2022 11:23 AM SEED POTATO CUTTER): Ok to use tdex prn to the [...] (06/11/2019): Added automatically from request for surgery [id number] PAD (peripheral artery disease) 10/02/2018 Dry eye syndrome of both eyes 06/20/2018 Assessment & Plan (06/12/2024 5:32 PM SEED POTATO CUTTER): Continue with PF AFT TID and PRN Assessment & Plan (09/06/2023 10:46 AM CDT): Pfats TID+ OU Assessment & Plan (04/25/2022 11:23 AM SEED POTATO CUTTER): Cont emycin rona at bedtime (qhs) Assessment [...] (OU) Assessment & Plan (06/20/2024 4:16 PM SEED POTATO CUTTER): Visual field (VF), OCT normal/reassuring, pt ed. 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: CABG x2 [...] Type Department Care Team Description 10/06/2024 Telephone [facility] Ophthalmology [address] [id number] Sophie Henry OD 09/25/2024 Telephone [facility] Ophthalmology [address] [place] [address] Sophie Henry OD Reschedule Appointment 09/23/2024 9:00 AM CDT Office Visit [facility] Rheumatology [address] [facility] 5th [place] [address] [place] [phone] Yonis Mclaughlin MD PhD Rheumatoid arthritis, involving unspecified site, unspecified whether rheumatoid factor present (HCC) (Primary Dx); skilled nursing systemic steroid user; skilled nursing methotrexate user 09/04/2024 Telephone [facility] Rheumatology [address] [facility] 5th [address] [place] [phone] Shannon Rosado RMA 08/28/2024 9:20 AM CDT Office Visit [facility] Gastroenterology [address] [facility] 12th Floor [address] [place] [phone] Philip Kee MD Abnormal liver function tests (Primary Dx) from Last 3 Months Immunizations Immunization Administration Dates Next Due PPD TEST 06/13/2010 Pfizer SARS-CoV-2 Monovalent Vaccination (12+ Yrs) PURPLE 01/14/2021 Pneumococcal Polysaccharide PPV23 04/06/2020 Surgical History Surgery Date Site/Laterality Comments CORONARY ARTERY BYPASS GRAFT 09/30/2014 Chronically occluded LAD, silent OH, large apical aneurysm, Two vessel -- SVG [...] of DVT (deep vein thrombosis) History of OH (myocardial infarction) 2014 HTN (hypertension) 2009 History [...] Carotid Disease , PVD; Other Maternal Grandmother OH, Janell g cancer; Cause of : OH, Lung cancer Arthritis Mother Hypertension Mother Other [...] on file Legal Sex Female 9:01 PM SEED POTATO CUTTER Gender Identity Not on file Sexual Orientation [...] 11/26/2023, 018 Medical Devices Implanted Type Area Fuel Conversion Technician Device Identifier Shelf Expiration Date Model / Serial / Lot Icd ICD Chest Wall Description:Implanted 2014 p er pt Cca0t0 21.5 Vlareon Iol Ashperic Uv Absorbing Iol Implanted:Qty : 1 on 05/07/2023 by María Araiza MD at [facility] Lens Left: Eye [employer] 07/02/2026 CCA0T0 / [id number] / Other - See Comments-02/18 Implanted:03/2015 (Quantity not on file) Other - see comments Left: Chest Wall Biotronik Screw Screw Left: Foot Description:Screw in great l eft toe Clareon Uv Iol Cca0t0 21.0 Implanted:Qty : 1 on 04/16/2023 by María Araiza MD at [facility] Right: Eye [employer] 11/20/2026 CCA0T0.21 0 / [id number] / Procedures Procedure Name Priority Date/Time [...] Read Routine (OP Routine) 06/18/2018 9:20 AM SEED POTATO CUTTER High risk medication use from Last 3 [...] ORDERABLES Final Re sult [facility] [address] [phone] * Erythrocyte sedimentation rate (09/09/2024 9:16 AM CDT) Pathologist [facility] Erythrocyte sedimentation rate 2 < OR = 30 mm/h [facility] Blood 09/09/2024 9:16 AM CDT 09/09/2024 9:16 AM CDT Narrative [facility] - 09/09/2024 10:57 PM CDT FASTING:YES FASTING: YES Eliseo Bates MD LAB BLOOD ORDERABLES Final Re sult Performing Organization Address [facility] Co de Phone Number [facility] [address] [place] [address] * CRP (acute phase) (09/09/2024 9:16 AM CDT) Pathologist [facility] C-RP <5.0 <8.0 mg/L [facility] Blood 09/09/2024 9:16 AM CDT 09/09/2024 9:16 AM CDT Narrative [facility] - 09/09/2024 10:57 PM CDT FASTING:YES FASTING: YES Eliseo Bates MD LAB BLOOD ORDERABLES Final Re sult Performing Organization Address [facility] Co de Phone Number [facility] [address] [place] [address] * Comprehensive metabolic panel (09/09/2024 9:16 AM CDT) Pathologist [facility] Glucose 86 65 - 99 mg/dL [facility] Comment: Fasting reference interval BUN 17 7 - 25 mg/dL [facility] Creatinine 0.90 0.50 - 1.05 mg/dL [facility] eGFR 71 > OR = 60 mL/min/1.7 3m2 [facility] nicola Yous[facility] BUN/creat ratio SEE NOTE: (calc) Dunia Twirl TVSukhi Yousif Comment: Not Reported: BUN and Creatinine are within reference range. Sodium 138 135 - 146 mmol/L [facility] Potassium, pl 4.1 3.5 - 5.3 mmol/L [facility] [employer] nicola Yousif Chloride 101 98 - 110 mmol/L Dunia Allen nicola Yousif CO2 29 20 - 32 mmol/L [facility] Calcium 9.6 8.6 - 10.4 mg/dL [facility] TiffanySukhi Yousif Protein, sr 6.4 6.1 - 8.1 g/dL [facility] Tiffany nicola Yousif Albumin 4.1 3.6 - 5.1 g/dL [facility] Tiffany nicola Yousif GLOBULIN 2.3 1.9 - 3.7 g/dL (calc) [facility] [employer] nicola Yousif Alb/glob ratio 1.8 1.0 - 2.5 (calc) [facility] [employer]- nicola Yousif Bilirubin, total 0.7 0.2 - 1.2 mg/dL [facility] [employer] nicola Yousif Alk phos 54 37 - 153 U/L [facility] [employer] nicola Yousif AST 19 10 - 35 U/L [facility] Benja ALT (SGPT) 20 6 - 29 U/L [facility] Blood 09/09/2024 9:16 AM CDT 09/09/2024 9:16 AM CDT Narrative [facility] - 09/09/2024 10:57 PM CDT FASTING:YES FASTING: YES us Eliseo Bates MD LAB BLOOD ORDERABLES Final Re sult [facility] [address] [place] [address] * Hepatitis C antibody Blood (11/26/2023 12:29 PM CDT) Hep C Ab NON-REACTI VE NON-REACT BALWINDER [facility] Comment: HCV antibody was non-reactive. There is no laboratory evidence of HCV infection. In most cases, no further action is required. However, if recent HCV exposure is suspected, a test for HCV RNA (test code 05240) is suggested. For additional information please refer to http://education.YourNextLeap/faq/ZYM85e7 (This link is being provided for informational/ educational purposes only.) Blood 11/26/2023 12:2 9 PM CDT 11/26/2023 12:30 PM CDT us Philip Kee MD LAB MICROBIOLOGY - GENERAL ORDERABLES Final Result [facility] [address] [phone] * Dexa Axial Skeleton Bone Density With VFA (06/18/2018 9:20 AM SEED POTATO CUTTER) Anatomical Region Laterality Modality Body N/A Radiographic Moraima ging Narrative 06/18/2018 10:54 AM SEED POTATO CUTTER Patient Name: Kate Obrien Date of : 1960 Date of scan: 06/18/2018 Bone mineral density was performed on a HoloApptio Discovery Densitometer. Machine Cross-calibration and Precision studies [...] by the International Society of Clinical Densitometry. [id number] Vangie Be MD IMG DXA PROCEDURES Final Resu lt from Last 3 Months or Most Recently Relevant to Health Maintenance Insurance [facility] MEDICARE [facility] Address: [address] [address] [place] [address] [facility] MEDICARE [facility] Address: [address] [address] [place] [address] [place] [address] [facility] MEDICARE [facility] Address: [facility] [address] [place] [address] [address] [place] [phone] Advance Directives For more information, please contact: [phone] * Full Code (Latest Code Status on File) Date Activated Date Inactivated Comments 02/14/2020 5:06 AM 02/15/2020 10:15 PM Care Teams Administrative Representative Relationship Specialty Start Date End Date Zafar Sorenson DO [address] [place] [address] PCP - General Family Medicine 03/09/22 Yinka Lewis MD [address] [place] [address] Consulting Physician Cardiovascular Disease 08/30/20
--- OUTSIDE RECORDS SUMMARY | 2024-10-14 22:22 | XMS_ITS | Clinical Summary ---
Author Organization [facility] Address [address] [place] [address] Care Team Providers Care Frame Polisher Name Role Phone Keith Carreon MD Primary [...] series) 2033 Medical Devices Implanted Type Area Parks And Recreation Worker Device Identifier Shelf Expiration Date Model / Serial / Lot Renny Olson Df4 Hi Enrg W Pro [id number] - Ol 020 Implanted:Qt y: 1 on 03/04/2020 by Freddy Garcia MD Defibrillator Left: Chest [employer] [id number] 09/17/2021 [id number] / [id number] / Lead Icd Plexa Promri S 65 [id number] - Oloa 020 Implanted:Qt y: 1 on 03/04/2020 by Freddy Garcia MD Lead [employer] [id number] 07/18/2021 [id number] / [id number] / Lead Pacemaker Solia S 53 [id number] Implanted:Qt y: 1 on 03/04/2020 by Freddy Garcia MD Lead [employer] [id number] 11/17/2021 [id number] / [id number] / Insurance BLUE PREFERRED Advance Directives For more information, please contact: [phone] * Full Code (Latest Code Status on File) Date Activated Date Inactivated Comments 03/04/2020 5:44 PM 03/05/2020 2:52 PM * Full Code Date Activated Date Inactivated Comments 03/04/2020 12:51 PM 03/04/2020 5:44 PM Care Teams Frame Polisher Relationship Specialty Start Date End Date Bonzelet, Keith, MD [address] [place] [address] PCP - General Internal Medicine 02/16/20
--- OUTSIDE RECORDS SUMMARY | 2024-10-14 22:22 | XMS_ITS | Clinical Summary ---
Author Organization [facility] Address [address] [place] [address] Care Team Providers Care Insurance Examining Clerk Name Role Phone Keith Carreon MD Primary Care Provider [phone] Source Comments [facility],non-owned Affiliates and Associated Physician Practices is amultiple site organization consisting of ambulatory clinics and hospital sitesin [place], [place], [place] and [place]. This disclosure is being madepursuant to the Care Everywhere program and may not contain all information available regarding this patient. Last updated 18.[facility] Allergies No known active allergies Medications * [...] patient's age to complete this topic Insurance [facility] [employer] MANAGED MEDICARE ADV SELF PAY NO INSURANCE Member Subscriber Plan / Payer (Ef fective for All Dates) Name:Lola Obrien Member ID:Not on file Relation to Subscriber:Not on file Name:LOLA OBRIEN Subscriber ID:Not on file (Home) Address: [address] [place] [address] [address] [place] [address] Payer ID:Not on file Group ID:Not on file Type:Self Pay Address: [place], [place] Advance Directives * Full Code (Latest Code Status on File) Date Activated Date Inactivated Comments 01/31/2020 12:07 AM 02/02/2020 5:05 PM Care Teams Insurance Examining Clerk Relationship Specialty Start Date End Date Keith Carreon MD [address] [place] [address] PCP - General Internal Medicine 01/30/20
--- OUTSIDE RECORDS SUMMARY | 2024-10-14 22:22 | XMS_ITS | Continuity of Care Document ---
Author Organization [facility] Address [address] [place] [address] Phone Care Team Providers Care Sheep Rancher Name Role Phone Elio Canela Unavailable Unavailable [...] Copied on Encounter Office/outpat ient Visit, [facility], [address] [place] [address] [address], [place], [place], [address], tel:[phone] [facility] [place] No Information 9-201 0 Hilton Ballard. [address] [facility] , [address], [place], [address], [place]. tel:[phone] [facility], [address] [place] [address] [address], [place], [place], [address], [place] tel:[phone] [facility] Corporate Center No Information 4-201 0 Hilton Ballard. [address] , [address], [place], [address], [place]. tel:[phone] Referring Provider: Elio Gil, [address], [place], [place], [facility]. tel:[phone] [facility], [address] [place] [address] [address], [place], [place], [address], tel:[phone] [facility] [place] No Information 1 [address]. [facility]air [facility] [address], [address], [place], [place], [facility], . tel:[phone] Office/outpat ient Visit, [facility], [address] [place] [address] [address], [place], [place], [address], tel:[phone] [facility] No Information 1 1200 9 Hilton [address]ard. [facility] [address], [place], [facility], . tel:[phone] Referring Provider: Jair Dobbins [facility] [address], [place], [facility]. tel:[phone] [facility], [address] [place] [address] [address], [place], [place], [address], tel:[phone] [facility] [place] No Information 0 [address]. Jair [facility] [address], [place], [facility], . tel:[phone] Referring Provider: Jair Dobbins Corporate [address], [place], [facility]. tel:[phone] Office/outpat ient Visit, [facility], [address] [place] [address] [address], [place], [place], [address], tel:[phone] [facility] No Information 0 [address]. Jair [facility] [address], [place], [address], [place]. tel:[phone] [facility], [address], [place], [place], [address], [place] tel:[phone] [facility] No Information Mar-0 5-200 7 Tarunkiersten Elio. [address], [address], [place], [address], [place]. tel:[phone] Family History Family Member Type Diagnosis Age At Onset No Information Payers Payer name Insurance type Covered constitution party ID Authoriza tion(s) No Information Social [...]
--- OUTSIDE RECORDS SUMMARY | 2024-10-14 22:22 | XMS_ITS | Encounter Summary ---
Author Organization [facility] Address [address] [place] [address] Phone Care Team Providers Care Youth Leader Name Role Phone Yinka Lewis MD Unavailable Zafar Sorenson DO Primary Care Provider Encounter Details Date Type Department Care Team (Late st Contact Info) Description 04/25/2023 Orders Only [facility] Ophthalmology [address] [facility] 6th [place] [address] María Araiza MD [address] [place] [address] Age-related cataract of left eye (Primary Dx) [...] on file 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
[2024-10-14 23:18] VITALS: BP 107/67; PULSE 76; RESP 15; O2SAT 100
[2024-10-14] MEDS: LACTATED RINGERS 1,000 ML 125 ML IV CONT (23:33)
[2024-10-15] VITALS (7 sets, daily range): BP systolic 100–139; BP diastolic 49–78; PULSE 78–94; RESP 16–17; TEMP 36.3–36.9; O2SAT 93–99; BMI 23.9
--- NOTE | 2024-10-15 03:31 | ADMGEN ---
This patient, Kate Obrien, was admitted to 2 Medical Room 242-. Patient/family oriented to hospital policies and general routines including ID bracelet, bed and alarms, visiting hours, pain management, procedures, bathroom and other care routines, personal items, smoking policy, room service/diet, and visiting hours. Information on how to activate the Rapid Response Team has been discussed. Patient/Family are encouraged to report perceived risks to care and to ask questions if they do not understand what they are told or what they should do.
--- NOTE | 2024-10-15 07:42 | P.HP_ITS ---
H&P: HPI History of Present Illness Date/Time: 10/15/24 1005 Chief Complaint: Patient is a 63-year-old female with a history of hysterectomy, cardiac bypass in 2015, cardiomyopathy, hypertension, hyperlipidemia. Patient presents to the emergency department complaining of diarrhea on October 14 she said that she had been experiencing diarrhea for 5 days. Patient also complains of subjective fever up to 104? F with abdominal pain and weakness. Patient reports nothing helping with any of her symptoms. Patient also complaining of decreased appetite as well as malodorous urine, urinary frequency, and urgency. In the ED patient's heart rate breathing and blood pressure within normal as well as temperature. CT abdominal pelvis with contrast and UA was performed in the ED yielding neutrophilia with left shift, dehydration with low sodium and chloride but not severe range. Normal renal function. Normal glucose and mildly elevated LFTs. Negative lactic acid. Normal lipase. Urinalysis shows signs of infection with red and white cells, leukocyte esterase. Viral panel swabs are negative. CT scan shows left-sided pyelonephritis as well as fluid in the colon consistent with enteritis versus diarrhea. She has some incidental multiple cysts on the liver and a adrenal adenoma. Patient was started on IV Rocephin in the ED for pyelo coverage. Continue IV Rocephin while inpatient. Pending urine culture sensitivities well as stool cultures, even though patient has ceased diarrhea episodes. C diff negative. Patient does report that she feels a lot better today, able to eat and keep down food/water. Trending blood work including electrolytes daily for dehydration. Patient still complaining of mild left lower quadrant abdomen pain to palpation. Patient has been hemodynamically stable including afebrile while inpatient. Review of Systems Review of Systems: All systems reviewed & are unremarkable except as noted in HPI and below PMFSH Past Medical History Medical History Acute nasopharyngitis (common cold) Acute pharyngitis, unspecified (04/25/17) Anxiety disorder, unspecified Cardiomyopathy Herpes zoster without complication Obstructive sleep apnea Old myocardial infarction Rheumatoid arthritis, unspecified Rhinitis, nonallergic Right rotator cuff tendonitis Sleep apnea, unspecified Spondylolysis of lumbosacral region Unspecified glaucoma Upper respiratory infection, acute Warfarin anticoagulation Surgical History Surgical History History of angioplasty of vein right LE History of surgical fusion joint Left Hallux History of arthroplasty of finger of left hand Index finger History of hysterectomy for benign disease History of cardiac defibrillator placement 2020 History of heart bypass surgery -2014 Family History Family History Mother Family history of arthritis Family history of heart disease in male family member before age 55 Father Family history of type 2 diabetes mellitus Family history of heart disease in male family member before age 55 Social History Social History Smoking packs per day: 1 Smoking cigarettes per day: 20.0 Years smoked: 40 Smoking pack-years: 40.00 Smoking status: Former smoker Tobacco type: cigarettes Second hand tobacco smoke exposure: Yes Smoking end date: 05/21/12 Alcohol intake: current Drinks per week: 1 Alcohol use details: Occasionally Substance use: never Substance use type: does not use Do You Feel Safe in your Home?: Yes Lack of Transportation: No Lack of Food: Never True Current Housing: I Have Housing Concerned About Future Housing: No Difficulty Paying Gas/Electric Bills: No Difficulty Paying for Meds: No Currently Unemployed: No Education: High School Diploma/GED Difficulty w/ Childcare or Family Care: No Living arrangements: with family Gender identity (if verbalized by the patient): Female Spiritual care concerns: No Meds Home Medications and Allergies Home Medications ?Medication ?Instructions ?Recorded ?Confirmed ?Type atorvastatin 40 mg tablet 40 mg PO DAILY 09/14/20 10/15/24 History carvedilol 6.25 mg tablet 6.25 mg PO Q12H 09/14/20 10/15/24 History citalopram 20 mg tablet 20 mg PO DAILY 09/14/20 10/15/24 History aspirin 81 mg tablet,delayed 81 mg PO DAILY 09/16/20 10/15/24 History release (Adult Aspirin Regimen) clopidogrel 75 mg tablet 75 mg PO DAILY 09/16/20 10/15/24 History diclofenac sodium 1 % topical gel 4 g topical QID PRN pain 09/16/20 10/15/24 History isosorbide mononitrate 30 mg 30 mg PO DAILY 09/16/20 10/15/24 History tablet,extended release 24 hr prednisone 5 mg tablet 7.5 mg PO DAILY 09/16/20 10/15/24 History folic acid 1 mg tablet 2 mg PO DAILY 05/26/22 10/15/24 History methotrexate sodium 2.5 mg tablet 12.5 mg PO WEEKLY 05/26/22 10/15/24 History timolol maleate 0.25 % eye drops 1 drp EACH EYE DAILY 06/15/23 10/15/24 History acetaminophen 500 mg tablet 500 mg PO Q6H 12/14/23 10/15/24 History (Tylenol Extra Strength) losartan 25 mg tablet 25 mg PO DAILY 12/14/23 10/15/24 History multivitamin 1 tablet PO DAILY 12/14/23 10/15/24 History trazodone 50 mg tablet 50 mg PO QHS PRN sleep #90 tabs 06/09/24 10/15/24 Rx cholecalciferol (vitamin D3) 25 25 mcg PO DAILY 06/13/24 10/15/24 History mcg (1,000 unit) capsule clobetasol 0.05 % shampoo 1 applic topical DAILY PRN SCALP 07/01/24 10/15/24 History levothyroxine 25 mcg tablet 25 mcg PO DAILY #90 tabs 09/17/24 10/15/24 Rx (Synthroid) Allergies Allergy/AdvReac Type Severity Reaction Status Date / Time cilostazol Allergy Intermediate Diarrhea Verified 10/14/24 15:34 niacin Allergy Intermediate HOT FLASHES Verified 10/14/24 15:34 niacinamide Allergy Intermediate Unknown Verified 10/14/24 15:34 Sulfa (Sulfonamide Allergy Intermediate Gastrointestinal Verified 10/14/24 15:34 Antibiotics) Upset hydrocodone Allergy Mild Itching Verified 10/15/24 07:56 [id number]-AnY Reductase AdvReac Intermediate LEG CRAMPS Verified 10/14/24 15:34 Inhibitor Vital Signs Vital Signs - 24 hr 10/14/24 16:44 10/14/24 17:56 10/14/24 19:55 Temperature 97.6 F 99.3 F 98.9 F Pulse Rate 70 84 Respiratory Rate 16 16 Blood Pressure 121/90 126/64 Pulse Oximetry 100 98 Oxygen Delivery Room Air 10/14/24 21:49 10/14/24 23:18 10/15/24 02:27 Temperature 98.4 F Pulse Rate 79 76 78 Respiratory Rate 18 15 17 Blood Pressure 132/69 107/67 Pulse Oximetry 100 100 99 Oxygen Delivery Room Air 10/15/24 02:38 10/15/24 03:12 10/15/24 04:56 Temperature 98.4 F 98.0 F Pulse Rate 94 82 Respiratory Rate 16 17 Blood Pressure 139/78 104/49 L Pulse Oximetry 93 95 Oxygen Delivery Room Air Exam Narrative: Pt sitting up comfortably in bed. Const: General: comfortable and no acute distress HENMT: Face/Nose/Sinus: Normal nares present Mouth: Yes moist mucous membranes Eyes: General: appearance normal, both eyes and all related structures Sclera: sclerae normal Pupils: Equal, round and reactive pupils present EOM: EOMs intact bilaterally Neck: Neck: supple and no JVD Carotids: no bruits Resp: Effort & Inspection: normal respiratory effort Auscultation: clear to auscultation bilaterally Cardio: Rate: regular rate Rhythm: regular rhythm GI: Inspection: non-distended GI Palp: Yes Soft to palpation and Yes Tenderness to palpation present (GI) (mild TTP to LLQ) Auscultation: normal bowel sounds : Other: No CVA ttp Skin: General skin exam: normal color and no rashes or lesions noted Wou nds: no wounds Neuro: Speech: normal speech Motor exam (neuro): 5/5 motor strength present throughout Sensory Exam: normal sensation Extrem: General: normal to inspection Psych: Mental Status: mental status grossly normal Affect: normal affect H&P: Results Labs Labs: Short CBC 10/14/24 Range/Units 18:01 WBC 8.7 (4.5-10.0) K/mm3 Hgb 12.9 (12.0-15.0) g/dL Hct 40.8 (37.0-47.0) % Plt Count 226 (150-375) k/mm3 BMP 10/14/24 18:01 Sodium 131 L Potassium 3.5 Chloride 97 L Carbon Dioxide 25 BUN 15 Creatinine 0.90 Glucose 99 Calcium 9.4 Liver Function 10/14/24 Range/Units 18:01 Total Bilirubin 0.9 (0.2-1.3) mg/dL AST 52 H (14-36) U/L ALT 36 H (6-35) U/L Alkaline Phosphatase 84 (38-126) U/L Albumin 4.3 (3.5-5.1) g/dL Urine 10/14/24 Range/Units 19:54 Urine Color Dark yellow (Yellow) Urine Appearance Clear (Clear) Urine pH 6.5 (5.0-9.0) Ur Specific [place] 1.023 (1.001-1.035) Urine Protein 2+ H (Negative) mg/dL Urine Glucose (UA) Negative (Negative) mg/dL Assessment and Plan Assessment and plan (1) Pyelonephritis of left kidney: Code(s): N12 - Tubulo-interstitial nephritis, not specified as acute or chronic Status: Acute Assessment and Plan: Ceftriaxone IV UC sensitivities pending Increased to heart healthy diet due to pt feeling much better today Also D/C IVF today, pt eating and drinking normally per pt and nursing Trend labs (2) Diarrhea: Code(s): R19.7 - Diarrhea, unspecified Status: Acute Assessment and Plan: Pending stool cultures, c dif neg Imodium once cultures return if needed Pt reports that she has not had any bouts of diarrhea today (3) Adrenal adenoma: Code(s): D35.00 - Benign neoplasm of unspecified adrenal gland Status: Acute Assessment and Plan: A/P CT: Small right adrenal adenoma. No follow-up advised unless clinically warranted -F/u with PCP (4) Liver cyst: Code(s): K76.89 - Other specified diseases of liver Status: Acute Assessment and Plan: A/P CT: Multiple cysts in the liver -F/u with PCP Plan Pain control, infection control Quality VTE Prophylaxis VTE prophylaxis: mechanical ordered Hospitalist MIPS Advance Care Plan I have confirmed that the patient's Advanced Care Plan is present, code status is documented, or surrogate decision maker is listed in patient medical record.: Yes Medication Reconciliation I have utilized all available resources to obtain, update and review the patients current medications (includes all prescriptions, OTC, herbals, cannabis, and nutritional supplements).: No The patient is not eligible for med reconciliation; the patient is in a emergent medical situation where delaying treatment would jeopardize the patients health.: No
[2024-10-15 11:10] LABS: Toxigenic C. Diff NEGATIVE (NEGATIVE)
[2024-10-15] MEDS: CHOLECALCIFEROL (VITAMIN D3) 25 MCG (1,000 UNITS) TABLET PO (12:31)
[2024-10-15] MEDS: ISOSORBIDE MONONITRATE 30 MG TAB.ER.24H PO (12:31)
[2024-10-15] MEDS: FOLIC ACID 1 MG TABLET 2 MG PO (12:31)
[2024-10-15] MEDS: CLOPIDOGREL BISULFATE 75 MG TABLET PO (12:31)
[2024-10-15] MEDS: MULTIVITAMINS THERAPEUTIC TAB (*BKC) 1 TABLET PO (12:32)
[2024-10-15] MEDS: carvediloL 6.25 MG TABLET PO ×2 (12:32→21:57)
[2024-10-15] MEDS: ACETAMINOPHEN 500 MG TABLET PO ×3 (12:32→23:13)
[2024-10-15] MEDS: CITALOPRAM HYDROBROMIDE 20 MG TABLET PO (12:33)
[2024-10-15] MEDS: ATORVASTATIN 40 MG TABLET PO (21:57)
[2024-10-15] MEDS: LOSARTAN POTASSIUM 25 MG TABLET PO (21:57)
[2024-10-15] MEDS: ASPIRIN 81 MG ENTERIC TABLET PO (21:57)
[2024-10-16] MEDS: LEVOTHYROXINE SODIUM 25 MCG TABLET PO (05:22)
[2024-10-16] MEDS: ACETAMINOPHEN 500 MG TABLET PO ×4 (05:22→23:48)
[2024-10-16 05:58] VITALS: BP 97/54; PULSE 70; RESP 16; TEMP 36.8; O2SAT 98
[2024-10-16 06:19] LABS: Basophils Percent Auto 0.8 % (0.2-1.2); Eosinophils Absolute Auto 0.1 K/mm3 (0-0.3); Hematocrit 32.7 % (37.0-47.0); Hemoglobin 10.4 g/dL (12.0-15.0); Immature Granulocyte Absolute 0.02 K/mm3 (0.00-0.031); Immature Granulocyte Percent A 0.4 % (0-0.5); Mean Corpuscular HGB Conc 31.8 g/dl (32-36); Mean Corpuscular Hemoglobin 33.2 pg (26-34); Mean Corpuscular Volume 104.5 fl (80-100); Mean Platelet Volume 10.2 fl (7.4-10.4); Monocytes Absolute Auto 0.9 K/mm3 (0.1-0.6); Monocytes Percent Auto 16.5 % (2.6-8.5); Neutrophils Absolute Auto 3.3 K/mm3 (1.3-6.7); Neutrophils Percent Auto 62.3 % (45.5-73.1); Platelet Count Result 183 k/mm3 (150-375); Red Blood Count 3.13 M/mm3 (4.2-5.4); Red Cell Distribution Width 13.4 % (11.5-14.5); White Blood Count 5.3 K/mm3 (4.5-10.0)
[2024-10-16 06:31] LABS: Alanine Aminotransferase 35 U/L (6-35); Albumin Level 3.1 g/dL (3.5-5.1); Alkaline Phosphatase 70 U/L (38-126); Anion Gap 6 mmol/L (4-12); Aspartate Amino Transferase 36 U/L (14-36); Bilirubin,Total 0.3 mg/dL (0.2-1.3); Blood Urea Nitrogen 12 mg/dL (7-17); Calcium 9.2 mg/dL (8.4-10.2); Carbon Dioxide 27 mmol/L (22-30); Chloride 104 mmol/L (98-107); Estimated CRCL calculation 56 ml/min; Estimated Glomerular Filt Rate > 60; Glucose 96 mg/dL (65-110); Sodium 137 mmol/L (137-145)
--- NOTE | 2024-10-16 07:34 | PM.IMPN ---
Progress Note: A&P Assessment and Plan (1) Pyelonephritis of left kidney: Code(s): N12 - Tubulo-interstitial nephritis, not specified as acute or chronic Status: Acute Assessment and Plan: Ceftriaxone IV until 10/15 PM, started on oral Levaquin 10/16 UC negative Heart healthy diet tolerating well Trend labs No CVA TTP (2) Diarrhea: Code(s): R19.7 - Diarrhea, unspecified Status: Acute Assessment and Plan: Pending stool cultures, c dif neg Imodium once cultures return if needed Pt reports that she has not had any bouts of diarrhea since 10/14 (3) Adrenal adenoma: Code(s): D35.00 - Benign neoplasm of unspecified adrenal gland Status: Acute Assessment and Plan: A/P CT: Small right adrenal adenoma. No follow-up advised unless clinically warranted -F/u with PCP (4) Liver cyst: Code(s): K76.89 - Other specified diseases of liver Status: Acute Assessment and Plan: A/P CT: Multiple cysts in the liver -F/u with PCP Plan Pain control, infection control Subjective Date/time seen: 10/16/24 0933 Interval history: Patient is a 63-year-old female with a history of hysterectomy, cardiac bypass in 2015, cardiomyopathy, hypertension, hyperlipidemia. Patient presents to the emergency department complaining of diarrhea on October 14 she said that she had been experiencing diarrhea for 5 days. Patient also complains of subjective fever up to 104? F with abdominal pain and weakness. Patient reports nothing helping with any of her symptoms. Patient also complaining of decreased appetite as well as malodorous urine, urinary frequency, and urgency. In the ED patient's heart rate breathing and blood pressure within normal as well as temperature. CT abdominal pelvis with contrast and UA was performed in the ED yielding neutrophilia with left shift, dehydration with low sodium and chloride but not severe range. Normal renal function. Normal glucose and mildly elevated LFTs. Negative lactic acid. Normal lipase. Urinalysis shows signs of infection with red and white cells, leukocyte esterase. Viral panel swabs are negative. CT scan shows left-sided pyelonephritis as well as fluid in the colon consistent with enteritis versus diarrhea. She has some incidental multiple cysts on the liver and a adrenal adenoma. Patient was started on IV Rocephin in the ED for pylo coverage. Pt continues to report that she is feeling much better, but still not back to baseline. Plan today to switch her Rocephin IV to Levaquin PO, which she will be D/C on. Pending stool cultures, even though patient has ceased diarrhea episodes. C diff negative. Pt still able to eat and keep down food/water. Trending blood work including electrolytes daily for dehydration. Patient still complaining of mild left lower quadrant abdomen pain to palpation, will re-assess pain tomorrow for probable D/C. Patient has been hemodynamically stable including afebrile while inpatient. Review of Systems Review of Systems: All systems reviewed & are unremarkable except as noted in HPI and below Exam Narrative: Pt sitting up comfortably in bed. Const: General: comfortable and no acute distress HENMT: Face/Nose/Sinus: Normal nares present Mouth: Yes moist mucous membranes Eyes: General: appearance normal, both eyes and all related structures Sclera: sclerae normal Neck: Neck: supple and no JVD Carotids: no bruits Resp: Effort & Inspection: normal respiratory effort Auscultation: clear to auscultation bilaterally Cardio: Rate: regular rate Rhythm: regular rhythm GI: Inspection: non-distended Auscultation: normal bowel sounds Other: Mild TTP to LLQ : Other: No CVA ttp Skin: General skin exam: normal color and no rashes or lesions noted Wounds: no wounds Neuro: Cranial nerves: Yes Equal, round and reactive pupils present Speech: normal speech Motor exam (neuro): Normal motor muscle tone present throughout Sensory Exam: normal sensation Extrem: General: normal to inspection Psych: Mental Status: mental status grossly normal Affect: normal affect Objective Data Vital Signs Vital Signs: Vital Signs - 24 hr 10/15/24 08:00 10/15/24 12:32 10/15/24 16:00 Temperature 97.7 F Pulse Rate 82 78 Respiratory Rate 17 Blood Pressure 110/58 L Pulse Oximetry 95 Oxygen Delivery Room Air 10/15/24 20:00 10/15/24 21:09 10/15/24 21:57 Temperature 97.4 F L Pulse Rate 93 93 Respiratory Rate 16 Blood Pressure 100/54 L Pulse Oximetry 97 Oxygen Delivery Room Air 10/16/24 05:58 Temperature 98.3 F Pulse Rate 70 Respiratory Rate 16 Blood Pressure 97/54 L Pulse Oximetry 98 Oxygen Delivery Intake/Output Intake/Output: Intake & Output 10/13/24 10/14/24 10/15/24 10/16/24 23:59 23:59 23:59 23:59 Intake Total 1050 1502 550 Output Total 900 Balance 1050 602 550 Meds/Results Medications: Active Medications Generic Name Dose Route Start Last Admin Trade Name Freq PRN Reason Stop Dose Admin Acetaminophen 500 mg 10/15/24 12:00 10/16/24 05:22 Acetaminophen 500 Mg Tablet PO 500 mg Q6H HERMINIO Administration Acetaminophen 650 mg 10/15/24 14:33 Acetaminophen 325 Mg Tablet PO Q4H PRN Mild Pain (1-3) or Fever Hydrocodone Bitart/Acetaminophen 1 tab 10/14/24 22:58 Hydrocodone/Acetaminophen (*Crx) 5-325 Mg Tablet PO Q4H PRN Pain Rated 4-6 Aspirin 81 mg 10/15/24 21:00 10/15/24 21:57 Aspirin 81 Mg Enteric Tablet PO 81 mg HS HERMINIO Administration Atorvastatin Calcium 40 mg 10/15/24 21:00 10/15/24 21:57 Atorvastatin 40 Mg Tablet PO 40 mg HS HERMINIO Administration Carvedilol 6.25 mg 10/15/24 09:00 10/15/24 21:57 Carvedilol 6.25 Mg Tablet PO 6.25 mg Q12H HERMINIO Administration Citalopram Hydrobromide 20 mg 10/15/24 09:00 10/15/24 12:33 Citalopram Hydrobromide 20 Mg Tablet PO 20 mg DAILY HERMINIO Administration Clopidogrel Bisulfate 75 mg 10/15/24 09:00 10/15/24 12:31 Clopidogrel Bisulfate 75 Mg Tablet PO 75 mg DAILY HERMINIO Administration Diclofenac Sodium 1 applic 10/15/24 10:24 Diclofenac Sodium 1% 100 Gm Gel (*Bkc) TOPICAL QID PRN pain Folic Acid 2 mg 10/15/24 09:00 10/15/24 12:31 Folic Acid 1 Mg Tablet PO 2 mg DAILY HERMINIO Administration Ceftriaxone Sodium 1 gm in 50 mls @ 100 mls/hr 10/15/24 23:00 10/15/24 23:43 Rocephin 1 Gm/Ns 50 Ml IVPB Infused Q24H HERMINIO Infusion Isosorbide Mononitrate 30 mg 10/15/24 09:00 10/15/24 12:31 Isosorbide Mononitrate 30 Mg Tab.Er.24h PO 30 mg DAILY HERMINIO Administration Levothyroxine Sodium 25 mcg 10/16/24 06:30 10/16/24 05:22 Levothyroxine Sodium 25 Mcg Tablet PO 25 mcg DAILY@0630 HERMINIO Administration Losartan Potassium 25 mg 10/15/24 21:00 10/15/24 21:57 Losartan Potassium 25 Mg Tablet PO 25 mg HS HERMINIO Administration Methotrexate 12.5 mg 10/19/24 09:00 Methotrexate 2.5 Mg Tab (*Chemo) PO Borja@0900 HERMINIO Morphine Sulfate 4 mg 10/14/24 22:58 Morphine Sulfate (*Crx) 4 Mg/Ml Inj IV PUSH Q2H PRN Pain Rated 7-10 Multivitamins Therapeutic 1 tablet 10/15/24 09:00 10/15/24 12:32 Multivitamins Therapeutic Tab (*Bkc) PO 1 tablet DAILY HERMINIO Administration Non-Formulary Medication 1 drop 10/16/24 09:00 Timolol Maleate EACH EYE 11/15/24 08:59 DAILY [facility] Ondansetron HCl 4 mg 10/14/24 22:58 Ondansetron Inj 4 Mg/2 Ml Vial IV PUSH Q4H PRN Nausea Ondansetron HCl 4 mg 10/15/24 14:33 Ondansetron Inj 4 Mg/2 Ml Vial IV PUSH Q6H PRN Nausea And Vomiting Trazodone HCl 50 mg 10/15/24 10:24 Trazodone Hcl 50 Mg Tablet PO QHS PRN sleep Vitamin D 25 mcg 10/15/24 09:00 10/15/24 12:31 Cholecalciferol (Vitamin D3) 25 Mcg (1,000 Units) Tablet PO 25 mcg DAILY HERMINIO Administration Radiology Results: ITS Impressions Abdomen/Pelvis CT 10/14/24 19:35 IMPRESSION: 1. Highly suggestive left kidney pyelonephritis. Clinical correlation and follow-up advised. 2. Fluid in the right side of the colon and in the small bowel suggestive of diarrhea versus enteritis. 3. Multiple cysts in the liver. 4. Small right adrenal adenoma. No follow-up advised unless clinically warranted. 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 Labs Labs: Laboratory Results - last 24 hr 10/14/24 10/15/24 10/16/24 22:42 10:12 05:18 WBC 5.3 RBC 3.13 L Hgb 10.4 L Hct 32.7 L MCV 104.5 H MCH 33.2 MCHC 31.8 L RDW 13.4 Plt Count 183 MPV 10.2 Immature Gran % (Auto) 0.4 Neut % (Auto) 62.3 Lymph % (Auto) 19.0 [place] % (Auto) 16.5 H Eos % (Auto) 1.0 Baso % (Auto) 0.8 Lymph # (Auto) 1.00 [place] # (Auto) 0.9 H Eos # (Auto) 0.1 Baso # (Auto) 0.0 Abs Immat Gran (auto) 0.02 Absolute Neuts (auto) 3.3 Absolute Nucleated RBC 0.000 Nucleated RBC % 0.0 Sodium 137 Potassium 4.0 Chloride 104 Carbon Dioxide 27 Anion Gap 6 BUN 12 Creatinine 0.89 Estim Creat Clear Calc 56 Estimated GFR > 60 Glucose 96 Calcium 9.2 Total Bilirubin 0.3 AST 36 ALT 35 Alkaline Phosphatase 70 Total Protein 6.0 L Albumin 3.1 L C. difficile (PCR) Cancelled Negative Quality VTE Prophylaxis VTE prophylaxis: mechanical ordered
[2024-10-16 08:40] VITALS: PULSE 74
[2024-10-16] MEDS: CHOLECALCIFEROL (VITAMIN D3) 25 MCG (1,000 UNITS) TABLET PO (08:40)
[2024-10-16] MEDS: MULTIVITAMINS THERAPEUTIC TAB (*BKC) 1 TABLET PO (08:40)
[2024-10-16] MEDS: CLOPIDOGREL BISULFATE 75 MG TABLET PO (08:40)
[2024-10-16] MEDS: ISOSORBIDE MONONITRATE 30 MG TAB.ER.24H PO (08:40)
[2024-10-16] MEDS: carvediloL 6.25 MG TABLET PO ×2 (08:40→20:53)
[2024-10-16] MEDS: FOLIC ACID 1 MG TABLET 2 MG PO (08:40)
[2024-10-16] MEDS: CITALOPRAM HYDROBROMIDE 20 MG TABLET PO (08:40)
[2024-10-16 14:16] VITALS: BP 102/58; PULSE 76; RESP 16; TEMP 36.4; O2SAT 98
[2024-10-16 18:26] LABS: Magnesium 1.9 mg/dL (1.6-2.3)
[2024-10-16 20:53] VITALS: PULSE 76
[2024-10-16] MEDS: ATORVASTATIN 40 MG TABLET PO (20:53)
[2024-10-16] MEDS: ASPIRIN 81 MG ENTERIC TABLET PO (20:53)
[2024-10-16] MEDS: LOSARTAN POTASSIUM 25 MG TABLET PO (20:53)
[2024-10-16] MEDS: levoFLOXacin 750 MG TABLET PO (20:53)
[2024-10-16 21:03] VITALS: BP 120/73; PULSE 75; RESP 16; TEMP 36.6; O2SAT 100
[2024-10-16] MEDS: traZODone HCL 50 MG TABLET PO (23:50)
[2024-10-17 04:54] LABS: Basophils Percent Auto 0.5 % (0.2-1.2); Eosinophils Absolute Auto 0.1 K/mm3 (0-0.3); Eosinophils Percent Auto 0.9 % (0-4.4); Hematocrit 35.8 % (37.0-47.0); Hemoglobin 11.3 g/dL (12.0-15.0); Immature Granulocyte Absolute 0.04 K/mm3 (0.00-0.031); Immature Granulocyte Percent A 0.7 % (0-0.5); Lymphocytes Absolute Auto 1.18 K/mm3 (0.9-3.2); Lymphocytes Percent Auto 20.7 % (18.3-44.2); Mean Corpuscular HGB Conc 31.6 g/dl (32-36); Mean Corpuscular Hemoglobin 33.2 pg (26-34); Mean Corpuscular Volume 105.3 fl (80-100); Mean Platelet Volume 10.3 fl (7.4-10.4); Monocytes Absolute Auto 0.8 K/mm3 (0.1-0.6); Monocytes Percent Auto 13.7 % (2.6-8.5); Neutrophils Absolute Auto 3.6 K/mm3 (1.3-6.7); Neutrophils Percent Auto 63.5 % (45.5-73.1); Platelet Count Result 231 k/mm3 (150-375); Red Cell Distribution Width 13.2 % (11.5-14.5); White Blood Count 5.7 K/mm3 (4.5-10.0)
[2024-10-17 05:13] LABS: Alanine Aminotransferase 39 U/L (6-35); Albumin Level 3.5 g/dL (3.5-5.1); Alkaline Phosphatase 72 U/L (38-126); Anion Gap 8 mmol/L (4-12); Aspartate Amino Transferase 34 U/L (14-36); Bilirubin,Total 0.4 mg/dL (0.2-1.3); Blood Urea Nitrogen 12 mg/dL (7-17); Calcium 9.4 mg/dL (8.4-10.2); Carbon Dioxide 27 mmol/L (22-30); Chloride 104 mmol/L (98-107); Estimated CRCL calculation 65 ml/min; Estimated Glomerular Filt Rate > 60; Glucose 101 mg/dL (65-110); Potassium 3.9 mmol/L (3.4-5.0); Sodium 139 mmol/L (137-145)
[2024-10-17 05:15] LABS: Band Neutrophils Percent 0 % (0-6); Ovalocytes 1+; Platelet Estimate Adequate (Adequate); Schistocytes None Seen
[2024-10-17] MEDS: ACETAMINOPHEN 500 MG TABLET PO ×2 (06:24→11:57)
[2024-10-17] MEDS: LEVOTHYROXINE SODIUM 25 MCG TABLET PO (06:24)
[2024-10-17 08:45] VITALS: BP 133/74; PULSE 77; RESP 16; TEMP 36.6; O2SAT 97
[2024-10-17 08:50] VITALS: PULSE 77
[2024-10-17] MEDS: FOLIC ACID 1 MG TABLET 2 MG PO (08:50)
[2024-10-17] MEDS: carvediloL 6.25 MG TABLET PO (08:50)
[2024-10-17] MEDS: CLOPIDOGREL BISULFATE 75 MG TABLET PO (08:50)
[2024-10-17] MEDS: CHOLECALCIFEROL (VITAMIN D3) 25 MCG (1,000 UNITS) TABLET PO (08:50)
[2024-10-17] MEDS: predniSONE 2.5 MG TABLET 7.5 MG PO (08:50)
[2024-10-17] MEDS: CITALOPRAM HYDROBROMIDE 20 MG TABLET PO (08:50)
[2024-10-17] MEDS: ISOSORBIDE MONONITRATE 30 MG TAB.ER.24H PO (08:50)
[2024-10-17] MEDS: MULTIVITAMINS THERAPEUTIC TAB (*BKC) 1 TABLET PO (08:50)
--- NOTE | 2024-10-17 09:44 | P.DS_ITS ---
DS: Admitting Diagnosis Discharge Date 10/17/2024 Admitting Diagnosis Pyelonephritis DS: Discharge Diagnosis Discharge Diagnosis (1) Pyelonephritis of left kidney: Code(s): N12 - Tubulo-interstitial nephritis, not specified as acute or chronic Status: Acute Assessment and Plan: Ceftriaxone IV until 10/15 PM, started on oral Levaquin 10/16, will continue x4 days upon discharge today UC negative Heart healthy diet tolerating well Labs have been stable No CVA TTP (2) Diarrhea: Code(s): R19.7 - Diarrhea, unspecified Status: Acute Assessment and Plan: Stool cultures and dif negative Pt reports that she has not had any bouts of diarrhea since 10/14, she had a formed stool this AM. (3) Adrenal adenoma: Code(s): D35.00 - Benign neoplasm of unspecified adrenal gland Status: Acute Assessment and Plan: A/P CT: Small right adrenal adenoma. No follow-up advised unless clinically warranted -F/u with PCP, pt agreeable. (4) Liver cyst: Code(s): K76.89 - Other specified diseases of liver Status: Acute Assessment and Plan: A/P CT: Multiple cysts in the liver -F/u with PCP and/or liver specialist pt already established with Plan Pain control, infection control DS: Summary Hospital Course Reason for hospitalization: Pyelonephritis Hospital Course: Patient is a 63-year-old female with a history of hysterectomy, cardiac bypass in 2014, cardiomyopathy, hypertension, hyperlipidemia. Patient presents to the emergency department complaining of diarrhea on October 14 she said that she had been experiencing diarrhea for 5 days. Patient also complains of subjective fever up to 104? F with abdominal pain and weakness. Patient reports nothing helping with any of her symptoms. Patient also complaining of decreased appetite as well as malodorous urine, urinary frequency, and urgency. In the ED patient's heart rate breathing and blood pressure within normal as well as temperature. CT abdominal pelvis with contrast and UA was performed in the ED yielding neutrophilia with left shift, dehydration with low sodium and chloride but not severe range. Normal renal function. Normal glucose and mildly elevated LFTs. Negative lactic acid. Normal lipase. Urinalysis shows signs of infection with red and white cells, leukocyte esterase. Viral panel swabs are negative. CT scan shows left-sided pyelonephritis as well as fluid in the colon consistent with enteritis versus diarrhea. She has some incidental multiple cysts on the liver and a adrenal adenoma. Patient was started on IV Rocephin in the ED for pylo coverage. Pt continues to report that she is feeling much better, she states that she feels at her baseline today. Continue PO Levaquin upon D/C. Stool cultures negative. C diff negative. Pt still able to eat and keep down food/water. Pt has been hemodynamically stable including labs. Pt no longer in pain. Pt agreeable with plan for discharge today. Status at Discharge Cognitive/behavioral status at discharge: Stable Functional status at discharge: independent ambulation Overall status at discharge: patient is back to baseline Time Spent with Patient Time attestation: Total time spent providing and/or coordinating discharge services: Exam Narrative: Pt sitting up comfortably in bed. Const: General: comfortable and no acute distress HENMT: Face/Nose/Sinus: Normal nares present Mouth: Yes moist mucous membranes Eyes: General: appearance normal, both eyes and all related structures Sclera: sclerae normal Neck: Neck: supple and no JVD Resp: Effort & Inspection: normal respiratory effort Auscultation: clear to auscultation bilaterally Cardio: Rate: regular rate Rhythm: regular rhythm GI: Inspection: non-distended Auscultation: normal bowel sounds : Other: No CVA ttp Skin: General skin exam: normal color and no rashes or lesions noted Wounds: no wounds Neuro: Cranial nerves: Yes Equal, round and reactive pupils present Speech: normal speech Motor exam (neuro): Normal motor muscle tone present throughout Sensory Exam: normal sensation Extrem: General: normal to inspection Psych: Mental Status: mental status grossly normal Affect: normal affect DS: Data Data Completed and Pending Labs on day of discharge: Labs from last 24 hours 10/17/24 10/16/24 04:08 17:53 WBC 5.7 RBC 3.40 L Hgb 11.3 L Hct 35.8 L MCV 105.3 H MCH 33.2 MCHC 31.6 L RDW 13.2 Plt Count 231 MPV 10.3 Immature Gran % (Auto) 0.7 H Neut % (Auto) 63.5 Lymph % (Auto) 20.7 [place] % (Auto) 13.7 H Eos % (Auto) 0.9 Baso % (Auto) 0.5 Lymph # (Auto) 1.18 [place] # (Auto) 0.8 H Eos # (Auto) 0.1 Baso # (Auto) 0.0 Abs Immat Gran (auto) 0.04 H Absolute Neuts (auto) 3.6 Absolute Nucleated RBC 0.000 Band Neutrophils % 0 Nucleated RBC % 0.0 Platelet Estimate Adequate Ovalocytes 1+ Schistocytes None seen Sodium 139 Potassium 3.9 Chloride 104 Carbon Dioxide 27 Anion Gap 8 BUN 12 Creatinine 0.76 Estim Creat Clear Calc 65 Estimated GFR > 60 Glucose 101 Calcium 9.4 Magnesium 1.9 Total Bilirubin 0.4 AST 34 ALT 39 H Alkaline Phosphatase 72 Total Protein 7.0 Albumin 3.5 Discharge Plan Discharge Attending physician on discharge: Jesika Garnett Discharging Clinician: Jesika Garnett Anticipated Discharge Date/Time: 10/17/24 12:00 Patient Disposition: Home Activity: may shower and as tolerated Diet: heart healthy Discharge Instructions: 1. Remember to continue to follow-up with the specialists that you routinely see, including your liver team. We talked about seeing a cysts in your liver, benign spots on your adrenal gland (on top of your kidney) your team may be aware of this already, but just to make sure, follow-up with them in the near future. 2. I am sending you home with a course of antibiotics to make sure that the kidney infection goes away and stays away, it is called Levaquin. You will take this medication once daily x4 more days, starting this evening (10/17). Make sure to take this medication until it is completely gone. Continue to check your blood pressure and blood sugar at home if applicable. Keep your scheduled appts with your primary care provider and any specialist that you may see. Return to the emergency department if you develop sudden shortness of breath, chest pain, a fever of greater than 101.5, or nausea, vomiting, abd pain, or diarrhea that does not go away. Follow-up with your primary care provider within 1-2 weeks, they will want to be updated on your inpatient stay in the hospital as well as the cysts found in your liver and the spots you are aware of in your lung and adrenals. Thank you for choosing [facility] for your healthcare needs. Patient Instructions: Antibiotic Form, Levofloxacin (By mouth), Clopidogrel (By mouth), Heart Failure (DC), Kidney Infection (GEN) Patient Language: Kiswahili Stand Alone Forms: General Discharge Information Follow-up/Referrals: Elena Traylor DO [Primary Care Provider] - 2 Weeks Discharge Medications: New levofloxacin 750 mg tablet 750 mg PO DAILY Qty: 4 0RF Rx Instructions: Start taking this medication this evening, 10/17. And then once daily until gone. Continued atorvastatin 40 mg tablet 40 mg PO DAILY carvedilol 6.25 mg tablet 6.25 mg PO Q12H Rx Instructions: must administer with a meal/food citalopram 20 mg tablet 20 mg PO DAILY aspirin [Adult Aspirin Regimen] 81 mg tablet,delayed release (DR/EC) 81 mg PO DAILY clopidogrel 75 mg tablet 75 mg PO DAILY diclofenac sodium 1 % gel 4 g topical QID PRN (Reason: pain) Rx Instructions: apply to single knee, ankle, foot; for foot includes sole/toes/top of foot isosorbide mononitrate 30 mg tablet extended release 24 hr 30 mg PO DAILY prednisone 5 mg tablet 7.5 mg PO DAILY folic acid 1 mg tablet 2 mg PO DAILY methotrexate sodium 2.5 mg tablet 12.5 mg PO WEEKLY timolol maleate 0.25 % drops 1 drp EACH EYE DAILY losartan 25 mg tablet 25 mg PO DAILY multivitamin Tablet 1 tablet PO DAILY acetaminophen [Tylenol Extra Strength] 500 mg tablet 500 mg PO Q6H Rx Instructions: Pt.takes 4500mg daily of tylenol. cholecalciferol (vitamin D3) 25 mcg (1,000 unit) capsule 25 mcg PO DAILY clobetasol 0.05 % shampoo 1 applic topical DAILY PRN (Reason: SCALP) trazodone 50 mg tablet 50 mg PO QHS PRN (Reason: sleep) Qty: 90 0RF levothyroxine [Synthroid] 25 mcg tablet 25 mcg PO DAILY Qty: 90 0RF Date of admission: 10/15/24 07:42 Primary Care Provider: Elena Traylor Admitting Provider: Shikha Herrera Attending physician on admission: Jesika Garnett Condition: Stable Quality VTE Prophylaxis VTE prophylaxis: mechanical ordered Hospitalist MIPS Heart Failure (Exclusion) Patient has history of Heart Transplant or Left Ventricular Assistive Device?: No IF YES, STOP HERE Heart Failure (Qualifier) Patient has current or prior documentation of LVEF less than or equal to 40%, or mod/servere depressed LVSF?: Yes IF NO, STOP HERE If Yes, Heart Failure (Qualifier) Patient was prescribed or already taking an Angiotensin-Converting Enzyme (NOELLE) Inhibitor, or Antiotensin Receptor Christina (ARB): Yes Patient was prescribed or already taking bisoprolol, carvedilol, or sustained release metoprolol succinate: Yes
== END 2024-10-17 13:10 | disposition home or self-care (01) | DRG 690 ==
LOC: ANHED 22:20 → ANH3MEDSUR 23:39 → ANH2MED 10-15 01:11
PROVIDERS: Physician Assistant; Admitting Provider Internal Medicine; Emergency Provider Student in an Organized Health Care Education/Training Program; PCP Family Medicine
DX: N12 Tubulo-interstitial nephritis, not specified as acute or chronic (principal); I42.9 Cardiomyopathy, unspecified; R19.7 Diarrhea, unspecified; D35.01 Benign neoplasm of right adrenal gland; K76.89 Other specified diseases of liver; M06.9 Rheumatoid arthritis, unspecified; M47.817 Spondylosis without myelopathy or radiculopathy, lumbosacral region; G47.33 Obstructive sleep apnea (adult) (pediatric); H26.239 Glaucomatous flecks (subcapsular), unspecified eye; F41.9 Anxiety disorder, unspecified; Z20.822 Contact with and (suspected) exposure to COVID-19; I25.2 Old myocardial infarction; Z79.02 Long term (current) use of antithrombotics/antiplatelets; Z79.82 Long term (current) use of aspirin; Z98.1 Arthrodesis status; Z95.810 Presence of automatic (implantable) cardiac defibrillator; Z95.1 Presence of aortocoronary bypass graft; Z87.891 Personal history of nicotine dependence
CPT/HCPCS: 36415; 74177; 80053; 81001; 83605; 83690; 83735; 85025; 87045; 87086; 87427; 87449; 87493; 87637; 96361; 96365; 96375; 99285; A9270; G0378; J0696; J2405; J7030; J7120; Q9967

== ENCOUNTER 2024-11-10 10:40 | Outpatient (CLI) | payer MEDICARE, SELFPAY ==
--- NOTE | ~2024-11-10 | CT_ITS ---
CT Scan of the Chest without Contrast: Clinical Indication: Pulmonary nodule Technique: Contiguous sections were acquired throughout the chest without intravenous contrast. Dose reduction technique was used on this scan by utilizing automated exposure control and iterative recon struction technique. The dose-length product (DLP) was 72.56 mGy-cm. COMPARISON: 08/15/2024 Findings: There is no evidence of any significant mediastinal, hilar or axillary lymphadenopathy. Stable coarse calcification along the pericardium at the left ventricular apex region and posterolateral myocardiu m of the left ventricular apex. Pacemaker device present.. There is no evidence of pleural or pericardial effusion. Stable right apical scarring. Moderate to advanced emphysema present. Stable anteromedial right upper lobe pulmonary nodules. Images through the upper abdomen reveal no abnormalities. Impression: Stable nodules in the anteromedial right upper lobe. Moderate to advanced emphysema. Stable coarse calcifications left ventricular apex and the adjacent pericardium. Reviewed, dictated and finalized at [facility]. Impression: Stable nodules in the anteromedial right upper lobe. Moderate to advanced emphysema. Stable coarse calcifications left ventricular apex and the adjacent pericardium .
== END 2024-11-10 10:41 | disposition home or self-care (01) ==
LOC: MICIMG 10:41
PROVIDERS: PCP Family Medicine; Visit Provider Family Medicine
DX: R91.8 Other nonspecific abnormal finding of lung field (principal); I31.1 Chronic constrictive pericarditis; I51.89 Other ill-defined heart diseases; R91.1 Solitary pulmonary nodule; J43.9 Emphysema, unspecified
CPT/HCPCS: 71250

== ENCOUNTER 2024-12-02 05:02 | Emergency (ER) | payer MEDICARE, SELFPAY ==
--- NOTE | ~2024-12-02 | XR_ITS ---
Left foot Technique: AP, oblique, and lateral views were obtained. Clinical History: Great toe infection COMPARISON: 02/19/2014 Findings: No acute fracture or dislocation is seen. There is orthopedic fusion across the interphalan geal joint of the great toe with orthopedic screw in place. There is severe degenerative change of th e first MTP joint. Probable old, healed fracture for the second metatarsal shaft. There is moderate d egenerative change of the fourth MTP joint. Soft tissues are unremarkable. Impression: No definite acute abnormality. Degenerative changes of the first and fourth MTP joints, as above. Prior orthopedic fusion across the interphalangeal joint of the great toe. Reviewed, dictated and finalized at location M. Impression: No definite acute abnormality. Degenerative changes of the first and fourth MTP joints, as above. Prior orthopedic fusion across the interphalangeal joint of the great toe.
--- OUTSIDE RECORDS SUMMARY | 2024-12-02 05:04 | XMS_ITS | Referral Summary ---
Author Organization [facility] Address [address] [place] [address] Care Team Providers Care Seed Cleaner Name Role Phone Yinka Lewis MD Unavailable Zafar Sorenson DO Primary Care Provider [phone] Encounters Date Type Department Care Team Description 10/06/2024 Telephone [facility] Ophthalmology [address] [place] [address] Sophie Henry, ASHUTOSH 09/25/2024 Telephone [facility] Ophthalmology [address] [place] [address] Sophie Henry, OD Reschedule Appointment 09/23/2024 9:00 AM CDT Office Visit [facility] Rheumatology [address] [place] [address] [place] [address] Yonis Mclaughlin MD PhD Rheumatoid arthritis, involving unspecified site, unspecified whether rheumatoid factor present (HCC) (Primary Dx); 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 systemic steroid user; alf methotrexate user 09/04/2024 Telephone [facility] Rheumatology [address] [place] [address] [place] [address] Shannon Rosado RMA from Last 3 Months Allergies Active Allergy Reactions Criticality Noted Date Comments Codeine Itching Low 07/11/2018 Hydrocodone-Acetaminophen Itching High 06/03/2015 Niacin Itching Medium Simvastatin Muscle pain Medium Sulfa (Sulfonamide Antibiotics) Nausea & Vomiting High 06/03/2015 Sulfadiazine Stomach upset High 06/03/2015 Medications clopidogrel (PLAVIX) 75 mg tabletIndicatio ns:Thrombosis Prevention after PCI Take 1 tablet (75 mg total) by mouth every morning Active atorvastatin (LIPITOR) 40 mg tablet Take 1 tablet (40 mg total) by mouth daily 90 tablet 3 11/27/19 19 Active carvedilol (COREG) 6.25 mg tablet TAKE 1 TABLET BY MOUTH TWICE A DAY 180 tablet 2 12/24/19 19 Active isosorbide mononitrate ER (IMDUR) 30 mg 24 hr tabletIndicatio ns:prevention of anginal pain in coronary artery disease Take 1 tablet (30 mg total) by mouth every morning 05/30/19 20 Active multivitamin capsuleIndicati ons:Vitamin Deficiency Prevention Take 1 capsule by mouth every morning 07/11/19 19 Active magnesium oxide (MAG-OX) 400 mg (241.3 mg elemental magnesium) tabletIndicatio ns:hypomagnesem ia Take 1 tablet (400 mg total) by mouth every morning 05/21/18 70 Active acetaminophen (TYLENOL) 500 mg tablet Take 2 tablets (1,000 mg total) by mouth every 6 (six) hours as needed for pain Active aspirin 81 mg chewable tabletIndicatio ns:Heart attack/ CABG surgeries twice Take 1 tablet (81 mg total) by mouth nightly Active ascorbic acid (ascorbic acid with den hips) 500 mg tablet,chewable Indications:imm une support Take 1 tablet/chew tab (500 mg total) by mouth every morning Active losartan (COZAAR) 50 mg tablet Take 0.5 tablets (25 mg total) by mouth nightly 03/03/20 23 Active clobetasoL (CLOBEX) 0.05 % shampoo APPLY TOPICALLY TO THE AFFECTED AREA DAILY 12/17/19 24 Active clotrimazole 1 % cream APPLY EXTERNALLY TO THE AFFECTED AREA ON SNOW EVERY 12 HOURS 12/17/19 24 Active traZODone (DESYREL) 50 mg tablet Take 1 tablet (50 mg total) by mouth daily as needed 12/14/19 24 Active methotrexate 2.5 mg tabletIndicatio ns:autoimmune disease Take 5 tablets (12.5 mg total) by mouth every 7 days 60 tablet 1 04/23/20 24 Active folic acid (FOLVITE) 1 mg tabletIndicatio ns:Folate Deficiency Take 2 tablets (2 mg total) by mouth every morning 180 tablet 3 04/23/20 24 Active citalopram (CeleXA) 40 mg tabletIndicatio ns:Rheumatoid arthritis, involving unspecified site, unspecified whether rheumatoid factor present (HCC) Take 1 tablet (40 mg total) by mouth daily 90 tablet 3 04/23/20 24 Active timolol (TIMOPTIC) 0.5 % ophthalmic solutionIndicat ions:Borderline steroid-induced glaucoma of both eyes INSTILL 1 DROP IN BOTH EYES DAILY 10 mL 11 06/12/19 25 Active levothyroxine (SYNTHROID) 25 mcg tablet Take 1 tablet (25 mcg total) by mouth daily 09/18/19 25 Active ondansetron (ZOFRAN) 4 mg tablet TAKE 1 EVERY 6 HOURS NEEDED FOR NAUSEA 07/06/19 25 Active predniSONE (DELTASONE) 5 mg tabletIndicatio ns:Rheumatoid arthritis involving multiple sites with positive rheumatoid factor (HCC) TAKE 1 AND 1/2 TABLETS(7.5 MG) BY MOUTH DAILY 135 tablet 1 11/20/19 25 Active predniSONE (DELTASONE) 5 mg tabletIndicatio ns:Rheumatoid arthritis involving multiple sites with positive rheumatoid factor (HCC) TAKE 1 AND 1/2 TABLETS(7.5 MG) BY MOUTH DAILY 135 tablet 1 04/23/20 24 025 Discontinued Active Problems Problem Noted Date Diagnosed Date alf systemic steroid user 09/23/2024 alf methotrexate user 09/23/2024 Pseudophakia of both eyes [...] 2021 Assessment & Plan (04/25/2022 11:23 AM KNITTING MACHINE MECHANIC): Ok to use tdex prn to the [...] (06/11/2019): Added automatically from request for surgery [id number] PAD (peripheral artery disease) 10/02/2018 Dry eye syndrome of both eyes 06/20/2018 Assessment & Plan (06/12/2024 5:32 PM KNITTING MACHINE MECHANIC): Continue with PF AFT TID and PRN Assessment & Plan (09/06/2023 10:46 AM CDT): Pfats TID+ OU Assessment & Plan (04/25/2022 11:23 AM KNITTING MACHINE MECHANIC): Cont emycin rona at bedtime (qhs) Assessment [...] (OU) Assessment & Plan (06/20/2024 4:16 PM KNITTING MACHINE MECHANIC): Visual field (VF), OCT normal/reassuring, pt ed. 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: CABG x2 [...] on file Legal Sex Female 9:01 PM KNITTING MACHINE MECHANIC Gender Identity Not on file Sexual Orientation [...] on file Medical Devices Implanted Type Area Contract Engineer Device Identifier Shelf Expiration Date Model / Serial / Lot Icd ICD Chest Wall Description:Implanted 2014 p er pt [id number] 21.5 Vlareon Iol Ashperic Uv Absorbing Iol Implanted:Qty : 1 on 05/07/2023 by María Araiza MD at [facility] [place] Lens Left: Eye [employer] 07/02/2026 CCA0T0 / [id number] / Other - See Comments-02/18 Implanted:03/2015 (Quantity not on file) Other - see comments Left: Chest Wall Biotronik Screw Screw Left: Foot Description:Screw in great l eft toe Clareon Uv Iol Cca0t0 21.0 Implanted:Qty : 1 on 04/16/2023 by María Araiza MD at [facility] [place] Right: Eye [employer] 11/20/2026 CCA0T0.21 0 / [id number] / Procedures Procedure Name Priority Date/Time [...] Read Routine (OP Routine) 06/18/2018 9:20 AM KNITTING MACHINE MECHANIC High risk medication use from Last 3 Months or Most Recently Relevant to Health Maintenance Results * (ABNORMAL) CBC with auto differential (09/09/2024 9:16 AM CDT) Pathologist [facility] WBC 5.2 3.8 - 10.8 Thousand/u L [...] ORDERABLES Final Re sult Performing Organization Address [facility] Co de Phone Number [facility]osterSaint [facility] [address] [place] [address] * Erythrocyte sedimentation rate (09/09/2024 9:16 AM CDT) Pathologist [facility] Erythrocyte sedimentation rate 2 < OR = 30 mm/h Subha CRAVE-Sukhi Yousif Blood 09/09/2024 9:16 AM CDT 09/09/2024 9:16 AM CDT Narrative [facility] - 09/09/2024 10:57 PM CDT FASTING:YES FASTING: YES Eliseo Bates MD LAB BLOOD ORDERABLES Final Re sult Performing Organization Address [facility] Co de Phone Number [facility] NetworksSaint [facility] [address] [place] [address] * CRP (acute phase) (09/09/2024 9:16 AM CDT) C-RP <5.0 <8.0 mg/L [facility] Tiffany-Francisco Blood 09/09/2024 9:16 AM CDT 09/09/2024 9:16 AM CDT Narrative [facility] - 09/09/2024 10:57 PM CDT FASTING:YES FASTING: YES us Eliseo Bates MD LAB BLOOD ORDERABLES Final Re sult SUBHA AllenSt Yousif [address] [place] [address] * Comprehensive metabolic panel (09/09/2024 9:16 AM CDT) [facility] Glucose 86 65 - 99 mg/dL Subha CRAVE-Sukhi Yousif Comment: Fasting reference interval BUN 17 7 - 25 mg/dL Subha CRAVE-Sukhi petersen Benja Creatinine 0.90 0.50 - 1.05 mg/dL Subha CRAVE-S nicola Yousif eGFR 71 > OR = 60 mL/min/1.7 3m2 Subha CRAVE-Sukhi Yousif BUN/creat ratio SEE NOTE: (calc) Subha CRAVE-Sukhi Yousif Comment: Not Reported: BUN and Creatinine are within reference range. Sodium 138 135 - 146 mmol/L Subha CRAVE-Sukhi Yousif Potassium, pl 4.1 3.5 - 5.3 mmol/L [facility]ous[facility] Chloride 101 98 - 110 mmol/L [facility] CO2 29 20 - 32 mmol/L [facility] Calcium 9.6 8.6 - 10.4 mg/dL [facility]ous[facility] Protein, sr 6.4 6.1 - 8.1 g/dL [facility] Benja Albumin 4.1 3.6 - 5.1 g/dL [facility] Benja GLOBULIN 2.3 1.9 - 3.7 g/dL (calc) [facility] Alb/glob ratio 1.8 1.0 - 2.5 (calc) [facility]ous[facility] Bilirubin, total 0.7 0.2 - 1.2 mg/dL [facility] Alk phos 54 37 - 153 U/L [facility] AST 19 10 - 35 U/L [facility] Benja ALT (SGPT) 20 6 - 29 U/L blog[facility]oster-S nicola Benja Blood 09/09/2024 9:16 AM CDT 09/09/2024 9:16 AM CDT Narrative [facility] - 09/09/2024 10:57 PM CDT FASTING:YES FASTING: YES us Eliseo Bates MD LAB BLOOD ORDERABLES Final Re sult Performing Organization Address City/[facility]/ZIP Co de Phone Number [facility] [address] [place] [address] * Hepatitis C antibody Blood (11/26/2023 12:29 PM CDT) Hep C Ab NON-REACTI VE NON-REACT BALWINDER [facility] Comment: HCV antibody was non-reactive. There is no laboratory evidence of HCV infection. In most cases, no further action is required. However, if recent HCV exposure is suspected, a test for HCV RNA (test code 93536) is suggested. For additional information please refer to http://education.Yumit/faq/ZAT03k6 (This link is being provided for informational/ educational purposes only.) Blood 11/26/2023 12:2 9 PM CDT 11/26/2023 12:30 PM CDT Philip Kee MD LAB MICROBIOLOGY - GENERAL ORDERABLES Final Result Performing Organization Address City/[facility]/ZIP Co de Phone Number [facility] [address] [place] [address] * Dexa Axial Skeleton Bone Density With VFA (06/18/2018 9:20 AM KNITTING MACHINE MECHANIC) Anatomical Region Laterality Modality Body N/A Radiographic Moraima ging Narrative 06/18/2018 10:54 AM KNITTING MACHINE MECHANIC Patient Name: Kate Obrien Date of : 1960 Date of scan: 06/18/2018 Bone mineral density was performed on a [employer] Discovery Densitometer. Machine Cross-calibration and Precision studies [...] by the International Society of Clinical Densitometry. [id number] Vangie Be MD IMG DXA PROCEDURES Final Resu lt from Last 3 Months or Most Recently Relevant to Health Maintenance Insurance [facility] Address: [address] [address] [place] [address] MEDICARE ADVANTAGE [facility] Address: [address] [address] [place] [address] MEDICARE ADVANTAGE [facility] Address: [address] [address] [place] [address] [place] [address] Advance Directives For more information, please contact: [phone] * Full Code (Latest Code Status on File) Date Activated Date Inactivated Comments 02/14/2020 5:06 AM 02/15/2020 10:15 PM Care Teams Seed Cleaner Relationship Specialty Start Date End Date Zafar Sorenson DO [address] [place] [address] PCP - General Family Medicine 03/09/22 Yinka Lewis MD [address] [place] [address] Consulting Physician Cardiovascular Disease 08/30/20
--- OUTSIDE RECORDS SUMMARY | 2024-12-02 05:04 | XMS_ITS | Clinical Summary ---
Author Organization [facility] [facility] Address [address] [place] [address] Care Team Providers Care Lead Vulcanizing Operator Name Role Phone Keith Carreon MD Primary Care Provider [phone] Allergies No known active allergies Medications ALPRAZolam [...] 2008 OSTEOPOROSIS SCREENING 11/11/2023 INFLUENZA VACCINE (#1) 2024 RSV VACCINE (60+ or ) (1 - 1-dose 75+ series) 2033 Medical Devices Implanted Type Area Financial Accounting Manager Device Identifier Shelf Expiration Date Model / Serial / Lot Renny Olson Df4 Hi Enrg W Pro [id number] - Ol 020 Implanted:Qt y: 1 on 03/04/2020 by Freddy Garcia MD Defibrillator Left: Chest [employer] [id number] 09/17/2021 [id number] / [id number] / Lead Icd Plexa Promri S 65 [id number] - Oloa 020 Implanted:Qt y: 1 on 03/04/2020 by Freddy Garcia MD Lead [employer] [id number] 07/18/2021 [id number] / [id number] / Lead Pacemaker Solia S 53 [id number] Implanted:Qt y: 1 on 03/04/2020 by Freddy Garcia MD Lead [employer] [id number] 11/17/2021 [id number] / [id number] / Insurance BLUE PREFERRED Advance Directives For more information, please contact: [phone] * Full Code (Latest Code Status on File) Date Activated Date Inactivated Comments 03/04/2020 5:44 PM 03/05/2020 2:52 PM * Full Code Date Activated Date Inactivated Comments 03/04/2020 12:51 PM 03/04/2020 5:44 PM Care Teams Lead Vulcanizing Operator Relationship Specialty Start Date End Date Bonzelet, Keith, MD [address] [place] [address] PCP - General Internal Medicine 02/16/20
--- OUTSIDE RECORDS SUMMARY | 2024-12-02 05:04 | XMS_ITS | Encounter Summary ---
Author Organization [facility] Address [address] [place] [address] Phone Care Team Providers Care Director Of Consumer Affairs Name Role Phone Yinka Lewis MD Unavailable Zafar Sorenson DO Primary Care Provider [phone] Encounter Details Date Type Department Care Team (Late st Contact Info) Description 04/25/2023 Orders Only [facility] Ophthalmology [address] 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 Gender Identity Not on file Sexual Orientation [...] Orde r Schedule IOL Calculation 2nd Eye 63713 - OS - Left Eye Ophthalmology Routine Age-related cataract of left eye Ordered: 04/25/2023 documented as of this encounter Visit Diagnoses Diagnosis Age-related cataract of left eye- Primary documented in this encounter Care Teams Director Of Consumer Affairs Relationship Specialty Start Date End Date Zafar Sorenson DO [address] [place] [address] PCP - General Family Medicine 03/09/22 Yinka Lewis MD [address] [place] [address] Consulting Physician Cardiovascular Disease 08/30/20 documented as of this encounter
--- OUTSIDE RECORDS SUMMARY | 2024-12-02 05:05 | XMS_ITS | Clinical Summary ---
Author Organization [facility] Address [address] [place] [address] Care Team Providers Care Charging Operator Name Role Phone Keith Carreon MD Primary Care Provider [phone] Source Comments [facility],non-owned Affiliates and Associated Physician Practices is amultiple site organization consisting of ambulatory clinics and hospital sitesin [place], [place], [place] and [place]. This disclosure is being madepursuant to the Care Everywhere program and may not contain all information available regarding this patient. Last updated 18.[facility] Allergies No known active allergies Medications * [...] - COLON CA SCREENING 1960 MAMMOGRAM 1960 HEPATITIS C SCREENING 11/05/1976 DTAP/TDAP/TD VACCINES (1 - Tdap) 1977 PNEUMOCOCCAL VACCINE 50+ (1 of 1 - PCV) 2008 ZOSTER VACCINE (1 of 2) 2008 COVID-19 VACCINE (1 - 2023-2 5 season) 2024 DEPRESSION SCREENING 05/21/2024 INFLUENZA VACCINE (#1) 2025 Respiratory Syncytial Virus (RSV) Vaccine Pt: [...] patient's age to complete this topic Insurance [address] [place] [address] [facility] UHC MANAGED MEDICARE ADV SELF PAY NO INSURANCE Member Subscriber Plan / Payer (Ef fective for All Dates) Name:Lola Obrien Member ID:Not on file Relation to Subscriber:Not on file Name:LOLA OBRIEN Subscriber ID:Not on file (Home) Address: [address] [place] [address] [address] [place] [address] Payer ID:Not on file Group ID:Not on file Type:Self Pay Address: [place], [place] Advance Directives * Full Code (Latest Code Status on File) Date Activated Date Inactivated Comments 01/31/2020 12:07 AM 02/02/2020 5:05 PM Care Teams Charging Operator Relationship Specialty Start Date End Date Keith Carreon MD [address] [place] [address] PCP - General Internal Medicine 01/30/20
--- OUTSIDE RECORDS SUMMARY | 2024-12-02 05:05 | XMS_ITS | Clinical Summary ---
Author Organization [facility] Address [address] [place] [address] Care Team Providers Care Laboratory Manager Name Role Phone Yinka Lewis MD Unavailable Zafar Sorenson DO Primary Care Provider [phone] Allergies Active Allergy Reactions Criticality Noted Date [...] Active Problems Problem Noted Date Diagnosed Date half-way systemic steroid user 09/23/2024 termite helper methotrexate user 09/23/2024 Pseudophakia of both eyes [...] 2021 Assessment & Plan (04/25/2022 11:23 AM BURNING PLANT OPERATOR): Ok to use tdex prn to the [...] (06/11/2019): Added automatically from request for surgery [id number] PAD (peripheral artery disease) 10/02/2018 Dry eye syndrome of both eyes 06/20/2018 Assessment & Plan (06/12/2024 5:32 PM BURNING PLANT OPERATOR): Continue with PF AFT TID and PRN Assessment & Plan (09/06/2023 10:46 AM CDT): Pfats TID+ OU Assessment & Plan (04/25/2022 11:23 AM BURNING PLANT OPERATOR): Cont emycin rona at bedtime (qhs) Assessment [...] (OU) Assessment & Plan (06/20/2024 4:16 PM BURNING PLANT OPERATOR): Visual field (VF), OCT normal/reassuring, pt ed. 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: CABG x2 [...] Department Care Team Description 10/06/2024 Telephone [facility] Ophthalmology [address] [place] [address] Sophie Henry, ASHUTOSH 09/25/2024 Telephone [facility] Ophthalmology [address] [place] [address] Sophie Henry, OD Reschedule Appointment 09/23/2024 9:00 AM CDT Office Visit [facility] Rheumatology [address] [place] [address] Medicine 5th [place] [address] [place] [address] Yonis Mclaughlin MD PhD Rheumatoid arthritis, involving unspecified site, unspecified whether rheumatoid factor present (HCC) (Primary Dx); termite helper systemic steroid user; termite helper methotrexate user 09/04/2024 Telephone [facility] Rheumatology [facility] 5th [place] [address] [place] [address] Shannon Rosado RMA from Last 3 Months Immunizations Immunization Administration Dates Next Due PPD TEST 06/13/2010 Pfizer SARS-CoV-2 Monovalent Vaccination (12+ Yrs) PURPLE 01/14/2021 Pneumococcal Polysaccharide PPV23 04/06/2020 Surgical History Surgery Date Site/Laterality Comments CORONARY ARTERY BYPASS GRAFT 09/30/2014 Chronically occluded LAD, silent [place], large apical aneurysm, Two vessel -- SVG [...] of placement of inte rnal cardiac defibrillator 2015 Biotronik, followed by Dr. Severiano chiang Rheumatoid arthritis (HCC) Follo wed by Dr. 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 Gender Identity Not on file Sexual [...] Fall Risk Assessment 05/07/2024 05/07/2023 Influenza Vaccine (#1) 2025 Hepatitis C Screening Completed 11/26/2023, 018 Medical Devices Implanted Type Area Elevator Constructor Helper Device Identifier Shelf Expiration Date Model / Serial / Lot Icd ICD Chest Wall Description:Implanted 2014 p er pt Cca0t0 21.5 Vlareon Iol Ashperic Uv Absorbing Iol Implanted:Qty : 1 on 05/07/2023 by María Araiza MD at [facility] Lens Left: Eye [employer] 07/02/2026 CCA0T0 / [id number] / Other - See Comments-02/18 Implanted:03/2015 (Quantity not on file) Other - see comments Left: Chest Wall Biotronik Screw Screw Left: Foot Description:Screw in great l eft toe Clareon Uv Iol Cca0t0 21.0 Implanted:Qty : 1 on 04/16/2023 by María Araiza MD at [facility] [place] Right: Eye [employer] 11/20/2026 CCA0T0.21 0 / [id number] / Procedures Procedure Name Priority Date/Time [...] Read Routine (OP Routine) 06/18/2018 9:20 AM BURNING PLANT OPERATOR High risk medication use from Last 3 Months or Most Recently Relevant to Health Maintenance Results * (ABNORMAL) CBC with auto differential (09/09/2024 9:16 AM CDT) [facility] WBC 5.2 3.8 - 10.8 Thousand/u L [...] MD LAB BLOOD ORDERABLES Final [facility] [address] [place] [address] * Erythrocyte sedimentation rate (09/09/2024 9:16 AM CDT) Pathologist [facility] Erythrocyte sedimentation rate 2 < OR = 30 mm/h [facility] nicola Yousif Blood 09/09/2024 9:16 AM CDT 09/09/2024 9:16 AM CDT Narrative [facility] - 09/09/2024 10:57 PM CDT FASTING:YES FASTING: YES Eliseo Bates MD LAB BLOOD ORDERABLES Final Re sult Performing Organization Address [facility] de Phone Number [place] [address] [place] [address] * CRP (acute phase) (09/09/2024 9:16 AM CDT) [facility] C-RP <5.0 <8.0 mg/L [facility] Blood 09/09/2024 9:16 AM CDT 09/09/2024 9:16 AM CDT Narrative [facility] - 09/09/2024 10:57 PM CDT FASTING:YES FASTING: YES us Eliseo Bates MD LAB BLOOD ORDERABLES Final Re sult Performing Organization Address [facility] de Phone Number [facility] [address] [place] [address] * Comprehensive metabolic panel (09/09/2024 9:16 AM CDT) [facility] Glucose 86 65 - 99 mg/dL [facility] nicola Yousif Comment: Fasting reference interval BUN 17 7 - 25 mg/dL [facility] Yousif Creatinine 0.90 0.50 - 1.05 mg/dL [facility] nicola Yousif eGFR 71 > OR = 60 mL/min/1.7 3m2 [facility] nicola Yousif BUN/creat ratio SEE NOTE: (calc) [facility] nicola Yousif Comment: Not Reported: BUN and Creatinine are within reference range. Sodium 138 135 - 146 mmol/L [facility] nicola Yousif Potassium, pl 4.1 3.5 - 5.3 mmol/L [facility] nicola Yousif Chloride 101 98 - 110 mmol/L [facility] nic[facility] Yousif CO2 29 20 - 32 mmol/L [facility] Yousif Calcium 9.6 8.6 - 10.4 mg/dL [facility] nicola Yousif Protein, sr 6.4 6.1 - 8.1 g/dL [facility] nic[facility] Yousif Albumin 4.1 3.6 - 5.1 g/dL [facility] nicola Yousif GLOBULIN 2.3 1.9 - 3.7 g/dL (calc) [facility] Yousif Alb/glob ratio 1.8 1.0 - 2.5 (calc) [facility] nic[facility] Yousif Bilirubin, total 0.7 0.2 - 1.2 mg/dL [facility] nicola Yousif Alk phos 54 37 - 153 U/L [facility] nicola Yousif AST 19 10 - 35 U/L [facility] nicola Yousif ALT (SGPT) 20 6 - 29 U/L [facility] Blood 09/09/2024 9:16 AM CDT 09/09/2024 9:16 AM CDT Narrative [facility] - 09/09/2024 10:57 PM CDT FASTING:YES FASTING: YES us Eliseo Bates MD LAB BLOOD ORDERABLES Final Re sult [facility] [address] [place] [address] * Hepatitis C antibody Blood (11/26/2023 12:29 PM CDT) Hep C Ab NON-REACTI VE NON-REACT BALWINDER [facility] Comment: HCV antibody was non-reactive. There is no laboratory evidence of HCV infection. In most cases, no further action is required. However, if recent HCV exposure is suspected, a test for HCV RNA (test code 52045) is suggested. For additional information please refer to http://education.ProcessUnity/faq/ZHV60a7 (This link is being provided for informational/ educational purposes only.) Blood 11/26/2023 12:2 9 PM CDT 11/26/2023 12:30 PM CDT us Philip Kee MD LAB MICROBIOLOGY - GENERAL ORDERABLES Final Result [facility] [address] [address] * Dexa Axial Skeleton Bone Density With VFA (06/18/2018 9:20 AM BURNING PLANT OPERATOR) Anatomical Region Laterality Modality Body N/A Radiographic Moraima ging Narrative 06/18/2018 10:54 AM BURNING PLANT OPERATOR Patient Name: Kate Obrien Date of : 1960 Date of scan: 06/18/2018 Bone mineral density was performed on a HoloTransfer To Discovery Densitometer. Machine Cross-calibration and Precision studies [...] by the International Society of Clinical Densitometry. [id number] Vangie Be MD IMG DXA PROCEDURES Final Resu lt from Last 3 Months or Most Recently Relevant to Health Maintenance Insurance [facility] MEDICARE ADVANTAGE UHC MEDICARE ADVANTAGE [address] [place] [id number] [facility] MEDIC[facility] ADV[facility]AGE Advance Directives For more information, please contact: [phone] * Full Code (Latest Code Status on File) Date Activated Date Inactivated Comments 02/14/2020 5:06 AM 02/15/2020 10:15 PM Care Teams Laboratory Manager Relationship Specialty Start Date End Date Zafar Sorenson DO [address] [place] [address] PCP - General Family Medicine 03/09/22 Yinka Lewis MD [address] [place] [address] Consulting Physician Cardiovascular Disease 08/30/20
--- OUTSIDE RECORDS SUMMARY | 2024-12-02 05:05 | XMS_ITS | Continuity of Care Document ---
Author Organization [facility] Address [address] [place] [address] Phone Care Team Providers Care Head Of Strategy Name Role Phone Elio Canela Unavailable Unavailable [...] Copied on Encounter Office/outpat ient Visit, Est [facility], [address] [place] [address] [address], [place], [place], [id number], tel:[phone] [facility] [place] No Information 9-201 0 [address]. [address] [facility] , [address], [place], [address], [place]. tel:[phone] [facility], [address] [place] [address] [address], [place], [place], [id number], [place] tel:[phone] SEC [facility] Corporate Center No Information 4-201 0 [address]. [address] , [address], [place], [address], [place]. tel:[phone] Referring Provider: Elio Gil, [address], [place], [place], [facility]. tel:[phone] [facility] Eye [facility], [address] [place] [address] [address], [place], [place], [id number], tel:[phone] [facility] [place] No Information 1 [address]. [address] [facility] [address], [address], [place], [place], [facility], . tel:[phone] Office/outpat ient Visit, [facility] Eye [facility], [address] [place] [address] [address], [place], [place], [id number], tel:[phone] [facility] No Information 1 [address] [place]. [facility] [address], [place], [facility], . tel:[phone] Referring Provider: Jair Dobbins [facility] [address], [place], [facility]. tel:[phone] [facility], [address] [place] [address] [address], [place], [place], [id number], tel:[phone] [facility] [place] No Information 0 [address]. Jair [facility] [address], [place], [facility], . tel:[phone] Referring Provider: Jair Dobbins Corporate [address], [place], [facility]. tel:[phone] Office/outpat ient Visit, [facility] Eye [facility], [address] [place] [address] [address], [place], [place], [id number], tel:[phone] [facility] No Information 0 [address]. Jair [facility] [address], [place], [address], [place]. tel:[phone] [facility] Eye [facility], [address], [place], [place], [address], [place] tel:[phone] SEC [facility] No Information Mar-0 5-200 7 Tarunkiersten Elio. [address], [address], [place], [address], [place]. tel:[phone] Family History Family Member Type Diagnosis Age At Onset No Information Payers Payer name Insurance type Covered libertarian ID Authoriza tion(s) No Information Social History [...]
[2024-12-02 05:08] VITALS: BP 116/72; PULSE 74; RESP 16; TEMP 36.4; O2SAT 100
--- OUTSIDE RECORDS SUMMARY | 2024-12-02 05:24 | XMS_ITS | Encounter Summary ---
Author Organization [facility] Address [address] [place] [address] Phone Care Team Providers Care Bellows Tester Name Role Phone Yinka Lewis MD Unavailable Zafar Sorenson DO Primary Care Provider [phone] Encounter Details Date Type Department Care Team (Late st Contact Info) Description 04/25/2023 Orders Only [facility] Ophthalmology [address] [facility] 6th [place] [address] María Araiza MD [address] [place] [address] Age-related cataract of left eye (Primary Dx) [...] on file 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
--- OUTSIDE RECORDS SUMMARY | 2024-12-02 05:24 | XMS_ITS | Clinical Summary ---
Author Organization [facility] Address [address] [place] [address] Care Team Providers Care Tractor Trailer Moving Van Driver Name Role Phone Keith Carreno MD Primary Care Provider Allergies No known [...] series) 2033 Medical Devices Implanted Type Area Vice President Network Development Device Identifier Shelf Expiration Date Model / Serial / Lot Renny Olson Df4 Hi Enrg W Pro [id number] - Ol 020 Implanted:Qt y: 1 on 03/04/2020 by Freddy Garcia MD Defibrillator Left: Chest [employer] [id number] 09/17/2021 [id number] / [id number] / Lead Icd Plexa Promri S 65 [id number] - Oloa 020 Implanted:Qt y: 1 on 03/04/2020 by Freddy Garcia MD Lead [employer] [id number] 07/18/2021 [id number] / [id number] / Lead Pacemaker Solia S 53 [id number] Implanted:Qt y: 1 on 03/04/2020 by Freddy Garcia MD Lead [employer] [id number] 11/17/2021 [id number] / [id number] / Insurance BLUE PREFERRED Advance Directives For more information, please contact: [phone] * Full Code (Latest Code Status on File) Date Activated Date Inactivated Comments 03/04/2020 5:44 PM 03/05/2020 2:52 PM * Full Code Date Activated Date Inactivated Comments 03/04/2020 12:51 PM 03/04/2020 5:44 PM Care Teams Tractor Trailer Moving Van Driver Relationship Specialty Start Date End Date Bonzelet, Keith, MD [address] [place] [address] PCP - General Internal Medicine 02/16/20
--- OUTSIDE RECORDS SUMMARY | 2024-12-02 05:24 | XMS_ITS | Continuity of Care Document ---
Author Organization [facility] Address [address] [place] [address] Phone Care Team Providers Care Ux Information Architect Name Role Phone Elio Canela Unavailable Unavailable [...] Copied on Encounter Office/outpat ient Visit, [facility], [address] [place] [address] [address], [place], [place], [id number], tel:[phone] [facility] [place] No Information [phone] 0 Hilton Ballard. [address] , [address], [place], [address], [place]. tel:[phone] [facility], [address] [place] [address] [address], [place], [place], [address], [place] tel:[phone] [facility] No Information 4-201 0 Hilton Ballard. [address] , [address], [place], [address], [place]. tel:[phone] Referring Provider: Elio Gil, [address], [place], [place], [facility]. tel:[phone] [facility], [address] [place] [address] [address], [place], [place], [address], tel:[phone] [facility] [place] No Information 1 3200 9 Hilton Ballard. [address], [address], [place], [place], [facility], . tel:[phone] Office/outpat ient Visit, [facility], [address] [place] [address] [address], [place], [place], [address], tel:[phone] [facility] No Information 1 1200 9 Hilton Ballard. [facility] [address], [place], [facility], . tel:[phone] Referring Provider: Jair Dobbins [address], [place], [facility]. tel:[phone] [facility], [address] [place] [address] [address], [place], [place], [id number], tel:[phone] [facility] [place] No Information 0 [phone] 8 Hilton Ballard. [address], [place], [facility], . tel:[phone] Referring Provider: Jair Dobbins [address], [place], [facility]. tel:[phone] Office/outpat ient Visit, [facility], [address] [place] [address] [address], [place], [place], [address], tel:[phone] [facility] No Information 0 [phone] 8 Hilton Ballard. [address], [place], [address], [place]. tel:[phone] [facility], [address], [place], [place], [address], [place] tel:[phone] SEC [facility] No Information Mar-0 5-200 7 Tarunkiersten Elio. [address], [address], [place], [address], [place]. tel:[phone] Family History Family Member Type Diagnosis Age [...]
--- OUTSIDE RECORDS SUMMARY | 2024-12-02 05:25 | XMS_ITS | Referral Summary ---
Author Organization [facility] Address [address] [place] [address] Care Team Providers Care Palliative Nurse Name Role Phone Yinka Lewis MD Unavailable Zafar Sorenson DO Primary Care Provider Encounters Date Type Department Care Team Description 10/06/2024 Telephone [facility] [address] [place] [address] Sophie Henry, ASHUTOSH 09/25/2024 Telephone [facility] [address] [place] [address] Sophie Henry, OD Reschedule Appointment 09/23/2024 9:00 AM CDT Office Visit [facility] Rhe[facility] [address] [facility] Medicine 5th [place] [address] [place] [address] Yonis Mclaughlin MD PhD Rheumatoid arthritis, involving unspecified site, unspecified whether rheumatoid factor present (HCC) (Primary Dx); emt intermediate systemic steroid user; M[facility] methotrexate user 09/04/2024 Telephone [facility] [address] [facility] 5th [place] [address] [place] [address] Shannon Rosado RMA from Last [...] Active Problems Problem Noted Date Diagnosed Date MCC systemic steroid user 09/23/2024 [facility] methotrexate user 09/23/2024 Pseudophakia of both eyes [...] 2021 Assessment & Plan (04/25/2022 11:23 AM TEACHER INDUSTRIAL ARTS): Ok to use tdex prn to the [...] (06/11/2019): Added automatically from request for surgery [id number] PAD (peripheral artery disease) 10/02/2018 Dry eye syndrome of both eyes 06/20/2018 Assessment & Plan (06/12/2024 5:32 PM TEACHER INDUSTRIAL ARTS): Continue with PF AFT TID and PRN Assessment & Plan (09/06/2023 10:46 AM CDT): Pfats TID+ OU Assessment & Plan (04/25/2022 11:23 AM TEACHER INDUSTRIAL ARTS): Cont emycin rona at bedtime (qhs) Assessment [...] (OU) Assessment & Plan (06/20/2024 4:16 PM TEACHER INDUSTRIAL ARTS): Visual field (VF), OCT normal/reassuring, pt ed. 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: CABG x2 [...] disorders, non-rheumatic 013 Overview (08/25/2016): NONRHEUM TRICUSP ARDHA DIS Chronic ischemic heart disease 09/23/2012 Overview [...] on file Legal Sex Female 9:01 PM TEACHER INDUSTRIAL ARTS Gender Identity Not on file Sexual Orientation [...] on file Medical Devices Implanted Type Area Contact Centre Supervisor Device Identifier Shelf Expiration Date Model / Serial / Lot Icd ICD Chest Wall Description:Implanted 2014 p er pt Cca0t0 21.5 Vlareon Iol Ashperic Uv Absorbing Iol Implanted:Qty : 1 on 05/07/2023 by María Araiza MD at [facility] [place] Lens Left: Eye [employer] 07/02/2026 CCA0T0 / [id number] / Other - See Comments-02/18 Implanted:03/2015 (Quantity not on file) Other - see comments Left: Chest Wall Biotronik Screw Screw Left: Foot Description:Screw in great l eft toe Clareon Uv Iol Cca0t0 21.0 Implanted:Qty : 1 on 04/16/2023 by María Araiza MD at [facility] [place] Right: Eye [employer] 11/20/2026 CCA0T0.21 0 / [id number] / Procedures Procedure Name Priority Date/Time [...] Read Routine (OP Routine) 06/18/2018 9:20 AM TEACHER INDUSTRIAL ARTS High risk medication use from Last 3 Months or Most Recently Relevant to Health Maintenance Results * (ABNORMAL) CBC with auto differential (09/09/2024 9:16 AM CDT) Pathologist [facility] WBC 5.2 3.8 - 10.8 Thousand/u L [...] ORDERABLES Final Re sult Performing Organization Address [facility] Co de Phone Number [facility] [employer] [facility] [address] [place] [address] * Erythrocyte sedimentation rate (09/09/2024 9:16 AM CDT) Pathologist [facility] Erythrocyte sedimentation rate 2 < OR = 30 mm/h Subha Buysight-Sukhi Yousif Blood 09/09/2024 9:16 AM CDT 09/09/2024 9:16 AM CDT Narrative [facility]ST - 09/09/2024 10:57 PM CDT FASTING:YES FASTING: YES Eliseo Bates MD LAB BLOOD ORDERABLES Final Re sult Performing Organization Address [facility] Co de Phone Number [facility] [address] [place] [address] * CRP (acute phase) (09/09/2024 9:16 AM CDT) C-RP <5.0 <8.0 mg/L Med[facility] Tiffany-Francisco Blood 09/09/2024 9:16 AM CDT 09/09/2024 9:16 AM CDT Narrative [facility] - 09/09/2024 10:57 PM CDT FASTING:YES FASTING: YES us Eliseo Bates MD LAB BLOOD ORDERABLES Final Re sult SUBHA AllenSt Yousif [address] [place] [address] * Comprehensive metabolic panel (09/09/2024 9:16 AM CDT) [facility] Glucose 86 65 - 99 mg/dL Subha Buysight-Sukhi Yousif Comment: Fasting reference interval BUN 17 7 - 25 mg/dL Subha Buysight-Sukhi petersen Benja Creatinine 0.90 0.50 - 1.05 mg/dL Subha Buysight-S nicola Yousif eGFR 71 > OR = 60 mL/min/1.7 3m2 Subha Buysight-Sukhi Yousif BUN/creat ratio SEE NOTE: (calc) Subha Buysight-Sukhi Yousif Comment: Not Reported: BUN and Creatinine are within reference range. Sodium 138 135 - 146 mmol/L Subha Buysight-Sukhi Yousif Potassium, pl 4.1 3.5 - 5.3 mmol/L [facility] nicola Yousif Chloride 101 98 - 110 mmol/L [facility] nicola Yousif CO2 29 20 - 32 mmol/L [facility] nicola Yousif Calcium 9.6 8.6 - 10.4 mg/dL [facility] nicola Yousif Protein, sr 6.4 6.1 - 8.1 g/dL [facility] nicola Benja Albumin 4.1 3.6 - 5.1 g/dL [facility]S nicola Benja GLOBULIN 2.3 1.9 - 3.7 g/dL (calc) [facility] nicola Yousif Alb/glob ratio 1.8 1.0 - 2.5 (calc) [facility] nicola Yousif Bilirubin, total 0.7 0.2 - 1.2 mg/dL [facility]S nicola Yousif Alk phos 54 37 - 153 U/L [facility] nicola Benja AST 19 10 - 35 U/L [facility] nicola Benja ALT (SGPT) 20 6 - 29 U/L [employer] [place]-S nicola Benja Blood 09/09/2024 9:16 AM CDT 09/09/2024 9:16 AM CDT Narrative [facility] - 09/09/2024 10:57 PM CDT FASTING:YES FASTING: YES us Eliseo Bates MD LAB BLOOD ORDERABLES Final Re sult Performing Organization Address City/[facility]/ZIP Co de Phone Number [facility] [address] [place] [address] * Hepatitis C antibody Blood (11/26/2023 12:29 PM CDT) Hep C Ab NON-REACTI VE NON-REACT BALWINDER [facility] Comment: HCV antibody was non-reactive. There is no laboratory evidence of HCV infection. In most cases, no further action is required. However, if recent HCV exposure is suspected, a test for HCV RNA (test code 03085) is suggested. For additional information please refer to http://education.Multi-AMP [employer] Sdn/faq/HLJ19t8 (This link is being provided for informational/ educational purposes only.) Blood 11/26/2023 12:2 9 PM CDT 11/26/2023 12:30 PM CDT Philip Kee MD LAB MICROBIOLOGY - GENERAL ORDERABLES Final Result Performing Organization Address City/[facility]/ZIP Co de Phone Number [facility] [address] [place] [address] * Dexa Axial Skeleton Bone Density With VFA (06/18/2018 9:20 AM TEACHER INDUSTRIAL ARTS) Anatomical Region Laterality Modality Body N/A Radiographic Moraima ging Narrative 06/18/2018 10:54 AM TEACHER INDUSTRIAL ARTS Patient Name: Kate Obrien Date of : 1960 Date of scan: 06/18/2018 Bone mineral density was performed on a Holo[employer]visor Client Match Discovery Densitometer. Machine Cross-calibration and Precision studies [...] BMD of young normal adults. References: 1) Jomra, Annals of Internal Medicine 114(11): 919-923 (1990) [...] by the International Society of Clinical Densitometry. [id number] Vangie Be MD IMG DXA PROCEDURES Final Resu lt from Last 3 Months or Most Recently Relevant to Health Maintenance Insurance [facility] MEDICARE ADVANTAGE [facility] MED[facility] Address: [address] [address] [place] [address] MEDICARE ADVANTAGE [facility] Address: [address] [address] [place] [address] MEDICARE ADVANTAGE [facility] Address: [address] [address] [place] [address] [place] [address] Advance Directives For more information, please contact: [phone] * Full Code (Latest Code Status on File) Date Activated Date Inactivated Comments 02/14/2020 5:06 AM 02/15/2020 10:15 PM Care Teams Palliative Nurse Relationship Specialty Start Date End Date Zafar Sorenson DO [address] [place] [address] PCP - General Family Medicine 03/09/22 Yinka Lewis MD [address] [place] [address] Consulting Physician Cardiovascular Disease 08/30/20
--- OUTSIDE RECORDS SUMMARY | 2024-12-02 05:25 | XMS_ITS | Clinical Summary ---
Author Organization [facility] Address [address] [place] [address] Care Team Providers Care Diagnostic Cardiac Sonographer Name Role Phone Keith Carreon MD Primary Care Provider [phone] Source Comments [facility],non-owned Affiliates and Associated Physician Practices is amultiple site organization consisting of ambulatory clinics and hospital sitesin [place], [place], [place] and [place]. This disclosure is being madepursuant to the Care Everywhere program and may not contain all information available regarding this patient. Last updated 18.[facility] Allergies No known active allergies Medications * [...] this topic Insurance [address] [place] [address] [facility] UHC MANAGED MEDICARE ADV SELF PAY NO INSURANCE Member Subscriber Plan / Payer (Ef fective for All Dates) Name:Lola Obrien Member ID:Not on file Relation to Subscriber:Not on file Name:LOLA OBRIEN Subscriber ID:Not on file (Home) Address: [address] [place] [address] [address] [place] [address] Payer ID:Not on file Group ID:Not on file Type:Self Pay Address: [place], [place] Advance Directives * Full Code (Latest Code Status on File) Date Activated Date Inactivated Comments 01/31/2020 12:07 AM 02/02/2020 5:05 PM Care Teams Diagnostic Cardiac Sonographer Relationship Specialty Start Date End Date Keith Carreon MD [address] [place] [address] PCP - General Internal Medicine 01/30/20
--- OUTSIDE RECORDS SUMMARY | 2024-12-02 05:25 | XMS_ITS | Clinical Summary ---
Author Organization [facility] Address [address] [place] [address] Care Team Providers Care Dynamiter Name Role Phone Yinka Lewis MD Unavailable Zafar Sorenson DO Primary Care Provider [phone] Allergies Active Allergy Reactions Criticality Noted Date [...] Diagnosed Date FPC systemic steroid user 09/23/2024 intermodal customer service methotrexate user 09/23/2024 Pseudophakia of both eyes [...] 2021 Assessment & Plan (04/25/2022 11:23 AM SURVEYOR GEODETIC): Ok to use tdex prn to the [...] (06/11/2019): Added automatically from request for surgery [id number] PAD (peripheral artery disease) 10/02/2018 Dry eye syndrome of both eyes 06/20/2018 Assessment & Plan (06/12/2024 5:32 PM SURVEYOR GEODETIC): Continue with PF AFT TID and PRN Assessment & Plan (09/06/2023 10:46 AM CDT): Pfats TID+ OU Assessment & Plan (04/25/2022 11:23 AM SURVEYOR GEODETIC): Cont emycin rona at bedtime (qhs) Assessment [...] (OU) Assessment & Plan (06/20/2024 4:16 PM SURVEYOR GEODETIC): Visual field (VF), OCT normal/reassuring, pt ed. 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: CABG x2 [...] Type Department Care Team Description 10/06/2024 Telephone [facility] [address] [place] [address] Sophie Henry, ASHUTOSH 09/25/2024 Telephone [facility] [address] [place] [address] Sophie Henry, OD Reschedule Appointment 09/23/2024 9:00 AM CDT Office Visit [facility] Rheumatology [address] [place] [address] Medicine 5th [place] [address] [place] [address] Yonis Mclaughlin MD PhD Rheumatoid arthritis, involving unspecified site, unspecified whether rheumatoid factor present (HCC) (Primary Dx); 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 service systemic steroid user; intermodal customer service methotrexate user 09/04/2024 Telephone [facility] 5th [place] [address] [place] [address] Shannon Rosado RMA from Last 3 Months Immunizations Immunization Administration Dates Next Due PPD TEST 06/13/2010 Pfizer SARS-CoV-2 Monovalent Vaccination (12+ Yrs) PURPLE 01/14/2021 Pneumococcal Polysaccharide PPV23 04/06/2020 Surgical History Surgery Date Site/Laterality Comments CORONARY ARTERY BYPASS GRAFT 09/30/2014 Chronically occluded LAD, silent [place], large apical aneurysm, Two vessel -- SVG [...] of DVT (deep vein thrombosis) History of IN (myocardial infarction) 2014 HTN (hypertension) 2009 History [...] Carotid Disease , PVD; Other Maternal Grandmother IN, Janell g cancer; Cause of : IN, Lung cancer Arthritis Mother Hypertension Mother Other [...] on file Legal Sex Female 9:01 PM SURVEYOR GEODETIC Gender Identity Not on file Sexual Orientation [...] 11/26/2023, 018 Medical Devices Implanted Type Area Vehicle Check In Clerk Device Identifier Shelf Expiration Date Model / Serial / Lot Icd ICD Chest Wall Description:Implanted 2014 p er pt Cca0t0 21.5 Vlareon Iol Ashperic Uv Absorbing Iol Implanted:Qty : 1 on 05/07/2023 by María Araiza MD at [facility] Lens Left: Eye [employer] 07/02/2026 CCA0T0 / [id number] / Other - See Comments-02/18 Implanted:03/2015 (Quantity not on file) Other - see comments Left: Chest Wall Biotronik Screw Screw Left: Foot Description:Screw in great l eft toe Clareon Uv Iol Cca0t0 21.0 Implanted:Qty : 1 on 04/16/2023 by María Araiza MD at [facility] [place] Right: Eye [employer] 11/20/2026 CCA0T0.21 0 / [id number] / Procedures Procedure Name Priority Date/Time [...] Read Routine (OP Routine) 06/18/2018 9:20 AM SURVEYOR GEODETIC High risk medication use from Last 3 Months or Most Recently Relevant to Health Maintenance Results * (ABNORMAL) CBC with auto differential (09/09/2024 9:16 AM CDT) [facility] WBC 5.2 3.8 - 10.8 Thousand/u [...] MD LAB BLOOD ORDERABLES Final Re sult [facility] [address] [place] [address] * Erythrocyte sedimentation rate (09/09/2024 9:16 AM CDT) Pathologist [facility] Erythrocyte sedimentation rate 2 < OR = 30 mm/h [email or web address] nicola Yousif Blood 09/09/2024 9:16 AM CDT 09/09/2024 9:16 AM CDT Narrative [facility] - 09/09/2024 10:57 PM CDT FASTING:YES FASTING: YES Eliseo Bates MD LAB BLOOD ORDERABLES Final Re sult Performing Organization Address [facility] de Phone Number [facility] [address] [place] [address] * CRP (acute phase) (09/09/2024 9:16 AM CDT) [facility] C-RP <5.0 <8.0 mg/L [email or web address] Blood 09/09/2024 9:16 AM CDT 09/09/2024 9:16 AM CDT Narrative [facility] - 09/09/2024 10:57 PM CDT FASTING:YES FASTING: YES us Eliseo Bates MD LAB BLOOD ORDERABLES Final Re sult Performing Organization Address [facility] de Phone Number [facility] [address] [place] [address] * Comprehensive metabolic panel (09/09/2024 9:16 AM CDT) [facility] Glucose 86 65 - 99 mg/dL [facility] nicola Yousif Comment: Fasting reference interval BUN 17 7 - 25 mg/dL [email or web address] nicola Yousif Creatinine 0.90 0.50 - 1.05 mg/dL [employer]-S nicola Yousif eGFR 71 > OR = 60 mL/min/1.7 3m2 [employer]-S nicola Yousif BUN/creat ratio SEE NOTE: (calc) [facility]-[facility] nicola Yousif Comment: Not Reported: BUN and Creatinine are within reference range. Sodium 138 135 - 146 mmol/L [employer]-S nicola Yousif Potassium, pl 4.1 3.5 - 5.3 mmol/L [facility]ousif Chloride 101 98 - 110 mmol/L [facility] Yous[facility] CO2 29 20 - 32 mmol/L [facility] Yousif Calcium 9.6 8.6 - 10.4 mg/dL [facility] Yousif Protein, sr 6.4 6.1 - 8.1 g/dL [facility] Albumin 4.1 3.6 - 5.1 g/dL [facility] nicola Yousif GLOBULIN 2.3 1.9 - 3.7 g/dL (calc) [facility]ousif Alb/glob ratio 1.8 1.0 - 2.5 (calc) [facility] nicola Yousif Bilirubin, total 0.7 0.2 - 1.2 mg/dL [employer]-S nicola Yousif Alk phos 54 37 - 153 U/L [employer]-S nicola Yousif AST 19 10 - 35 U/L [employer]-S nicola Yousif ALT (SGPT) 20 6 - 29 U/L [facility]ukhi Yousif Blood 09/09/2024 9:16 AM CDT 09/09/2024 9:16 AM CDT Narrative [facility] - 09/09/2024 10:57 PM CDT FASTING:YES FASTING: YES us Eliseo Bates MD LAB BLOOD ORDERABLES Final Re sult [email or web address] [address] [place] [address] * Hepatitis C antibody Blood (11/26/2023 12:29 PM CDT) Hep C Ab NON-REACTI VE NON-REACT BALWINDER [email or web address] Comment: HCV antibody was non-reactive. There is no laboratory evidence of HCV infection. In most cases, no further action is required. However, if recent HCV exposure is suspected, a test for HCV RNA (test code 67221) is suggested. For additional information please refer to http://education.Livemocha/faq/EKD02d2 (This link is being provided for informational/ educational purposes only.) Blood 11/26/2023 12:2 9 PM CDT 11/26/2023 12:30 PM CDT us Philip Kee MD LAB MICROBIOLOGY - GENERAL ORDERABLES Final Result [facility] [address] [address] * Dexa Axial Skeleton Bone Density With VFA (06/18/2018 9:20 AM SURVEYOR GEODETIC) Anatomical Region Laterality Modality Body N/A Radiographic Moraima ging Narrative 06/18/2018 10:54 AM SURVEYOR GEODETIC Patient Name: Kate Obrien Date of : 1960 Date of scan: 06/18/2018 Bone mineral density was performed on a Holo[employer] Discovery Densitometer. Machine Cross-calibration and Precision studies [...] by the International Society of Clinical Densitometry. [id number] Vanige Be MD IMG DXA PROCEDURES Final Resu lt from Last 3 Months or Most Recently Relevant to Health Maintenance Insurance [facility] MEDICARE ADVANTAGE UHC MEDICARE ADVANTAGE [address] [place] [phone] [facility] MEDICARE ADVANTAGE Advance Directives For more information, please contact: [phone] * Full Code (Latest Code Status on File) Date Activated Date Inactivated Comments 02/14/2020 5:06 AM 02/15/2020 10:15 PM Care Teams Dynamiter Relationship Specialty Start Date End Date Zafar Sorenson DO [address] [place] [address] PCP - General Family Medicine 03/09/22 Yinka Lewis MD [address] [place] [address] Consulting Physician Cardiovascular Disease 08/30/20
--- NOTE | 2024-12-02 06:10 | ED_ITS ---
HPI - Extremity Problem General Chief complaint: Extremity Problem,Nontraumatic Stated complaint: pain/swelling in L big toe Time Seen by Provider: 12/02/24 05:16 History of Present Illness HPI Narrative: Patient is a 64-year-old female who presents the emergency department this evening complaining of a big red swollen left toe. States that the symptoms started on 11/20. Patient went to an urgent care and they thought that it was infected and placed her on doxycycline and mupirocin. Patient does not feel so the symptoms have improved. Does not report any history of gout but states that she does have a family history of gout, both her father and brother have gout. Denies any recent trauma or falls. Admits that she does have a history of rheumatoid arthritis and has had surgery on that toe in the past secondary to her arthritis. Denies any additional symptoms or concerns. Related Data Home Medications ?Medication ?Instructions ?Recorded ?Confirmed ?Last Taken ?Type atorvastatin 40 mg tablet 40 mg PO DAILY 09/14/20 10/22/24 08/13/24 History carvedilol 6.25 mg tablet 6.25 mg PO Q12H 09/14/20 10/22/24 08/14/24 History citalopram 20 mg tablet 20 mg PO DAILY 09/14/20 10/22/24 08/14/24 History aspirin 81 mg tablet,delayed 81 mg PO DAILY 09/16/20 10/22/24 08/13/24 History release (Adult Aspirin Regimen) clopidogrel 75 mg tablet 75 mg PO DAILY 09/16/20 10/22/24 08/06/24 History diclofenac sodium 1 % topical gel 4 g topical QID PRN pain 09/16/20 10/22/24 Unknown History isosorbide mononitrate 30 mg 30 mg PO DAILY 09/16/20 10/22/24 08/13/24 History tablet,extended release 24 hr prednisone 5 mg tablet 7.5 mg PO DAILY 09/16/20 10/22/24 08/13/24 History folic acid 1 mg tablet 2 mg PO DAILY 05/26/22 10/22/24 08/13/24 History methotrexate sodium 2.5 mg tablet 12.5 mg PO WEEKLY 05/26/22 10/22/24 08/13/24 History timolol maleate 0.25 % eye drops 1 drp EACH EYE DAILY 0110/22/24 08/13/24 History acetaminophen 500 mg tablet 500 mg PO Q6H 12/14/23 10/15/24 08/13/24 History (Tylenol Extra Strength) losartan 25 mg tablet 25 mg PO DAILY 12/14/23 10/22/24 08/13/24 History multivitamin 1 tablet PO DAILY 12/14/23 10/22/24 Unknown History cholecalciferol (vitamin D3) 25 25 mcg PO DAILY 06/13/24 10/22/24 08/13/24 History mcg (1,000 unit) capsule clobetasol 0.05 % shampoo 1 applic topical DAILY PRN SCALP 07/01/24 10/22/24 Unknown History magnesium 250 mg tablet 250 mg PO DAILY 10/22/24 10/22/24 Unknown History Allergies Allergy/AdvReac Type Severity Reaction Status Date / Time cilostazol Allergy Intermediate Diarrhea Verified 10/22/24 13:12 niacin Allergy Intermediate HOT FLASHES Verified 10/22/24 13:12 niacinamide Allergy Intermediate Unknown Verified 10/22/24 13:12 Sulfa (Sulfonamide Allergy Intermediate Gastrointestinal Verified 10/22/24 13:12 Antibiotics) Upset hydrocodone Allergy Mild Itching Verified 10/22/24 13:12 [id number] Reductase AdvReac Intermediate LEG CRAMPS Verified 10/22/24 13:12 Inhibitor Review of Systems Review of Systems: All systems are reviewed and are negative unless stated otherwise in the HPI. [facility] Past Medical History Medical History Acute nasopharyngitis (common cold) Acute pharyngitis, unspecified (04/25/17) Anxiety disorder, unspecified Cardiomyopathy Herpes zoster without complication Obstructive sleep apnea Old myocardial infarction Rheumatoid arthritis, unspecified Rhinitis, nonallergic Right rotator cuff tendonitis Sleep apnea, unspecified Spondylolysis of lumbosacral region Unspecified glaucoma Upper respiratory infection, acute Warfarin anticoagulation Surgical History Surgical History History of angioplasty of vein right LE History of surgical fusion joint Left Hallux History of arthroplasty of finger of left hand Index finger History of hysterectomy for benign disease History of cardiac defibrillator placement 2020 History of heart bypass surgery x2-2015 Family History Family History Mother Family history of arthritis Family history of heart disease in male family member before age 55 Father Family history of type 2 diabetes mellitus Family history of heart disease in male family member before age 55 Social History Social History Smoking packs per day: 1 Smoking cigarettes per day: 20.0 Years smoked: 40 Smoking pack-years: 40.00 Smoking status: Former smoker Tobacco type: cigarettes Second hand tobacco smoke exposure: Yes Smoking end date: 05/21/12 Alcohol intake: current Drinks per week: 1 Alcohol use details: Occasionally Substance use: never Substance use type: does not use Do You Feel Safe in your Home?: Yes Lack of Transportation: No Lack of Food: Never True Current Housing: I Have Housing Concerned About Future Housing: No Difficulty Paying Gas/Electric Bills: No Difficulty Paying for Meds: No Currently Unemployed: No Education: High School Diploma/GED Difficulty w/ Childcare or Family Care: No Living arrangements: with family Gender identity (if verbalized by the patient): Female Spiritual care concerns: No Exam Narrative: General: Alert, awake, afebrile, in no acute distress. HEENT: PERRL, no rhinorrhea, no post nasal drip, oropharynx clear. Neck: Trachea midline, no JVD, no lymphadenopathy. Cardiovascular: Regular rate and rhythm, no murmurs, rubs or gallops, no peripheral edema. Respiratory: Clear to auscultation bilaterally, no tachypnea, no wheezing, no rhonchi, no rubs, no respiratory distress. Abdomen: Soft, nontender, nondistended, no rebound, no guarding, no peritoneal signs. Musculoskeletal: Patient's left great toe is swollen and red, no evidence of abscess, no overlying laceration or skin break. Skin: No rashes or petechia, no signs of infection. Psychiatric: Alert and oriented, normal behavior and judgment for situation. Neurological: Alert and oriented to person, place, and time. Follows all commands. No focal deficits, speech is clear and fluent. Course Vital Signs Vital signs: Vital Signs Temperature 97.5 F L 12/02/24 05:08 Pulse Rate 74 12/02/24 05:08 Respiratory Rate 16 12/02/24 05:08 Blood Pressure 116/72 12/02/24 05:08 Pulse Oximetry 100 12/02/24 05:08 Oxygen Delivery Room Air 12/02/24 05:08 Temperature 97.5 F L 12/02/24 05:08 Pulse Rate 74 12/02/24 05:08 Respiratory Rate 16 12/02/24 05:08 Blood Pressure 116/72 12/02/24 05:08 Pulse Oximetry 100 12/02/24 05:08 Oxygen Delivery Room Air 12/02/24 05:08 MDM - Extremity (Nontraumatic) MDM Narrative Medical decision making narrative: The patient was evaluated by myself in the emergency department. History is obtained from patient who is an independent historian and physical exam was performed. External medical records were reviewed at this time. Imaging studies obtained included left foot x-ray which was independently interpreted by me revealing: Impression: No definite acute abnormality. Degenerative changes of the first and fourth MTP joints, as above. Prior orthopedic fusion across the interphalangeal joint of the great toe. At this time, patient was informed that she will be treated for gout as I have a strong clinical suspicion that this is gout related. Patient denies any history of renal disease. She was administered 1st dose of colchicine 1.2 mg in the emergency department. Second dose of 0.6 was administered 1 hour later. Differential diagnosis considerations include cellulitis, abscess, gout. Comorbidities impacting this visit include none. I have evaluated and discussed social determinants of health with the patient that could potentially impact subsequent diagnosis and treatment plans. On repeat assessment of the patient, reevaluation revealed that the patient is doing well and is in no acute distress. Patient symptoms have improved since she arrived to our emergency department. Repeat vital signs were all reviewed and noted to be stable. Differential diagnosis and treatment plan were discussed with the patient at bedside. Patient agrees with discussion and after shared medical decision making agrees with discharge. All questions were answered to the patient's satisfaction. Patient will follow up with Podiatry in 3-5 days. Informed to continue taking the doxycycline until she follows up with Podiatry. Patient was provided with strict return precautions and instructed to return to the emergency department if any new or worsening symptoms develop. The patient was discharged in stable condition. Discharge Plan Discharge Clinical Impression: Infection of toe Patient Disposition: Home Condition: Stable Instructions: Antibiotic Form, Cellulitis (ED) Additional Instructions: Please follow-up with the supervisor lens generating she was provided with today regarding your right toe infection within the next 1-2 days. Return to emergency department if any new or worsening symptoms develop. Patient Language: Malagasy Prescriptions: No Action atorvastatin 40 mg tablet 40 mg PO DAILY carvedilol 6.25 mg tablet 6.25 mg PO Q12H Rx Instructions: must administer with a meal/food citalopram 20 mg tablet 20 mg PO DAILY aspirin [Adult Aspirin Regimen] 81 mg tablet,delayed release (DR/EC) 81 mg PO DAILY clopidogrel 75 mg tablet 75 mg PO DAILY diclofenac sodium 1 % gel 4 g topical QID PRN (Reason: pain) Rx Instructions: apply to single knee, ankle, foot; for foot includes sole/toes/top of foot isosorbide mononitrate 30 mg tablet extended release 24 hr 30 mg PO DAILY prednisone 5 mg tablet 7.5 mg PO DAILY folic acid 1 mg tablet 2 mg PO DAILY methotrexate sodium 2.5 mg tablet 12.5 mg PO WEEKLY timolol maleate 0.25 % drops 1 drp EACH EYE DAILY losartan 25 mg tablet 25 mg PO DAILY multivitamin Tablet 1 tablet PO DAILY acetaminophen [Tylenol Extra Strength] 500 mg tablet 500 mg PO Q6H Rx Instructions: Pt.takes 4500mg daily of tylenol. cholecalciferol (vitamin D3) 25 mcg (1,000 unit) capsule 25 mcg PO DAILY magnesium 250 mg tablet 250 mg PO DAILY Rx Instructions: stated 500 mg clobetasol 0.05 % shampoo 1 applic topical DAILY PRN (Reason: SCALP) levothyroxine [Synthroid] 25 mcg tablet 25 mcg PO DAILY Qty: 90 0RF trazodone 50 mg tablet See Rx Instructions .ROUTE .COMPLEX Qty: 90 0RF Dose Instruction: TAKE 1 TABLET BY MOUTH EVERY DAY AT BEDTIME NEEDED FOR SLEEP Rx Instructions: TAKE 1 TABLET BY MOUTH EVERY DAY AT BEDTIME NEEDED FOR SLEEP Follow-up/Referrals: Jesse Rascon Jr., DPM [Physician] - 2 Days Elena Traylor DO [Primary Care Provider] - Time of Disposition: 06:13
[2024-12-02] MEDS: COLCHICINE 0.6 MG TABLET 1.2 MG PO (06:44)
[2024-12-02] MEDS: COLCHICINE 0.6 MG TABLET PO (06:45)
[2024-12-02 06:49] VITALS: BP 121/81; PULSE 61; RESP 18; TEMP 37.1; O2SAT 99
== END 2024-12-02 06:50 | disposition home or self-care (01) ==
PROVIDERS: Emergency Provider Emergency Medicine; PCP Family Medicine
DX: L08.9 Local infection of the skin and subcutaneous tissue, unspecified (principal); F41.9 Anxiety disorder, unspecified; G47.30 Sleep apnea, unspecified; I25.2 Old myocardial infarction; M06.9 Rheumatoid arthritis, unspecified; Z79.01 Long term (current) use of anticoagulants
CPT/HCPCS: 73630; 99283; A9270

== ENCOUNTER 2024-12-24 09:51 | Outpatient (RCR) | payer MEDICARE, SELFPAY ==
[2024-12-24 10:33] VITALS: BMI 23.6
--- NOTE | 2024-12-24 11:54 | PCWOUND ---
[facility] NOTE Dr. Rascon called office to inform that patient has a raging infection to the left 1st toe and as Dion does not have Infectious Disease or Vascular Surgery, he referred her back to [facility] where her Vascular surgeon is located for further care. No planned follow up with patient at this time.
== END 2025-03-09 08:19 | disposition home or self-care (01) ==
LOC: ANHWOC 09:51
PROVIDERS: PCP Family Medicine; Visit Provider Family Medicine
DX: L08.9 Local infection of the skin and subcutaneous tissue, unspecified (principal)
CPT/HCPCS: 99213; G0463

== ENCOUNTER 2025-01-06 13:43 | Outpatient (CLI) | payer MEDICARE, SELFPAY ==
--- NOTE | ~2025-01-06 | US_ITS ---
EXAMINATION: US soft tissue LE RT, US soft tissue UE RT DATE: 01/06/2025 13:58 INDICATION: A couple lumps at the right upper arm and right calf. TECHNIQUE: Multiple grayscale and Doppler ultrasound images of the 2 regions of concern at the posterior right upper arm and at the posterior distal right calf were obtained. COMPARISON: None FINDINGS: There is a 9 x 8 x 7 mm hypoechoic region with irregular margins in the subcutaneous fat at the region of concern at the posterior right upper arm. This underlies a region of hypoechoic skin thickening and demonstrates surrounding hyperemia on color Doppler consistent with cellulitis suggesting a small region of phlegmonous change without organized abscess. There is a 1.2 x 1.4 x 0.3 cm hypoechoic lesion in the superficial subdermal fat at the right calf also with surrounding hyperemia on color Doppler in the surrounding fat. No discrete fluid collections identified. IMPRESSION: 1. Couple small hypoechoic lesions with irregular margins at the region of concern at the posterior right upper arm and posterior distal right calf with some surrounding hyperemia and skin thickening. Constellation of findings would be most consistent with cellulitis with small region of phlegmonous change but without discrete abscess. With the exception of lipoma, neoplasms in the subcutaneous tissues are rare and unlikely to account for the surrounding inflammatory changes. Reviewed, dictated and finalized at location A. IMPRESSION: 1. Couple small hypoechoic lesions with irregular margins at the region of conc fredi at the posterior right upper arm and posterior distal right calf with some surrounding hyperemia and skin thickening. Constellation of findings would be m ost consistent with cellulitis with small region of phlegmonous change but with out discrete abscess. With the exception of lipoma, neoplasms in the subcutaneo us tissues are rare and unlikely to account for the surrounding inflammatory ch anges.
== END 2025-01-06 13:44 | disposition home or self-care (01) ==
LOC: GOSHIMG 13:44
PROVIDERS: PCP Family Medicine; Visit Provider Family Medicine
DX: R68.89 Other general symptoms and signs (principal); R22.41 Localized swelling, mass and lump, right lower limb
CPT/HCPCS: 76882

== ENCOUNTER 2025-04-29 13:11 | Outpatient (CLI) | payer MEDICARE, SELFPAY ==
--- NOTE | ~2025-04-29 | CT_ITS ---
EXAMINATION: CT abdomen pelvis wo con DATE: 04/29/2025 13:25 INDICATION: Benign neoplasm of unspecified adrenal gland TECHNIQUE: Computed tomography (CT) of the abdomen and pelvis was performed without intravenous contrast. Automated exposure control and iterative reconstruction technique were employed. The dose-length product was 457.92 mGy-cm. COMPARISON: CT dated 10/14/2024 FINDINGS: Mild emphysema in the visualized lower lungs. Unchanged linear discoid atelectasis/scarring at the basilar left lower lobe. Heart size is normal. 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 Dual-lead cardiac pacemaker/AICD leads in the right atrium and right ventricle. No pericardial or pleural effusion. Couple low-attenuation hepatic cysts the largest measuring 1.3 cm. Gallbladder, spleen, pancreas, bilateral adrenal glands and kidneys are normal. Bowels including the appendix are normal. Bladder is normal. The uterus is not identified and has likely been surgically resected. No free intraperitoneal gas or fluid. There is calcified atherosclerosis of the aorta and many of the other arteries. Severe lumbosacral and moderate lumbar spondylosis. IMPRESSION: 1. Normal bilateral adrenal glands. No acute intra-abdominal/pelvic process. Reviewed, dictated and finalized at location A. [employer]
== END 2025-04-29 13:12 | disposition home or self-care (01) ==
LOC: MICIMG 13:12
PROVIDERS: PCP Family Medicine; Visit Provider Family Medicine
DX: D35.00 Benign neoplasm of unspecified adrenal gland (principal)
CPT/HCPCS: 74176